=== PATIENT | female | born 1950 | race Caucasian/White ===

== ENCOUNTER → 2016-11-10 | Outpatient (CLI) | payer OTHER ==
[~2016-11-10] MED LIST: DICL75TA PO
[2016-11-10 09:17] LABS: BASO % 0 % (0-3); EOS % 2 % (0-3); HEMOGLOBIN 12.8 g/dL (12.0-15.5); LYMPH # 1.4 x10^3/uL (1.0-4.8); LYMPH % 19 % (24-48); MEAN CORPUSCULAR HEMOGLOBIN 31 pg (25-35); MEAN CORPUSCULAR HGB CONC 34 g/dL (31-37); MEAN CORPUSCULAR VOLUME 91 fL (79-100); MONO % 5 % (0-9); NEUT % 74 % (31-73); PLATELET COUNT 229 x10^3/uL (140-400); RED BLOOD COUNT 4.18 x10^6/uL (3.50-5.40); RED CELL DISTRIBUTION WIDTH 14.4 % (11.5-14.5); WHITE BLOOD COUNT 7.8 x10^3/uL (4.0-11.0)
[2016-11-10 09:28] LABS: INR 1.2 (0.8-1.1); PROTHROMBIN TIME PATIENT 14.6 SEC (11.7-14.0)
[2016-11-10 09:38] LABS: BILIRUBIN,URINE NEGATIVE (NEG); GLUCOSE,URINE NEGATIVE (NEG); NITRITE,URINE NEGATIVE (NEG); PROTEIN,URINE NEGATIVE (NEG-TRACE); UROBILINOGEN,URINE 0.2 mg/dL (0.2 mg/dL)
--- NOTE | 2016-11-10 09:46 | EKG ---
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 Electronically Signed On 11-12-2016 11:33:13 CDT by Geovani Laureano
[2016-11-10 09:48] LABS: BACTERIA,URINE FEW /HPF (0-FEW); RBC,URINE 0 /HPF (0-2); SQUAMOUS EPITHELIAL CELL,UR MANY /LPF; WBC,URINE OCC /HPF (0-4)
[2016-11-10 09:58] LABS: ALBUMIN 3.1 g/dL (3.4-5.0); CALCIUM 8.5 mg/dL (8.5-10.1); CREATININE 0.8 mg/dL (0.6-1.0); GFR 72.2; POTASSIUM 4.2 mmol/L (3.5-5.1)
--- NOTE | 2016-11-10 11:24 | RAD ---
EXAM: Chest 2 views. HISTORY: Preoperative risk factors. COMPARISON: 07/29/2012. FINDINGS: Frontal and lateral views of the chest are obtained. Bilateral interstitial infiltrates appear improved since the prior study. There is no pneumothorax or pleural effusion. The heart is not enlarged. There are atherosclerotic calcifications of the aorta. IMPRESSION: 1. Mild bilateral interstitial infiltrates suggest interstitial lung disease. These appear improved since the prior study.
== END | disposition home or self-care (01) ==
LOC: SURGPAT 08:37
PROVIDERS: ATTEND Orthopaedic Surgery
DX: Z01.818 Encounter for other preprocedural examination (principal); J44.9 Chronic obstructive pulmonary disease, unspecified
CPT/HCPCS: 36415; 71020; 80048; 81001; 82040; 85027; 85610; 85651; 85730; 87641; 93005

== ENCOUNTER 2016-11-25 11:35 | Inpatient (IN) | payer OTHER ==
[~2016-11-25] VITALS: Ht 152.4 cm; Wt 136.1 kg
[2016-12-23] MEDS ORDERED: TRAM50TA PO (13:51)
[2016-12-30] VITALS (9 sets, daily range): BP systolic 110–156; BP diastolic 53–91
[2016-12-30] MEDS ORDERED: TRANEXAMIC ACID 1,000 MG in IV NORMAL SALINE 50ML 50 ML INJ ONE ×2 (06:00→08:00)
[2016-12-30] MEDS ORDERED: MORPHINE SULFATE 5 MG, KETOROLAC TROMETHAMINE 30 MG, ROPIVacaine 0.5% PF 60 ML, EPINEPH... INT ART ONE ×5 (06:00)
[2016-12-30] MEDS: CELECOXIB 200 MG CAPSULE. PO SCH ×2 (06:49→09:00)
[2016-12-30] MEDS ORDERED: PROCHLORPERAZINE 10 MG/2 ML VIAL. IV PRN ×2 (07:00→10:30)
[2016-12-30] MEDS ORDERED: HYDROmorphone 2 MG/ML VIAL IV PRN (07:00)
[2016-12-30] MEDS ORDERED: IV RINGERS,LACTATED 1000ML 1,000 ML IV SCH (07:00)
[2016-12-30] MEDS ORDERED: LIDOCAINE 1% 1 ML SYRINGE. ID PRN (07:00)
[2016-12-30] MEDS ORDERED: HYDROcodone/APAP 7.5/325MG 1 TAB TABLET PO ONE (07:00)
[2016-12-30] MEDS ORDERED: ONDANSETRON PF 4 MG/2 ML VIAL. IV PRN (07:00)
[2016-12-30] MEDS ORDERED: fentaNYL PF VIAL 100 MCG/2 ML VIAL IV PRN ×3 (07:00→10:30)
[2016-12-30] MEDS ORDERED: LIDOCAINE 2% PF Vial for OR 5 ML VIAL. ONE (07:13)
[2016-12-30] MEDS ORDERED: DESFLURANE 61 TO 120 MINUTES IH ONE (07:13)
[2016-12-30] MEDS ORDERED: DEXAMETHASONE SOD PHOS 20 MG/5 ML VIAL. ONE (07:13)
[2016-12-30] MEDS ORDERED: PROPOFOL 20 ML IV ONE (07:13)
[2016-12-30] MEDS ORDERED: fentaNYL PF VIAL 250 MCG/5 ML VIAL ONE (07:13)
[2016-12-30] MEDS ORDERED: ONDANSETRON PF 4 MG/2 ML VIAL. ONE (07:13)
[2016-12-30] MEDS ORDERED: MIDAZOLAM HCL/PF 2 MG/2 ML VIAL. ONE (07:21)
[2016-12-30 07:35] LABS: INR 1.4 (0.8-1.1); PROTHROMBIN TIME PATIENT 16.3 SEC (11.7-14.0)
[2016-12-30] MEDS ORDERED: SUCCINYLCHOLINE 200 MG/10 ML VIAL. ONE (07:48)
[2016-12-30] MEDS ORDERED: KETOROLAC 30 MG/ML INJ FOR OR. INJ ONE (08:08)
[2016-12-30] MEDS ORDERED: ESMOLOL 100 MG/10 ML VIAL. IV ONE (08:35)
--- NOTE | 2016-12-30 08:37 | PDOC ---
GENERAL General: see dictated consult. Problems: VITAL SIGNS Vital Signs: Vital Signs Date Time Temp Pulse Resp B/P (MAP) Pulse Ox O2 Delivery O2 Flow Rate FiO2 12/30/16 06:49 22 95 Room Air 12/30/16 06:43 98.6 61 98.6 12/30/16 06:39 133/79 ALLERGIES Allergies: Allergies Coded Allergies Type Severity Reaction Last Updated Verified No Known Drug Allergies 12/30/16 No MEDS Medications: Current Medications Medications (Trade) Dose Ordered Sig/Jayson Start Time Stop Time Status Last Admin Dose Admin Acetaminophen/ Hydrocodone Bitart (Lortab 7.5/325) 2 tab 1X ONCE 12/30/16 07:00 12/30/16 07:01 DC 12/30/16 06:49 2 TAB Cefazolin Sodium/ Dextrose 50 ml @ 100 mls/hr 1X PREOP PRN 12/30/16 06:00 12/30/16 18:00 12/30/16 08:15 100 MLS/HR Celecoxib (CeleBREX) 400 mg BID 12/30/16 07:00 12/30/16 06:49 400 MG Desflurane (Suprane) 60 ml STK-MED ONCE 12/30/16 07:13 12/30/16 07:14 DC Dexamethasone Sodium Phosphate (Decadron) 20 mg STK-MED ONCE 12/30/16 07:13 12/30/16 07:14 DC Esmolol HCl (Brevibloc) 100 mg STK-MED ONCE 12/30/16 08:35 12/30/16 08:36 DC Fentanyl Citrate (Fentanyl 2ml Vial) 50 mcg PRN Q5MIN PRN 12/30/16 07:00 12/31/16 06:59 Fentanyl Citrate (Fentanyl 5ml Vial) 250 mcg STK-MED ONCE 12/30/16 07:13 12/30/16 07:14 DC Hydromorphone HCl (Dilaudid) 0.5 mg PRN Q10MIN PRN 12/30/16 07:00 12/31/16 06:59 Ketorolac Tromethamine (Toradol For Or Only) 30 mg STK-MED ONCE 12/30/16 08:08 12/30/16 08:09 DC Lidocaine HCl (Lidocaine Pf 2% Vial) 5 ml STK-MED ONCE 12/30/16 07:13 12/30/16 07:14 DC Midazolam HCl (Versed) 2 mg STK-MED ONCE 12/30/16 07:21 12/30/16 07:22 DC Morphine Sulfate 1 mg PRN Q10MIN PRN 12/30/16 07:00 12/31/16 06:59 Morphine Sulfate 5 mg/Ketorolac Tromethamine 30 mg/Ropivacaine 60 ml/Epinephrine HCl 0.5 mg/Sodium Chloride 100 ml @ 100 mls/hr 1X PERIOP ONCE 12/30/16 06:00 12/30/16 06:59 DC Ondansetron HCl (Zofran) 4 mg STK-MED ONCE 12/30/16 07:13 12/30/16 07:14 DC Prochlorperazine Edisylate (Compazine) 5 mg PACU PRN PRN 12/30/16 07:00 12/31/16 06:59 Propofol 20 ml @ As Directed STK-MED ONCE 12/30/16 07:13 12/30/16 07:14 DC Ringer's Solution 1,000 ml @ 0 mls/hr Q0M 12/30/16 07:00 12/30/16 18:59 12/30/16 06:50 0 MLS/HR Succinylcholine Chloride (Anectine) 200 mg STK-MED ONCE 12/30/16 07:48 12/30/16 07:49 DC Tranexamic Acid 1000 mg/Sodium Chloride 60 ml @ 60 mls/hr 1X PERIOP ONCE 12/30/16 08:00 12/30/16 08:59 LAB Lab: Laboratory Tests Test 12/30/16 06:30 Prothrombin Time 16.3 SEC (11.7-14.0) Prothromb Time International Ratio 1.4 (0.8-1.1) Activated Partial Thromboplast Time 28 SEC (24-38) RAFAEL CASTRO MD Dec 30, 2016 08:37
[2016-12-30] MEDS ORDERED: ACETAMINOPHEN 325 MG TABLET. PO PRN (10:30)
[2016-12-30] MEDS ORDERED: MORPHINE SULFATE 2 MG/ML DISP.SYRIN. IV PRN (10:30)
[2016-12-30] MEDS ORDERED: MORPHINE SULFATE 10 MG/ML VIAL. IV PRN (10:30)
[2016-12-30] MEDS ORDERED: traMADol 50 MG TABLET PO PRN (10:30)
[2016-12-30] MEDS ORDERED: HYDROcodone/APAP 10/325 1 TAB TABLET PO PRN (10:30)
[2016-12-30] MEDS ORDERED: oxyCODONE/APAP 5/325 1 TAB TABLET PO PRN (10:30)
[2016-12-30] MEDS ORDERED: DEXTROSE 50% 25 GM / 50ML DISP.SYRIN. IV PRN (10:30)
[2016-12-30] MEDS ORDERED: 0.9 % SODIUM CHLORIDE 10 ML DISP.SYRIN. IV PRN (10:30)
[2016-12-30] MEDS ORDERED: diphenhydrAMINE 50 MG/ML VIAL IV PRN (10:30)
[2016-12-30] MEDS ORDERED: MORPHINE SULFATE 4 MG/ML DISP.SYRIN. IV PRN (10:30)
[2016-12-30] MEDS ORDERED: CALCIUM CARBONATE 500 MG TAB.CHEW PO PRN (10:30)
[2016-12-30] MEDS ORDERED: oxyCODONE/APAP 7.5/325 1 TAB TABLET PO PRN (10:30)
--- NOTE | 2016-12-30 10:44 | PDOC4 ---
Operative Note Operative Note Date of surgery: 12/30/2016 Preoperative diagnosis: DJD right knee Postoperative diagnosis: Same Procedure: Right total knee arthroplasty Surgeon: Alo Assist: Kalli Anesthesia: Gen. endotracheal Estimated blood loss: 400 mL Complications: None Specimens: Cartilage surfaces to pathology Findings: Tricompartmental degenerative arthritis right knee Operative indications: Patient is a 66-year-old female with progressively worsening right knee pain affecting her activities of daily living unresponsive to nonoperative management. I gone over with her risks benefits postoperative course of operative treatment including possibility of infection nerve or blood vessel damage continued pain premature wear or loosening medical or other anesthetic complications among others all her questions were answered consent was obtained and she agrees to proceed with operative evaluation and treatment. Operative text: Patient was identified procedure verified patient placed in the supine position on the operating table. After adequate amounts of general endotracheal anesthesia were administered, the right lower extremity was prepped and draped in standard sterile fashion with a thigh tourniquet which was not inflated throughout the procedure. After timeout was performed patient procedure identified and verified, a midline incision was made with a medial parapatellar approach bleeding points were controlled with electrocautery and the aqua Mantis device. Patella was everted fat pad was excised intramedullary drilling was carried out and distal femoral cut was performed in a standard position. Femur was sized at a size 3. AP lateral chamfer cuts were made. Next extramedullary cutting jig was used for the tibia. A size 3 component was pinned in place in preparation for the posterior stabilized femoral component which was then trial placed. Excellent ligament balance was noted previously and with the components. Patella was prepared with the [employer] reaming device and a size 32 patella was medialized with lateral bone removed to avoid any impingement. Patellar tracking was excellent no tilt or instability observed. Tibia was drilled and broached trial components were removed thorough irrigation carried out normal saline solution bleeding points particularly in the area of the posterior capsule and geniculate arteries and incision areas as well as throughout the capsule were coagulated with the aqua Mantis device. The following components were cemented in place with [employer]hew rally high viscosity bone cement consisting of a size 3 right journey tibial baseplate a size 3 right journey 2 Oxinium femoral component. Excess cement was removed and the knee placed in extension with a trial 12 mm spacer. Patella was cemented a size 32 resurfacing round patellar component. When cement was dry trial components were removed thorough irrigation again carried out normal saline solution and a bicruciate stabilized 12 mm right-sided cross-linked polyethylene spacer was locked in place. Excellent range of motion ligament balance full extension normal stability and patellofemoral tracking were observed Hemovac drain and pain catheter were placed. Tissues were infused with the pain catheter mixture. Retinaculum was closed with #2 Ethibond suture in an interrupted fashion and a running strata fix #1 PDS suture for reinforcement. Subcutaneous closure with buried Vicryl suture skin closure with subcuticular Monocryl followed by a gael dressing. Patient was returned recovery room in stable condition having tolerated procedure well. Please note Ana morales assist was present for the prepping draping assisted in retraction and skin closure XENA CALHOUN MD Dec 30, 2016 10:44
--- NOTE | 2016-12-30 10:52 | HP ---
ADMIT DATE: 12/30/2016 CHIEF COMPLAINT: Right knee pain. HISTORY OF PRESENT ILLNESS: The patient has had long-standing right knee pain, worse over the past few years, with worse on startup and worse with increased activities of daily living, severely limiting them. She had previous corticosteroid injections by Dr. Elias that gave her no significant relief and has been very limited recently. PAST MEDICAL HISTORY: Significant for COPD, currently well controlled as well as osteoarthritis. PAST SURGICAL HISTORY: Tonsil and adenoidectomy. FAMILY HISTORY: Mother diagnosed with hypertension and is healthy, alive 88 years old. SOCIAL HISTORY: She is a former smoker, quit several years ago. Denies alcohol or drug use. MEDICATIONS: At home include tramadol. ALLERGIES: She has no known drug allergies. REVIEW OF SYSTEMS: Denies any current chest pain, shortness of breath, radiating pain, numbness, tingling or other constitutional symptoms. PHYSICAL EXAMINATION: VITAL SIGNS: Per admission sheet. HEENT: Atraumatic, normocephalic. HEART: Regular rate and rhythm. LUNGS: Clear to auscultation bilaterally. ABDOMEN: Benign. EXTREMITIES: Examination of the right knee shows a slight flexion contracture compared to full range of motion of the left knee, bilateral hips and ankles, with normal alignment motion and stability. She has an antalgic gait favoring the right side. IMAGING STUDIES: X-ray showed tricompartmental degenerative changes in the right knee. IMPRESSION: Right knee pain and degenerative osteoarthritis. TREATMENT PLAN: I had gone over with her previously in clinic risks, benefits and postoperative course of total knee arthroplasty, possibility of infection, premature wear or loosening, nerve or blood vessel damage, medical or other anesthetic complications among others. All her questions were answered. Consent was obtained and she agrees to proceed with operative evaluation and treatment, which will occur today and [facility] admission to follow. XENA CALHOUN MD DR: TREVIN/ilan JOB#: [id number] / [id number] natalie Elias Dr.
[2016-12-30] MEDS ORDERED: fentaNYL PF VIAL 100 MCG/2 ML VIAL ONE ×2 (10:53→11:20)
[2016-12-30] MEDS: fentaNYL PF VIAL 100 MCG/2 ML VIAL IV PRN ×4 (10:59→11:52)
[2016-12-30] MEDS: MORPHINE SULFATE 4 MG/ML DISP.SYRIN. IV PRN ×2 (11:17→12:27)
--- NOTE | 2016-12-30 11:28 | RAD ---
Indication postop total knee replacement. AP and lateral views of the right knee were obtained. There is a total knee replacement. No complication is seen. Air is noted in the soft tissues.
[2016-12-30] MEDS ORDERED: MORPHINE SULFATE 2 MG/ML DISP.SYRIN. ONE (11:42)
[2016-12-30] MEDS: MORPHINE SULFATE 2 MG/ML DISP.SYRIN. IV PRN ×2 (11:43→11:57)
[2016-12-30] MEDS: IV DEXTROSE 5 %-0.45 % NACL 1,000 ML IV SCH ×2 (12:28→20:25)
[2016-12-30] MEDS: HYDROcodone/APAP 7.5/325MG 1 TAB TABLET PO PRN ×2 (14:24→19:28)
[2016-12-30] MEDS ORDERED: WARFARIN 7.5 MG TABLET. PO ONE (16:00)
[2016-12-30] MEDS: FERROUS SULFATE 325 MG TABLET. PO SCH (17:07)
[2016-12-30] MEDS ORDERED: CELECOXIB 200 MG CAPSULE. PO SCH (21:00)
--- NOTE | 2016-12-31 01:33 | ACF ---
Admission Forms Criteria [facility]NAGEMENT [facility] Clinical Indications for Admission to Inpatient Care (Place 'X' for any and all applicable criteria): Hospital admission is needed for appropriate care of the patient because of 1 or more of the following are present (1)(2)(3)(4)(5): [ ]I. Severe pain requiring acute inpatient management as indicated by 1 or more of the following (2)(5)(10): [ ]a) Continuous or frequent (eg, every 2 to 4 hours) parenteral analgesics required [A] [ ]b) Necessity (ie, alternative approaches not effective) for analgesic regimen that can only be performed or initiated in inpatient setting [ X]II. Pain causing debilitation to the point of inability to function or be supported at any other level of care [ ]III. Severe side effects from pain medications as indicated by ANY ONE of the following (12)(13)(14)(15): [ ]a) Uncontrollable seizures [ ]b) Cardiac arrhythmias of immediate concern [ ]c) Dehydration that is severe or persistent [ ]d) Vomiting that is severe or persistent [ ]e) Altered mental status that is severe or persistent [ ]f) Obstipation with inadequate GI function to maintain nutrition The original [employer] content created by [employer] has been revised. The portions of the content which have been revised are identified through the use of italic text or in bold, and [facility] has neither reviewed nor approved the modified material. All other unmodified content is copyright [employer]. Please see references footnoted in the original [employer] edition 2016 Admission Criteria Met?: Yes MARLY ORBIN Dec 31, 2016 01:33
[2016-12-31] MEDS: HYDROcodone/APAP 7.5/325MG 1 TAB TABLET PO PRN ×4 (01:52→18:45)
[2016-12-31 01:59] VITALS: BP 122/52
[2016-12-31 05:51] VITALS: BP 141/74
[2016-12-31] MEDS ORDERED: MAGNESIUM HYDROXIDE 2,400 MG/30 ML ORAL.SUSP. PO PRN (06:00)
[2016-12-31 06:37] LABS: INR 1.6 (0.8-1.1); PROTHROMBIN TIME PATIENT 18.3 SEC (11.7-14.0)
[2016-12-31] MEDS: SENNOSIDES/DOCUSATE 8.6/50MG TABLET. PO SCH (08:34)
[2016-12-31] MEDS: CELECOXIB 200 MG CAPSULE. PO SCH (08:34)
[2016-12-31] MEDS: FERROUS SULFATE 325 MG TABLET. PO SCH ×2 (08:34→16:46)
[2016-12-31] MEDS: MULTIVITAMIN with MINERAL TABLET. PO SCH (08:35)
--- NOTE | 2016-12-31 08:38 | PDOC ---
GENERAL General: vss and afebrile. O2 at 3L/NC. awake and alert. no respiratory difficulties and lungs clear with diminished breath sounds. INR 1.6. encouraged therapy. pain control adequate. Problems: VITAL SIGNS Vital Signs: Vital Signs Date Time Temp Pulse Resp B/P (MAP) Pulse Ox O2 Delivery O2 Flow Rate FiO2 12/31/16 07:34 Nasal Cannula 3.0 12/31/16 05:51 99.0 77 141/74 (96) 96 99.0 12/31/16 02:53 15 ALLERGIES Allergies: Allergies Coded Allergies Type Severity Reaction Last Updated Verified No Known Drug Allergies 12/30/16 No MEDS Medications: Current Medications Medications (Trade) Dose Ordered Sig/Jayson Start Time Stop Time Status Last Admin Dose Admin Acetaminophen (Tylenol) 650 mg PRN Q4HRS PRN 12/30/16 10:30 Acetaminophen/ Hydrocodone Bitart (Lortab 10/325) 1 tab PRN Q3HRS PRN 12/30/16 10:30 Acetaminophen/ Hydrocodone Bitart (Lortab 7.5/325) 1 tab PRN Q3HRS PRN 12/30/16 10:30 12/31/16 08:35 1 TAB Bisacodyl (Dulcolax Supp) 10 mg 1X PRN PRN 12/31/16 16:00 01/01/17 15:59 Calcium Carbonate/ Glycine (Tums) 500 mg PRN QID PRN 12/30/16 10:30 Cefazolin Sodium 3 gm/Sodium Chloride 100 ml @ 200 mls/hr Q6H 12/30/16 14:00 12/31/16 02:29 DC 12/31/16 01:52 200 MLS/HR Cefazolin Sodium/ Dextrose 50 ml @ 100 mls/hr 1X PREOP PRN 12/30/16 06:00 12/30/16 18:00 DC 12/30/16 08:15 100 MLS/HR Celecoxib (CeleBREX) 200 mg DAILY 12/31/16 09:00 12/31/16 08:34 200 MG Desflurane (Suprane) 60 ml STK-MED ONCE 12/30/16 07:13 12/30/16 07:14 DC Dexamethasone Sodium Phosphate (Decadron) 20 mg STK-MED ONCE 12/30/16 07:13 12/30/16 07:14 DC Dextrose (Dextrose 50%-Water Syringe) 12.5 gm PRN Q15MIN PRN 12/30/16 10:30 Dextrose/Sodium Chloride 1,000 ml @ 100 mls/hr Q10H 12/30/16 10:25 12/31/16 05:54 DC 12/30/16 12:28 100 MLS/HR Diphenhydramine HCl (Benadryl) 25 mg PRN Q6HRS PRN 12/30/16 10:30 Esmolol HCl (Brevibloc) 100 mg STK-MED ONCE 12/30/16 08:35 12/30/16 08:36 DC Fentanyl Citrate (Fentanyl 2ml Vial) 100 mcg STK-MED ONCE 12/30/16 11:20 12/30/16 11:21 DC Fentanyl Citrate (Fentanyl 5ml Vial) 250 mcg STK-MED ONCE 12/30/16 07:13 12/30/16 07:14 DC Ferrous Sulfate (Feosol) 325 mg BIDWMEALS 12/30/16 17:00 12/31/16 08:34 325 MG Hydromorphone HCl (Dilaudid) 0.5 mg PRN Q10MIN PRN 12/30/16 07:00 12/31/16 06:59 DC Ketorolac Tromethamine (Toradol For Or Only) 30 mg STK-MED ONCE 12/30/16 08:08 12/30/16 08:09 DC Ketorolac Tromethamine 30 mg/Bupivacaine HCl 20 ml/ Epinephrine HCl 0.5 mg/ Miscellaneous 43 ml @ 258 mls/hr Q12H 12/30/16 18:00 12/31/16 06:09 DC 12/31/16 05:59 258 MLS/HR Lidocaine HCl (Lidocaine Pf 2% Vial) 5 ml STK-MED ONCE 12/30/16 07:13 12/30/16 07:14 DC Magnesium Hydroxide (Milk Of Magnesia) 2,400 mg 1X PRN PRN 12/31/16 06:00 01/01/17 05:59 Midazolam HCl (Versed) 2 mg STK-MED ONCE 12/30/16 07:21 12/30/16 07:22 DC Morphine Sulfate 2 mg STK-MED ONCE 12/30/16 11:42 12/30/16 11:43 DC Morphine Sulfate 5 mg/Ketorolac Tromethamine 30 mg/Ropivacaine 60 ml/Epinephrine HCl 0.5 mg/Sodium Chloride 100 ml @ 100 mls/hr 1X PERIOP ONCE 12/30/16 06:00 12/30/16 06:59 DC 12/30/16 08:20 Multivitamins (Thera M Plus) 1 tab DAILY 12/31/16 09:00 12/31/16 08:35 1 TAB Ondansetron HCl (Zofran) 4 mg STK-MED ONCE 12/30/16 07:13 12/30/16 07:14 DC Oxycodone/ Acetaminophen (Percocet 5/325) 1 tab PRN Q3HRS PRN 12/30/16 10:30 Oxycodone/ Acetaminophen (Percocet 7.5/ 325) 1 tab PRN Q3HRS PRN 12/30/16 10:30 Prochlorperazine Edisylate (Compazine) 10 mg PRN Q4HRS PRN 12/30/16 10:30 Propofol 20 ml @ As Directed STK-MED ONCE 12/30/16 07:13 12/30/16 07:14 DC Ringer's Solution 1,000 ml @ 0 mls/hr Q0M 12/30/16 07:00 12/30/16 18:59 DC 12/30/16 06:50 0 MLS/HR Senna/Docusate Sodium (Senna Plus) 1 tab DAILY 12/31/16 09:00 12/31/16 08:34 1 TAB Sodium Chloride (Normal Saline Flush) 10 ml QSHIFT PRN 12/30/16 10:30 Succinylcholine Chloride (Anectine) 200 mg STK-MED ONCE 12/30/16 07:48 12/30/16 07:49 DC Tramadol HCl (Ultram) 100 mg PRN Q3HRS PRN 12/30/16 10:30 Tranexamic Acid 1000 mg/Sodium Chloride 60 ml @ 60 mls/hr 1X PERIOP ONCE 12/30/16 08:00 12/30/16 08:59 DC 12/30/16 08:00 60 MLS/HR Warfarin Sodium (Coumadin Per Pharmacy) 1 each PRN DAILY PRN 12/30/16 10:30 Warfarin Sodium (Coumadin) 7.5 mg 1X ONCE 12/30/16 16:00 12/30/16 16:01 DC 12/30/16 17:07 7.5 MG Zolpidem Tartrate (Ambien) 5 mg PRN QHS PRN 12/30/16 10:30 LAB Lab: Laboratory Tests Test 12/31/16 05:48 Prothrombin Time 18.3 SEC (11.7-14.0) Prothromb Time International Ratio 1.6 (0.8-1.1) RAFAEL CASTRO MD Dec 31, 2016 08:38
--- NOTE | 2016-12-31 09:34 | CONS ---
DATE OF CONSULTATION: 12/30/2016 CHIEF COMPLAINT AND HISTORY OF PRESENT ILLNESS: This is a 66-year-old white female, who is well known to me in followup in the office for many years. The patient has underlying relatively severe COPD, which has been somewhat improved in symptomatology with her quitting smoking. She has had long-standing right knee pain to the point where it is markedly decreasing her ability to do anything and is admitted at this point in time for total knee replacement on the right due to end-stage osteoarthritis by Dr. Prajapati. PAST MEDICAL HISTORY: Primarily remarkable for the COPD as well as the osteoarthritis. PAST SURGICAL HISTORY: Remarkable for T and A. FAMILY HISTORY: Mom has hypertension as well as has had a CVA. Dad of atherosclerotic heart disease. SOCIAL HISTORY: Former smoker, quitting several years ago. Does not abuse alcohol or drugs. Single, is , lives at home with her mother as well as her son. MEDICATIONS: Brought with the patient, listed on the computer and have been addressed. ALLERGIES: She has no known drug allergies. REVIEW OF SYSTEMS: Remarkable for the usual knee pain, which she was had. Her breathing, she states has been well. Leading up to this, has not had any problems recently. PHYSICAL EXAMINATION: GENERAL: She is a well-developed, well-nourished white female in no acute distress. VITAL SIGNS: Stable. She is afebrile. HEAD, EYES, EARS, NOSE AND THROAT: Remarkable for glasses. NECK: Supple, without any thyromegaly. CHEST: Reveals decreased breath sounds, but clear. HEART: Regular rate and rhythm without S3, S4, or murmur. ABDOMEN: Soft, nontender, without hepatosplenomegaly or masses. EXTREMITIES: Reveal decreased range of motion as well as osteoarthritic deformity of the right knee. IMPRESSION: 1. End-stage osteoarthritis of the knee, for surgery. 2. Severe chronic obstructive pulmonary disease. PLAN: The patient has been admitted. She is cleared for surgery medically, we will follow her postoperatively. RAFAEL CASTRO MD DR: PADDY/ilan JOB#: [id number] / [id number]
[2016-12-31 10:16] LABS: HEMATOCRIT 33.7 % (36.0-47.0)
[2016-12-31] MEDS: ALBUTEROL SULFATE 2.5 MG/3 ML NEBU. NEB SCH ×3 (12:00→19:19)
[2016-12-31] MEDS ORDERED: WARFARIN 3 MG TABLET. PO ONE (16:00)
[2016-12-31] MEDS ORDERED: BISACODYL 10 MG SUPP.RECT. PR PRN (16:00)
--- NOTE | 2016-12-31 16:01 | PDOC ---
PROGRESS NOTES Subjective Subjective Problems overnight: Overall doing well pain reasonably controlled no current complaints, notes that she lives at home with her son and her mother who can give her assistance and a ride to outpatient physical therapy Objective Vital Signs Vital Signs Date Time Temp Pulse Resp B/P (MAP) Pulse Ox O2 Delivery O2 Flow Rate FiO2 12/31/16 14:47 Room Air 12/31/16 11:33 94 12/31/16 07:34 3.0 12/31/16 05:51 99.0 77 141/74 (96) 99.0 12/31/16 02:53 15 Physical Exam On exam dressing Hemovac drain pain catheter intact good early range of motion stability tracking intact distal neurovascular status Labs Laboratory Tests Test 12/30/16 06:30 12/31/16 05:48 Prothrombin Time 16.3 SEC (11.7-14.0) 18.3 SEC (11.7-14.0) Prothromb Time International Ratio 1.4 (0.8-1.1) 1.6 (0.8-1.1) Activated Partial Thromboplast Time 28 SEC (24-38) Hemoglobin 11.0 g/dL (12.0-15.5) Hematocrit 33.7 % (36.0-47.0) Mean Corpuscular Hemoglobin Concent 33 g/dL (31-37) Laboratory Tests Test 12/31/16 05:48 Hemoglobin 11.0 g/dL (12.0-15.5) Hematocrit 33.7 % (36.0-47.0) Mean Corpuscular Hemoglobin Concent 33 g/dL (31-37) Prothrombin Time 18.3 SEC (11.7-14.0) Prothromb Time International Ratio 1.6 (0.8-1.1) Imaging Postop x-rays show excellent placement total knee arthroplasty Assessment Assessment POD# [1], S/P [right total knee arthroplasty] Problems: Plan Plan of Care Mobilize with physical therapy Coumadin anticoagulation Plan on home with outpatient physical therapy on discharge XENA CALHOUN MD Dec 31, 2016 16:01
[2016-12-31 17:11] VITALS: BP 128/69
[2017-01-01] MEDS: HYDROcodone/APAP 7.5/325MG 1 TAB TABLET PO PRN ×2 (00:02→18:29)
[2017-01-01] MEDS: ZOLPIDEM 5 MG TABLET. PO PRN ×2 (00:02→01:00)
[2017-01-01 06:30] VITALS: BP 140/82
[2017-01-01 07:09] LABS: HEMATOCRIT 30.2 % (36.0-47.0); HEMOGLOBIN 9.6 g/dL (12.0-15.5)
[2017-01-01 07:44] LABS: INR 1.8 (0.8-1.1); PROTHROMBIN TIME PATIENT 20.1 SEC (11.7-14.0)
[2017-01-01] MEDS: MULTIVITAMIN with MINERAL TABLET. PO SCH (08:12)
[2017-01-01] MEDS: FERROUS SULFATE 325 MG TABLET. PO SCH ×2 (08:12→17:00)
[2017-01-01] MEDS: SENNOSIDES/DOCUSATE 8.6/50MG TABLET. PO SCH (08:13)
[2017-01-01] MEDS: traMADol 50 MG TABLET PO PRN ×3 (08:13→16:00)
[2017-01-01] MEDS: CELECOXIB 200 MG CAPSULE. PO SCH (08:13)
[2017-01-01] MEDS: ALBUTEROL SULFATE 2.5 MG/3 ML NEBU. NEB SCH ×4 (08:28→19:50)
--- NOTE | 2017-01-01 12:17 | PDOC ---
ORTHO PROGRESS NOTES Subjective Brigida is doing okay. Pain is moderately controlled. She is participating in therapy. She anticipates going home tomorrow. Denies chest pain or shortness of breath. Denies numbness or tingling Post-op Day: 2 (Right total knee arthroplasty) Vitals Vital Signs Date Time Temp Pulse Resp B/P (MAP) Pulse Ox O2 Delivery O2 Flow Rate FiO2 01/01/17 12:04 Room Air 01/01/17 11:08 97 01/01/17 06:30 98.9 76 18 140/82 (101) 98.9 01/01/17 01:00 3.0 Labs Laboratory Tests Test 12/31/16 05:48 01/01/17 06:40 Hemoglobin 11.0 g/dL (12.0-15.5) 9.6 g/dL (12.0-15.5) Hematocrit 33.7 % (36.0-47.0) 30.2 % (36.0-47.0) Mean Corpuscular Hemoglobin Concent 33 g/dL (31-37) 32 g/dL (31-37) Prothrombin Time 18.3 SEC (11.7-14.0) 20.1 SEC (11.7-14.0) Prothromb Time International Ratio 1.6 (0.8-1.1) 1.8 (0.8-1.1) Laboratory Tests Test 01/01/17 06:40 Hemoglobin 9.6 g/dL (12.0-15.5) Hematocrit 30.2 % (36.0-47.0) Mean Corpuscular Hemoglobin Concent 32 g/dL (31-37) Prothrombin Time 20.1 SEC (11.7-14.0) Prothromb Time International Ratio 1.8 (0.8-1.1) Notes Patient is awake and alert sitting up in bed. Breathing unlabored, no acute distress. Incision is covered with dressing, intact. No signs or symptoms of infection. Neurovascular intact right lower extremity Problems: (1) Degenerative arthritis of right knee Assessment and Plan Continue PT OT, weightbearing as tolerated Anticoagulation per pharmacy Pain controlled Anticipate discharge tomorrow Problem Qualifiers (1) Degenerative arthritis of right knee: Osteoarthritis type: primary Qualified Codes: M17.11 - Unilateral primary osteoarthritis, right knee SCOT URIAS DIETARY SERVICES DIRECTOR Jan 01, 2017 12:17
--- NOTE | 2017-01-01 15:35 | PATHOLOGY ---
PATHOLOGY REPORT * * * * * * * * FINAL DIAGNOSIS: Bone and soft tissue, "right knee tissue," joint resection: - Degeneration of cartilage with eburnation of articular surfaces consistent with osteoarthritis. (SHA:; 01/01/2017) REPORT ELECTRONICALLY SIGNED BY: Milton Clemons M.D. DATE/TIME: 01/01/2017 15:35 * * * * * * * * GROSS PATHOLOGY: Received in formalin labeled "Apolinar Delatorre, right knee tissue," are multiple segments of bone, including tibial plateau, measuring 15.3 x 10.8 x 3.2 cm in aggregate dimensions admixed with soft tissue; meniscus is present. The specimen shows focal eburnation of the articular surfaces. Chief Console Operator sections of bone and soft tissue are submitted in cassette A1, following decalcification. ([facility]; 12/31/2016) INITIAL CPT CODE(S): A; 58843, 96126 Professional services performed [place] [facility] [place] [address] Technical services performed by [facility] at [address] [place] [address]. SPECIMEN(S) RECEIVED: A.Right knee tissue CLINICAL HISTORY: Right knee OA PATIENT: APOLINAR DELATORRE /AGE: 4 1950 (Age: 66) PATIENT #: [id number] ALT CASE #: SPECIMEN COLLECTION DATE: 12/30/2016 SPECIMEN RECEIVED DATE: 12/30/2016 [facility] - [address] [place] [address] - PHONE: [phone] * * * END OF REPORT * * *
[2017-01-01] MEDS ORDERED: WARFARIN 3 MG TABLET. PO ONE (16:00)
[2017-01-01 17:44] VITALS: BP 120/65
--- NOTE | 2017-01-01 21:00 | PDOC ---
GENERAL General: vss and afebrile. awake and alert. breathing ok. chest decreased breath sounds and clear. heart regular. extremity nv ok. Hb 9.6 and INR 1.8. encouraged therapy. Problems: VITAL SIGNS Vital Signs: Vital Signs Date Time Temp Pulse Resp B/P (MAP) Pulse Ox O2 Delivery O2 Flow Rate FiO2 01/01/17 20:04 Room Air 3.0 01/01/17 19:50 93 01/01/17 19:27 18 01/01/17 17:44 99.7 72 120/65 (83) 99.7 I & O I & O Intake and Output 01/02/17 07:00 Intake Total 990 ml Balance 990 ml Intake Oral 990 ml # Voids 3 # Bowel Movements 1 ALLERGIES Allergies: Allergies Coded Allergies Type Severity Reaction Last Updated Verified No Known Drug Allergies 12/30/16 No MEDS Medications: Current Medications Medications (Trade) Dose Ordered Sig/Jayson Start Time Stop Time Status Last Admin Dose Admin Acetaminophen (Tylenol) 650 mg PRN Q4HRS PRN 12/30/16 10:30 Acetaminophen/ Hydrocodone Bitart (Lortab 10/325) 1 tab PRN Q3HRS PRN 12/30/16 10:30 Acetaminophen/ Hydrocodone Bitart (Lortab 7.5/325) 1 tab PRN Q3HRS PRN 12/30/16 10:30 01/01/17 18:29 1 TAB Albuterol Sulfate (Ventolin Neb Soln) 2.5 mg RTQID 12/31/16 12:00 01/01/17 19:50 2.5 MG Bisacodyl (Dulcolax Supp) 10 mg 1X PRN PRN 12/31/16 16:00 01/01/17 15:59 DC Calcium Carbonate/ Glycine (Tums) 500 mg PRN QID PRN 12/30/16 10:30 Cefazolin Sodium 3 gm/Sodium Chloride 100 ml @ 200 mls/hr Q6H 12/30/16 14:00 12/31/16 02:29 DC 12/31/16 01:52 200 MLS/HR Cefazolin Sodium/ Dextrose 50 ml @ 100 mls/hr 1X PREOP PRN 12/30/16 06:00 12/30/16 18:00 DC 12/30/16 08:15 100 MLS/HR Celecoxib (CeleBREX) 200 mg DAILY 12/31/16 09:00 01/01/17 08:13 200 MG Desflurane (Suprane) 60 ml STK-MED ONCE 12/30/16 07:13 12/30/16 07:14 DC Dexamethasone Sodium Phosphate (Decadron) 20 mg STK-MED ONCE 12/30/16 07:13 12/30/16 07:14 DC Dextrose (Dextrose 50%-Water Syringe) 12.5 gm PRN Q15MIN PRN 12/30/16 10:30 Dextrose/Sodium Chloride 1,000 ml @ 100 mls/hr Q10H 12/30/16 10:25 12/31/16 05:54 DC 12/30/16 12:28 100 MLS/HR Diphenhydramine HCl (Benadryl) 25 mg PRN Q6HRS PRN 12/30/16 10:30 Esmolol HCl (Brevibloc) 100 mg STK-MED ONCE 12/30/16 08:35 12/30/16 08:36 DC Fentanyl Citrate (Fentanyl 2ml Vial) 100 mcg STK-MED ONCE 12/30/16 11:20 12/30/16 11:21 DC Fentanyl Citrate (Fentanyl 5ml Vial) 250 mcg STK-MED ONCE 12/30/16 07:13 12/30/16 07:14 DC Ferrous Sulfate (Feosol) 325 mg BIDWMEALS 12/30/16 17:00 01/01/17 17:00 325 MG Hydromorphone HCl (Dilaudid) 0.5 mg PRN Q10MIN PRN 12/30/16 07:00 12/31/16 06:59 DC Ketorolac Tromethamine (Toradol For Or Only) 30 mg STK-MED ONCE 12/30/16 08:08 12/30/16 08:09 DC Ketorolac Tromethamine 30 mg/Bupivacaine HCl 20 ml/ Epinephrine HCl 0.5 mg/ Miscellaneous 43 ml @ 258 mls/hr Q12H 12/30/16 18:00 12/31/16 06:09 DC 12/31/16 05:59 258 MLS/HR Lidocaine HCl (Lidocaine Pf 2% Vial) 5 ml STK-MED ONCE 12/30/16 07:13 12/30/16 07:14 DC Magnesium Hydroxide (Milk Of Magnesia) 2,400 mg 1X PRN PRN 12/31/16 06:00 01/01/17 05:59 DC Midazolam HCl (Versed) 2 mg STK-MED ONCE 12/30/16 07:21 12/30/16 07:22 DC Morphine Sulfate 2 mg STK-MED ONCE 12/30/16 11:42 12/30/16 11:43 DC Morphine Sulfate 5 mg/Ketorolac Tromethamine 30 mg/Ropivacaine 60 ml/Epinephrine HCl 0.5 mg/Sodium Chloride 100 ml @ 100 mls/hr 1X PERIOP ONCE 12/30/16 06:00 12/30/16 06:59 DC 12/30/16 08:20 Multivitamins (Thera M Plus) 1 tab DAILY 12/31/16 09:00 01/01/17 08:12 1 TAB Ondansetron HCl (Zofran) 4 mg STK-MED ONCE 12/30/16 07:13 12/30/16 07:14 DC Oxycodone/ Acetaminophen (Percocet 5/325) 1 tab PRN Q3HRS PRN 12/30/16 10:30 Oxycodone/ Acetaminophen (Percocet 7.5/ 325) 1 tab PRN Q3HRS PRN 12/30/16 10:30 Prochlorperazine Edisylate (Compazine) 10 mg PRN Q4HRS PRN 12/30/16 10:30 Propofol 20 ml @ As Directed STK-MED ONCE 12/30/16 07:13 12/30/16 07:14 DC Ringer's Solution 1,000 ml @ 0 mls/hr Q0M 12/30/16 07:00 12/30/16 18:59 DC 12/30/16 06:50 0 MLS/HR Senna/Docusate Sodium (Senna Plus) 1 tab DAILY 12/31/16 09:00 01/01/17 08:13 1 TAB Sodium Chloride (Normal Saline Flush) 10 ml QSHIFT PRN 12/30/16 10:30 Succinylcholine Chloride (Anectine) 200 mg STK-MED ONCE 12/30/16 07:48 12/30/16 07:49 DC Tramadol HCl (Ultram) 100 mg PRN Q3HRS PRN 12/30/16 10:30 Tranexamic Acid 1000 mg/Sodium Chloride 60 ml @ 60 mls/hr 1X PERIOP ONCE 12/30/16 08:00 12/30/16 08:59 DC 12/30/16 08:00 60 MLS/HR Warfarin Sodium (Coumadin Per Pharmacy) 1 each PRN DAILY PRN 12/30/16 10:30 01/01/17 12:47 1 EACH Warfarin Sodium (Coumadin) 3 mg 1X WARF ONCE 01/01/17 16:00 01/01/17 16:01 DC 01/01/17 16:03 3 MG Zolpidem Tartrate (Ambien) 5 mg PRN QHS PRN 12/30/16 10:30 01/01/17 01:00 5 MG LAB Lab: Laboratory Tests Test 01/01/17 06:40 Hemoglobin 9.6 g/dL (12.0-15.5) Hematocrit 30.2 % (36.0-47.0) Mean Corpuscular Hemoglobin Concent 32 g/dL (31-37) Prothrombin Time 20.1 SEC (11.7-14.0) Prothromb Time International Ratio 1.8 (0.8-1.1) RAFAEL CASTRO MD Jan 01, 2017 21:00
[2017-01-02 06:00] VITALS: BP 123/54
[2017-01-02] MEDS: HYDROcodone/APAP 7.5/325MG 1 TAB TABLET PO PRN ×3 (06:29→13:00)
[2017-01-02 06:50] LABS: HEMATOCRIT 28.2 % (36.0-47.0); HEMOGLOBIN 9.3 g/dL (12.0-15.5)
[2017-01-02 07:21] LABS: INR 1.8 (0.8-1.1); PROTHROMBIN TIME PATIENT 19.4 SEC (11.7-14.0)
[2017-01-02] MEDS: ALBUTEROL SULFATE 2.5 MG/3 ML NEBU. NEB SCH ×2 (08:43→12:21)
[2017-01-02] MEDS: SENNOSIDES/DOCUSATE 8.6/50MG TABLET. PO SCH (09:00)
[2017-01-02] MEDS: CELECOXIB 200 MG CAPSULE. PO SCH (09:30)
[2017-01-02] MEDS: MULTIVITAMIN with MINERAL TABLET. PO SCH (09:30)
[2017-01-02] MEDS: FERROUS SULFATE 325 MG TABLET. PO SCH (09:30)
[2017-01-02] MEDS ORDERED: FERR-26 PO (10:25)
[2017-01-02] MEDS ORDERED: HYDR-2762 PO (10:26)
[2017-01-02] MEDS ORDERED: WARF3TAB54 PO (10:28)
[2017-01-02] MEDS ORDERED: WARFARIN 3 MG TABLET. PO ONE (13:00)
== END 2017-01-02 14:50 | disposition home or self-care (01) | DRG 470 ==
LOC: OPSVCIP 12-30 05:54 → 4 SOUTHEST 12-30 12:10
PROVIDERS: ADMIT Orthopaedic Surgery; ATTEND Orthopaedic Surgery
PROC: 0SRC0J9 Replacement of Right Knee Joint with Synthetic Substitute, Cemented, Open Approach (ICD-10-PCS; principal; 2016-12-30 07:30)
DX: M17.11 Unilateral primary osteoarthritis, right knee (principal); J44.9 Chronic obstructive pulmonary disease, unspecified; Z82.3 Family history of stroke; Z82.49 Family history of ischemic heart disease and other diseases of the circulatory system; Z87.891 Personal history of nicotine dependence
CPT/HCPCS: 36415; 73560; 85014; 85018; 85610; 85730; 86850; 86900; 86901; 88305; 88311; 94250; 94640; 94760; J0171; J0330; J0690; J0780; J1100; J1885; J2250; J2270; J2405; J2704; J2795; J3010; J3490; J7030; J7120; J7613; 97116; 97150; 97530; 97535; C1769; J2001

== ENCOUNTER → 2016-12-23 | Outpatient (CLI) | payer OTHER ==
[~2016-12-23] MED LIST changes: +TRAM50TA PO
[2016-12-23 14:46] LABS: BASO % 0 % (0-3); BILIRUBIN,URINE NEGATIVE (NEG); EOS % 1 % (0-3); GLUCOSE,URINE NEGATIVE (NEG); HEMATOCRIT 41.2 % (36.0-47.0); HEMOGLOBIN 13.4 g/dL (12.0-15.5); LYMPH # 1.3 x10^3/uL (1.0-4.8); LYMPH % 15 % (24-48); MEAN CORPUSCULAR HEMOGLOBIN 30 pg (25-35); MEAN CORPUSCULAR HGB CONC 32 g/dL (31-37); MEAN CORPUSCULAR VOLUME 93 fL (79-100); MONO % 7 % (0-9); NEUT % 76 % (31-73); NITRITE,URINE NEGATIVE (NEG); PLATELET COUNT 231 x10^3/uL (140-400); PROTEIN,URINE NEGATIVE (NEG-TRACE); RED BLOOD COUNT 4.45 x10^6/uL (3.50-5.40); RED CELL DISTRIBUTION WIDTH 13.6 % (11.5-14.5); UROBILINOGEN,URINE 0.2 mg/dL (0.2 mg/dL); WHITE BLOOD COUNT 8.4 x10^3/uL (4.0-11.0)
[2016-12-23 14:55] LABS: INR 1.2 (0.8-1.1); PROTHROMBIN TIME PATIENT 14.4 SEC (11.7-14.0)
[2016-12-23 15:00] LABS: RBC,URINE 0 /HPF (0-2)
[2016-12-23 15:01] LABS: BACTERIA,URINE FEW /HPF (0-FEW); SQUAMOUS EPITHELIAL CELL,UR MANY /LPF; WBC,URINE OCC /HPF (0-4)
[2016-12-23 15:04] LABS: ALBUMIN 3.3 g/dL (3.4-5.0); CALCIUM 8.7 mg/dL (8.5-10.1); CREATININE 0.8 mg/dL (0.6-1.0); GFR 72.2; POTASSIUM 4.5 mmol/L (3.5-5.1)
== END | disposition home or self-care (01) ==
LOC: SURGPAT 13:24
PROVIDERS: ATTEND Orthopaedic Surgery
DX: M17.11 Unilateral primary osteoarthritis, right knee (principal); J44.9 Chronic obstructive pulmonary disease, unspecified
CPT/HCPCS: 36415; 80048; 81001; 82040; 85025; 85610; 85651; 85730; 87086; 87641

== ENCOUNTER 2017-01-28 13:53 | Inpatient (IN) | payer OTHER ==
[2017-01-28] VITALS (8 sets, daily range): BP systolic 88–133; BP diastolic 47–69
[~2017-01-28] VITALS: Ht 152.4 cm; Wt 139.3 kg
[~2017-01-28 13:53] MED LIST changes: +FERR-26 PO; +HYDR-2762 PO; +WARF3TAB54 PO
[2017-01-28] MEDS ORDERED: IV RINGERS,LACTATED 1000ML 1,000 ML IV ONE (14:45)
[2017-01-28] MEDS ORDERED: LIDOCAINE 2% PF Vial for OR 5 ML VIAL. ONE (16:08)
[2017-01-28] MEDS ORDERED: PROPOFOL 20 ML IV ONE (16:08)
[2017-01-28] MEDS ORDERED: DEXAMETHASONE SOD PHOS 20 MG/5 ML VIAL. ONE (16:25)
[2017-01-28] MEDS ORDERED: SEVOFLURANE 31 TO 60 MINUTES. IH ONE (16:25)
[2017-01-28] MEDS ORDERED: ONDANSETRON PF 4 MG/2 ML VIAL. ONE (16:25)
[2017-01-28] MEDS ORDERED: MORPHINE SULFATE 10 MG/ML VIAL. ONE (17:06)
[2017-01-28] MEDS ORDERED: IV RINGERS,LACTATED 1000ML 1,000 ML IV SCH (17:23)
[2017-01-28] MEDS ORDERED: MORPHINE SULFATE 4 MG/ML DISP.SYRIN. IV PRN ×4 (17:30→18:38)
[2017-01-28] MEDS ORDERED: LIDOCAINE 1% PF 2 ML VIAL. ID PRN (17:30)
[2017-01-28] MEDS ORDERED: PROCHLORPERAZINE 10 MG/2 ML VIAL. IV PRN ×2 (17:30→18:15)
[2017-01-28] MEDS ORDERED: fentaNYL PF VIAL 100 MCG/2 ML VIAL IV PRN ×4 (17:30→18:15)
[2017-01-28] MEDS ORDERED: ONDANSETRON PF 4 MG/2 ML VIAL. IV PRN (17:30)
[2017-01-28] MEDS ORDERED: fentaNYL PF VIAL 100 MCG/2 ML VIAL ONE (17:47)
[2017-01-28] MEDS: HYDROmorphone 2 MG/ML VIAL IV PRN ×2 (18:05→18:30)
[2017-01-28] MEDS ORDERED: DEXTROSE 50% 25 GM / 50ML DISP.SYRIN. IV PRN (18:15)
[2017-01-28] MEDS ORDERED: MORPHINE SULFATE 10 MG/ML VIAL. IV PRN (18:15)
[2017-01-28] MEDS ORDERED: CALCIUM CARBONATE 500 MG TAB.CHEW PO PRN (18:15)
[2017-01-28] MEDS ORDERED: diphenhydrAMINE 50 MG/ML VIAL IV PRN (18:15)
[2017-01-28] MEDS ORDERED: ACETAMINOPHEN 325 MG TABLET. PO PRN (18:15)
[2017-01-28] MEDS ORDERED: MORPHINE SULFATE 2 MG/ML DISP.SYRIN. IV PRN (18:15)
[2017-01-28] MEDS ORDERED: 0.9 % SODIUM CHLORIDE 10 ML DISP.SYRIN. IV PRN (18:15)
[2017-01-28] MEDS ORDERED: oxyCODONE/APAP 5/325 1 TAB TABLET PO PRN (18:15)
[2017-01-28] MEDS ORDERED: HYDROcodone/APAP 7.5/325MG 1 TAB TABLET PO PRN (18:15)
[2017-01-28] MEDS ORDERED: traMADol 50 MG TABLET PO PRN ×2 (18:15)
[2017-01-28] MEDS ORDERED: ZOLPIDEM 5 MG TABLET. PO PRN (18:15)
--- NOTE | 2017-01-28 18:16 | PDOC4 ---
Operative Note Operative Note Date of surgery: 01/28/2017 Preoperative diagnosis: Wound drainage status post fall Postoperative diagnosis: Traumatic wound dehiscence right total knee status post fall Procedure: Exploration with irrigation debridement right knee and closure Surgeon: Alo Anesthesia: Gen. endotracheal Estimated blood loss: 75 mL Complications: None Specimens: Intraoperative cultures sent Operative indications: Patient is a 66-year-old female 1 month out from total knee arthroplasty that had a fall 2 days ago and began draining from the superior aspect of her incision which lasted until today she presented for physical therapy and was sent to our office and I talked to her about the necessity with a total knee arthroplasty of exploration of this area as she had no previous problem prior to the fall with any type of redness drainage or other issue. She also was apparently febrile last night and preoperatively as well. All her questions were answered consent was obtained and she agrees to proceed with surgical evaluation and treatment. Operative text: Patient was identified procedure verified patient placed in the supine position on the operative table. After adequate amounts of general endotracheal anesthesia were administered the right lower extremity was prepped and draped in standard sterile fashion with a thigh tourniquet placed. After timeout was performed patient procedure identified and verified, and incision was made over the superior aspect of the incision and significant serous drainage was noted. Cultures were obtained both aerobic and anaerobic. She was noted to have traumatic dehiscence of the retinacular closure. No odor or purulence was detected thorough irrigation carried out normal saline solution and tissue was debrided back to healthy stable tissue. No devitalized tissue likewise was really noted. Retinacular closure was accomplished with #1 PDS strata fix suture and with #5 Ethibond suture. Subcutaneous closure with buried Vicryl plus suture and skin closure with #2 and 2-0 nylon sutures primarily in a vertical mattress fashion to lita skin edges adequately. Hemovac drain was placed as well and blood cultures and urinalysis will be obtained as well as hospitalist consultation. Was returned recovery room in stable condition having tolerated procedure well XENA CALHOUN MD Jan 28, 2017 18:16
[2017-01-28] MEDS: oxyCODONE/APAP 7.5/325 1 TAB TABLET PO PRN (21:08)
[2017-01-28] MEDS: CELECOXIB 200 MG CAPSULE. PO SCH (21:08)
[2017-01-28 23:16] LABS: BILIRUBIN,URINE NEGATIVE (NEG); GLUCOSE,URINE NEGATIVE (NEG); NITRITE,URINE NEGATIVE (NEG); PROTEIN,URINE 100 mg/dL (NEG-TRACE)
[2017-01-28 23:26] LABS: BACTERIA,URINE 0 /HPF (0-FEW); SQUAMOUS EPITHELIAL CELL,UR MOD /LPF; WBC,URINE 0 /HPF (0-4)
[2017-01-29] MEDS ORDERED: INFLUENZA VAX SCREEN BY RX. MC PRN (02:15)
[2017-01-29 03:00] VITALS: BP 112/72
[2017-01-29 04:42] LABS: INR 1.6 (0.8-1.1); PROTHROMBIN TIME PATIENT 18.1 SEC (11.7-14.0)
[2017-01-29] MEDS: IV DEXTROSE 5 %-0.45 % NACL 1,000 ML IV SCH ×2 (05:38→14:02)
[2017-01-29] MEDS ORDERED: MAGNESIUM HYDROXIDE 2,400 MG/30 ML ORAL.SUSP. PO PRN (06:00)
[2017-01-29 07:00] VITALS: BP 136/71
[2017-01-29] MEDS: SENNOSIDES/DOCUSATE 8.6/50MG TABLET. PO SCH (09:29)
[2017-01-29] MEDS: oxyCODONE/APAP 7.5/325 1 TAB TABLET PO PRN ×3 (09:29→18:15)
[2017-01-29] MEDS: CELECOXIB 200 MG CAPSULE. PO SCH ×2 (09:29→20:56)
[2017-01-29] MEDS: MULTIVITAMIN with MINERAL TABLET. PO SCH (09:29)
[2017-01-29] MEDS: FERROUS SULFATE 325 MG TABLET. PO SCH ×2 (09:29→16:40)
[2017-01-29] MEDS ORDERED: ALBUTEROL SULFATE 2.5 MG/3 ML NEBU. NEB PRN (10:00)
[2017-01-29 11:00] VITALS: BP 104/57
--- NOTE | 2017-01-29 12:10 | PDOC2 ---
CONSULT Date of Consult Date of Consult DATE: 01/29/17 TIME: 12:04 Reason for Consult Reason for Consult: IM management Referring Physician Referring Physician: dr. Fischer Identification/Chief Complaint Chief Complaint traumatic wound dehiscence right total knee status post fall Problems: Source Source: Chart review, Patient History of Present Illness Reason for Visit: 66yo F, home o2 at night at 3l for COPD, only use albuterol at home, underwent Exploration with irrigation debridement right knee and closure on 01/28, IPC was asked to help IM management. Pt said she had right knee replacement 1 week ago, denies fall, but found the wound started to bleeding yesterday. otherwise, no cough, sob, chest pain, N/V, diarrhea. currently has a wound vac on right knee with bloody drainage. Past Medical History Pulmonary: COPD Past Surgical History Past Surgical History: Total knee replacement Social History No ALCOHOL: none Drugs: None Lives: with Family Domestic Violence: Neg Current Medications Current Medications Current Medications Ringer's Solution 1,000 ml @ 75 mls/hr 1X ONCE IV Last administered on t 14:55; Start 01/28/17 at 14:45; Stop 01/29/17 at 04:04; Status DC Propofol 20 ml @ As Directed STK-MED ONCE IV ; Start 01/28/17 at 16:08; Stop at 16:09; Status DC Lidocaine HCl (Lidocaine Pf 2% Vial) 5 ml STK-MED ONCE .ROUTE ; Start 01/28/17 at 16:08; Stop 01/28/17 at 16:09; Status DC Dexamethasone Sodium Phosphate (Decadron) 20 mg STK-MED ONCE .ROUTE ; Start 01/28/17 at 16:25; Stop 01/28/17 at 16:26; Status DC Sevoflurane (Ultane) 30 ml STK-MED ONCE IH ; Start 01/28/17 at 16:25; Stop 01/28 at 16:26; Status DC Ondansetron HCl (Zofran) 4 mg STK-MED ONCE .ROUTE ; Start 01/28/17 at 16:25; Stop 01/28/17 at 16:26; Status DC Morphine Sulfate 10 mg STK-MED ONCE .ROUTE ; Start 01/28/17 at 17:06; Stop 01/28 at 17:07; Status DC Cefazolin Sodium 50 ml @ As Directed STK-MED ONCE IV ; Start 01/28/17 at 17:08; Stop 01/28/17 at 17:09; Status DC Ondansetron HCl (Zofran) 4 mg PRN Q6HRS PRN IV NAUSEA/VOMITING; Start 01/28/17 at 17:30; Stop 01/29/17 at 17:29 Fentanyl Citrate (Fentanyl 2ml Vial) 25 mcg PRN Q5MIN PRN IV MILD PAIN; Start 01/28/17 at 17:30; Stop 01/29/17 at 17:29 Fentanyl Citrate (Fentanyl 2ml Vial) 50 mcg PRN Q5MIN PRN IV MODERATE PAIN; Start 01/28/17 at 17:30; Stop 01/29/17 at 17:29 Morphine Sulfate 1 mg PRN Q10MIN PRN IV SEVERE PAIN; Start 01/28/17 at 17:30; Stop 01/29/17 at 17:29 Ringer's Solution 1,000 ml @ 0 mls/hr Q0M IV ; Start 01/28/17 at 17:23; Stop 01/29/17 at 05:23; Status DC Lidocaine HCl (Xylocaine-Mpf 1% Vial) 2 ml PRN 1X PRN ID PRIOR TO IV START; Start 01/28/17 at 17:30; Stop 01/29/17 at 17:29 Hydromorphone HCl (Dilaudid) 0.5 mg PRN Q10MIN PRN IV SEV PAIN, Second choice Last administered on 01/28/17t 18:30; Start 01/28/17 at 17:30; Stop 01/29/17 at 17:29 Prochlorperazine Edisylate (Compazine) 5 mg PACU PRN PRN IV NAUSEA, MRX1; Start 01/28/17 at 17:30; Stop 01/29/17 at 17:29 Fentanyl Citrate (Fentanyl 2ml Vial) 100 mcg STK-MED ONCE .ROUTE ; Start at 17:47; Stop 01/28/17 at 17:48; Status DC Acetaminophen/ Hydrocodone Bitart (Lortab 7.5/325) 1 tab PRN Q3HRS PRN PO PAIN ; Start 01/28/17 at 18:15 Acetaminophen/ Hydrocodone Bitart (Lortab 10/325) 1 tab PRN Q3HRS PRN PO PAIN; Start 01/28/17 at 18:15 Tramadol HCl (Ultram) 50 mg PRN QID PRN PO PAIN; Start 01/28/17 at 18:15 Oxycodone/ Acetaminophen (Percocet 5/325) 1 tab PRN Q3HRS PRN PO PAIN; Start 01/28/17 at 18:15 Oxycodone/ Acetaminophen (Percocet 7.5/ 325) 1 tab PRN Q3HRS PRN PO PAIN Last administered on 01/29/17 09:29; Start 01/28/17 at 18:15 Tramadol HCl (Ultram) 100 mg PRN Q3HRS PRN PO PAIN; Start 01/28/17 at 18:15 Morphine Sulfate 2 mg PRN Q1HR PRN IV PAIN; Start 01/28/17 at 18:15; Stop 01/28 at 18:38; Status DC Fentanyl Citrate (Fentanyl 2ml Vial) 25 mcg PRN Q1HR PRN IV PAIN; Start at 18:15 Diphenhydramine HCl (Benadryl) 25 mg PRN Q6HRS PRN IV ITCHING; Start 01/28/17 at 18:15 Multivitamins (Thera M Plus) 1 tab DAILY PO Last administered on 01/29/17 09: 29; Start 01/29/17 at 09:00 Senna/Docusate Sodium (Senna Plus) 1 tab DAILY PO Last administered on 09:29; Start 01/29/17 at 09:00 Ferrous Sulfate (Feosol) 325 mg BIDWMEALS PO Last administered on 01/29/17 09: 29; Start 01/29/17 at 08:00 Celecoxib (CeleBREX) 200 mg BID PO Last administered on 01/29/17 09:29; Start 01/28/17 at 21:00 Dextrose/Sodium Chloride 1,000 ml @ 100 mls/hr Q10H IV Last administered on 05:38; Start 01/28/17 at 18:02 Magnesium Hydroxide (Milk Of Magnesia) 2,400 mg 1X PRN PRN PO CONSTIPATION; Start 01/29/17 at 06:00; Stop 01/30/17 at 05:59 Bisacodyl (Dulcolax Supp) 10 mg 1X PRN PRN OR CONSTIPATION; Start 01/29/17 at 16:00; Stop 01/30/17 at 15:59 Acetaminophen (Tylenol) 650 mg PRN Q4HRS PRN PO MILD PAIN / TEMP; Start at 18:15 Zolpidem Tartrate (Ambien) 5 mg PRN QHS PRN PO INSOMNIA, MAY REPEAT IN 1HR; Start 01/28/17 at 18:15 Calcium Carbonate/ Glycine (Tums) 500 mg PRN QID PRN PO INDIGESTION; Start 01/28/17 at 18:15 Morphine Sulfate 4 mg PRN Q1HR PRN IV PAIN; Start 01/28/17 at 18:15 Morphine Sulfate 6 mg PRN Q1HR PRN IV PAIN; Start 01/28/17 at 18:15 Morphine Sulfate 8 mg PRN Q1HR PRN IV PAIN; Start 01/28/17 at 18:15 Sodium Chloride (Normal Saline Flush) 10 ml QSHIFT PRN IV AFTER MEDS AND BLOOD DRAWS; Start 01/28/17 at 18:15 Fentanyl Citrate (Fentanyl 2ml Vial) 50 mcg PRN Q1HR PRN IV PAIN; Start at 18:15 Prochlorperazine Edisylate (Compazine) 10 mg PRN Q4HRS PRN IV NAUSEA/VOMITING; Start 01/28/17 at 18:15 Dextrose (Dextrose 50%-Water Syringe) 12.5 gm PRN Q15MIN PRN IV SEE COMMENTS; Start 01/28/17 at 18:15 Cefazolin Sodium 3 gm/Sodium Chloride 100 ml @ 200 mls/hr Q6H IV Last administered on 01/29/17t 11:40; Start 01/28/17 at 23:00; Stop 01/29/17 at 11:29 ; Status DC Morphine Sulfate 2 mg PRN Q1HR PRN IV PAIN; Start 01/28/17 at 18:38 Influenza Virus Vaccine Quadrival (Fluarix Quad [id number] Syringe) 0.5 ml ONCE ONCE VAX IM ; Start 01/30/17 at 09:00; Stop 01/30/17 at 09:01 Info (Do NOT chart on this placeholder) 1 each PRN 1X PRN MC SEE COMMENTS; Start 01/29/17 at 02:15; Status Cancel Albuterol Sulfate (Ventolin Neb Soln) 2.5 mg PRN Q4HRS PRN NEB SHORTNESS OF BREATH; Start 01/29/17 at 10:00 Active Scripts Active Reported Hydrocodone-Apap 7.5-325 (Hydrocodone Bit/Acetaminophen) 1 Each Tablet 1 Tab PO PRN Q4HRS PRN LAST DOSE GIVEN: DATE:01/02/17 TIME:1:00 p.m. Ferrous Sulfate 325 Mg Tablet 1 Tab PO BID 30 Days LAST DOSE GIVEN: DATE:01/02/17 TIME:9:00 a.m Diclofenac Sodium 75 Mg Tablet.dr 75 Mg PO BID Meds not given this hospital admission. May resume home medications as approved by Physician. Allergies Allergies: Coded Allergies: No Known Drug Allergies (Unverified , 01/28/17) ROS General: YES: Night Sweats PSYCHOLOGICAL ROS: YES: Anxiety, Behavioral Disorder Eyes: Yes Blurry vision, Yes Decreased vision HEENT: YES: Heacaches, Visual Changes ALLERGY AND IMMUNOLOGY: YES: Hives Hematological and Lymphatic: YES: Bleeding Problems, Blood Clots ENDOCRINE: YES: Breast Changes, Galactorrhea, Hair Pattern Changes Respiratory: YES: Cough, Hemoptysis Cardiovascular: yes Chest Pain, yes Palpitations Gastrointestinal: Yes Nausea, Yes Vomiting, Yes Abdominal Pain Genitourinary: YES Dysuria, YES Incontinence Musculoskeletal: Yes Gait Disturbance Neurological: Yes Behavorial Changes Skin: Yes Dry Skin Physical Exam General: Alert, Oriented X3, Cooperative HEENT: Atraumatic, PERRLA Lungs: Clear to auscultation Heart: Regular rate, No murmurs Abdomen: Normal bowel sounds, Soft Extremities: No clubbing, No cyanosis, No edema Skin: No rashes, No breakdown Neuro: Normal speech, Normal tone Psych/Mental Status: Mental status NL MUSCULOSKELETAL: No deformity, Other (right knee has dressing and a wound vac in place with bloody drainage) Vitals VITALS Vital Signs Date Time Temp Pulse Resp B/P (MAP) Pulse Ox O2 Delivery O2 Flow Rate FiO2 01/29/17 10:35 98 Nasal Cannula 2.0 01/29/17 07:00 97.5 72 18 136/71 (92) 97.5 Labs Labs Laboratory Tests Test 01/28/17 23:09 01/29/17 03:53 Urine Collection Type Unknown Urine Color Yellow Urine Clarity Clear Urine pH 6.0 Urine Specific [place] 1.025 Urine Protein 100 mg/dL (NEG-TRACE) Urine Glucose (UA) Negative mg/dL (NEG) Urine Ketones (Stick) 15 mg/dL (NEG) Urine Blood Small (NEG) Urine Nitrite Negative (NEG) Urine Bilirubin Negative (NEG) Urine Urobilinogen Dipstick 1.0 mg/dL (0.2 mg/dL) Urine Leukocyte Esterase Negative (NEG) Urine RBC 3-5 /HPF (0-2) Urine WBC 0 /HPF (0-4) Urine Squamous Epithelial Cells Mod /LPF Urine Amorphous Sediment Present /HPF Urine Bacteria 0 /HPF (0-FEW) Urine Granular Casts Occasional /HPF Urine Mucus Slight /LPF Prothrombin Time 18.1 SEC (11.7-14.0) Prothromb Time International Ratio 1.6 (0.8-1.1) Laboratory Tests Test 01/28/17 23:09 01/29/17 03:53 Urine Collection Type Unknown Urine Color Yellow Urine Clarity Clear Urine pH 6.0 Urine Specific [place] 1.025 Urine Protein 100 mg/dL (NEG-TRACE) Urine Glucose (UA) Negative mg/dL (NEG) Urine Ketones (Stick) 15 mg/dL (NEG) Urine Blood Small (NEG) Urine Nitrite Negative (NEG) Urine Bilirubin Negative (NEG) Urine Urobilinogen Dipstick 1.0 mg/dL (0.2 mg/dL) Urine Leukocyte Esterase Negative (NEG) Urine RBC 3-5 /HPF (0-2) Urine WBC 0 /HPF (0-4) Urine Squamous Epithelial Cells Mod /LPF Urine Amorphous Sediment Present /HPF Urine Bacteria 0 /HPF (0-FEW) Urine Granular Casts Occasional /HPF Urine Mucus Slight /LPF Prothrombin Time 18.1 SEC (11.7-14.0) Prothromb Time International Ratio 1.6 (0.8-1.1) Assessment/Plan Assessment/Plan traumatic wound dehiscence right total knee s/p Exploration with irrigation debridement right knee and closure recent rt total knee replacement morbid obesity BMI 60 COPD , stable chronic hypoxic resp failure on home o2 3L PLAN; FU With ortho for right knee, fu with cx on wound vac, cont wound care PTOT may need dvt ppx if ok with ortho tmr? add albuterol pain control IPC will sign off since dr. Elias sees pt thanks for asking IPC for consult DONNIE TORRES MD Jan 29, 2017 12:10
--- NOTE | 2017-01-29 14:42 | PDOC ---
ORTHO PROGRESS NOTES Subjective Brigida is doing good today. Denies fever. Hemovac removed. Participating with therapy. Post-op Day: 1 (Exploration with irrigation debridement right knee and closure) Vitals Vital Signs Date Time Temp Pulse Resp B/P (MAP) Pulse Ox O2 Delivery O2 Flow Rate FiO2 01/29/17 11:00 98.1 71 18 104/57 (73) 94 Nasal Cannula 2.0 98.1 Labs Laboratory Tests Test 01/28/17 23:09 01/29/17 03:53 Urine Collection Type Unknown Urine Color Yellow Urine Clarity Clear Urine pH 6.0 Urine Specific [place] 1.025 Urine Protein 100 mg/dL (NEG-TRACE) Urine Glucose (UA) Negative mg/dL (NEG) Urine Ketones (Stick) 15 mg/dL (NEG) Urine Blood Small (NEG) Urine Nitrite Negative (NEG) Urine Bilirubin Negative (NEG) Urine Urobilinogen Dipstick 1.0 mg/dL (0.2 mg/dL) Urine Leukocyte Esterase Negative (NEG) Urine RBC 3-5 /HPF (0-2) Urine WBC 0 /HPF (0-4) Urine Squamous Epithelial Cells Mod /LPF Urine Amorphous Sediment Present /HPF Urine Bacteria 0 /HPF (0-FEW) Urine Granular Casts Occasional /HPF Urine Mucus Slight /LPF Prothrombin Time 18.1 SEC (11.7-14.0) Prothromb Time International Ratio 1.6 (0.8-1.1) Laboratory Tests Test 01/28/17 23:09 01/29/17 03:53 Urine Collection Type Unknown Urine Color Yellow Urine Clarity Clear Urine pH 6.0 Urine Specific [place] 1.025 Urine Protein 100 mg/dL (NEG-TRACE) Urine Glucose (UA) Negative mg/dL (NEG) Urine Ketones (Stick) 15 mg/dL (NEG) Urine Blood Small (NEG) Urine Nitrite Negative (NEG) Urine Bilirubin Negative (NEG) Urine Urobilinogen Dipstick 1.0 mg/dL (0.2 mg/dL) Urine Leukocyte Esterase Negative (NEG) Urine RBC 3-5 /HPF (0-2) Urine WBC 0 /HPF (0-4) Urine Squamous Epithelial Cells Mod /LPF Urine Amorphous Sediment Present /HPF Urine Bacteria 0 /HPF (0-FEW) Urine Granular Casts Occasional /HPF Urine Mucus Slight /LPF Prothrombin Time 18.1 SEC (11.7-14.0) Prothromb Time International Ratio 1.6 (0.8-1.1) Notes Incision well approximated closed with sutures. Slight bloody drainage noted from puncture where Hemovac was removed. No erythema. Moderate edema. Neurovascular intact right lower extremity. Breathing unlabored, no acute distress Problems: (1) Traumatic wound dehiscence Assessment and Plan Doing better today UA negative cultures pending Medical to see Problem Qualifiers (1) Traumatic wound dehiscence: Encounter type: subsequent encounter Qualified Codes: T81.33XD - Disruption of traumatic injury wound repair, subsequent encounter [employer] Jan 29, 2017 14:42
[2017-01-29 15:00] VITALS: BP 130/72
[2017-01-29] MEDS ORDERED: BISACODYL 10 MG SUPP.RECT. PR PRN (16:00)
[2017-01-29 19:00] VITALS: BP 108/64
[2017-01-29 23:00] VITALS: BP 128/72
[2017-01-30 03:00] VITALS: BP 118/57
[2017-01-30 05:58] LABS: INR 1.4 (0.8-1.1); PROTHROMBIN TIME PATIENT 16.4 SEC (11.7-14.0)
[2017-01-30] MEDS: oxyCODONE/APAP 7.5/325 1 TAB TABLET PO PRN ×2 (06:55→12:14)
[2017-01-30 07:00] VITALS: BP 121/61
--- NOTE | 2017-01-30 08:57 | PDOC ---
Infectious Disease Note ROS ROS Vital Sign Vital Signs Vital Signs Date Time Temp Pulse Resp B/P (MAP) Pulse Ox O2 Delivery O2 Flow Rate FiO2 01/30/17 06:55 20 91 01/30/17 03:00 98.3 71 118/57 (77) Room Air 98.3 01/29/17 20:00 2.0 Labs Lab Laboratory Tests Test 01/30/17 04:10 Prothrombin Time 16.4 SEC (11.7-14.0) Prothromb Time International Ratio 1.4 (0.8-1.1) Objective Assessment S/p mechanical fall Right TKA wound dehiscence S/p Exploration with irrigation debridement right knee and closure 01/28. TKA place 12/30 GPC on gram stain- infection Fever -better Plan Plan of Care Labs this am PICC line Start [facility] service F/u cults Thank you # [phone] BAILEY JARRETT MD Jan 30, 2017 08:57
[2017-01-30] MEDS ORDERED: VANCOMYCIN PER PHARMACY MC PRN (09:00)
[2017-01-30] MEDS ORDERED: FLU VACC QS2017-18 (36MOS+)/PF 0.5 ML SYRINGE. VAX IM ONE (09:00)
[2017-01-30 09:08] LABS: CALCIUM 8.3 mg/dL (8.5-10.1); CREATININE 1.1 mg/dL (0.6-1.0); POTASSIUM 4.2 mmol/L (3.5-5.1)
[2017-01-30 09:14] LABS: BASO % 0 % (0-3); EOS % 0 % (0-3); HEMATOCRIT 31.3 % (36.0-47.0); HEMOGLOBIN 9.6 g/dL (12.0-15.5); LYMPH # 1.1 x10^3/uL (1.0-4.8); LYMPH % 12 % (24-48); MEAN CORPUSCULAR HEMOGLOBIN 28 pg (25-35); MEAN CORPUSCULAR HGB CONC 31 g/dL (31-37); MEAN CORPUSCULAR VOLUME 91 fL (79-100); MONO % 6 % (0-9); NEUT % 82 % (31-73); PLATELET COUNT 243 x10^3/uL (140-400); RED BLOOD COUNT 3.44 x10^6/uL (3.50-5.40); RED CELL DISTRIBUTION WIDTH 14.9 % (11.5-14.5)
[2017-01-30] MEDS: CELECOXIB 200 MG CAPSULE. PO SCH ×2 (09:14→22:05)
[2017-01-30] MEDS: MULTIVITAMIN with MINERAL TABLET. PO SCH (09:14)
[2017-01-30] MEDS: SENNOSIDES/DOCUSATE 8.6/50MG TABLET. PO SCH (09:14)
[2017-01-30] MEDS: FERROUS SULFATE 325 MG TABLET. PO SCH ×2 (09:14→17:59)
[2017-01-30] MEDS ORDERED: VANCOMYCIN 2 GM in IV NORMAL SALINE 500ML BAG 500 ML IV ONE (09:30)
--- NOTE | 2017-01-30 10:08 | PDOC ---
PROGRESS NOTES Chief Complaint Chief Complaint traumatic wound dehiscence right total knee s/p Exploration with irrigation debridement right knee and closure recent rt total knee replacement morbid obesity BMI 60 COPD , stable chronic hypoxic resp failure on home o2 3L PLAN; FU With ortho for right knee, fu with cx removed wound vac, cont wound care PTOT ID consulted, started vanco, wound cx few gram + cocci add albuterol pain control IPC will sign off since dr. Elias sees pt thanks for asking IPC for consult History of Present Illness History of Present Illness ROS: no fever, chills, sob or chest pain wound vac removed left knee pain Vitals Vitals Vital Signs Date Time Temp Pulse Resp B/P (MAP) Pulse Ox O2 Delivery O2 Flow Rate FiO2 01/30/17 08:10 Room Air 01/30/17 07:00 98.9 65 20 121/61 (81) 95 98.9 01/29/17 20:00 2.0 Physical Exam Physical Exam right knee is wrapped with dressing, no wound vac General: Alert, Oriented X3, Cooperative Heart: Regular rate, No murmurs Lungs: Clear Abdomen: Normal bowel sounds, Soft Extremities: No clubbing, No cyanosis, No edema Skin: No rashes, No breakdown Labs LABS Laboratory Tests Test 01/30/17 04:10 White Blood Count 9.0 x10^3/uL (4.0-11.0) Red Blood Count 3.44 x10^6/uL (3.50-5.40) Hemoglobin 9.6 g/dL (12.0-15.5) Hematocrit 31.3 % (36.0-47.0) Mean Corpuscular Volume 91 fL (79-100) Mean Corpuscular Hemoglobin 28 pg (25-35) Mean Corpuscular Hemoglobin Concent 31 g/dL (31-37) Red Cell Distribution Width 14.9 % (11.5-14.5) Platelet Count 243 x10^3/uL (140-400) Neutrophils (%) (Auto) 82 % (31-73) Lymphocytes (%) (Auto) 12 % (24-48) Monocytes (%) (Auto) 6 % (0-9) Eosinophils (%) (Auto) 0 % (0-3) Basophils (%) (Auto) 0 % (0-3) Neutrophils # (Auto) 7.3 x10^3uL (1.8-7.7) Lymphocytes # (Auto) 1.1 x10^3/uL (1.0-4.8) Monocytes # (Auto) 0.5 x10^3/uL (0.0-1.1) Eosinophils # (Auto) 0.0 x10^3/uL (0.0-0.7) Basophils # (Auto) 0.0 x10^3/uL (0.0-0.2) Prothrombin Time 16.4 SEC (11.7-14.0) Prothromb Time International Ratio 1.4 (0.8-1.1) Sodium Level 140 mmol/L (136-145) Potassium Level 4.2 mmol/L (3.5-5.1) Chloride Level 103 mmol/L (98-107) Carbon Dioxide Level 31 mmol/L (21-32) Anion Gap 6 (6-14) Blood Urea Nitrogen 31 mg/dL (7-20) Creatinine 1.1 mg/dL (0.6-1.0) Estimated GFR (Cockcroft-Gault) 50.0 Glucose Level 113 mg/dL (70-99) Calcium Level 8.3 mg/dL (8.5-10.1) Comment Review of Relevant I have reviewed the following items behzad (where applicable) has been applied. Labs Laboratory Tests Test 01/28/17 23:09 01/29/17 03:53 01/30/17 04:10 Urine Collection Type Unknown Urine Color Yellow Urine Clarity Clear Urine pH 6.0 Urine Specific [place] 1.025 Urine Protein 100 mg/dL (NEG-TRACE) Urine Glucose (UA) Negative mg/dL (NEG) Urine Ketones (Stick) 15 mg/dL (NEG) Urine Blood Small (NEG) Urine Nitrite Negative (NEG) Urine Bilirubin Negative (NEG) Urine Urobilinogen Dipstick 1.0 mg/dL (0.2 mg/dL) Urine Leukocyte Esterase Negative (NEG) Urine RBC 3-5 /HPF (0-2) Urine WBC 0 /HPF (0-4) Urine Squamous Epithelial Cells Mod /LPF Urine Amorphous Sediment Present /HPF Urine Bacteria 0 /HPF (0-FEW) Urine Granular Casts Occasional /HPF Urine Mucus Slight /LPF Prothrombin Time 18.1 SEC (11.7-14.0) 16.4 SEC (11.7-14.0) Prothromb Time International Ratio 1.6 (0.8-1.1) 1.4 (0.8-1.1) White Blood Count 9.0 x10^3/uL (4.0-11.0) Red Blood Count 3.44 x10^6/uL (3.50-5.40) Hemoglobin 9.6 g/dL (12.0-15.5) Hematocrit 31.3 % (36.0-47.0) Mean Corpuscular Volume 91 fL (79-100) Mean Corpuscular Hemoglobin 28 pg (25-35) Mean Corpuscular Hemoglobin Concent 31 g/dL (31-37) Red Cell Distribution Width 14.9 % (11.5-14.5) Platelet Count 243 x10^3/uL (140-400) Neutrophils (%) (Auto) 82 % (31-73) Lymphocytes (%) (Auto) 12 % (24-48) Monocytes (%) (Auto) 6 % (0-9) Eosinophils (%) (Auto) 0 % (0-3) Basophils (%) (Auto) 0 % (0-3) Neutrophils # (Auto) 7.3 x10^3uL (1.8-7.7) Lymphocytes # (Auto) 1.1 x10^3/uL (1.0-4.8) Monocytes # (Auto) 0.5 x10^3/uL (0.0-1.1) Eosinophils # (Auto) 0.0 x10^3/uL (0.0-0.7) Basophils # (Auto) 0.0 x10^3/uL (0.0-0.2) Sodium Level 140 mmol/L (136-145) Potassium Level 4.2 mmol/L (3.5-5.1) Chloride Level 103 mmol/L (98-107) Carbon Dioxide Level 31 mmol/L (21-32) Anion Gap 6 (6-14) Blood Urea Nitrogen 31 mg/dL (7-20) Creatinine 1.1 mg/dL (0.6-1.0) Estimated GFR (Cockcroft-Gault) 50.0 Glucose Level 113 mg/dL (70-99) Calcium Level 8.3 mg/dL (8.5-10.1) Laboratory Tests Test 01/30/17 04:10 White Blood Count 9.0 x10^3/uL (4.0-11.0) Red Blood Count 3.44 x10^6/uL (3.50-5.40) Hemoglobin 9.6 g/dL (12.0-15.5) Hematocrit 31.3 % (36.0-47.0) Mean Corpuscular Volume 91 fL (79-100) Mean Corpuscular Hemoglobin 28 pg (25-35) Mean Corpuscular Hemoglobin Concent 31 g/dL (31-37) Red Cell Distribution Width 14.9 % (11.5-14.5) Platelet Count 243 x10^3/uL (140-400) Neutrophils (%) (Auto) 82 % (31-73) Lymphocytes (%) (Auto) 12 % (24-48) Monocytes (%) (Auto) 6 % (0-9) Eosinophils (%) (Auto) 0 % (0-3) Basophils (%) (Auto) 0 % (0-3) Neutrophils # (Auto) 7.3 x10^3uL (1.8-7.7) Lymphocytes # (Auto) 1.1 x10^3/uL (1.0-4.8) Monocytes # (Auto) 0.5 x10^3/uL (0.0-1.1) Eosinophils # (Auto) 0.0 x10^3/uL (0.0-0.7) Basophils # (Auto) 0.0 x10^3/uL (0.0-0.2) Prothrombin Time 16.4 SEC (11.7-14.0) Prothromb Time International Ratio 1.4 (0.8-1.1) Sodium Level 140 mmol/L (136-145) Potassium Level 4.2 mmol/L (3.5-5.1) Chloride Level 103 mmol/L (98-107) Carbon Dioxide Level 31 mmol/L (21-32) Anion Gap 6 (6-14) Blood Urea Nitrogen 31 mg/dL (7-20) Creatinine 1.1 mg/dL (0.6-1.0) Estimated GFR (Cockcroft-Gault) 50.0 Glucose Level 113 mg/dL (70-99) Calcium Level 8.3 mg/dL (8.5-10.1) Microbiology 01/28/17 Blood Culture - Preliminary, Resulted NO GROWTH AFTER 1 DAY 01/28/17 Gram Stain - Final, Complete Medications Current Medications Ringer's Solution 1,000 ml @ 75 mls/hr 1X ONCE IV Last administered on t 14:55; Start 01/28/17 at 14:45; Stop 01/29/17 at 04:04; Status DC Propofol 20 ml @ As Directed STK-MED ONCE IV ; Start 01/28/17 at 16:08; Stop at 16:09; Status DC Lidocaine HCl (Lidocaine Pf 2% Vial) 5 ml STK-MED ONCE .ROUTE ; Start 01/28/17 at 16:08; Stop 01/28/17 at 16:09; Status DC Dexamethasone Sodium Phosphate (Decadron) 20 mg STK-MED ONCE .ROUTE ; Start 01/28/17 at 16:25; Stop 01/28/17 at 16:26; Status DC Sevoflurane (Ultane) 30 ml STK-MED ONCE IH ; Start 01/28/17 at 16:25; Stop 01/28 at 16:26; Status DC Ondansetron HCl (Zofran) 4 mg STK-MED ONCE .ROUTE ; Start 01/28/17 at 16:25; Stop 01/28/17 at 16:26; Status DC Morphine Sulfate 10 mg STK-MED ONCE .ROUTE ; Start 01/28/17 at 17:06; Stop 01/28 at 17:07; Status DC Cefazolin Sodium 50 ml @ As Directed STK-MED ONCE IV ; Start 01/28/17 at 17:08; Stop 01/28/17 at 17:09; Status DC Ondansetron HCl (Zofran) 4 mg PRN Q6HRS PRN IV NAUSEA/VOMITING; Start 01/28/17 at 17:30; Stop 01/29/17 at 17:29; Status DC Fentanyl Citrate (Fentanyl 2ml Vial) 25 mcg PRN Q5MIN PRN IV MILD PAIN; Start 01/28/17 at 17:30; Stop 01/29/17 at 17:29; Status DC Fentanyl Citrate (Fentanyl 2ml Vial) 50 mcg PRN Q5MIN PRN IV MODERATE PAIN; Start 01/28/17 at 17:30; Stop 01/29/17 at 17:29; Status DC Morphine Sulfate 1 mg PRN Q10MIN PRN IV SEVERE PAIN; Start 01/28/17 at 17:30; Stop 01/29/17 at 17:29; Status DC Ringer's Solution 1,000 ml @ 0 mls/hr Q0M IV ; Start 01/28/17 at 17:23; Stop 01/29/17 at 05:23; Status DC Lidocaine HCl (Xylocaine-Mpf 1% Vial) 2 ml PRN 1X PRN ID PRIOR TO IV START; Start 01/28/17 at 17:30; Stop 01/29/17 at 17:29; Status DC Hydromorphone HCl (Dilaudid) 0.5 mg PRN Q10MIN PRN IV SEV PAIN, Second choice Last administered on 01/28/17 18:30; Start 01/28/17 at 17:30; Stop 01/29/17 at 17:29; Status DC Prochlorperazine Edisylate (Compazine) 5 mg PACU PRN PRN IV NAUSEA, MRX1; Start 01/28/17 at 17:30; Stop 01/29/17 at 17:29; Status DC Fentanyl Citrate (Fentanyl 2ml Vial) 100 mcg STK-MED ONCE .ROUTE ; Start at 17:47; Stop 01/28/17 at 17:48; Status DC Acetaminophen/ Hydrocodone Bitart (Lortab 7.5/325) 1 tab PRN Q3HRS PRN PO PAIN ; Start 01/28/17 at 18:15 Acetaminophen/ Hydrocodone Bitart (Lortab 10/325) 1 tab PRN Q3HRS PRN PO PAIN; Start 01/28/17 at 18:15 Tramadol HCl (Ultram) 50 mg PRN QID PRN PO PAIN; Start 01/28/17 at 18:15 Oxycodone/ Acetaminophen (Percocet 5/325) 1 tab PRN Q3HRS PRN PO PAIN; Start 01/28/17 at 18:15 Oxycodone/ Acetaminophen (Percocet 7.5/ 325) 1 tab PRN Q3HRS PRN PO PAIN Last administered on 01/30/17 06:55; Start 01/28/17 at 18:15 Tramadol HCl (Ultram) 100 mg PRN Q3HRS PRN PO PAIN; Start 01/28/17 at 18:15 Morphine Sulfate 2 mg PRN Q1HR PRN IV PAIN; Start 01/28/17 at 18:15; Stop 01/28 at 18:38; Status DC Fentanyl Citrate (Fentanyl 2ml Vial) 25 mcg PRN Q1HR PRN IV PAIN; Start at 18:15 Diphenhydramine HCl (Benadryl) 25 mg PRN Q6HRS PRN IV ITCHING; Start 01/28/17 at 18:15 Multivitamins (Thera M Plus) 1 tab DAILY PO Last administered on 01/30/17 09: 14; Start 01/29/17 at 09:00 Senna/Docusate Sodium (Senna Plus) 1 tab DAILY PO Last administered on 09:14; Start 01/29/17 at 09:00 Ferrous Sulfate (Feosol) 325 mg BIDWMEALS PO Last administered on 01/30/17 09: 14; Start 01/29/17 at 08:00 Celecoxib (CeleBREX) 200 mg BID PO Last administered on 01/30/17 09:14; Start 01/28/17 at 21:00 Dextrose/Sodium Chloride 1,000 ml @ 100 mls/hr Q10H IV Last administered on 05:38; Start 01/28/17 at 18:02; Stop 01/29/17 at 14:32; Status DC Magnesium Hydroxide (Milk Of Magnesia) 2,400 mg 1X PRN PRN PO CONSTIPATION; Start 01/29/17 at 06:00; Stop 01/30/17 at 05:59; Status DC Bisacodyl (Dulcolax Supp) 10 mg 1X PRN PRN RI CONSTIPATION; Start 01/29/17 at 16:00; Stop 01/30/17 at 15:59 Acetaminophen (Tylenol) 650 mg PRN Q4HRS PRN PO MILD PAIN / TEMP; Start at 18:15 Zolpidem Tartrate (Ambien) 5 mg PRN QHS PRN PO INSOMNIA, MAY REPEAT IN 1HR; Start 01/28/17 at 18:15 Calcium Carbonate/ Glycine (Tums) 500 mg PRN QID PRN PO INDIGESTION; Start 01/28/17 at 18:15 Morphine Sulfate 4 mg PRN Q1HR PRN IV PAIN; Start 01/28/17 at 18:15 Morphine Sulfate 6 mg PRN Q1HR PRN IV PAIN; Start 01/28/17 at 18:15 Morphine Sulfate 8 mg PRN Q1HR PRN IV PAIN; Start 01/28/17 at 18:15 Sodium Chloride (Normal Saline Flush) 10 ml QSHIFT PRN IV AFTER MEDS AND BLOOD DRAWS; Start 01/28/17 at 18:15 Fentanyl Citrate (Fentanyl 2ml Vial) 50 mcg PRN Q1HR PRN IV PAIN; Start at 18:15 Prochlorperazine Edisylate (Compazine) 10 mg PRN Q4HRS PRN IV NAUSEA/VOMITING; Start 01/28/17 at 18:15 Dextrose (Dextrose 50%-Water Syringe) 12.5 gm PRN Q15MIN PRN IV SEE COMMENTS; Start 01/28/17 at 18:15 Cefazolin Sodium 3 gm/Sodium Chloride 100 ml @ 200 mls/hr Q6H IV Last administered on 01/29/17 11:40; Start 01/28/17 at 23:00; Stop 01/29/17 at 11:29 ; Status DC Morphine Sulfate 2 mg PRN Q1HR PRN IV PAIN; Start 01/28/17 at 18:38 Influenza Virus Vaccine Quadrival (Fluarix Quad [id number] Syringe) 0.5 ml ONCE ONCE VAX IM Last administered on 01/30/17 09:22; Start 01/30/17 at 09:00; Stop 01/30/17 at 09:01; Status DC Info (Do NOT chart on this placeholder) 1 each PRN 1X PRN MC SEE COMMENTS; Start 01/29/17 at 02:15; Status Cancel Albuterol Sulfate (Ventolin Neb Soln) 2.5 mg PRN Q4HRS PRN NEB SHORTNESS OF BREATH; Start 01/29/17 at 10:00 Vancomycin HCl (Vanco Per Pharmacy) 1 each PRN DAILY PRN MC SEE COMMENTS; Start 01/30/17 at 09:00 Vancomycin HCl 2 gm/Sodium Chloride 500 ml @ 250 mls/hr 1X ONCE IV Last administered on 01/30/17 09:15; Start 01/30/17 at 09:30; Stop 01/30/17 at 11:29 Active Scripts Active Reported Hydrocodone-Apap 7.5-325 (Hydrocodone Bit/Acetaminophen) 1 Each Tablet 1 Tab PO PRN Q4HRS PRN LAST DOSE GIVEN: DATE:01/02/17 TIME:1:00 p.m. Ferrous Sulfate 325 Mg Tablet 1 Tab PO BID 30 Days LAST DOSE GIVEN: DATE:01/02/17 TIME:9:00 a.m Diclofenac Sodium 75 Mg Tablet.dr 75 Mg PO BID Meds not given this hospital admission. May resume home medications as approved by Physician. Vitals/I & O Vital Sign - Last 24 Hours 01/29/17 01/29/17 01/29/17 01/29/17 11:00 15:00 15:17 18:15 Temp 98.1 98.1 98.1 98.1 Pulse 71 76 Resp 18 18 B/P (MAP) 104/57 (73) 130/72 (91) Pulse Ox 94 92 94 94 O2 Delivery Nasal Cannula Room Air Room Air Room Air O2 Flow Rate 2.0 01/29/17 01/29/17 01/29/17 01/29/17 19:00 19:15 20:00 23:00 Temp 98.5 98.4 98.5 98.4 Pulse 71 72 Resp 16 18 B/P (MAP) 108/64 (79) 128/72 (90) Pulse Ox 93 94 92 O2 Delivery Room Air Nasal Cannula Room Air O2 Flow Rate 2.0 2.0 01/30/17 01/30/17 01/30/17 01/30/17 03:00 06:55 07:00 08:10 Temp 98.3 98.9 98.3 98.9 Pulse 71 65 Resp 18 20 20 B/P (MAP) 118/57 (77) 121/61 (81) Pulse Ox 91 91 95 O2 Delivery Room Air Room Air Room Air DONNIE TORRES MD Jan 30, 2017 10:08
--- NOTE | 2017-01-30 10:11 | CONS ---
DATE OF CONSULTATION: 01/30/2017 The patient is in room 420. REQUESTING PHYSICIAN: Dr. Prajapati. REASON FOR CONSULTATION: Right knee infection. HISTORY OF PRESENT ILLNESS: The patient is a pleasant 66-year-old female who on the 30 of December underwent right total knee arthroplasty. She had been doing fairly well until this past Thursday when she was getting out of her car from the passenger side, bumped her knee and then caused wound dehiscence. Later, she states she began to feel chills, took her temperature and it was 99 degrees. She has not had any recent influenza vaccinations, no antibiotics. She did have a little weakness. The wound began to drain. She has no sinus issues. No sore throat, cough or chest pain. No nausea, vomiting, diarrhea. No dysuria, frequency or urgency. She was admitted to [facility], she had a temperature of 101.1 at the time of presentation. She was taken to the operating room by Dr. Prajapati on the and underwent exploration with irrigation and debridement of right knee and closure. Cultures were obtained today. Gram stain is showing few gram-positive cocci and occasional WBCs, hence we are consulted. Currently, she is sitting in a chair. States she is doing okay but does have some episodes of shooting pains at time and still some sweats. PAST MEDICAL HISTORY: Positive for COPD, obesity, osteoarthritis. PAST SURGICAL HISTORY: Positive for status post cataract surgery, tonsils as well as the above-mentioned knee surgeries. REVIEW OF SYSTEMS: Otherwise negative except for mentioned above. SOCIAL HISTORY: She is a former smoker. No alcohol. She is . No pets currently. FAMILY HISTORY: Mother has hypertension, history of CVA as well as hypothyroidism. Father of heart disease. ALLERGIES: No known drug allergies. CURRENT MEDICATIONS: She received cefazolin perioperatively and albuterol, Celebrex and other p.r.n. medications are available and have been reviewed in the chart. PHYSICAL EXAMINATION: VITAL SIGNS: T-max was 101.1 on presentation, currently 98.3. Pulse 71, respirations 18, blood pressure 118/57, satting 91% on room air. CONSTITUTIONAL: She is cooperative. She is no acute distress. She is sitting in a chair. HEENT: Pupils are status post cataract surgery. Normal conjunctivae. Oral cavity, pharynx is clear. NECK: Supple, no JVD. LUNGS: Clear to auscultation bilaterally. HEART: S1, S2. ABDOMEN: Obese, soft, nontender, nondistended with positive bowel sounds. EXTREMITIES: Without clubbing, cyanosis. Her right knee incision is well-approximated. There is some serosanguineous drainage. There is mild warmth and minimal erythema. SKIN: Warm to touch without signs of generalized rash. NEUROLOGIC: She is nonfocal, moves all extremities. PSYCHIATRIC: Affect is appropriate. LABORATORY VALUES: She has urinalysis from the that does not look consistent with urinary tract infection. Aside from that her lab values are over a month old. Blood cultures are negative for a day. Gram stain as mentioned above. There are no current radiological studies. IMPRESSION: 1. Status post mechanical fall. 2. Right total knee arthroplasty wound dehiscence with the initial total knee placed on 12/30, now status post exploration and irrigation and debridement on the . 3. Gram-positive cocci and Gram stain. 4. Fevers that is better. RECOMMENDATIONS: We will obtain laboratory values this morning including a CBC, BMP, and a sedimentation rate. We will order a PICC line and start vancomycin. Have social service evaluate for patient IV antibiotics and follow up on cultures. This was discussed with Dr. Prajapati with regards to the need for IV antibiotics for a week or so, potentially longer depending on the bacteria. BAILEY JARRETT MD DR: GLORIA/ilan JOB#: [id number] / [id number]
[2017-01-30 11:00] VITALS: BP 112/62
[2017-01-30] MEDS ORDERED: LIDOCAINE 1% / SOD BICARB 8.4% 20 ML VIAL. IJ ONE ×2 (14:00→14:11)
--- NOTE | 2017-01-30 14:10 | PDOC1 ---
IR Pre-Procedure H&P H&P Update No significant change from Dr. Susan floyd H&P done 01/30/17. DAVID CALLEJAS MD Jan 30, 2017 14:10
--- NOTE | 2017-01-30 14:45 | PDOC ---
Exam Powder Core Tester Powder Core Tester Arnaldo Sorter Packer Sorter Packer None Pre-Procedure Diagnosis Pre-Procedure Diagnosis Knee infection requiring central access for antibiotics Post-Procedure Diagnosis Post-Procedure Diagnosis Same Procedure Performed Procedure Performed Right basilic vein PICC placement Type of Anesthesia Type of Anesthesia Local Estimated Blood Loss EBL: None Specimens Specimans None Drain/Tubes Drains/Tubes None Condition of Patient Condition of Patient Stable DAVID CALLEJAS MD Jan 30, 2017 14:45
[2017-01-30 15:00] VITALS: BP 112/76
[2017-01-30] MEDS ORDERED: 0.9 % SODIUM CHLORIDE 10 ML DISP.SYRIN. IV PRN ×3 (15:00)
--- NOTE | 2017-01-30 15:05 | RAD ---
Procedure: ultrasound and fluoroscopic guided PICC placement. The procedure risk and complications to include bleeding, infection and arrhythmia, were discussed at length with the patient, and they understood and wished to proceed. All questions were answered. Consent form signed. The right upper extremity was prepped and draped using maximal sterile technique and 1% Xylocaine was used for local anesthesia. Ultrasound-guided access: The arm was scanned by ultrasound and the right basilic vein is patent and compressible. Under ultrasound guidance, a single wall puncture was made into the basilic vein followed by tract dilation and careful guidewire and sheath placement. An ultrasound image was saved and sent to PACS. The 5-Fijian dual lumen PICC line catheter was measured under fluoroscopic guidance and cut to 37 cm. The PICC line was placed with the tip at the superior cavoatrial junction. Line was flushed with 100 units per millimeter heparin. Chest x-ray: PICC line is in a satisfactory location. Complication: None Fluoroscopy time 1.1 mins DAP: 2 Gycm2 Contrast: None Sedation: None The patient tolerated the procedure well and returned to the floor in a stable condition. Conclusion: Successful right arm dual lumen 37- cm long right basilic PICC placement with ultrasound and fluoroscopic guidance.
[2017-01-30 19:00] VITALS: BP 108/70
[2017-01-30] MEDS: VANCOMYCIN 2 GM in IV NORMAL SALINE 500ML BAG 500 ML IV SCH (22:14)
[2017-01-30 23:00] VITALS: BP 145/83
[2017-01-31 03:00] VITALS: BP 132/79
[2017-01-31] MEDS: oxyCODONE/APAP 7.5/325 1 TAB TABLET PO PRN ×4 (04:33→17:35)
[2017-01-31 05:04] LABS: HEMOGLOBIN 9.3 g/dL (12.0-15.5)
[2017-01-31 05:07] LABS: INR 1.3 (0.8-1.1); PROTHROMBIN TIME PATIENT 15.3 SEC (11.7-14.0)
[2017-01-31 07:00] VITALS: BP 155/76
[2017-01-31] MEDS: SENNOSIDES/DOCUSATE 8.6/50MG TABLET. PO SCH (09:52)
[2017-01-31] MEDS: FERROUS SULFATE 325 MG TABLET. PO SCH ×2 (09:52→17:35)
[2017-01-31] MEDS: MULTIVITAMIN with MINERAL TABLET. PO SCH (09:52)
[2017-01-31] MEDS: CELECOXIB 200 MG CAPSULE. PO SCH ×2 (09:52→21:05)
[2017-01-31] MEDS: VANCOMYCIN 2 GM in IV NORMAL SALINE 500ML BAG 500 ML IV SCH (09:54)
--- NOTE | 2017-01-31 10:20 | PDOC ---
GENERAL General: group B beta hemolytic strep on cultures so far. vss and afebrile. awake and alert and has PICC in right arm. vancomycin ongoing iv. chest with decreased breath sounds and clear, heart regular, and abdomen benign. knee dressed. final plans per ID. Problems: VITAL SIGNS Vital Signs: Vital Signs Date Time Temp Pulse Resp B/P (MAP) Pulse Ox O2 Delivery O2 Flow Rate FiO2 01/31/17 09:53 Room Air 01/31/17 07:00 98.1 74 20 155/76 (102) 100 98.1 01/30/17 20:00 2.0 ALLERGIES Allergies: Allergies Coded Allergies Type Severity Reaction Last Updated Verified No Known Drug Allergies 01/28/17 No MEDS Medications: Current Medications Medications (Trade) Dose Ordered Sig/Jayson Start Time Stop Time Status Last Admin Dose Admin Acetaminophen (Tylenol) 650 mg PRN Q4HRS PRN 01/28/17 18:15 Acetaminophen/ Hydrocodone Bitart (Lortab 10/325) 1 tab PRN Q3HRS PRN 01/28/17 18:15 Acetaminophen/ Hydrocodone Bitart (Lortab 7.5/325) 1 tab PRN Q3HRS PRN 01/28/17 18:15 Albuterol Sulfate (Ventolin Neb Soln) 2.5 mg PRN Q4HRS PRN 01/29/17 10:00 Bisacodyl (Dulcolax Supp) 10 mg 1X PRN PRN 01/29/17 16:00 01/30/17 15:59 DC Calcium Carbonate/ Glycine (Tums) 500 mg PRN QID PRN 01/28/17 18:15 Cefazolin Sodium 3 gm/Sodium Chloride 100 ml @ 200 mls/hr Q6H 01/28/17 23:00 01/29/17 11:29 DC 01/29/17 11:40 200 MLS/HR Celecoxib (CeleBREX) 200 mg BID 01/28/17 21:00 01/31/17 09:52 200 MG Dexamethasone Sodium Phosphate (Decadron) 20 mg STK-MED ONCE 01/28/17 16:25 01/28/17 16:26 DC Dextrose (Dextrose 50%-Water Syringe) 12.5 gm PRN Q15MIN PRN 01/28/17 18:15 Dextrose/Sodium Chloride 1,000 ml @ 100 mls/hr Q10H 01/28/17 18:02 01/29/17 14:32 DC 01/29/17 05:38 100 MLS/HR Diphenhydramine HCl (Benadryl) 25 mg PRN Q6HRS PRN 01/28/17 18:15 Fentanyl Citrate (Fentanyl 2ml Vial) 50 mcg PRN Q1HR PRN 01/28/17 18:15 Ferrous Sulfate (Feosol) 325 mg BIDWMEALS 01/29/17 08:00 01/31/17 09:52 325 MG Heparin Sodium/ Sodium Chloride 500 ml @ As Directed STK-MED ONCE 01/30/17 14:11 01/30/17 14:12 DC Hydromorphone HCl (Dilaudid) 0.5 mg PRN Q10MIN PRN 01/28/17 17:30 01/29/17 17:29 DC 01/28/17 18:30 0.5 MG Influenza Virus Vaccine Quadrival (Fluarix Quad [id number] Syringe) 0.5 ml ONCE ONCE 01/30/17 09:00 01/30/17 09:01 DC 01/30/17 09:22 0.5 ML Info (Do NOT chart on this placeholder) 1 each PRN 1X PRN 01/29/17 02:15 Cancel Lidocaine HCl (Lidocaine Pf 2% Vial) 5 ml STK-MED ONCE 01/28/17 16:08 01/28/17 16:09 DC Lidocaine HCl (Xylocaine-Mpf 1% Vial) 2 ml PRN 1X PRN 01/28/17 17:30 01/29/17 17:29 DC Lidocaine/Sodium Bicarbonate (Buffered Lidocaine 1%) 20 ml STK-MED ONCE 01/30/17 14:11 01/30/17 14:12 DC Magnesium Hydroxide (Milk Of Magnesia) 2,400 mg 1X PRN PRN 01/29/17 06:00 01/30/17 05:59 DC Morphine Sulfate 2 mg PRN Q1HR PRN 01/28/17 18:38 Multivitamins (Thera M Plus) 1 tab DAILY 01/29/17 09:00 01/31/17 09:52 1 TAB Ondansetron HCl (Zofran) 4 mg PRN Q6HRS PRN 01/28/17 17:30 01/29/17 17:29 DC Oxycodone/ Acetaminophen (Percocet 5/325) 1 tab PRN Q3HRS PRN 01/28/17 18:15 Oxycodone/ Acetaminophen (Percocet 7.5/ 325) 1 tab PRN Q3HRS PRN 01/28/17 18:15 01/31/17 09:53 1 TAB Prochlorperazine Edisylate (Compazine) 10 mg PRN Q4HRS PRN 01/28/17 18:15 Propofol 20 ml @ As Directed STK-MED ONCE 01/28/17 16:08 01/28/17 16:09 DC Ringer's Solution 1,000 ml @ 0 mls/hr Q0M 01/28/17 17:23 01/29/17 05:23 DC Senna/Docusate Sodium (Senna Plus) 1 tab DAILY 01/29/17 09:00 01/31/17 09:52 1 TAB Sevoflurane (Ultane) 30 ml STK-MED ONCE 01/28/17 16:25 01/28/17 16:26 DC Sodium Chloride (Normal Saline Flush) 20 ml PRN Q5MIN PRN 01/30/17 15:00 Tramadol HCl (Ultram) 100 mg PRN Q3HRS PRN 01/28/17 18:15 Vancomycin HCl 1 each 1X ONCE 01/31/17 20:30 01/31/17 20:31 Vancomycin HCl (Vanco Per Pharmacy) 1 each PRN DAILY PRN 01/30/17 09:00 01/30/17 14:01 1 EACH Vancomycin HCl 2 gm/Sodium Chloride 500 ml @ 250 mls/hr Q12HR 01/30/17 21:00 01/31/17 09:54 250 MLS/HR Zolpidem Tartrate (Ambien) 5 mg PRN QHS PRN 01/28/17 18:15 LAB Lab: Laboratory Tests Test 01/31/17 04:40 Hemoglobin 9.3 g/dL (12.0-15.5) Hematocrit 29.0 % (36.0-47.0) Mean Corpuscular Hemoglobin Concent 32 g/dL (31-37) Prothrombin Time 15.3 SEC (11.7-14.0) Prothromb Time International Ratio 1.3 (0.8-1.1) RAFAEL CASTRO MD Jan 31, 2017 10:20
[2017-01-31 11:00] VITALS: BP 131/78
--- NOTE | 2017-01-31 12:12 | PDOC ---
Infectious Disease Note Subjective Subjective Right knee pain with movement + drainage ROS ROS GEN: Denies fevers, chills, sweats CV: Denies chest pain RESP: Denies shortness of air, cough GI: Denies n/v/d Vital Sign Vital Signs Vital Signs Date Time Temp Pulse Resp B/P (MAP) Pulse Ox O2 Delivery O2 Flow Rate FiO2 01/31/17 11:00 97.9 67 20 131/78 (95) 95 Room Air 97.9 01/30/17 20:00 2.0 Physical Exam PHYSICAL EXAM GENERAL: Sitting in the chair, leg elevated, NAD HEENT: Oral cavity pink, moist LUNGS: Clear HEART: S1 and S2 ABD: Soft, NT EXT: BLE edema. Right knee is warm; incision well-appro w/ sutures intact and serous drainage at the proximal end MEDICAL DEVICE ASSEMBLER: Alert, oriented x 3, no focal neurologic deficit SKIN: No rash RUE-PICC. clean Labs Lab Laboratory Tests Test 01/31/17 04:40 Hemoglobin 9.3 g/dL (12.0-15.5) Hematocrit 29.0 % (36.0-47.0) Mean Corpuscular Hemoglobin Concent 32 g/dL (31-37) Prothrombin Time 15.3 SEC (11.7-14.0) Prothromb Time International Ratio 1.3 (0.8-1.1) Micro ANAEROBIC-AEROBIC CULTURE PENDING ANAEROBIC RES 1 PENDING AEROBIC CULT Preliminary Preliminary report AEROBIC RES 1 Preliminary Comment Beta hemolytic Streptococcus, group B BLOOD CULTURE Preliminary NO GROWTH AFTER 2 DAYS Objective Assessment S/p mechanical fall Right TKA wound dehiscence S/p exploration with irrigation, debridement right knee and closure 01/28. - s/p TKA place 12/30 Group B strep infection Fever -better Plan Plan of Care [facility]anc, modify [facility] Social service F/u cults Attending Co-Sign The patient was seen and interviewed as well as examined at the bedside. The chart was reviewed. The case was discussed. Agree with the plan of care. TERE SCHMID APRN Jan 31, 2017 12:12 ALONDRA NOBLES MD Jan 31, 2017 13:47
--- NOTE | 2017-01-31 14:21 | PDOC ---
PROGRESS NOTES Subjective Subjective Problems overnight: Patient was working with physical therapy today on examination and can negotiate a stair with difficulty questionable as she can maneuver her walker adequately. She is anxious to go home does not want rehabilitation and states her son can take care of her and she can stay downstairs until she gets strong enough to negotiate stairs better Objective Vital Signs Vital Signs Date Time Temp Pulse Resp B/P (MAP) Pulse Ox O2 Delivery O2 Flow Rate FiO2 01/31/17 13:44 Room Air 01/31/17 11:00 97.9 67 20 131/78 (95) 95 97.9 01/30/17 20:00 2.0 Physical Exam On examination right knee has some serous drainage no redness or erythema good motion and strength intact distal neurovascular status Labs Laboratory Tests Test 01/30/17 04:10 01/31/17 04:40 White Blood Count 9.0 x10^3/uL (4.0-11.0) Red Blood Count 3.44 x10^6/uL (3.50-5.40) Hemoglobin 9.6 g/dL (12.0-15.5) 9.3 g/dL (12.0-15.5) Hematocrit 31.3 % (36.0-47.0) 29.0 % (36.0-47.0) Mean Corpuscular Volume 91 fL (79-100) Mean Corpuscular Hemoglobin 28 pg (25-35) Mean Corpuscular Hemoglobin Concent 31 g/dL (31-37) 32 g/dL (31-37) Red Cell Distribution Width 14.9 % (11.5-14.5) Platelet Count 243 x10^3/uL (140-400) Neutrophils (%) (Auto) 82 % (31-73) Lymphocytes (%) (Auto) 12 % (24-48) Monocytes (%) (Auto) 6 % (0-9) Eosinophils (%) (Auto) 0 % (0-3) Basophils (%) (Auto) 0 % (0-3) Neutrophils # (Auto) 7.3 x10^3uL (1.8-7.7) Lymphocytes # (Auto) 1.1 x10^3/uL (1.0-4.8) Monocytes # (Auto) 0.5 x10^3/uL (0.0-1.1) Eosinophils # (Auto) 0.0 x10^3/uL (0.0-0.7) Basophils # (Auto) 0.0 x10^3/uL (0.0-0.2) Erythrocyte Sedimentation Rate 115 (0-25) Prothrombin Time 16.4 SEC (11.7-14.0) 15.3 SEC (11.7-14.0) Prothromb Time International Ratio 1.4 (0.8-1.1) 1.3 (0.8-1.1) Sodium Level 140 mmol/L (136-145) Potassium Level 4.2 mmol/L (3.5-5.1) Chloride Level 103 mmol/L (98-107) Carbon Dioxide Level 31 mmol/L (21-32) Anion Gap 6 (6-14) Blood Urea Nitrogen 31 mg/dL (7-20) Creatinine 1.1 mg/dL (0.6-1.0) Estimated GFR (Cockcroft-Gault) 50.0 Glucose Level 113 mg/dL (70-99) Calcium Level 8.3 mg/dL (8.5-10.1) Laboratory Tests Test 01/31/17 04:40 Hemoglobin 9.3 g/dL (12.0-15.5) Hematocrit 29.0 % (36.0-47.0) Mean Corpuscular Hemoglobin Concent 32 g/dL (31-37) Prothrombin Time 15.3 SEC (11.7-14.0) Prothromb Time International Ratio 1.3 (0.8-1.1) Assessment Assessment POD# [], S/P [closure traumatic wound right knee] Problems: Plan Plan of Care Discussed with Dr. Bethea her superficial culture grew out some group B strep. This is concerning with the presence of her total knee arthroplasty but superficial and does deserve some antibiotic coverage as a prophylactic measure Continue progression with physical therapy Patient refuses long term facility placement and would rather go home with outpatient physical therapy Discharge will be delayed to get home antibiotics arranged XENA CALHOUN MD Jan 31, 2017 14:21
[2017-01-31 15:31] VITALS: BP 122/60
[2017-01-31 19:00] VITALS: BP 130/73
[2017-01-31 23:00] VITALS: BP 136/81
[2017-02-01 03:00] VITALS: BP 142/64
[2017-02-01 07:00] VITALS: BP 153/75
[2017-02-01 07:03] LABS: INR 1.3 (0.8-1.1); PROTHROMBIN TIME PATIENT 15.6 SEC (11.7-14.0)
[2017-02-01] MEDS: MULTIVITAMIN with MINERAL TABLET. PO SCH (09:17)
[2017-02-01] MEDS: FERROUS SULFATE 325 MG TABLET. PO SCH ×2 (09:17→18:02)
[2017-02-01] MEDS: SENNOSIDES/DOCUSATE 8.6/50MG TABLET. PO SCH (09:18)
[2017-02-01] MEDS: CELECOXIB 200 MG CAPSULE. PO SCH ×2 (09:18→20:07)
[2017-02-01 10:17] LABS: HEMATOCRIT 28.8 % (36.0-47.0); HEMOGLOBIN 9.1 g/dL (12.0-15.5)
[2017-02-01 11:00] VITALS: BP 113/74
--- NOTE | 2017-02-01 11:16 | PDOC ---
Infectious Disease Note Subjective Subjective Looking forward to going home tomorrow. Went outside earlier today and practiced walking on and off the curb. Knee pain controlled. ROS ROS GEN: Denies fevers, chills, sweats CV: Denies chest pain RESP: Denies shortness of air, cough GI: Denies n/v/d Vital Sign Vital Signs Vital Signs Date Time Temp Pulse Resp B/P (MAP) Pulse Ox O2 Delivery O2 Flow Rate FiO2 02/01/17 08:00 Nasal Cannula 2.0 02/01/17 07:30 95 02/01/17 07:00 99.0 77 18 153/75 (101) 99.0 Physical Exam PHYSICAL EXAM GENERAL: Sitting in the chair, NAD HEENT: Oral cavity pink, moist LUNGS: Clear HEART: S1 and S2 ABD: Soft, NT EXT: BLE edema. Right knee bandaged, dry DRESSING ROOM ATTENDANT: Alert, oriented x 3, no focal neurologic deficit SKIN: No rash RUE-PICC. (01/30). clean Labs Lab Laboratory Tests Test 02/01/17 06:00 Hemoglobin 9.1 g/dL (12.0-15.5) Hematocrit 28.8 % (36.0-47.0) Mean Corpuscular Hemoglobin Concent 31 g/dL (31-37) Prothrombin Time 15.6 SEC (11.7-14.0) Prothromb Time International Ratio 1.3 (0.8-1.1) Micro ANAEROBIC-AEROBIC CULTURE PENDING ANAEROBIC RES 1 PENDING AEROBIC CULT Preliminary Preliminary report AEROBIC RES 1 Preliminary Comment Beta hemolytic Streptococcus, group B BLOOD CULTURE Preliminary NO GROWTH AFTER 3 DAYS Objective Assessment S/p mechanical fall Right TKA wound dehiscence, s/p exploration with irrigation, debridement right knee and closure 01/28. - s/p TKA place 12/30 Group B strep infection Fever -better Plan Plan of Care [facility] Social service F/u cults Attending Co-Sign The patient was seen and interviewed as well as examined at the bedside. The chart was reviewed. The case was discussed. Agree with the plan of care. TERE SCHMID APRN Feb 01, 2017 11:16 ALONDRA NOBLES MD Feb 01, 2017 13:40
--- NOTE | 2017-02-01 12:19 | PDOC ---
GENERAL General: vss with tmax 99.6. awake and alert. knee bandaged with minimal drainage. exam stable. continue antibiotics per ID. Problems: VITAL SIGNS Vital Signs: Vital Signs Date Time Temp Pulse Resp B/P (MAP) Pulse Ox O2 Delivery O2 Flow Rate FiO2 02/01/17 11:00 99.6 69 16 113/74 (87) 100 Room Air 99.6 02/01/17 08:00 2.0 ALLERGIES Allergies: Allergies Coded Allergies Type Severity Reaction Last Updated Verified No Known Drug Allergies 01/28/17 No MEDS Medications: Current Medications Medications (Trade) Dose Ordered Sig/Jayson Start Time Stop Time Status Last Admin Dose Admin Acetaminophen (Tylenol) 650 mg PRN Q4HRS PRN 01/28/17 18:15 Acetaminophen/ Hydrocodone Bitart (Lortab 10/325) 1 tab PRN Q3HRS PRN 01/28/17 18:15 Acetaminophen/ Hydrocodone Bitart (Lortab 7.5/325) 1 tab PRN Q3HRS PRN 01/28/17 18:15 Albuterol Sulfate (Ventolin Neb Soln) 2.5 mg PRN Q4HRS PRN 01/29/17 10:00 Bisacodyl (Dulcolax Supp) 10 mg 1X PRN PRN 01/29/17 16:00 01/30/17 15:59 DC Calcium Carbonate/ Glycine (Tums) 500 mg PRN QID PRN 01/28/17 18:15 Cefazolin Sodium 3 gm/Sodium Chloride 100 ml @ 200 mls/hr Q6H 01/28/17 23:00 01/29/17 11:29 DC 01/29/17 11:40 200 MLS/HR Ceftriaxone Sodium 1 gm/ Sodium Chloride 50 ml @ 100 mls/hr Q24H 01/31/17 14:00 01/31/17 14:13 DC Ceftriaxone Sodium 2 gm/ Sodium Chloride 100 ml @ 200 mls/hr Q24H 01/31/17 15:00 01/31/17 15:20 200 MLS/HR Celecoxib (CeleBREX) 200 mg BID 01/28/17 21:00 02/01/17 09:18 200 MG Dexamethasone Sodium Phosphate (Decadron) 20 mg STK-MED ONCE 01/28/17 16:25 01/28/17 16:26 DC Dextrose (Dextrose 50%-Water Syringe) 12.5 gm PRN Q15MIN PRN 01/28/17 18:15 Dextrose/Sodium Chloride 1,000 ml @ 100 mls/hr Q10H 01/28/17 18:02 01/29/17 14:32 DC 01/29/17 05:38 100 MLS/HR Diphenhydramine HCl (Benadryl) 25 mg PRN Q6HRS PRN 01/28/17 18:15 Fentanyl Citrate (Fentanyl 2ml Vial) 50 mcg PRN Q1HR PRN 01/28/17 18:15 Ferrous Sulfate (Feosol) 325 mg BIDWMEALS 01/29/17 08:00 02/01/17 09:17 325 MG Heparin Sodium/ Sodium Chloride 500 ml @ As Directed STK-MED ONCE 01/30/17 14:11 01/30/17 14:12 DC Hydromorphone HCl (Dilaudid) 0.5 mg PRN Q10MIN PRN 01/28/17 17:30 01/29/17 17:29 DC 01/28/17 18:30 0.5 MG Influenza Virus Vaccine Quadrival (Fluarix Quad [id number] Syringe) 0.5 ml ONCE ONCE 01/30/17 09:00 01/30/17 09:01 DC 01/30/17 09:22 0.5 ML Info (Do NOT chart on this placeholder) 1 each PRN 1X PRN 01/29/17 02:15 Cancel Lidocaine HCl (Lidocaine Pf 2% Vial) 5 ml STK-MED ONCE 01/28/17 16:08 01/28/17 16:09 DC Lidocaine HCl (Xylocaine-Mpf 1% Vial) 2 ml PRN 1X PRN 01/28/17 17:30 01/29/17 17:29 DC Lidocaine/Sodium Bicarbonate (Buffered Lidocaine 1%) 20 ml STK-MED ONCE 01/30/17 14:11 01/30/17 14:12 DC Magnesium Hydroxide (Milk Of Magnesia) 2,400 mg 1X PRN PRN 01/29/17 06:00 01/30/17 05:59 DC Morphine Sulfate 2 mg PRN Q1HR PRN 01/28/17 18:38 Multivitamins (Thera M Plus) 1 tab DAILY 01/29/17 09:00 02/01/17 09:17 1 TAB Ondansetron HCl (Zofran) 4 mg PRN Q6HRS PRN 01/28/17 17:30 01/29/17 17:29 DC Oxycodone/ Acetaminophen (Percocet 5/325) 1 tab PRN Q3HRS PRN 01/28/17 18:15 Oxycodone/ Acetaminophen (Percocet 7.5/ 325) 1 tab PRN Q3HRS PRN 01/28/17 18:15 01/31/17 17:35 1 TAB Prochlorperazine Edisylate (Compazine) 10 mg PRN Q4HRS PRN 01/28/17 18:15 Propofol 20 ml @ As Directed STK-MED ONCE 01/28/17 16:08 01/28/17 16:09 DC Ringer's Solution 1,000 ml @ 0 mls/hr Q0M 01/28/17 17:23 01/29/17 05:23 DC Senna/Docusate Sodium (Senna Plus) 1 tab DAILY 01/29/17 09:00 02/01/17 09:18 1 TAB Sevoflurane (Ultane) 30 ml STK-MED ONCE 01/28/17 16:25 01/28/17 16:26 DC Sodium Chloride (Normal Saline Flush) 20 ml PRN Q5MIN PRN 01/30/17 15:00 Tramadol HCl (Ultram) 100 mg PRN Q3HRS PRN 01/28/17 18:15 Vancomycin HCl 1 each 1X ONCE 01/31/17 20:30 01/31/17 20:30 DC Vancomycin HCl (Vanco Per Pharmacy) 1 each PRN DAILY PRN 01/30/17 09:00 01/31/17 13:49 DC 01/30/17 14:01 1 EACH Vancomycin HCl 2 gm/Sodium Chloride 500 ml @ 250 mls/hr Q12HR 01/30/17 21:00 01/31/17 13:49 DC 01/31/17 09:54 250 MLS/HR Zolpidem Tartrate (Ambien) 5 mg PRN QHS PRN 01/28/17 18:15 LAB Lab: Laboratory Tests Test 02/01/17 06:00 Hemoglobin 9.1 g/dL (12.0-15.5) Hematocrit 28.8 % (36.0-47.0) Mean Corpuscular Hemoglobin Concent 31 g/dL (31-37) Prothrombin Time 15.6 SEC (11.7-14.0) Prothromb Time International Ratio 1.3 (0.8-1.1) RAFAEL CASTRO MD Feb 01, 2017 12:19
[2017-02-01 15:00] VITALS: BP 135/67
[2017-02-01] MEDS: HYDROcodone/APAP 10/325 1 TAB TABLET PO PRN ×2 (18:07→23:35)
[2017-02-01 19:10] VITALS: BP 134/56
[2017-02-01 23:01] VITALS: BP 125/70
[2017-02-02 03:24] VITALS: BP 134/68
[2017-02-02 05:04] LABS: INR 1.3 (0.8-1.1); PROTHROMBIN TIME PATIENT 15.8 SEC (11.7-14.0)
[2017-02-02] MEDS: HYDROcodone/APAP 10/325 1 TAB TABLET PO PRN (06:14)
[2017-02-02 07:00] VITALS: BP 110/55
--- NOTE | 2017-02-02 08:13 | PDOC ---
GENERAL General: vss and afebrile. awake and alert. chest clear, heart regular, and abdomen benign. hip dressed. on rocephin currently and expect dc later today on same per ID. Problems: VITAL SIGNS Vital Signs: Vital Signs Date Time Temp Pulse Resp B/P (MAP) Pulse Ox O2 Delivery O2 Flow Rate FiO2 02/02/17 07:15 94 Room Air 02/02/17 06:14 17 02/02/17 03:24 97.7 77 134/68 (90) 97.7 02/01/17 08:00 2.0 ALLERGIES Allergies: Allergies Coded Allergies Type Severity Reaction Last Updated Verified No Known Drug Allergies 01/28/17 No MEDS Medications: Current Medications Medications (Trade) Dose Ordered Sig/Jayson Start Time Stop Time Status Last Admin Dose Admin Acetaminophen (Tylenol) 650 mg PRN Q4HRS PRN 01/28/17 18:15 Acetaminophen/ Hydrocodone Bitart (Lortab 10/325) 1 tab PRN Q3HRS PRN 01/28/17 18:15 02/02/17 06:14 1 TAB Acetaminophen/ Hydrocodone Bitart (Lortab 7.5/325) 1 tab PRN Q3HRS PRN 01/28/17 18:15 Albuterol Sulfate (Ventolin Neb Soln) 2.5 mg PRN Q4HRS PRN 01/29/17 10:00 Bisacodyl (Dulcolax Supp) 10 mg 1X PRN PRN 01/29/17 16:00 01/30/17 15:59 DC Calcium Carbonate/ Glycine (Tums) 500 mg PRN QID PRN 01/28/17 18:15 Cefazolin Sodium 3 gm/Sodium Chloride 100 ml @ 200 mls/hr Q6H 01/28/17 23:00 01/29/17 11:29 DC 01/29/17 11:40 200 MLS/HR Ceftriaxone Sodium 1 gm/ Sodium Chloride 50 ml @ 100 mls/hr Q24H 01/31/17 14:00 01/31/17 14:13 DC Ceftriaxone Sodium 2 gm/ Sodium Chloride 100 ml @ 200 mls/hr Q24H 01/31/17 15:00 02/01/17 15:12 200 MLS/HR Celecoxib (CeleBREX) 200 mg BID 01/28/17 21:00 02/01/17 20:07 200 MG Dexamethasone Sodium Phosphate (Decadron) 20 mg STK-MED ONCE 01/28/17 16:25 01/28/17 16:26 DC Dextrose (Dextrose 50%-Water Syringe) 12.5 gm PRN Q15MIN PRN 01/28/17 18:15 Dextrose/Sodium Chloride 1,000 ml @ 100 mls/hr Q10H 01/28/17 18:02 01/29/17 14:32 DC 01/29/17 05:38 100 MLS/HR Diphenhydramine HCl (Benadryl) 25 mg PRN Q6HRS PRN 01/28/17 18:15 Fentanyl Citrate (Fentanyl 2ml Vial) 50 mcg PRN Q1HR PRN 01/28/17 18:15 Ferrous Sulfate (Feosol) 325 mg BIDWMEALS 01/29/17 08:00 02/01/17 18:02 325 MG Heparin Sodium/ Sodium Chloride 500 ml @ As Directed STK-MED ONCE 01/30/17 14:11 01/30/17 14:12 DC Hydromorphone HCl (Dilaudid) 0.5 mg PRN Q10MIN PRN 01/28/17 17:30 01/29/17 17:29 DC 01/28/17 18:30 0.5 MG Influenza Virus Vaccine Quadrival (Fluarix Quad [id number] Syringe) 0.5 ml ONCE ONCE 01/30/17 09:00 01/30/17 09:01 DC 01/30/17 09:22 0.5 ML Info (Do NOT chart on this placeholder) 1 each PRN 1X PRN 01/29/17 02:15 Cancel Lidocaine HCl (Lidocaine Pf 2% Vial) 5 ml STK-MED ONCE 01/28/17 16:08 01/28/17 16:09 DC Lidocaine HCl (Xylocaine-Mpf 1% Vial) 2 ml PRN 1X PRN 01/28/17 17:30 01/29/17 17:29 DC Lidocaine/Sodium Bicarbonate (Buffered Lidocaine 1%) 20 ml STK-MED ONCE 01/30/17 14:11 01/30/17 14:12 DC Magnesium Hydroxide (Milk Of Magnesia) 2,400 mg 1X PRN PRN 01/29/17 06:00 01/30/17 05:59 DC Morphine Sulfate 2 mg PRN Q1HR PRN 01/28/17 18:38 Multivitamins (Thera M Plus) 1 tab DAILY 01/29/17 09:00 02/01/17 09:17 1 TAB Ondansetron HCl (Zofran) 4 mg PRN Q6HRS PRN 01/28/17 17:30 01/29/17 17:29 DC Oxycodone/ Acetaminophen (Percocet 5/325) 1 tab PRN Q3HRS PRN 01/28/17 18:15 Oxycodone/ Acetaminophen (Percocet 7.5/ 325) 1 tab PRN Q3HRS PRN 01/28/17 18:15 01/31/17 17:35 1 TAB Prochlorperazine Edisylate (Compazine) 10 mg PRN Q4HRS PRN 01/28/17 18:15 Propofol 20 ml @ As Directed STK-MED ONCE 01/28/17 16:08 01/28/17 16:09 DC Ringer's Solution 1,000 ml @ 0 mls/hr Q0M 01/28/17 17:23 01/29/17 05:23 DC Senna/Docusate Sodium (Senna Plus) 1 tab DAILY 01/29/17 09:00 02/01/17 09:18 1 TAB Sevoflurane (Ultane) 30 ml STK-MED ONCE 01/28/17 16:25 01/28/17 16:26 DC Sodium Chloride (Normal Saline Flush) 20 ml PRN Q5MIN PRN 01/30/17 15:00 Tramadol HCl (Ultram) 100 mg PRN Q3HRS PRN 01/28/17 18:15 Vancomycin HCl 1 each 1X ONCE 01/31/17 20:30 01/31/17 20:30 DC Vancomycin HCl (Vanco Per Pharmacy) 1 each PRN DAILY PRN 01/30/17 09:00 01/31/17 13:49 DC 01/30/17 14:01 1 EACH Vancomycin HCl 2 gm/Sodium Chloride 500 ml @ 250 mls/hr Q12HR 01/30/17 21:00 01/31/17 13:49 DC 01/31/17 09:54 250 MLS/HR Zolpidem Tartrate (Ambien) 5 mg PRN QHS PRN 01/28/17 18:15 LAB Lab: Laboratory Tests Test 02/02/17 04:45 Prothrombin Time 15.8 SEC (11.7-14.0) Prothromb Time International Ratio 1.3 (0.8-1.1) RAFAEL CASTRO MD Feb 02, 2017 08:13
[2017-02-02] MEDS: SENNOSIDES/DOCUSATE 8.6/50MG TABLET. PO SCH (09:12)
[2017-02-02] MEDS: FERROUS SULFATE 325 MG TABLET. PO SCH (09:12)
[2017-02-02] MEDS: MULTIVITAMIN with MINERAL TABLET. PO SCH (09:12)
[2017-02-02] MEDS: CELECOXIB 200 MG CAPSULE. PO SCH (09:12)
--- NOTE | 2017-02-02 10:04 | PDOC ---
Infectious Disease Note Subjective Subjective Looking forward to going home tomorrow. Went outside earlier today and practiced walking on and off the curb. Knee pain controlled. ROS ROS GEN: Denies fevers, chills, sweats HEENT: Denies blurred vision, sore throat CV: Denies chest pain RESP: Denies shortness of air, cough GI: Denies n/v/d NEURO: Denies confusion, dizziness MSK: Denies weakness, joint pain/swelling Vital Sign Vital Signs Vital Signs Date Time Temp Pulse Resp B/P (MAP) Pulse Ox O2 Delivery O2 Flow Rate FiO2 02/02/17 07:15 94 Room Air 02/02/17 07:00 99.0 75 18 110/55 (73) 99.0 02/01/17 08:00 2.0 Physical Exam PHYSICAL EXAM GENERAL: NAD, Alert HEENT: PERRL, OC/OP NECK: Supple, no JVD, no LN LUNGS: Clear HEART: S1S2, no gallop, no murmur ABD: Soft, NT, no organomegaly, no rebound EXT: No edema, no cyanosis INTERNET TECHNOLOGY MANAGER: Alert, oriented x 3, no focal neurologic deficit SKIN: No rash IV: ok Labs Lab Laboratory Tests Test 02/02/17 04:45 Prothrombin Time 15.8 SEC (11.7-14.0) Prothromb Time International Ratio 1.3 (0.8-1.1) Objective Assessment S/p mechanical fall Right TKA wound dehiscence, s/p exploration with irrigation, debridement right knee and closure 01/28. - s/p TKA place 12/30 Group B strep infection Fever -better Plan Plan of Care [facility] service F/u cults f/u with us in 2 wks wkly cbc, bun/cr /sed rate fax to [phone] ALONDRA NOBLES MD Feb 02, 2017 10:04
[2017-02-02 11:00] VITALS: BP 127/60
[2017-02-02 15:00] VITALS: BP 139/70
--- NOTE | 2017-02-02 17:06 | DS ---
DATE OF DISCHARGE: 02/02/2017 PRINCIPAL DIAGNOSIS: Traumatic wound dehiscence status post fall. DISCHARGE MEDICATIONS: Include hydrocodone 10/325 one p.o. q.6 hours p.r.n. pain, diclofenac [id number] mg p.o. b.i.d., iron 325 mg p.o. b.i.d. DISCHARGE DISPOSITION: Home health. She is weightbearing as tolerated. She is going to undergo some antibiotics, Rocephin 2 g IV q.24 hours at home and wound care per home health and standard knee protocol for activity. Follow up with Dr. Prajapati in 10-14 days. BRIEF DESCRIPTION OF HOSPITAL COURSE: The patient was admitted with traumatic wound dehiscence of a previous total knee arthroplasty about a month out. She hit the knee and it opened up and began draining from the dehisced incision, underwent irrigation, debridement and had some growth of group B strep in superficial cultures. I had gone over with Dr. Bethea of Infectious Disease just due to her increased susceptibility in the presence of a total knee arthroplasty, we probably should cover with some antibiotics for a couple of weeks, but no gross infection was noted at the time of the procedure. She progressed well through physical therapy and wants to go home as opposed to any type of rehabilitation facility and was discharged home with home health followup as a result. XENA PRAJAPATI MD DR: TREVIN/ilan JOB#: [id number] / [id number]
== END 2017-02-02 14:57 | disposition home health service (06) | DRG 907 ==
LOC: SURG 13:53 → 4 NORTH 18:11
PROVIDERS: ADMIT Orthopaedic Surgery; ATTEND Orthopaedic Surgery
PROC: 0KBQ0ZZ Excision of Right Upper Leg Muscle, Open Approach (ICD-10-PCS; principal; 2017-01-28 16:00)
PROC: 02HV33Z Insertion of Infusion Device into Superior Vena Cava, Percutaneous Approach (ICD-10-PCS; 2017-01-30)
PROC: B5181ZA Fluoroscopy of Superior Vena Cava using Low Osmolar Contrast, Guidance (ICD-10-PCS; 2017-01-30)
PROC: B548ZZA Ultrasonography of Superior Vena Cava, Guidance (ICD-10-PCS; 2017-01-30)
DX: T81.31XA Disruption of external operation (surgical) wound, not elsewhere classified, initial encounter (principal); A41.9 Sepsis, unspecified organism; J96.11 Chronic respiratory failure with hypoxia; Z99.81 Dependence on supplemental oxygen; Z68.44 Body mass index [BMI] 60.0-69.9, adult; E66.01 Morbid (severe) obesity due to excess calories; J44.9 Chronic obstructive pulmonary disease, unspecified; Z82.49 Family history of ischemic heart disease and other diseases of the circulatory system; Z87.891 Personal history of nicotine dependence; Z96.651 Presence of right artificial knee joint; M19.90 Unspecified osteoarthritis, unspecified site; B95.1 Streptococcus, group B, as the cause of diseases classified elsewhere; Y92.89 Other specified places as the place of occurrence of the external cause
CPT/HCPCS: 36415; 36569; 76937; 77001; 80048; 81001; 85014; 85018; 85025; 85610; 85651; 87040; 87071; 87075; 87186; 87205; 90686; 94250; 94760; C1751; C1892; J0690; J0696; J1100; J1170; J1644; J2270; J2405; J2704; J3010; J3370; J7030; J7040; J7120; 97110; 97116; J2001

== ENCOUNTER 2017-02-17 12:07 | Inpatient (IN) | payer OTHER ==
[~2017-02-17] VITALS: Ht 152.4 cm; Wt 140.2 kg
[2017-02-17] VITALS (8 sets, daily range): BP systolic 120–143; BP diastolic 62–90
[2017-02-17] MEDS ORDERED: IPRATROPIUM BROMIDE 0.5 MG/2.5 ML NEBU. NEB ONE (12:30)
[2017-02-17] MEDS ORDERED: methylPREDNISolone SOD SUCC PF 125 MG/2 ML VIAL. IV ONE (12:30)
[2017-02-17] MEDS ORDERED: ALBUTEROL SULFATE 2.5 MG/3 ML NEBU. CONT NEB ONE (12:30)
[2017-02-17] MEDS ORDERED: ALBUTEROL SULFATE 2.5 MG/3 ML NEBU. ONE (12:33)
[2017-02-17] MEDS ORDERED: IPRATRPIUM/ALBUTEROL 0.5/2.5MG 3 ML NEBU. ONE (12:33)
[2017-02-17 13:00] LABS: BASO % 3 % (0-3); EOS % 9 % (0-3); HEMATOCRIT 30.2 % (36.0-47.0); HEMOGLOBIN 9.3 g/dL (12.0-15.5); LYMPH # 0.6 x10^3/uL (1.0-4.8); LYMPH % 36 % (24-48); MEAN CORPUSCULAR HEMOGLOBIN 27 pg (25-35); MEAN CORPUSCULAR HGB CONC 31 g/dL (31-37); MEAN CORPUSCULAR VOLUME 89 fL (79-100); MONO % 28 % (0-9); NEUT % 25 % (31-73); PLATELET COUNT 296 x10^3/uL (140-400); RED BLOOD COUNT 3.39 x10^6/uL (3.50-5.40); RED CELL DISTRIBUTION WIDTH 16.4 % (11.5-14.5)
[2017-02-17 13:02] LABS: WHITE BLOOD COUNT 1.8 x10^3/uL (4.0-11.0)
--- NOTE | 2017-02-17 13:02 | RAD ---
Chest radiograph 02/17/2017 2:30 PM Indication: Shortness of air, history of COPD Comparison: Chest radiograph 11/10/2016 Technique: Single portable upright frontal view of the chest is provided. Findings: A right upper extremity PICC is identified with the distal tip projecting over the superior vena cava. Stable enlarged appearance of the cardiomediastinal silhouette. There is no acute small left pleural effusion with adjacent atelectasis and/or infiltrate. There is new trace right pleural effusion with adjacent atelectasis and/or infiltrate. There is mild pulmonary vascular congestion. No pneumothorax. Impression: New small bilateral pleural effusions, left greater than right with associated atelectasis and/or infiltrates. Mild to moderate pulmonary vascular congestion as may be seen in setting of congestive heart failure.
[2017-02-17 13:16] LABS: HCO3 ABG 34 mmol/L (21-28); PO2 ABG 94 mmHg (65-108); SAT O2 ABG 96 % (92-99)
[2017-02-17 13:19] LABS: PCO2 ABG 70 mmHg (35-46)
[2017-02-17 13:20] LABS: FIO2 ABG 40
[2017-02-17 13:27] LABS: % EOS 4 % (0-5); CALCIUM 8.5 mg/dL (8.5-10.1); CREATININE 1.2 mg/dL (0.6-1.0); GFR 45.2; PLT ESTIMATE ADEQUATE (ADEQUATE); POTASSIUM 4.1 mmol/L (3.5-5.1)
[2017-02-17 13:28] LABS: ANISOCYTOSIS SLIGHT; HYPOCHROMIA PRESENT; POLYCHROMASIA SLIGHT
[2017-02-17 13:29] LABS: TARGET CELLS OCC
[2017-02-17 13:30] LABS: STOMATOCYTES PRESENT
[2017-02-17 13:33] LABS: ALBUMIN 2.4 g/dL (3.4-5.0); ALBUMIN/GLOBULIN RATIO 0.4 (1.0-1.7); TOTAL BILIRUBIN 0.2 mg/dL (0.2-1.0); TOTAL PROTEIN 7.9 g/dL (6.4-8.2)
[2017-02-17] MEDS ORDERED: FUROSEMIDE 40 MG/4 ML VIAL. IVP ONE (13:45)
--- NOTE | 2017-02-17 14:04 | PHYS DOC ---
Past Medical History Past Medical History: COPD Past Surgical History: Other Additional Past Surgical Histo: R)knee replacement. Additional Information: Quit about 5 years ago. Alcohol Use: None Drug Use: None Adult General Chief Complaint Chief Complaint: SHORTNESS OF BREATH HPI HPI Patient is a 66 year old female with history of COPD, recent hospitalization for right atraumatic wound dehiscence previous TKA who presents with increased shortness of breath and hypoxia. Patient's home health nurse went to check on patient was found to be altered and hypoxic with an O2 sat of 70% well on 3 L on EMS arrival. The patient was placed at 12 L on nonrebreather mask on ED arrival. Patient is afebrile with stable pulse and heart rate. Rations are significantly diminished bilaterally and otherwise clear. Exam is limited by the patient's body habitus. Patient does have a PICC line in place and is receiving ongoing IV antibiotics her right knee wound. History is limited due to the patient's clinical presentation. [] Review of Systems Review of Systems Review of systems as prescribed. Current Medications Current Medications Current Medications Medications (Trade) Dose Ordered Sig/Jayson Start Time Stop Time Status Last Admin Dose Admin Albuterol Sulfate (Ventolin Neb Soln) 2.5 mg STK-MED ONCE 02/17/17 12:33 02/17/17 12:34 DC Albuterol/ Ipratropium (Duoneb) 3 ml STK-MED ONCE 02/17/17 12:33 02/17/17 12:34 DC Furosemide (Lasix) 40 mg 1X ONCE 02/17/17 13:45 02/17/17 13:46 DC 02/17/17 15:21 40 MG Ipratropium [place] (Atrovent) 0.5 mg 1X ONCE 02/17/17 12:30 02/17/17 12:36 DC 02/17/17 12:37 0.5 MG Methylprednisolone Sodium Succinate (SOLU-Medrol 125MG VIAL) 125 mg 1X ONCE 02/17/17 12:30 02/17/17 12:36 DC 02/17/17 12:52 125 MG Allergies Allergies Allergies Coded Allergies Type Severity Reaction Last Updated Verified No Known Drug Allergies 01/28/17 No Physical Exam Physical Exam Constitutional: Anxious, respiratory distress with altered mental status. [] HENT: Normocephalic, atraumatic, bilateral external ears normal, oropharynx moist, nose normal. [] Eyes: PERRLA, EOMI. [] Neck: Normal range of motion, no tenderness, supple, no stridor. [] Cardiovascular:Heart rate regular rhythm, no murmur. [] Lungs & Thorax: Respirations labored, Respiratory rate in 20's, significantly diminished, clear. Good exam by habitus. [] Abdomen: Bowel sounds normal, soft, obesity compromising exam.. [] . [] Extremities: Right knee, healing surgical wound. [] Neurologic: Alert, normal motor function, normal sensory function, no focal deficits noted. [] Psychologic: Affect anxious[] Current Patient Data Vital Signs Vital Signs Date Time Temp Pulse Resp B/P (MAP) Pulse Ox O2 Delivery O2 Flow Rate FiO2 02/17/17 13:50 74 21 140/71 (94) 98 BiPAP/CPAP 02/17/17 12:30 10.0 Lab Values Laboratory Tests Test 02/17/17 12:34 02/17/17 13:10 White Blood Count 1.8 x10^3/uL (4.0-11.0) *L Red Blood Count 3.39 x10^6/uL (3.50-5.40) L Hemoglobin 9.3 g/dL (12.0-15.5) L Hematocrit 30.2 % (36.0-47.0) L Mean Corpuscular Volume 89 fL (79-100) Mean Corpuscular Hemoglobin 27 pg (25-35) Mean Corpuscular Hemoglobin Concent 31 g/dL (31-37) Red Cell Distribution Width 16.4 % (11.5-14.5) H Platelet Count 296 x10^3/uL (140-400) Neutrophils (%) (Auto) 25 % (31-73) L Lymphocytes (%) (Auto) 36 % (24-48) Monocytes (%) (Auto) 28 % (0-9) H Eosinophils (%) (Auto) 9 % (0-3) H Basophils (%) (Auto) 3 % (0-3) Neutrophils # (Auto) 0.4 x10^3uL (1.8-7.7) L Lymphocytes # (Auto) 0.6 x10^3/uL (1.0-4.8) L Monocytes # (Auto) 0.5 x10^3/uL (0.0-1.1) Eosinophils # (Auto) 0.2 x10^3/uL (0.0-0.7) Basophils # (Auto) 0.0 x10^3/uL (0.0-0.2) Segmented Neutrophils % 43 % (35-66) Lymphocytes % 38 % (24-48) Atypical Lymphocytes % (Manual) 2 % (0-0) H Monocytes % 14 % (0-10) H Eosinophils % 4 % (0-5) Platelet Estimate Adequate (ADEQUATE) Polychromasia Slight Hypochromasia Present Basophilic Stippling Present Anisocytosis Slight Target Cells Occ Stomatocytes Present Erythrocyte Sedimentation Rate 116 (0-25) H Sodium Level 144 mmol/L (136-145) Potassium Level 4.1 mmol/L (3.5-5.1) Chloride Level 104 mmol/L (98-107) Carbon Dioxide Level 38 mmol/L (21-32) H Anion Gap 2 (6-14) L Blood Urea Nitrogen 21 mg/dL (7-20) H Creatinine 1.2 mg/dL (0.6-1.0) H Estimated GFR (Cockcroft-Gault) 45.2 BUN/Creatinine Ratio 18 (6-20) Glucose Level 125 mg/dL (70-99) H Lactic Acid Level 1.6 mmol/L (0.4-2.0) Calcium Level 8.5 mg/dL (8.5-10.1) Total Bilirubin 0.2 mg/dL (0.2-1.0) Aspartate Amino Transferase (AST) 17 U/L (15-37) Alanine Aminotransferase (ALT) 17 U/L (14-59) Alkaline Phosphatase 91 U/L (46-116) Troponin I Quantitative 0.068 ng/mL (0.000-0.055) C-Reactive Protein, Quantitative 85.5 mg/L (0-3.3) H SM-Srn-D-Type Natriuretic Peptide 16424 pg/mL (0-124) H Total Protein 7.9 g/dL (6.4-8.2) Albumin 2.4 g/dL (3.4-5.0) L Albumin/Globulin Ratio 0.4 (1.0-1.7) L O2 Saturation 96 % (92-99) Arterial Blood pH 7.30 (7.35-7.45) L Arterial Blood pCO2 at Patient Temp 70 mmHg (35-46) *H Arterial Blood pO2 at Patient Temp 94 mmHg (65-108) Arterial Blood HCO3 34 mmol/L (21-28) H Arterial Blood Base Excess 6 mmol/L (-3-3) H FiO2 40 Laboratory Tests 02/17/17 12:34 Laboratory Tests 02/17/17 12:34 EKG EKG [EKG: Significant artifact limiting interpretation. Appears to be sinus rhythm with rate in 85, QTC of 350.] Radiology/Procedures Radiology/Procedures [Chest x-ray: Bilateral pleural effusions left greater than right associated with infiltrate. Pulmonary vascular congestion present per radiology report] Course & Med Decision Making Course & Med Decision Making Pertinent Labs and Imaging studies reviewed. (See chart for details) [Every respiratory distress with respiratory failure requiring BiPAP. Symptoms likely multifactorial related to combination of COPD, congestive heart failure and possible pneumonia. Patient also noted to be leukopenic. Treated aggressively as her chest x-ray BiPAP, nebulized breathing treatments, steroids , IV diuretics and antibiotics.. Repeat ABG did show significant improvement. Dr. Castro to admit. Recommendations are for infectious disease and pulmonology consult as well as broad-spectrum antibiotics.] Dragon Disclaimer Dragon Disclaimer This electronic medical record was generated, in whole or in part, using a voice recognition dictation system. Departure Departure Impression: Primary Impression: Acute congestive heart failure Additional Impressions: COPD (chronic obstructive pulmonary disease) Acute respiratory failure with hypoxia Disposition: ADMITTED INPATIENT Admitting Physician: Rafael Castro Condition: GUARDED Referrals: RAFAEL CASTRO MD (PCP) Problem Qualifiers JAVAN WEBER DO Feb 17, 2017 14:04
[2017-02-17] MEDS ORDERED: CEFEPIME HCL 2 GM in IV DEXTROSE 5% 100 ML IV ONE (14:15)
[2017-02-17] MEDS ORDERED: TRAM50TA PO (14:34)
[2017-02-17 14:48] LABS: PH ABG 7.37 (7.35-7.45)
[2017-02-17 14:49] LABS: FIO2 ABG 40; HCO3 ABG 35 mmol/L (21-28); PCO2 ABG 62 mmHg (35-46); PO2 ABG 78 mmHg (65-108); SAT O2 ABG 95 % (92-99)
[2017-02-17] MEDS ORDERED: ONDANSETRON PF 4 MG/2 ML VIAL. IV PRN (15:00)
[2017-02-17] MEDS ORDERED: CEFEPIME HCL 2 GM in IV NORMAL SALINE 100ML 100 ML IV ONE (15:15)
--- NOTE | 2017-02-17 15:43 | EKG ---
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
[2017-02-17] MEDS ORDERED: VANCOMYCIN 2 GM in IV NORMAL SALINE 500ML BAG 500 ML IV ONE (16:00)
[2017-02-17] MEDS: IPRATRPIUM/ALBUTEROL 0.5/2.5MG 3 ML NEBU. NEB SCH ×2 (16:39→19:52)
[2017-02-17] MEDS: MICAFUNGIN 100 MG in IV DEXTROSE 5% 100 ML IV SCH (19:16)
[2017-02-17] MEDS ORDERED: CEFEPIME HCL 2 GM in IV NORMAL SALINE 100ML 100 ML IV SCH (23:00)
[2017-02-18] VITALS (18 sets, daily range): BP systolic 94–154; BP diastolic 44–95
--- NOTE | 2017-02-18 02:10 | CONS ---
DATE OF CONSULTATION: 02/17/2017 ATTENDING PHYSICIAN: Ayaan Elias M.D. REASON FOR CONSULTATION: The patient is seen in pulmonary consultation at the request of Dr. Elias for hypoxemic hypercapnic respiratory failure, requiring noninvasive ventilation. HISTORY OF PRESENT ILLNESS: The patient is a 66-year-old morbidly obese individual with a body mass index of 60, presented as a consequence of home nursing noted altered mental status with decreased saturations. O2 sat at home at 3 liters was 70%. The patient was transported to the Emergency Department by EMS. Upon arrival, arterial blood gas was obtained, revealing a pH of 7.30, PaCO2 of 70 and pO2 of 94. This was sometime after placement on BiPAP. Repeat blood gas on BiPAP revealed pH of 7.37, PaCO2 of 62 and pO2 of 78. The patient is currently in the Intensive Care Unit. She is awake, alert, off of BiPAP. She had a chest x-ray, which I personally reviewed. There are small bilateral effusions associated with infiltrates and atelectasis. There is some vascular congestion. The patient received IV antibiotics in the Emergency Room. She recently had a right traumatic wound dehiscence with previous total knee arthroplasty. The patient denies fever or chills. She has a cough, mostly nonproductive. She used to smoke, quit many years ago. Does not utilize oxygen at home. During the day, she does have CPAP with oxygen , uses CPAP at bedtime. PAST MEDICAL HISTORY: COPD, obstructive sleep apnea, morbid obesity, osteoarthritis and recently total knee arthroplasty with right atraumatic wound dehiscence and complications. She actually went home with IV Rocephin. PAST SURGICAL HISTORY: Otherwise remarkable for cataract surgery, tonsillectomy and previous knee arthroplasty as mentioned above. REVIEW OF SYSTEMS: As indicated above; otherwise, a 10-point system was reviewed and negative. SOCIAL HISTORY: She denies any current use of alcohol or tobacco. FAMILY HISTORY: Hypertension, CVA and hypothyroidism. ALLERGIES: No known drug allergies. CURRENT MEDICATIONS: List was reviewed. PHYSICAL EXAMINATION: GENERAL: On exam, the patient was seen in the Intensive Care Unit. She was in no respiratory distress. VITAL SIGNS: T-max was 100. HEENT: Eyes, the sclerae were nonicteric. NECK: Jugular venous distention could not be assessed secondary to body habitus. CHEST: Full expansion. LUNGS: Diminished breath sounds bilaterally, with some slight crackles. CARDIOVASCULAR EXAMINATION: Regular rate and rhythm with S1, S2. No S3. ABDOMEN: Soft, nontender, nondistended and obese. EXTREMITIES: Dressing in place. Some edema. NEUROLOGIC: The patient was awake, alert, following commands. A detailed neuro exam was not performed. LABORATORY DATA: White count was low at 1.8, hemoglobin 9.3, hematocrit of 30 and platelet count was normal. Arterial blood gas as indicated above. BUN and creatinine were elevated. Albumin was low. Troponin was elevated. BNP was elevated. C-reactive protein was 85.5. IMPRESSION: 1. Fooyu-ld-wyvoqtl hypoxemic hypercapnic respiratory failure. 2. Acute diastolic heart failure. 3. Leukopenia. 4. Recent total knee arthroplasty with traumatic wound dehiscence. 5. Abnormal x-ray compatible with acute pulmonary edema. 6. Morbid obesity. 7. Chronic anemia. 8. Protein malnutrition, present upon admission. PLAN: 1. Recommend continue BiPAP at bedtime and p.r.n. 2. IV antibiotics per ID. 3. Nebulized treatments. 4. No need for steroids. Dr. Elias, I do appreciate the privilege in sharing in the patient's care. Total cumulative critical care time of 35 minutes. JAMES SEQUEIRA MD DR: ESAU/ilan JOB#: [id number] / [id number]
[2017-02-18 06:22] LABS: ALBUMIN 2.1 g/dL (3.4-5.0); ALBUMIN/GLOBULIN RATIO 0.5 (1.0-1.7); CALCIUM 7.8 mg/dL (8.5-10.1); CREATININE 1.1 mg/dL (0.6-1.0); POTASSIUM 4.6 mmol/L (3.5-5.1); TOTAL BILIRUBIN 0.2 mg/dL (0.2-1.0); TOTAL PROTEIN 6.5 g/dL (6.4-8.2)
[2017-02-18 07:28] LABS: BASO % 2 % (0-3); EOS % 0 % (0-3); HEMATOCRIT 26.1 % (36.0-47.0); HEMOGLOBIN 8.1 g/dL (12.0-15.5); LYMPH # 0.4 x10^3/uL (1.0-4.8); LYMPH % 37 % (24-48); MEAN CORPUSCULAR HEMOGLOBIN 27 pg (25-35); MEAN CORPUSCULAR HGB CONC 31 g/dL (31-37); MEAN CORPUSCULAR VOLUME 88 fL (79-100); MONO % 46 % (0-9); NEUT % 15 % (31-73); PLATELET COUNT 229 x10^3/uL (140-400); RED BLOOD COUNT 2.98 x10^6/uL (3.50-5.40); RED CELL DISTRIBUTION WIDTH 15.9 % (11.5-14.5)
--- NOTE | 2017-02-18 07:36 | PDOC ---
Infectious Disease Note Vital Sign Vital Signs Vital Signs Date Time Temp Pulse Resp B/P (MAP) Pulse Ox O2 Delivery O2 Flow Rate FiO2 02/18/17 06:00 60 24 131/53 (79) 92 BiPAP/CPAP 02/18/17 04:00 98.8 98.8 02/18/17 00:00 Labs Lab Laboratory Tests Test 02/17/17 12:34 02/17/17 13:10 02/17/17 14:35 02/18/17 05:44 White Blood Count 1.8 x10^3/uL (4.0-11.0) Red Blood Count 3.39 x10^6/uL (3.50-5.40) Hemoglobin 9.3 g/dL (12.0-15.5) Hematocrit 30.2 % (36.0-47.0) Mean Corpuscular Volume 89 fL (79-100) Mean Corpuscular Hemoglobin 27 pg (25-35) Mean Corpuscular Hemoglobin Concent 31 g/dL (31-37) Red Cell Distribution Width 16.4 % (11.5-14.5) Platelet Count 296 x10^3/uL (140-400) Neutrophils (%) (Auto) 25 % (31-73) Lymphocytes (%) (Auto) 36 % (24-48) Monocytes (%) (Auto) 28 % (0-9) Eosinophils (%) (Auto) 9 % (0-3) Basophils (%) (Auto) 3 % (0-3) Neutrophils # (Auto) 0.4 x10^3uL (1.8-7.7) Lymphocytes # (Auto) 0.6 x10^3/uL (1.0-4.8) Monocytes # (Auto) 0.5 x10^3/uL (0.0-1.1) Eosinophils # (Auto) 0.2 x10^3/uL (0.0-0.7) Basophils # (Auto) 0.0 x10^3/uL (0.0-0.2) Segmented Neutrophils % 43 % (35-66) Lymphocytes % 38 % (24-48) Atypical Lymphocytes % (Manual) 2 % (0-0) Monocytes % 14 % (0-10) Eosinophils % 4 % (0-5) Platelet Estimate Adequate (ADEQUATE) Polychromasia Slight Hypochromasia Present Basophilic Stippling Present Anisocytosis Slight Target Cells Occ Stomatocytes Present Erythrocyte Sedimentation Rate 116 (0-25) Sodium Level 144 mmol/L (136-145) 143 mmol/L (136-145) Potassium Level 4.1 mmol/L (3.5-5.1) 4.6 mmol/L (3.5-5.1) Chloride Level 104 mmol/L (98-107) 104 mmol/L (98-107) Carbon Dioxide Level 38 mmol/L (21-32) 39 mmol/L (21-32) Anion Gap 2 (6-14) 0 (6-14) Blood Urea Nitrogen 21 mg/dL (7-20) 22 mg/dL (7-20) Creatinine 1.2 mg/dL (0.6-1.0) 1.1 mg/dL (0.6-1.0) Estimated GFR (Cockcroft-Gault) 45.2 50.0 BUN/Creatinine Ratio 18 (6-20) 20 (6-20) Glucose Level 125 mg/dL (70-99) 114 mg/dL (70-99) Lactic Acid Level 1.6 mmol/L (0.4-2.0) Calcium Level 8.5 mg/dL (8.5-10.1) 7.8 mg/dL (8.5-10.1) Total Bilirubin 0.2 mg/dL (0.2-1.0) 0.2 mg/dL (0.2-1.0) Aspartate Amino Transf (AST/SGOT) 17 U/L (15-37) 13 U/L (15-37) Alanine Aminotransferase (ALT/SGPT) 17 U/L (14-59) 13 U/L (14-59) Alkaline Phosphatase 91 U/L (46-116) 72 U/L (46-116) Troponin I Quantitative 0.068 ng/mL (0.000-0.055) C-Reactive Protein, Quantitative 85.5 mg/L (0-3.3) PM-Anm-Z-Type Natriuretic Peptide 68685 pg/mL (0-124) Total Protein 7.9 g/dL (6.4-8.2) 6.5 g/dL (6.4-8.2) Albumin 2.4 g/dL (3.4-5.0) 2.1 g/dL (3.4-5.0) Albumin/Globulin Ratio 0.4 (1.0-1.7) 0.5 (1.0-1.7) O2 Saturation 96 % (92-99) 95 % (92-99) Arterial Blood pH 7.30 (7.35-7.45) 7.37 (7.35-7.45) Arterial Blood pCO2 at Patient Temp 70 mmHg (35-46) 62 mmHg (35-46) Arterial Blood pO2 at Patient Temp 94 mmHg (65-108) 78 mmHg (65-108) Arterial Blood HCO3 34 mmol/L (21-28) 35 mmol/L (21-28) Arterial Blood Base Excess 6 mmol/L (-3-3) 9 mmol/L (-3-3) FiO2 40 40 Objective Assessment Fever Leukopenia - s/p solumedrol times one 02/17. ? med related. Was normal last week in 7's Rash - ? med related Acute on chronic hypercapnic failure on Bipap Left knee wound s/p Right TKA wound dehiscence, s/p exploration with irrigation , debridement right knee and closure 01/28. - s/p TKA place 12/30 Plan Plan of Care Cont Vanc/Levoflox and avoid Beta - lactams to r/o cause of neutropenia/rash d/ w ER 02/17 Cont micafungin for now Consult Dr. Templeton wound eval Flu screen F/u labs in am and cults Pro[employer]otics # [id number] BAILEY JARRETT MD Feb 18, 2017 07:36
[2017-02-18] MEDS: VANCOMYCIN PER PHARMACY MC PRN ×2 (07:43→10:34)
[2017-02-18] MEDS: FUROSEMIDE 40 MG/4 ML VIAL. IVP SCH ×2 (08:45→14:01)
[2017-02-18] MEDS: LACTOBACILLUS RHAMNOSUS GG 1 CAPSULE. PO SCH ×2 (08:45→21:40)
[2017-02-18] MEDS: VANCOMYCIN 2 GM in IV DEXTROSE 5% 500 ML IV SCH ×2 (08:45→21:41)
[2017-02-18] MEDS: IPRATRPIUM/ALBUTEROL 0.5/2.5MG 3 ML NEBU. NEB SCH ×5 (08:51→20:22)
[2017-02-18 09:07] LABS: OBC FLU VALID
--- NOTE | 2017-02-18 10:44 | CONS ---
DATE OF CONSULTATION: 02/18/2017 PATIENT'S ROOM: 113. REQUESTING PHYSICIAN: Dr. Gerard. HISTORY OF PRESENT ILLNESS: The patient is a pleasant 66-year-old female who on 12/30 underwent right total knee arthroplasty. She subsequently had apparently bumped her knee on the passenger side of a car door causing some dehiscence. She was admitted to [facility] in early January and underwent exploration, irrigation and debridement of her knee enclosure of 01/28. Initially, the knee was placed on 12/30. Cultures obtained from the procedure have grown out a methicillin-sensitive Staph aureus as well as group B strep. She had a PICC line placed, was discharged home on IV Rocephin. Last week, according to her labs, she had a normal white blood cell count. She saw Dr. Prajapati. Apparently, he removed the pratik, but the upper part of her wound apparently dehisced somewhat and she now has some packing at the upper aspect of her wound. She states a couple of days ago, she began to feel weak. Had some chills and sweats. She denies any ill contacts. Denies any bug bites or tick bites. She has no pets at home, and had a flu shot over a month ago. She apparently developed some mild respiratory failure. Her home health nurse had come by, and was found to be hypoxic with sats in the 70% on 3 liters. EMS was called. She was placed on a 12 liters non-rebreather and brought to [facility]. On arrival, she had a white count of 1.8. I did check her previous results from last week. Her white count was normal in the 7 range. She had 2% atypical lymphs, 14% monocytes and 4% eosinophils. Additionally, she had a low-grade temperature of 100 degrees. Chest x-ray was performed. She had some small bilateral pleural effusions. She was given a dose of Solu-Medrol in the Emergency Room and she was found to have a rash on her upper thighs and trunk area. I was contacted from the Emergency Room. Recommended vancomycin and levofloxacin only. To avoid beta-lactams as a potential cause for neutropenia. Subsequently, the patient was placed on BiPAP and admitted to the hospital. This morning she states she is feeling much better. She denies any headaches. No sinus issues, sore throat, cough. No chest pain. No nausea, vomiting, diarrhea, dysuria, frequency or urgency. Denies any other falls. PAST MEDICAL HISTORY: Positive for COPD, obesity and osteoarthritis. PAST SURGICAL HISTORY: Positive for previous cataract surgery, tonsils and the above-mentioned knee surgeries. REVIEW OF SYSTEMS: Otherwise negative, except for mentioned above. SOCIAL HISTORY: She is a former smoker. No alcohol. She is . She has no pets. [place] on [place]. FAMILY HISTORY: Mother has hypertension. History of CVA as well as hypothyroidism. Father had heart disease. Grandmother had diabetes. There is no history of any lymphomas or cancers. ALLERGIES: No known drug allergies. CURRENT MEDICATIONS: She did receive a dose of vancomycin and a dose of levofloxacin. I added micafungin yesterday out of concern for yeast infection after discussion with nursing yesterday. Again, she did receive a dose of cefepime in the ER prior to my discussion with the Emergency Room physicians. She is on albuterol, Lasix, Atrovent and Solu-Medrol. PHYSICAL EXAMINATION: VITAL SIGNS: T-max has been 100, currently 98.8 axillary. Pulse 60, respirations 24, blood pressure 131/53 and satting 92% on BiPAP. CONSTITUTIONAL: She is pleasant. She is cooperative. She is in no acute distress. She is very alert. HEENT: Pupils are status post cataract surgery. NECK: Supple. No JVD. LUNGS: Clear to auscultation bilaterally. HEART: S1 and S2 without murmur. ABDOMEN: Obese, soft, nontender and nondistended. She has a PICC line in her right upper extremity. She has a Norris in place. EXTREMITIES: Without clubbing or cyanosis. Her knee incision is without any erythema, warmth or drainage, but the upper aspect of the wound is packed. SKIN: Warm to touch. She has petechial-type lesions on her upper thighs and knees and mild on her left trunk. NEUROLOGIC: She is nonfocal. Moves all extremities. Answers questions appropriately. PSYCHIATRIC: Affect is pleasant. LABORATORY VALUES: Again on arrival, white count 1.8, hemoglobin 9.3, platelets of 296 with 43 segs, 38 lymphs, 2% atypical lymphs, 14% monos and 4% eos. Sed rate was 116. Glucose 114. Creatinine of 1.1 this morning. AST and ALT were normal. Troponin was mildly elevated. Chest x-ray reviewed in the history of present illness. IMPRESSION: 1. Fever. 2. Leukopenia, status post Solu-Medrol x 1 on the . Questionable if this is medication related, although she did have low-grade fever. She has normal liver function study that typically elevate with viral infections, although not always. She has not had any bug bites or tick bites. Her influenza vaccine she states was several weeks ago. Last week, her white blood cell count was in the 7s. 3. Rash, questionable medication related. 4. Acute on chronic hypercapnic failure, on BiPAP. 5. Left knee wound, status post right total knee arthroplasty wound dehiscence and exploration, irrigation and debridement with wound closure on the , status post total knee replacement on 01/28. RECOMMENDATIONS: For now, I will continue vancomycin and levofloxacin. We will avoid beta-lactams to rule out the cause of the neutropenia and rash, and this was discussed with the Emergency Room on the . Continue micafungin for now for yeast given her body habitus, antibiotic exposure and I did have a Norris placed yesterday as well. We will consult Dr. Prajapati for wound evaluation. We will continue to obtain the influenza screen and we will follow up labs and cultures. I will also add the probiotics. Dr. Gerard, thank you for allowing me to participate in this patient's care. If you have any questions, please do not hesitate to contact me. BAILEY JARRETT MD DR: GLORIA/ilan JOB#: [id number] / [id number]
[2017-02-18] MEDS: MULTIVITAMIN with MINERAL TABLET. PO SCH (12:46)
[2017-02-18] MEDS: ASCORBIC ACID 500 MG TABLET PO SCH (12:46)
--- NOTE | 2017-02-18 14:37 | PDOC ---
PULMONARY PROGRESS NOTES Subjective PT OFF BIPAP Vitals Vital Signs Date Time Temp Pulse Resp B/P (MAP) Pulse Ox O2 Delivery O2 Flow Rate FiO2 02/18/17 14:00 77 24 94/74 (81) 96 Nasal Cannula 5.0 02/18/17 12:00 99.4 99.4 ROS: No Nausea, No Chest Pain, No Abdominal Pain, No Increase Cough Lungs: Clear, Crackles Cardiovascular: S1, S2 Abdomen: Soft Neuro Exam: Alert Extremities: Other (EDEMA AND DRESSING OVE LEFT KNEE) Skin: Warm Labs Laboratory Tests Test 02/17/17 12:34 02/17/17 13:10 02/17/17 14:35 02/17/17 16:35 White Blood Count 1.8 x10^3/uL (4.0-11.0) Red Blood Count 3.39 x10^6/uL (3.50-5.40) Hemoglobin 9.3 g/dL (12.0-15.5) Hematocrit 30.2 % (36.0-47.0) Mean Corpuscular Volume 89 fL (79-100) Mean Corpuscular Hemoglobin 27 pg (25-35) Mean Corpuscular Hemoglobin Concent 31 g/dL (31-37) Red Cell Distribution Width 16.4 % (11.5-14.5) Platelet Count 296 x10^3/uL (140-400) Neutrophils (%) (Auto) 25 % (31-73) Lymphocytes (%) (Auto) 36 % (24-48) Monocytes (%) (Auto) 28 % (0-9) Eosinophils (%) (Auto) 9 % (0-3) Basophils (%) (Auto) 3 % (0-3) Neutrophils # (Auto) 0.4 x10^3uL (1.8-7.7) Lymphocytes # (Auto) 0.6 x10^3/uL (1.0-4.8) Monocytes # (Auto) 0.5 x10^3/uL (0.0-1.1) Eosinophils # (Auto) 0.2 x10^3/uL (0.0-0.7) Basophils # (Auto) 0.0 x10^3/uL (0.0-0.2) Segmented Neutrophils % 43 % (35-66) Lymphocytes % 38 % (24-48) Atypical Lymphocytes % (Manual) 2 % (0-0) Monocytes % 14 % (0-10) Eosinophils % 4 % (0-5) Platelet Estimate Adequate (ADEQUATE) Polychromasia Slight Hypochromasia Present Basophilic Stippling Present Anisocytosis Slight Target Cells Occ Stomatocytes Present Erythrocyte Sedimentation Rate 116 (0-25) Sodium Level 144 mmol/L (136-145) Potassium Level 4.1 mmol/L (3.5-5.1) Chloride Level 104 mmol/L (98-107) Carbon Dioxide Level 38 mmol/L (21-32) Anion Gap 2 (6-14) Blood Urea Nitrogen 21 mg/dL (7-20) Creatinine 1.2 mg/dL (0.6-1.0) Estimated GFR (Cockcroft-Gault) 45.2 BUN/Creatinine Ratio 18 (6-20) Glucose Level 125 mg/dL (70-99) Lactic Acid Level 1.6 mmol/L (0.4-2.0) Calcium Level 8.5 mg/dL (8.5-10.1) Total Bilirubin 0.2 mg/dL (0.2-1.0) Aspartate Amino Transf (AST/SGOT) 17 U/L (15-37) Alanine Aminotransferase (ALT/SGPT) 17 U/L (14-59) Alkaline Phosphatase 91 U/L (46-116) Troponin I Quantitative 0.068 ng/mL (0.000-0.055) C-Reactive Protein, Quantitative 85.5 mg/L (0-3.3) DI-Tik-W-Type Natriuretic Peptide 44423 pg/mL (0-124) Total Protein 7.9 g/dL (6.4-8.2) Albumin 2.4 g/dL (3.4-5.0) Albumin/Globulin Ratio 0.4 (1.0-1.7) O2 Saturation 96 % (92-99) 95 % (92-99) Arterial Blood pH 7.30 (7.35-7.45) 7.37 (7.35-7.45) Arterial Blood pCO2 at Patient Temp 70 mmHg (35-46) 62 mmHg (35-46) Arterial Blood pO2 at Patient Temp 94 mmHg (65-108) 78 mmHg (65-108) Arterial Blood HCO3 34 mmol/L (21-28) 35 mmol/L (21-28) Arterial Blood Base Excess 6 mmol/L (-3-3) 9 mmol/L (-3-3) FiO2 40 40 Nasal Screen MRSA (PCR) Negative (Negative) Test 02/18/17 05:44 02/18/17 08:19 White Blood Count 1.0 x10^3/uL (4.0-11.0) Red Blood Count 2.98 x10^6/uL (3.50-5.40) Hemoglobin 8.1 g/dL (12.0-15.5) Hematocrit 26.1 % (36.0-47.0) Mean Corpuscular Volume 88 fL (79-100) Mean Corpuscular Hemoglobin 27 pg (25-35) Mean Corpuscular Hemoglobin Concent 31 g/dL (31-37) Red Cell Distribution Width 15.9 % (11.5-14.5) Platelet Count 229 x10^3/uL (140-400) Neutrophils (%) (Auto) 15 % (31-73) Lymphocytes (%) (Auto) 37 % (24-48) Monocytes (%) (Auto) 46 % (0-9) Eosinophils (%) (Auto) 0 % (0-3) Basophils (%) (Auto) 2 % (0-3) Neutrophils # (Auto) 0.1 x10^3uL (1.8-7.7) Lymphocytes # (Auto) 0.4 x10^3/uL (1.0-4.8) Monocytes # (Auto) 0.5 x10^3/uL (0.0-1.1) Eosinophils # (Auto) 0.0 x10^3/uL (0.0-0.7) Basophils # (Auto) 0.0 x10^3/uL (0.0-0.2) Sodium Level 143 mmol/L (136-145) Potassium Level 4.6 mmol/L (3.5-5.1) Chloride Level 104 mmol/L (98-107) Carbon Dioxide Level 39 mmol/L (21-32) Anion Gap 0 (6-14) Blood Urea Nitrogen 22 mg/dL (7-20) Creatinine 1.1 mg/dL (0.6-1.0) Estimated GFR (Cockcroft-Gault) 50.0 BUN/Creatinine Ratio 20 (6-20) Glucose Level 114 mg/dL (70-99) Calcium Level 7.8 mg/dL (8.5-10.1) Total Bilirubin 0.2 mg/dL (0.2-1.0) Aspartate Amino Transf (AST/SGOT) 13 U/L (15-37) Alanine Aminotransferase (ALT/SGPT) 13 U/L (14-59) Alkaline Phosphatase 72 U/L (46-116) Troponin I Quantitative 0.028 ng/mL (0.000-0.055) Total Protein 6.5 g/dL (6.4-8.2) Albumin 2.1 g/dL (3.4-5.0) Albumin/Globulin Ratio 0.5 (1.0-1.7) Thyroid Stimulating Hormone (TSH) 0.817 uIU/mL (0.358-3.74) Influenza Type A Antigen Negative (NEGATIVE) Influenza Type B Antigen Negative (NEGATIVE) Laboratory Tests Test 02/17/17 14:35 02/17/17 16:35 02/18/17 05:44 02/18/17 08:19 O2 Saturation 95 % (92-99) Arterial Blood pH 7.37 (7.35-7.45) Arterial Blood pCO2 at Patient Temp 62 mmHg (35-46) Arterial Blood pO2 at Patient Temp 78 mmHg (65-108) Arterial Blood HCO3 35 mmol/L (21-28) Arterial Blood Base Excess 9 mmol/L (-3-3) FiO2 40 Nasal Screen MRSA (PCR) Negative (Negative) White Blood Count 1.0 x10^3/uL (4.0-11.0) Red Blood Count 2.98 x10^6/uL (3.50-5.40) Hemoglobin 8.1 g/dL (12.0-15.5) Hematocrit 26.1 % (36.0-47.0) Mean Corpuscular Volume 88 fL (79-100) Mean Corpuscular Hemoglobin 27 pg (25-35) Mean Corpuscular Hemoglobin Concent 31 g/dL (31-37) Red Cell Distribution Width 15.9 % (11.5-14.5) Platelet Count 229 x10^3/uL (140-400) Neutrophils (%) (Auto) 15 % (31-73) Lymphocytes (%) (Auto) 37 % (24-48) Monocytes (%) (Auto) 46 % (0-9) Eosinophils (%) (Auto) 0 % (0-3) Basophils (%) (Auto) 2 % (0-3) Neutrophils # (Auto) 0.1 x10^3uL (1.8-7.7) Lymphocytes # (Auto) 0.4 x10^3/uL (1.0-4.8) Monocytes # (Auto) 0.5 x10^3/uL (0.0-1.1) Eosinophils # (Auto) 0.0 x10^3/uL (0.0-0.7) Basophils # (Auto) 0.0 x10^3/uL (0.0-0.2) Sodium Level 143 mmol/L (136-145) Potassium Level 4.6 mmol/L (3.5-5.1) Chloride Level 104 mmol/L (98-107) Carbon Dioxide Level 39 mmol/L (21-32) Anion Gap 0 (6-14) Blood Urea Nitrogen 22 mg/dL (7-20) Creatinine 1.1 mg/dL (0.6-1.0) Estimated GFR (Cockcroft-Gault) 50.0 BUN/Creatinine Ratio 20 (6-20) Glucose Level 114 mg/dL (70-99) Calcium Level 7.8 mg/dL (8.5-10.1) Total Bilirubin 0.2 mg/dL (0.2-1.0) Aspartate Amino Transf (AST/SGOT) 13 U/L (15-37) Alanine Aminotransferase (ALT/SGPT) 13 U/L (14-59) Alkaline Phosphatase 72 U/L (46-116) Troponin I Quantitative 0.028 ng/mL (0.000-0.055) Total Protein 6.5 g/dL (6.4-8.2) Albumin 2.1 g/dL (3.4-5.0) Albumin/Globulin Ratio 0.5 (1.0-1.7) Thyroid Stimulating Hormone (TSH) 0.817 uIU/mL (0.358-3.74) Influenza Type A Antigen Negative (NEGATIVE) Influenza Type B Antigen Negative (NEGATIVE) Medications Active Scripts Medications Dose Route/Sig Max Daily Dose Days Date Category Dose Instructions Tramadol Hcl 50 Mg Tablet 2 Tab PO PRN Q6HRS 02/17/17 Reported Ferrous Sulfate 325 Mg Tablet 1 Tab PO BID 30 01/02/17 Reported LAST DOSE GIVEN: DATE:01/02/17 TIME:9:00 a.m Diclofenac Sodium 75 Mg Tablet.dr 75 Mg PO BID 11/10/16 Reported Meds not given this hospital admission. May resume home medications as approved by Physician. Impression . 1. Vkucz-wy-fxxpcmt hypoxemic hypercapnic respiratory failure. 2. Acute diastolic heart failure. 3. Leukopenia. 4. Recent total knee arthroplasty with traumatic wound dehiscence. 5. Abnormal x-ray compatible with acute pulmonary edema. 6. Morbid obesity. 7. Chronic anemia. 8. Protein malnutrition, present upon admission. Plan . PT OFF BIPAP FOR NOW NOT MORE SOA, WILL CONITNUE THE SAME ANTIBX PER ID 1. Recommend continue BiPAP at bedtime and p.r.n. 2. IV antibiotics per ID. 3. Nebulized treatments. 4. No need for steroids. Total cumulative critical care time of 35 minutes. JAMES SEQUEIRA MD Feb 18, 2017 14:36
--- NOTE | 2017-02-18 16:44 | PDOC ---
PROGRESS NOTES Subjective Subjective Problems overnight: Brigida was just seen 2 days ago in clinic and a wound VAC ordered to be placed at the superior aspect of her right knee, now admitted for respiratory distress Objective Vital Signs Vital Signs Date Time Temp Pulse Resp B/P (MAP) Pulse Ox O2 Delivery O2 Flow Rate FiO2 02/18/17 15:58 100 Nasal Cannula 5.0 02/18/17 15:52 98.8 71 20 99/54 (69) 98.8 Physical Exam Wound VAC was not applied as the patient was admitted for the respiratory distress currently has a wet-to-dry dressing in place on her right knee Labs Laboratory Tests Test 02/17/17 12:34 02/17/17 13:10 02/17/17 14:35 02/17/17 16:35 White Blood Count 1.8 x10^3/uL (4.0-11.0) Red Blood Count 3.39 x10^6/uL (3.50-5.40) Hemoglobin 9.3 g/dL (12.0-15.5) Hematocrit 30.2 % (36.0-47.0) Mean Corpuscular Volume 89 fL (79-100) Mean Corpuscular Hemoglobin 27 pg (25-35) Mean Corpuscular Hemoglobin Concent 31 g/dL (31-37) Red Cell Distribution Width 16.4 % (11.5-14.5) Platelet Count 296 x10^3/uL (140-400) Neutrophils (%) (Auto) 25 % (31-73) Lymphocytes (%) (Auto) 36 % (24-48) Monocytes (%) (Auto) 28 % (0-9) Eosinophils (%) (Auto) 9 % (0-3) Basophils (%) (Auto) 3 % (0-3) Neutrophils # (Auto) 0.4 x10^3uL (1.8-7.7) Lymphocytes # (Auto) 0.6 x10^3/uL (1.0-4.8) Monocytes # (Auto) 0.5 x10^3/uL (0.0-1.1) Eosinophils # (Auto) 0.2 x10^3/uL (0.0-0.7) Basophils # (Auto) 0.0 x10^3/uL (0.0-0.2) Segmented Neutrophils % 43 % (35-66) Lymphocytes % 38 % (24-48) Atypical Lymphocytes % (Manual) 2 % (0-0) Monocytes % 14 % (0-10) Eosinophils % 4 % (0-5) Platelet Estimate Adequate (ADEQUATE) Polychromasia Slight Hypochromasia Present Basophilic Stippling Present Anisocytosis Slight Target Cells Occ Stomatocytes Present Erythrocyte Sedimentation Rate 116 (0-25) Sodium Level 144 mmol/L (136-145) Potassium Level 4.1 mmol/L (3.5-5.1) Chloride Level 104 mmol/L (98-107) Carbon Dioxide Level 38 mmol/L (21-32) Anion Gap 2 (6-14) Blood Urea Nitrogen 21 mg/dL (7-20) Creatinine 1.2 mg/dL (0.6-1.0) Estimated GFR (Cockcroft-Gault) 45.2 BUN/Creatinine Ratio 18 (6-20) Glucose Level 125 mg/dL (70-99) Lactic Acid Level 1.6 mmol/L (0.4-2.0) Calcium Level 8.5 mg/dL (8.5-10.1) Total Bilirubin 0.2 mg/dL (0.2-1.0) Aspartate Amino Transf (AST/SGOT) 17 U/L (15-37) Alanine Aminotransferase (ALT/SGPT) 17 U/L (14-59) Alkaline Phosphatase 91 U/L (46-116) Troponin I Quantitative 0.068 ng/mL (0.000-0.055) C-Reactive Protein, Quantitative 85.5 mg/L (0-3.3) QV-Opl-D-Type Natriuretic Peptide 63161 pg/mL (0-124) Total Protein 7.9 g/dL (6.4-8.2) Albumin 2.4 g/dL (3.4-5.0) Albumin/Globulin Ratio 0.4 (1.0-1.7) O2 Saturation 96 % (92-99) 95 % (92-99) Arterial Blood pH 7.30 (7.35-7.45) 7.37 (7.35-7.45) Arterial Blood pCO2 at Patient Temp 70 mmHg (35-46) 62 mmHg (35-46) Arterial Blood pO2 at Patient Temp 94 mmHg (65-108) 78 mmHg (65-108) Arterial Blood HCO3 34 mmol/L (21-28) 35 mmol/L (21-28) Arterial Blood Base Excess 6 mmol/L (-3-3) 9 mmol/L (-3-3) FiO2 40 40 Nasal Screen MRSA (PCR) Negative (Negative) Test 02/18/17 05:44 02/18/17 08:19 White Blood Count 1.0 x10^3/uL (4.0-11.0) Red Blood Count 2.98 x10^6/uL (3.50-5.40) Hemoglobin 8.1 g/dL (12.0-15.5) Hematocrit 26.1 % (36.0-47.0) Mean Corpuscular Volume 88 fL (79-100) Mean Corpuscular Hemoglobin 27 pg (25-35) Mean Corpuscular Hemoglobin Concent 31 g/dL (31-37) Red Cell Distribution Width 15.9 % (11.5-14.5) Platelet Count 229 x10^3/uL (140-400) Neutrophils (%) (Auto) 15 % (31-73) Lymphocytes (%) (Auto) 37 % (24-48) Monocytes (%) (Auto) 46 % (0-9) Eosinophils (%) (Auto) 0 % (0-3) Basophils (%) (Auto) 2 % (0-3) Neutrophils # (Auto) 0.1 x10^3uL (1.8-7.7) Lymphocytes # (Auto) 0.4 x10^3/uL (1.0-4.8) Monocytes # (Auto) 0.5 x10^3/uL (0.0-1.1) Eosinophils # (Auto) 0.0 x10^3/uL (0.0-0.7) Basophils # (Auto) 0.0 x10^3/uL (0.0-0.2) Sodium Level 143 mmol/L (136-145) Potassium Level 4.6 mmol/L (3.5-5.1) Chloride Level 104 mmol/L (98-107) Carbon Dioxide Level 39 mmol/L (21-32) Anion Gap 0 (6-14) Blood Urea Nitrogen 22 mg/dL (7-20) Creatinine 1.1 mg/dL (0.6-1.0) Estimated GFR (Cockcroft-Gault) 50.0 BUN/Creatinine Ratio 20 (6-20) Glucose Level 114 mg/dL (70-99) Calcium Level 7.8 mg/dL (8.5-10.1) Total Bilirubin 0.2 mg/dL (0.2-1.0) Aspartate Amino Transf (AST/SGOT) 13 U/L (15-37) Alanine Aminotransferase (ALT/SGPT) 13 U/L (14-59) Alkaline Phosphatase 72 U/L (46-116) Troponin I Quantitative 0.028 ng/mL (0.000-0.055) Total Protein 6.5 g/dL (6.4-8.2) Albumin 2.1 g/dL (3.4-5.0) Albumin/Globulin Ratio 0.5 (1.0-1.7) Thyroid Stimulating Hormone (TSH) 0.817 uIU/mL (0.358-3.74) Influenza Type A Antigen Negative (NEGATIVE) Influenza Type B Antigen Negative (NEGATIVE) Laboratory Tests Test 02/18/17 05:44 02/18/17 08:19 White Blood Count 1.0 x10^3/uL (4.0-11.0) Red Blood Count 2.98 x10^6/uL (3.50-5.40) Hemoglobin 8.1 g/dL (12.0-15.5) Hematocrit 26.1 % (36.0-47.0) Mean Corpuscular Volume 88 fL (79-100) Mean Corpuscular Hemoglobin 27 pg (25-35) Mean Corpuscular Hemoglobin Concent 31 g/dL (31-37) Red Cell Distribution Width 15.9 % (11.5-14.5) Platelet Count 229 x10^3/uL (140-400) Neutrophils (%) (Auto) 15 % (31-73) Lymphocytes (%) (Auto) 37 % (24-48) Monocytes (%) (Auto) 46 % (0-9) Eosinophils (%) (Auto) 0 % (0-3) Basophils (%) (Auto) 2 % (0-3) Neutrophils # (Auto) 0.1 x10^3uL (1.8-7.7) Lymphocytes # (Auto) 0.4 x10^3/uL (1.0-4.8) Monocytes # (Auto) 0.5 x10^3/uL (0.0-1.1) Eosinophils # (Auto) 0.0 x10^3/uL (0.0-0.7) Basophils # (Auto) 0.0 x10^3/uL (0.0-0.2) Sodium Level 143 mmol/L (136-145) Potassium Level 4.6 mmol/L (3.5-5.1) Chloride Level 104 mmol/L (98-107) Carbon Dioxide Level 39 mmol/L (21-32) Anion Gap 0 (6-14) Blood Urea Nitrogen 22 mg/dL (7-20) Creatinine 1.1 mg/dL (0.6-1.0) Estimated GFR (Cockcroft-Gault) 50.0 BUN/Creatinine Ratio 20 (6-20) Glucose Level 114 mg/dL (70-99) Calcium Level 7.8 mg/dL (8.5-10.1) Total Bilirubin 0.2 mg/dL (0.2-1.0) Aspartate Amino Transf (AST/SGOT) 13 U/L (15-37) Alanine Aminotransferase (ALT/SGPT) 13 U/L (14-59) Alkaline Phosphatase 72 U/L (46-116) Troponin I Quantitative 0.028 ng/mL (0.000-0.055) Total Protein 6.5 g/dL (6.4-8.2) Albumin 2.1 g/dL (3.4-5.0) Albumin/Globulin Ratio 0.5 (1.0-1.7) Thyroid Stimulating Hormone (TSH) 0.817 uIU/mL (0.358-3.74) Influenza Type A Antigen Negative (NEGATIVE) Influenza Type B Antigen Negative (NEGATIVE) Assessment Assessment Right knee wound status post traumatic dehiscence from fall, small opening at superior aspect Problems: Plan Plan of Care Wound care for wound VAC placement to right knee change Thursday XENA CALHOUN MD Feb 18, 2017 16:44
--- NOTE | 2017-02-18 17:55 | PDOC ---
GENERAL General: see dictated H&P. Problems: VITAL SIGNS Vital Signs: Vital Signs Date Time Temp Pulse Resp B/P (MAP) Pulse Ox O2 Delivery O2 Flow Rate FiO2 02/18/17 15:58 100 Nasal Cannula 5.0 02/18/17 15:52 98.8 71 20 99/54 (69) 98.8 I & O I & O Intake and Output 02/19/17 07:00 Intake Total 270 ml Output Total 1480 ml Balance -1210 ml Intake Oral 270 ml Output Urine Total 1480 ml ALLERGIES Allergies: Allergies Coded Allergies Type Severity Reaction Last Updated Verified No Known Drug Allergies 01/28/17 No MEDS Medications: Current Medications Medications (Trade) Dose Ordered Sig/Jayson Start Time Stop Time Status Last Admin Dose Admin Albuterol Sulfate (Ventolin Neb Soln) 2.5 mg STK-MED ONCE 02/17/17 12:33 02/17/17 12:34 DC Albuterol/ Ipratropium (Duoneb) 3 ml RTQID 02/17/17 16:00 02/18/17 15:59 DC 02/18/17 15:57 3 ML Ascorbic Acid (Vitamin C) 500 mg DAILY 02/18/17 11:00 02/18/17 12:46 500 MG Cefepime HCl 2 gm/ Dextrose 100 ml @ 200 mls/hr 1X ONCE 02/17/17 14:15 02/17/17 14:44 Cancel Cefepime HCl 2 gm/ Sodium Chloride 100 ml @ 200 mls/hr 1X ONCE 02/17/17 15:15 02/17/17 15:44 DC 02/17/17 15:15 200 MLS/HR Furosemide (Lasix) 40 mg [id number] 02/18/17 09:00 02/18/17 14:01 40 MG Ipratropium Brandon (Atrovent) 0.5 mg 1X ONCE 02/17/17 12:30 02/17/17 12:36 DC 02/17/17 12:37 0.5 MG Lactobacillus Rhamnosus (Culturelle) 1 cap BID 02/18/17 09:00 02/18/17 08:45 1 CAP Levofloxacin/ Dextrose 100 ml @ 100 mls/hr Q24H 02/18/17 14:00 02/18/17 12:46 100 MLS/HR Methylprednisolone Sodium Succinate (SOLU-Medrol 125MG VIAL) 125 mg 1X ONCE 02/17/17 12:30 02/17/17 12:36 DC 02/17/17 12:52 125 MG Micafungin Sodium 100 mg/Dextrose 100 ml @ 100 mls/hr Q24H 02/17/17 19:00 02/17/17 19:16 100 MLS/HR Multivitamins (Thera M Plus) 1 tab DAILY 02/18/17 11:00 02/18/17 12:46 1 TAB Ondansetron HCl (Zofran) 4 mg PRN Q8HRS PRN 02/17/17 15:00 02/18/17 14:59 DC Vancomycin HCl 1 each 1X ONCE 02/19/17 07:30 02/19/17 07:31 Vancomycin HCl (Vanco Per Pharmacy) 1 each PRN DAILY PRN 02/18/17 07:15 02/18/17 10:34 1 EACH Vancomycin HCl 2 gm/Dextrose 500 ml @ 250 mls/hr Q12H 02/18/17 08:00 02/18/17 08:45 250 MLS/HR Vancomycin HCl 2 gm/Sodium Chloride 500 ml @ 250 mls/hr 1X ONCE 02/17/17 16:00 02/17/17 17:59 DC 02/17/17 16:58 250 MLS/HR LAB Lab: Laboratory Tests Test 02/18/17 05:44 02/18/17 08:19 White Blood Count 1.0 x10^3/uL (4.0-11.0) Red Blood Count 2.98 x10^6/uL (3.50-5.40) Hemoglobin 8.1 g/dL (12.0-15.5) Hematocrit 26.1 % (36.0-47.0) Mean Corpuscular Volume 88 fL (79-100) Mean Corpuscular Hemoglobin 27 pg (25-35) Mean Corpuscular Hemoglobin Concent 31 g/dL (31-37) Red Cell Distribution Width 15.9 % (11.5-14.5) Platelet Count 229 x10^3/uL (140-400) Neutrophils (%) (Auto) 15 % (31-73) Lymphocytes (%) (Auto) 37 % (24-48) Monocytes (%) (Auto) 46 % (0-9) Eosinophils (%) (Auto) 0 % (0-3) Basophils (%) (Auto) 2 % (0-3) Neutrophils # (Auto) 0.1 x10^3uL (1.8-7.7) Lymphocytes # (Auto) 0.4 x10^3/uL (1.0-4.8) Monocytes # (Auto) 0.5 x10^3/uL (0.0-1.1) Eosinophils # (Auto) 0.0 x10^3/uL (0.0-0.7) Basophils # (Auto) 0.0 x10^3/uL (0.0-0.2) Sodium Level 143 mmol/L (136-145) Potassium Level 4.6 mmol/L (3.5-5.1) Chloride Level 104 mmol/L (98-107) Carbon Dioxide Level 39 mmol/L (21-32) Anion Gap 0 (6-14) Blood Urea Nitrogen 22 mg/dL (7-20) Creatinine 1.1 mg/dL (0.6-1.0) Estimated GFR (Cockcroft-Gault) 50.0 BUN/Creatinine Ratio 20 (6-20) Glucose Level 114 mg/dL (70-99) Calcium Level 7.8 mg/dL (8.5-10.1) Total Bilirubin 0.2 mg/dL (0.2-1.0) Aspartate Amino Transf (AST/SGOT) 13 U/L (15-37) Alanine Aminotransferase (ALT/SGPT) 13 U/L (14-59) Alkaline Phosphatase 72 U/L (46-116) Troponin I Quantitative 0.028 ng/mL (0.000-0.055) Total Protein 6.5 g/dL (6.4-8.2) Albumin 2.1 g/dL (3.4-5.0) Albumin/Globulin Ratio 0.5 (1.0-1.7) Thyroid Stimulating Hormone (TSH) 0.817 uIU/mL (0.358-3.74) Influenza Type A Antigen Negative (NEGATIVE) Influenza Type B Antigen Negative (NEGATIVE) RAFAEL CASTRO MD Feb 18, 2017 17:54
[2017-02-18] MEDS: MICAFUNGIN 100 MG in IV DEXTROSE 5% 100 ML IV SCH (18:24)
--- NOTE | 2017-02-18 19:40 | HP ---
ADMIT DATE: 02/17/2017 CHIEF COMPLAINT AND HISTORY OF PRESENT ILLNESS: This 66-year-old white female well known to me from followup in the office. The patient was found by visiting nurse at home on the day of admission encephalopathic and hypoxic and sent to the Emergency Room where she was found to be hypoxic and placed on 12 liters nonrebreather mask, had some initial respiratory acidosis with some CO2 retention with improvement in her blood gas, was eventually placed on BiPAP and improved further where she avoided mechanical ventilation. She was also found to be leukopenic with a white count of 1.8, 25% neutrophils and petechial type rash on her lower extremities as well as her abdomen or torso. She denies any significant history of bleeding episodes and did not feel like she was feeling bad coming up. She denies any recent bug or tick bites. She has been receiving IV Rocephin as an outpatient because of the dehiscence from the right total knee replacement with some infection at home per PICC line. PAST MEDICAL HISTORY: Remarkable for COPD, right total knee replacement with dehiscence. MEDICATIONS: Brought with the patient listed on the computer have been addressed. ALLERGIES: She has no known drug allergies. SOCIAL HISTORY: She is a former smoker, nondrinker. Did not use drugs in the recent past. Otherwise, now single, lives at home with her mother and a son. FAMILY HISTORY: Noncontributory. REVIEW OF SYSTEMS: As mentioned above. PHYSICAL EXAMINATION: GENERAL: She is a well-developed, well-nourished white female on BiPAP ____ after admission. VITAL SIGNS: Stable. She is afebrile. HEAD, EYES, EARS, NOSE, THROAT: Unremarkable. NECK: Supple without bruit, thyromegaly. CHEST: Reveals decreased breath sounds with respiratory rate approximately 18. She has diminished breath sounds bilaterally. HEART: Regular rate and rhythm without S3, S4 or murmur. ABDOMEN: Soft, nontender without hepatosplenomegaly or masses. EXTREMITIES: Without cyanosis or clubbing. She does have a 1+ edema bilaterally. Her right knee would not appear to be healing. NEUROLOGIC: She is intact. IMPRESSION: Hypoxemia in a patient with chronic obstructive pulmonary disease with acute hypercarbic respiratory failure and a chest x-ray showing congestive heart failure with remarkably elevated BNP in the 13,000 range. She is also leukopenic with petechial rash of uncertain etiology at this point in time. PLAN: The patient has been admitted, antibiotics are ongoing. ID has been consulted as well as Pulmonary. I am going to ask Dermatology to see her for the rash and the patient will be monitored, managed and treated appropriately. RAFAEL CASTRO MD DR: PADDY/ilan JOB#: [id number] / [id number]
[2017-02-19 03:00] VITALS: BP 126/57
[2017-02-19 04:17] LABS: BASO # 0.1 x10^3/uL (0.0-0.2); BASO % 3 % (0-3); EOS % 39 % (0-3); HEMATOCRIT 28.8 % (36.0-47.0); HEMOGLOBIN 9.1 g/dL (12.0-15.5); LYMPH # 0.8 x10^3/uL (1.0-4.8); LYMPH % 33 % (24-48); MEAN CORPUSCULAR HEMOGLOBIN 27 pg (25-35); MEAN CORPUSCULAR HGB CONC 32 g/dL (31-37); MEAN CORPUSCULAR VOLUME 86 fL (79-100); MONO % 24 % (0-9); NEUT % 2 % (31-73); PLATELET COUNT 273 x10^3/uL (140-400); RED BLOOD COUNT 3.34 x10^6/uL (3.50-5.40); RED CELL DISTRIBUTION WIDTH 15.9 % (11.5-14.5); WHITE BLOOD COUNT 2.3 x10^3/uL (4.0-11.0)
[2017-02-19 04:50] LABS: CALCIUM 8.2 mg/dL (8.5-10.1); CREATININE 1.1 mg/dL (0.6-1.0); POTASSIUM 3.8 mmol/L (3.5-5.1)
[2017-02-19] MEDS ORDERED: ALTEPLASE 2MG VIAL 10 MG in IV NORMAL SALINE 100ML 100 ML IV ONE (06:00)
[2017-02-19] MEDS ORDERED: ALTEPLASE 2 MG VIAL INT CAT ONE (06:30)
[2017-02-19 07:00] VITALS: BP 134/75
[2017-02-19 07:40] LABS: % BASOS 2 % (0-3); % EOS 35 % (0-5)
[2017-02-19 07:41] LABS: ANISOCYTOSIS SLIGHT; PLT ESTIMATE ADEQUATE (ADEQUATE); POLYCHROMASIA SLIGHT
[2017-02-19] MEDS: IPRATRPIUM/ALBUTEROL 0.5/2.5MG 3 ML NEBU. NEB SCH ×4 (07:59→19:17)
[2017-02-19] MEDS: VANCOMYCIN 2 GM in IV DEXTROSE 5% 500 ML IV SCH ×2 (08:00→08:39)
[2017-02-19] MEDS: ASCORBIC ACID 500 MG TABLET PO SCH (08:39)
[2017-02-19] MEDS: LACTOBACILLUS RHAMNOSUS GG 1 CAPSULE. PO SCH ×2 (08:39→20:52)
[2017-02-19] MEDS: MULTIVITAMIN with MINERAL TABLET. PO SCH (08:39)
[2017-02-19] MEDS: FUROSEMIDE 40 MG/4 ML VIAL. IVP SCH ×2 (08:40→15:37)
--- NOTE | 2017-02-19 10:02 | PDOC ---
Infectious Disease Note Subjective Subjective Better. Less itch. No SOA Knee ok ROS ROS GEN: Denies fevers, chills, sweats HEENT: Denies blurred vision, sore throat CV: Denies chest pain RESP: Denies shortness of air, cough GI: Denies n/v/d NEURO: Denies confusion, dizziness Vital Sign Vital Signs Vital Signs Date Time Temp Pulse Resp B/P (MAP) Pulse Ox O2 Delivery O2 Flow Rate FiO2 02/19/17 08:00 91 Nasal Cannula 5.0 02/19/17 07:00 98.5 77 18 134/75 (94) 98.5 Physical Exam PHYSICAL EXAM GENERAL: NAD, Alert, in cjair HEENT: PERRL, OC/OP -clear NECK: Supple, no JVD, no LN LUNGS: Clear HEART: S1S2, no gallop, no murmur ABD: Soft, NT, no organomegaly, no rebound, obese Norris EXT: No edema, no cyanosis. knee wound with clean dressing [employer]: Alert, oriented x 3, no focal neurologic deficit SKIN: Improving rash IV: PICC - clean Labs Lab Laboratory Tests Test 02/19/17 03:00 02/19/17 08:30 White Blood Count 2.3 x10^3/uL (4.0-11.0) Red Blood Count 3.34 x10^6/uL (3.50-5.40) Hemoglobin 9.1 g/dL (12.0-15.5) Hematocrit 28.8 % (36.0-47.0) Mean Corpuscular Volume 86 fL (79-100) Mean Corpuscular Hemoglobin 27 pg (25-35) Mean Corpuscular Hemoglobin Concent 32 g/dL (31-37) Red Cell Distribution Width 15.9 % (11.5-14.5) Platelet Count 273 x10^3/uL (140-400) Neutrophils (%) (Auto) 2 % (31-73) Lymphocytes (%) (Auto) 33 % (24-48) Monocytes (%) (Auto) 24 % (0-9) Eosinophils (%) (Auto) 39 % (0-3) Basophils (%) (Auto) 3 % (0-3) Neutrophils # (Auto) 0.0 x10^3uL (1.8-7.7) Lymphocytes # (Auto) 0.8 x10^3/uL (1.0-4.8) Monocytes # (Auto) 0.5 x10^3/uL (0.0-1.1) Eosinophils # (Auto) 0.9 x10^3/uL (0.0-0.7) Basophils # (Auto) 0.1 x10^3/uL (0.0-0.2) Segmented Neutrophils % 5 % (35-66) Band Neutrophils % 1 % (0-9) Lymphocytes % 33 % (24-48) Monocytes % 24 % (0-10) Eosinophils % 35 % (0-5) Basophils % 2 % (0-3) Platelet Estimate Adequate (ADEQUATE) Polychromasia Slight Anisocytosis Slight Sodium Level 140 mmol/L (136-145) Potassium Level 3.8 mmol/L (3.5-5.1) Chloride Level 99 mmol/L (98-107) Carbon Dioxide Level 41 mmol/L (21-32) Anion Gap 0 (6-14) Blood Urea Nitrogen 25 mg/dL (7-20) Creatinine 1.1 mg/dL (0.6-1.0) Estimated GFR (Cockcroft-Gault) 50.0 Glucose Level 105 mg/dL (70-99) Calcium Level 8.2 mg/dL (8.5-10.1) Vancomycin Level Trough 27.8 mcg/mL (10.0-20.0) Vancomycin Last Dose Date 02/18/17 Vancomycin Last Dose Time 1999 Objective Assessment Fever -better Leukopenia - s/p solumedrol times one 02/17. ? med related. Was normal last week in 7's. better Rash - ? med related - better Acute on chronic hypercapnic failure on Bipap Left knee wound s/p Right TKA wound dehiscence, s/p exploration with irrigation , debridement right knee and closure 01/28. - s/p TKA place 12/30 Plan Plan of Care Cont Vanc/Levoflox (change to po) and avoid Beta - lactams to r/o cause of neutropenia/rash d/w ER 02/17 Cont micafungin for now F/u labs in am and cults Probiotics Wound vac to be placed BAILEY JARRETT MD Feb 19, 2017 10:02
[2017-02-19 11:00] VITALS: BP 151/78
--- NOTE | 2017-02-19 14:40 | PDOC ---
GENERAL General: vss and afebrile. still requiring 3-5L/NC O2. feels better. chest with decreased breath sounds but clear. O>>I. wbc increased to 2.3K but only 2% neutrophils and 35% eosinophils on differential today suggesting drug process. If not continuing to improve will get hematology eval. blood cultures negative at 2 days and dermatology eval pending. Problems: VITAL SIGNS Vital Signs: Vital Signs Date Time Temp Pulse Resp B/P (MAP) Pulse Ox O2 Delivery O2 Flow Rate FiO2 02/19/17 12:00 5.0 02/19/17 11:54 Nasal Cannula 02/19/17 11:00 98.8 76 20 151/78 (102) 92 98.8 I & O I & O Intake and Output 02/20/17 07:00 Intake Total 100 ml Balance 100 ml Intake Oral 100 ml ALLERGIES Allergies: Allergies Coded Allergies Type Severity Reaction Last Updated Verified No Known Drug Allergies 01/28/17 No MEDS Medications: Current Medications Medications (Trade) Dose Ordered Sig/Jayson Start Time Stop Time Status Last Admin Dose Admin Albuterol Sulfate (Ventolin Neb Soln) 2.5 mg STK-MED ONCE 02/17/17 12:33 02/17/17 12:34 DC Albuterol/ Ipratropium (Duoneb) 3 ml RTQID 02/18/17 20:30 02/19/17 11:54 3 ML Alteplase, Recombinant (Cathflo) 2 mg 1X ONCE 02/19/17 06:30 02/19/17 06:31 DC 02/19/17 06:05 2 MG Alteplase, Recombinant 10 mg/ Sodium Chloride 100 ml @ 10 mls/hr 1X ONCE 02/19/17 06:00 02/19/17 15:59 UNV Ascorbic Acid (Vitamin C) 500 mg DAILY 02/18/17 11:00 02/19/17 08:39 500 MG Cefepime HCl 2 gm/ Dextrose 100 ml @ 200 mls/hr 1X ONCE 02/17/17 14:15 02/17/17 14:44 Cancel Cefepime HCl 2 gm/ Sodium Chloride 100 ml @ 200 mls/hr 1X ONCE 02/17/17 15:15 02/17/17 15:44 DC 02/17/17 15:15 200 MLS/HR Furosemide (Lasix) 40 mg BID92 02/18/17 09:00 02/19/17 08:40 40 MG Ipratropium [place] (Atrovent) 0.5 mg 1X ONCE 02/17/17 12:30 02/17/17 12:36 DC 02/17/17 12:37 0.5 MG Lactobacillus Rhamnosus (Culturelle) 1 cap BID 02/18/17 09:00 02/19/17 08:39 1 CAP Levofloxacin (Levaquin) 500 mg DAILY06 02/19/17 14:00 Levofloxacin/ Dextrose 100 ml @ 100 mls/hr Q24H 02/18/17 14:00 02/19/17 10:01 DC 02/18/17 12:46 100 MLS/HR Methylprednisolone Sodium Succinate (SOLU-Medrol 125MG VIAL) 125 mg 1X ONCE 02/17/17 12:30 02/17/17 12:36 DC 02/17/17 12:52 125 MG Micafungin Sodium 100 mg/Dextrose 100 ml @ 100 mls/hr Q24H 02/17/17 19:00 02/18/17 18:24 100 MLS/HR Multivitamins (Thera M Plus) 1 tab DAILY 02/18/17 11:00 02/19/17 08:39 1 TAB Ondansetron HCl (Zofran) 4 mg PRN Q8HRS PRN 02/17/17 15:00 02/18/17 14:59 DC Vancomycin HCl (Vanco Per Pharmacy) 1 each PRN DAILY PRN 02/18/17 07:15 02/18/17 10:34 1 EACH Vancomycin HCl 1.25 gm/Dextrose 250 ml @ 167 mls/hr Q12H 02/19/17 17:00 Vancomycin HCl 2 gm/Dextrose 500 ml @ 250 mls/hr Q12H 02/18/17 08:00 02/19/17 10:19 DC 02/18/17 21:41 250 MLS/HR Vancomycin HCl 2 gm/Sodium Chloride 500 ml @ 250 mls/hr 1X ONCE 02/17/17 16:00 02/17/17 17:59 DC 02/17/17 16:58 250 MLS/HR LAB Lab: Laboratory Tests Test 02/19/17 03:00 02/19/17 08:30 White Blood Count 2.3 x10^3/uL (4.0-11.0) Red Blood Count 3.34 x10^6/uL (3.50-5.40) Hemoglobin 9.1 g/dL (12.0-15.5) Hematocrit 28.8 % (36.0-47.0) Mean Corpuscular Volume 86 fL (79-100) Mean Corpuscular Hemoglobin 27 pg (25-35) Mean Corpuscular Hemoglobin Concent 32 g/dL (31-37) Red Cell Distribution Width 15.9 % (11.5-14.5) Platelet Count 273 x10^3/uL (140-400) Neutrophils (%) (Auto) 2 % (31-73) Lymphocytes (%) (Auto) 33 % (24-48) Monocytes (%) (Auto) 24 % (0-9) Eosinophils (%) (Auto) 39 % (0-3) Basophils (%) (Auto) 3 % (0-3) Neutrophils # (Auto) 0.0 x10^3uL (1.8-7.7) Lymphocytes # (Auto) 0.8 x10^3/uL (1.0-4.8) Monocytes # (Auto) 0.5 x10^3/uL (0.0-1.1) Eosinophils # (Auto) 0.9 x10^3/uL (0.0-0.7) Basophils # (Auto) 0.1 x10^3/uL (0.0-0.2) Segmented Neutrophils % 5 % (35-66) Band Neutrophils % 1 % (0-9) Lymphocytes % 33 % (24-48) Monocytes % 24 % (0-10) Eosinophils % 35 % (0-5) Basophils % 2 % (0-3) Platelet Estimate Adequate (ADEQUATE) Polychromasia Slight Anisocytosis Slight Sodium Level 140 mmol/L (136-145) Potassium Level 3.8 mmol/L (3.5-5.1) Chloride Level 99 mmol/L (98-107) Carbon Dioxide Level 41 mmol/L (21-32) Anion Gap 0 (6-14) Blood Urea Nitrogen 25 mg/dL (7-20) Creatinine 1.1 mg/dL (0.6-1.0) Estimated GFR (Cockcroft-Gault) 50.0 Glucose Level 105 mg/dL (70-99) Calcium Level 8.2 mg/dL (8.5-10.1) Vancomycin Level Trough 27.8 mcg/mL (10.0-20.0) Vancomycin Last Dose Date 02/18/17 Vancomycin Last Dose Time 1999 RAFAEL CASTRO MD Feb 19, 2017 14:40
[2017-02-19 15:00] VITALS: BP 133/80
--- NOTE | 2017-02-19 15:12 | PDOC ---
SUBJECTIVE Subjective Patient tells me that she was observed by the home care nurse to require an ambulance and admission. She does not give me much history about her pruritic rash or about the intertrigo in her groins. OBJECTIVE Vital Signs Vital Signs Date Time Temp Pulse Resp B/P (MAP) Pulse Ox O2 Delivery O2 Flow Rate FiO2 02/19/17 12:00 5.0 02/19/17 11:54 Nasal Cannula 5.0 02/19/17 11:00 98.8 76 20 151/78 (102) 92 Nasal Cannula 5.0 98.8 02/19/17 08:00 91 Nasal Cannula 5.0 02/19/17 08:00 5.0 02/19/17 08:00 Nasal Cannula 5.0 02/19/17 07:00 98.5 77 18 134/75 (94) 93 Nasal Cannula 5.0 98.5 02/19/17 04:00 4.0 02/19/17 03:00 97.7 72 20 126/57 (80) 93 BiPAP/CPAP 97.7 02/18/17 23:00 97.7 86 20 142/70 (94) 97 BiPAP/CPAP 97.7 02/18/17 22:09 4.0 02/18/17 22:09 Nasal Cannula 4.0 02/18/17 20:00 5.0 02/18/17 20:00 Bi-pap 02/18/17 19:23 99.0 77 20 101/44 (63) 93 Nasal Cannula 5.0 99.0 02/18/17 19:12 99 Nasal Cannula 3.0 02/18/17 15:58 100 Nasal Cannula 5.0 02/18/17 15:57 5.0 02/18/17 15:52 98.8 71 20 99/54 (69) 95 Nasal Cannula 5.0 98.8 I & O Intake and Output 02/20/17 06:59 Intake Total 100 ml Balance 100 ml Intake Oral 100 ml PHYSICAL EXAM Physical Exam Morbidly obese woman, pleasant, alert and cooperative.. Dry skin overall, increased on lower legs. Sparse pink papules and excoriations proximal extremities. (may be fading) erosive intertrigo groins with malodor. ASSESSMENT/PLAN Assessment/Plan I suspect that the leukopenia and pruritic rash is drug related (as she is improving on a different regimen). Doubt infectious cause (but in the differential). Will biopsy left thigh post consent. .Dry skin overall. Intertrigo may be related to antibiotics with obesity and being confined to bed. I will look up a regimen that may be helpful. C&S done. Problems: COMMENT Lab Laboratory Tests Test 02/19/17 03:00 02/19/17 08:30 White Blood Count 2.3 x10^3/uL (4.0-11.0) Red Blood Count 3.34 x10^6/uL (3.50-5.40) Hemoglobin 9.1 g/dL (12.0-15.5) Hematocrit 28.8 % (36.0-47.0) Mean Corpuscular Volume 86 fL (79-100) Mean Corpuscular Hemoglobin 27 pg (25-35) Mean Corpuscular Hemoglobin Concent 32 g/dL (31-37) Red Cell Distribution Width 15.9 % (11.5-14.5) Platelet Count 273 x10^3/uL (140-400) Neutrophils (%) (Auto) 2 % (31-73) Lymphocytes (%) (Auto) 33 % (24-48) Monocytes (%) (Auto) 24 % (0-9) Eosinophils (%) (Auto) 39 % (0-3) Basophils (%) (Auto) 3 % (0-3) Neutrophils # (Auto) 0.0 x10^3uL (1.8-7.7) Lymphocytes # (Auto) 0.8 x10^3/uL (1.0-4.8) Monocytes # (Auto) 0.5 x10^3/uL (0.0-1.1) Eosinophils # (Auto) 0.9 x10^3/uL (0.0-0.7) Basophils # (Auto) 0.1 x10^3/uL (0.0-0.2) Segmented Neutrophils % 5 % (35-66) Band Neutrophils % 1 % (0-9) Lymphocytes % 33 % (24-48) Monocytes % 24 % (0-10) Eosinophils % 35 % (0-5) Basophils % 2 % (0-3) Platelet Estimate Adequate (ADEQUATE) Polychromasia Slight Anisocytosis Slight Sodium Level 140 mmol/L (136-145) Potassium Level 3.8 mmol/L (3.5-5.1) Chloride Level 99 mmol/L (98-107) Carbon Dioxide Level 41 mmol/L (21-32) Anion Gap 0 (6-14) Blood Urea Nitrogen 25 mg/dL (7-20) Creatinine 1.1 mg/dL (0.6-1.0) Estimated GFR (Cockcroft-Gault) 50.0 Glucose Level 105 mg/dL (70-99) Calcium Level 8.2 mg/dL (8.5-10.1) Vancomycin Level Trough 27.8 mcg/mL (10.0-20.0) Vancomycin Last Dose Date 02/18/17 Vancomycin Last Dose Time 1999 JAIME FISHER MD Feb 19, 2017 15:12
--- NOTE | 2017-02-19 15:58 | OP ---
DATE OF SURGERY: PROCEDURE: Skin biopsy. DESCRIPTION OF PROCEDURE: After informed signed consent, prep Betadine/alcohol, local 1% lidocaine with epinephrine, 3 mm punch biopsy of papule anterior left thigh sent to pathology. Drysol hemostasis. Antibiotic ointment and Band-Aid. Orders written. JAIME FISHER MD DR: SEBASTIEN/ilan JOB#: [id number] / [id number]
--- NOTE | 2017-02-19 15:59 | PDOC ---
PULMONARY PROGRESS NOTES Subjective PT OFF BIPAP, NOT MORE SOA Vitals Vital Signs Date Time Temp Pulse Resp B/P (MAP) Pulse Ox O2 Delivery O2 Flow Rate FiO2 02/19/17 15:42 Nasal Cannula 5.0 02/19/17 11:00 98.8 76 20 151/78 (102) 92 98.8 ROS: No Nausea, No Chest Pain, No Abdominal Pain, No Increase Cough Lungs: Clear, Crackles Cardiovascular: S1, S2 Abdomen: Soft Neuro Exam: Alert Extremities: Other (EDEMA AND DRESSING OVE LEFT KNEE) Skin: Warm Labs Laboratory Tests Test 02/17/17 16:35 02/18/17 05:44 02/18/17 08:19 02/19/17 03:00 Nasal Screen MRSA (PCR) Negative (Negative) White Blood Count 1.0 x10^3/uL (4.0-11.0) 2.3 x10^3/uL (4.0-11.0) Red Blood Count 2.98 x10^6/uL (3.50-5.40) 3.34 x10^6/uL (3.50-5.40) Hemoglobin 8.1 g/dL (12.0-15.5) 9.1 g/dL (12.0-15.5) Hematocrit 26.1 % (36.0-47.0) 28.8 % (36.0-47.0) Mean Corpuscular Volume 88 fL (79-100) 86 fL (79-100) Mean Corpuscular Hemoglobin 27 pg (25-35) 27 pg (25-35) Mean Corpuscular Hemoglobin Concent 31 g/dL (31-37) 32 g/dL (31-37) Red Cell Distribution Width 15.9 % (11.5-14.5) 15.9 % (11.5-14.5) Platelet Count 229 x10^3/uL (140-400) 273 x10^3/uL (140-400) Neutrophils (%) (Auto) 15 % (31-73) 2 % (31-73) Lymphocytes (%) (Auto) 37 % (24-48) 33 % (24-48) Monocytes (%) (Auto) 46 % (0-9) 24 % (0-9) Eosinophils (%) (Auto) 0 % (0-3) 39 % (0-3) Basophils (%) (Auto) 2 % (0-3) 3 % (0-3) Neutrophils # (Auto) 0.1 x10^3uL (1.8-7.7) 0.0 x10^3uL (1.8-7.7) Lymphocytes # (Auto) 0.4 x10^3/uL (1.0-4.8) 0.8 x10^3/uL (1.0-4.8) Monocytes # (Auto) 0.5 x10^3/uL (0.0-1.1) 0.5 x10^3/uL (0.0-1.1) Eosinophils # (Auto) 0.0 x10^3/uL (0.0-0.7) 0.9 x10^3/uL (0.0-0.7) Basophils # (Auto) 0.0 x10^3/uL (0.0-0.2) 0.1 x10^3/uL (0.0-0.2) Sodium Level 143 mmol/L (136-145) 140 mmol/L (136-145) Potassium Level 4.6 mmol/L (3.5-5.1) 3.8 mmol/L (3.5-5.1) Chloride Level 104 mmol/L (98-107) 99 mmol/L (98-107) Carbon Dioxide Level 39 mmol/L (21-32) 41 mmol/L (21-32) Anion Gap 0 (6-14) 0 (6-14) Blood Urea Nitrogen 22 mg/dL (7-20) 25 mg/dL (7-20) Creatinine 1.1 mg/dL (0.6-1.0) 1.1 mg/dL (0.6-1.0) Estimated GFR (Cockcroft-Gault) 50.0 50.0 BUN/Creatinine Ratio 20 (6-20) Glucose Level 114 mg/dL (70-99) 105 mg/dL (70-99) Calcium Level 7.8 mg/dL (8.5-10.1) 8.2 mg/dL (8.5-10.1) Total Bilirubin 0.2 mg/dL (0.2-1.0) Aspartate Amino Transf (AST/SGOT) 13 U/L (15-37) Alanine Aminotransferase (ALT/SGPT) 13 U/L (14-59) Alkaline Phosphatase 72 U/L (46-116) Troponin I Quantitative 0.028 ng/mL (0.000-0.055) Total Protein 6.5 g/dL (6.4-8.2) Albumin 2.1 g/dL (3.4-5.0) Albumin/Globulin Ratio 0.5 (1.0-1.7) Thyroid Stimulating Hormone (TSH) 0.817 uIU/mL (0.358-3.74) Influenza Type A Antigen Negative (NEGATIVE) Influenza Type B Antigen Negative (NEGATIVE) Segmented Neutrophils % 5 % (35-66) Band Neutrophils % 1 % (0-9) Lymphocytes % 33 % (24-48) Monocytes % 24 % (0-10) Eosinophils % 35 % (0-5) Basophils % 2 % (0-3) Platelet Estimate Adequate (ADEQUATE) Polychromasia Slight Anisocytosis Slight Test 02/19/17 08:30 Vancomycin Level Trough 27.8 mcg/mL (10.0-20.0) Vancomycin Last Dose Date 02/18/17 Vancomycin Last Dose Time 1999 Laboratory Tests Test 02/19/17 03:00 02/19/17 08:30 White Blood Count 2.3 x10^3/uL (4.0-11.0) Red Blood Count 3.34 x10^6/uL (3.50-5.40) Hemoglobin 9.1 g/dL (12.0-15.5) Hematocrit 28.8 % (36.0-47.0) Mean Corpuscular Volume 86 fL (79-100) Mean Corpuscular Hemoglobin 27 pg (25-35) Mean Corpuscular Hemoglobin Concent 32 g/dL (31-37) Red Cell Distribution Width 15.9 % (11.5-14.5) Platelet Count 273 x10^3/uL (140-400) Neutrophils (%) (Auto) 2 % (31-73) Lymphocytes (%) (Auto) 33 % (24-48) Monocytes (%) (Auto) 24 % (0-9) Eosinophils (%) (Auto) 39 % (0-3) Basophils (%) (Auto) 3 % (0-3) Neutrophils # (Auto) 0.0 x10^3uL (1.8-7.7) Lymphocytes # (Auto) 0.8 x10^3/uL (1.0-4.8) Monocytes # (Auto) 0.5 x10^3/uL (0.0-1.1) Eosinophils # (Auto) 0.9 x10^3/uL (0.0-0.7) Basophils # (Auto) 0.1 x10^3/uL (0.0-0.2) Segmented Neutrophils % 5 % (35-66) Band Neutrophils % 1 % (0-9) Lymphocytes % 33 % (24-48) Monocytes % 24 % (0-10) Eosinophils % 35 % (0-5) Basophils % 2 % (0-3) Platelet Estimate Adequate (ADEQUATE) Polychromasia Slight Anisocytosis Slight Sodium Level 140 mmol/L (136-145) Potassium Level 3.8 mmol/L (3.5-5.1) Chloride Level 99 mmol/L (98-107) Carbon Dioxide Level 41 mmol/L (21-32) Anion Gap 0 (6-14) Blood Urea Nitrogen 25 mg/dL (7-20) Creatinine 1.1 mg/dL (0.6-1.0) Estimated GFR (Cockcroft-Gault) 50.0 Glucose Level 105 mg/dL (70-99) Calcium Level 8.2 mg/dL (8.5-10.1) Vancomycin Level Trough 27.8 mcg/mL (10.0-20.0) Vancomycin Last Dose Date 02/18/17 Vancomycin Last Dose Time 2000 Medications Active Scripts Medications Dose Route/Sig Max Daily Dose Days Date Category Dose Instructions Tramadol Hcl 50 Mg Tablet 2 Tab PO PRN Q6HRS 02/17/17 Reported Ferrous Sulfate 325 Mg Tablet 1 Tab PO BID 30 01/02/17 Reported LAST DOSE GIVEN: DATE:01/02/17 TIME:9:00 a.m Diclofenac Sodium 75 Mg Tablet.dr 75 Mg PO BID 11/10/16 Reported Meds not given this hospital admission. May resume home medications as approved by Physician. Impression . 1. Zjxev-[id number] hypoxemic hypercapnic respiratory failure. 2. Acute diastolic heart failure. 3. Leukopenia. 4. Recent total knee arthroplasty with traumatic wound dehiscence. 5. Abnormal x-ray compatible with acute pulmonary edema. 6. Morbid obesity. 7. Chronic anemia. 8. Protein malnutrition, present upon admission. Plan . PT OFF BIPAP FOR NOW, QHS BIPAP IMPROVING ANTIBX PER ID NEBS DVT PROPH JAMES SEQUEIRA MD Feb 19, 2017 15:59
[2017-02-19] MEDS: VANCOMYCIN PER PHARMACY MC PRN (16:22)
--- NOTE | 2017-02-19 17:05 | RAD ---
Examination : single frontal view of the chest History: History of shortness of breath, COPD Comparison: 02/17/2017 Findings: Low lung volumes and technique accentuates heart size and pulmonary vascularity. Right-sided PICC line is unchanged. Small left pleural effusion is unchanged. Mild decrease in bilateral interstitial markings. Few patchy airspace opacities identified in the bibasal lungs grossly similar to prior exam. Impression: 1. Mild improved congestive changes. 2. Patchy bibasal lung airspace opacities grossly similar to prior exam with unchanged left small pleural effusion.
[2017-02-19] MEDS: VANCOMYCIN 1.25 GM in IV DEXTROSE 5% 250 ML IV SCH (17:23)
[2017-02-19] MEDS: traMADol 50 MG TABLET PO PRN (19:00)
[2017-02-19] MEDS: MICAFUNGIN 100 MG in IV DEXTROSE 5% 100 ML IV SCH (19:01)
[2017-02-19 19:10] VITALS: BP 124/76
[2017-02-19 23:59] VITALS: BP 125/66
[2017-02-20] VITALS (8 sets, daily range): BP systolic 103–145; BP diastolic 51–91
[2017-02-20] MEDS: VANCOMYCIN 1.25 GM in IV DEXTROSE 5% 250 ML IV SCH ×2 (05:29→18:15)
[2017-02-20 06:00] LABS: BASO % 0 % (0-3); EOS % 31 % (0-3); HEMATOCRIT 29.7 % (36.0-47.0); HEMOGLOBIN 9.4 g/dL (12.0-15.5); LYMPH # 0.9 x10^3/uL (1.0-4.8); LYMPH % 37 % (24-48); MEAN CORPUSCULAR HEMOGLOBIN 27 pg (25-35); MEAN CORPUSCULAR HGB CONC 32 g/dL (31-37); MEAN CORPUSCULAR VOLUME 85 fL (79-100); MONO % 31 % (0-9); NEUT % 1 % (31-73); PLATELET COUNT 232 x10^3/uL (140-400); RED BLOOD COUNT 3.48 x10^6/uL (3.50-5.40); RED CELL DISTRIBUTION WIDTH 16.1 % (11.5-14.5); WHITE BLOOD COUNT 2.5 x10^3/uL (4.0-11.0)
[2017-02-20 06:08] LABS: CALCIUM 8.4 mg/dL (8.5-10.1); CREATININE 1.1 mg/dL (0.6-1.0); POTASSIUM 3.6 mmol/L (3.5-5.1)
[2017-02-20] MEDS: IPRATRPIUM/ALBUTEROL 0.5/2.5MG 3 ML NEBU. NEB SCH ×4 (06:50→20:20)
--- NOTE | 2017-02-20 08:14 | PDOC ---
GENERAL General: vss and afebrile. awake and alert. wbc 2.5K with 1% neutrophils. will ask for hematology opinion. bx of skin rash done by dermatology. O2 down to 3L/NC today with ongoing diuresis and improving cxr. chest with decreased breath sounds and heart regular. right leg looks same as does rash. antibiotics ongoing. Problems: VITAL SIGNS Vital Signs: Vital Signs Date Time Temp Pulse Resp B/P (MAP) Pulse Ox O2 Delivery O2 Flow Rate FiO2 02/20/17 07:00 98.9 73 18 103/74 (84) 90 Nasal Cannula 5.0 98.9 ALLERGIES Allergies: Allergies Coded Allergies Type Severity Reaction Last Updated Verified No Known Drug Allergies 01/28/17 No MEDS Medications: Current Medications Medications (Trade) Dose Ordered Sig/Jayson Start Time Stop Time Status Last Admin Dose Admin Albuterol Sulfate (Ventolin Neb Soln) 2.5 mg STK-MED ONCE 02/17/17 12:33 02/17/17 12:34 DC Albuterol/ Ipratropium (Duoneb) 3 ml RTQID 02/18/17 20:30 02/20/17 06:50 3 ML Alteplase, Recombinant (Cathflo) 2 mg 1X ONCE 02/19/17 06:30 02/19/17 06:31 DC 02/19/17 06:05 2 MG Alteplase, Recombinant 10 mg/ Sodium Chloride 100 ml @ 10 mls/hr 1X ONCE 02/19/17 06:00 02/19/17 15:59 UNV Ascorbic Acid (Vitamin C) 500 mg DAILY 02/18/17 11:00 02/19/17 08:39 500 MG Cefepime HCl 2 gm/ Dextrose 100 ml @ 200 mls/hr 1X ONCE 02/17/17 14:15 02/17/17 14:44 Cancel Cefepime HCl 2 gm/ Sodium Chloride 100 ml @ 200 mls/hr 1X ONCE 02/17/17 15:15 02/17/17 15:44 DC 02/17/17 15:15 200 MLS/HR Furosemide (Lasix) 40 mg BID92 02/18/17 09:00 02/19/17 15:37 40 MG Ipratropium [place] (Atrovent) 0.5 mg 1X ONCE 02/17/17 12:30 02/17/17 12:36 DC 02/17/17 12:37 0.5 MG Lactobacillus Rhamnosus (Culturelle) 1 cap BID 02/18/17 09:00 02/19/17 20:52 1 CAP Levofloxacin (Levaquin) 500 mg DAILY06 02/19/17 14:00 02/20/17 05:29 500 MG Levofloxacin/ Dextrose 100 ml @ 100 mls/hr Q24H 02/18/17 14:00 02/19/17 10:01 DC 02/18/17 12:46 100 MLS/HR Methylprednisolone Sodium Succinate (SOLU-Medrol 125MG VIAL) 125 mg 1X ONCE 02/17/17 12:30 02/17/17 12:36 DC 02/17/17 12:52 125 MG Micafungin Sodium 100 mg/Dextrose 100 ml @ 100 mls/hr Q24H 02/17/17 19:00 02/19/17 19:01 100 MLS/HR Multivitamins (Thera M Plus) 1 tab DAILY 02/18/17 11:00 02/19/17 08:39 1 TAB Ondansetron HCl (Zofran) 4 mg PRN Q8HRS PRN 02/17/17 15:00 02/18/17 14:59 DC Tramadol HCl (Ultram) 100 mg PRN Q6HRS PRN 02/19/17 18:45 02/19/17 19:00 100 MG Vancomycin HCl 1 each 1X ONCE 02/21/17 04:30 02/21/17 04:31 Vancomycin HCl (Vanco Per Pharmacy) 1 each PRN DAILY PRN 02/18/17 07:15 02/19/17 16:22 1 EACH Vancomycin HCl 1.25 gm/Dextrose 250 ml @ 167 mls/hr Q12H 02/19/17 17:00 02/20/17 05:29 167 MLS/HR Vancomycin HCl 2 gm/Dextrose 500 ml @ 250 mls/hr Q12H 02/18/17 08:00 02/19/17 10:19 DC 02/18/17 21:41 250 MLS/HR Vancomycin HCl 2 gm/Sodium Chloride 500 ml @ 250 mls/hr 1X ONCE 02/17/17 16:00 02/17/17 17:59 DC 02/17/17 16:58 250 MLS/HR LAB Lab: Laboratory Tests Test 02/19/17 08:30 02/20/17 05:40 Vancomycin Level Trough 27.8 mcg/mL (10.0-20.0) Vancomycin Last Dose Date 02/18/17 Vancomycin Last Dose Time 1999 White Blood Count 2.5 x10^3/uL (4.0-11.0) Red Blood Count 3.48 x10^6/uL (3.50-5.40) Hemoglobin 9.4 g/dL (12.0-15.5) Hematocrit 29.7 % (36.0-47.0) Mean Corpuscular Volume 85 fL (79-100) Mean Corpuscular Hemoglobin 27 pg (25-35) Mean Corpuscular Hemoglobin Concent 32 g/dL (31-37) Red Cell Distribution Width 16.1 % (11.5-14.5) Platelet Count 232 x10^3/uL (140-400) Neutrophils (%) (Auto) 1 % (31-73) Lymphocytes (%) (Auto) 37 % (24-48) Monocytes (%) (Auto) 31 % (0-9) Eosinophils (%) (Auto) 31 % (0-3) Basophils (%) (Auto) 0 % (0-3) Neutrophils # (Auto) 0.0 x10^3uL (1.8-7.7) Lymphocytes # (Auto) 0.9 x10^3/uL (1.0-4.8) Monocytes # (Auto) 0.8 x10^3/uL (0.0-1.1) Eosinophils # (Auto) 0.8 x10^3/uL (0.0-0.7) Basophils # (Auto) 0.0 x10^3/uL (0.0-0.2) Sodium Level 140 mmol/L (136-145) Potassium Level 3.6 mmol/L (3.5-5.1) Chloride Level 95 mmol/L (98-107) Carbon Dioxide Level 43 mmol/L (21-32) Anion Gap 2 (6-14) Blood Urea Nitrogen 20 mg/dL (7-20) Creatinine 1.1 mg/dL (0.6-1.0) Estimated GFR (Cockcroft-Gault) 50.0 Glucose Level 105 mg/dL (70-99) Calcium Level 8.4 mg/dL (8.5-10.1) APPL,RAFAEL Arguelles MD Feb 20, 2017 08:14
--- NOTE | 2017-02-20 08:28 | PDOC ---
Infectious Disease Note Subjective Subjective Better. Less itch. No SOA, Rash better Knee ok but a little sore as she has not been using it much ROS ROS GEN: Denies fevers, chills, sweats HEENT: Denies blurred vision, sore throat CV: Denies chest pain RESP: Denies shortness of air, cough GI: Denies n/v/d NEURO: Denies confusion, dizziness MSK: Denies weakness, joint pain/swelling Vital Sign Vital Signs Vital Signs Date Time Temp Pulse Resp B/P (MAP) Pulse Ox O2 Delivery O2 Flow Rate FiO2 02/20/17 07:00 98.9 73 18 103/74 (84) 90 Nasal Cannula 5.0 98.9 Physical Exam PHYSICAL EXAM GENERAL: NAD, Alert, in bed HEENT: PERRL, OC/OP -clear NECK: Supple, no JVD, no LN LUNGS: Clear, on 02 HEART: S1S2, no gallop, no murmur ABD: Soft, NT, no organomegaly, no rebound, obese Norris EXT: No edema, no cyanosis. knee wound with clean dressing. Mild edema and warmth. Wound is clean [employer] CONSULTANT: Alert, oriented x 3, no focal neurologic deficit SKIN: Improving rash IV: PICC - clean Labs Lab Laboratory Tests Test 02/19/17 08:30 02/20/17 05:40 Vancomycin Level Trough 27.8 mcg/mL (10.0-20.0) Vancomycin Last Dose Date 02/18/17 Vancomycin Last Dose Time 1999 White Blood Count 2.5 x10^3/uL (4.0-11.0) Red Blood Count 3.48 x10^6/uL (3.50-5.40) Hemoglobin 9.4 g/dL (12.0-15.5) Hematocrit 29.7 % (36.0-47.0) Mean Corpuscular Volume 85 fL (79-100) Mean Corpuscular Hemoglobin 27 pg (25-35) Mean Corpuscular Hemoglobin Concent 32 g/dL (31-37) Red Cell Distribution Width 16.1 % (11.5-14.5) Platelet Count 232 x10^3/uL (140-400) Neutrophils (%) (Auto) 1 % (31-73) Lymphocytes (%) (Auto) 37 % (24-48) Monocytes (%) (Auto) 31 % (0-9) Eosinophils (%) (Auto) 31 % (0-3) Basophils (%) (Auto) 0 % (0-3) Neutrophils # (Auto) 0.0 x10^3uL (1.8-7.7) Lymphocytes # (Auto) 0.9 x10^3/uL (1.0-4.8) Monocytes # (Auto) 0.8 x10^3/uL (0.0-1.1) Eosinophils # (Auto) 0.8 x10^3/uL (0.0-0.7) Basophils # (Auto) 0.0 x10^3/uL (0.0-0.2) Sodium Level 140 mmol/L (136-145) Potassium Level 3.6 mmol/L (3.5-5.1) Chloride Level 95 mmol/L (98-107) Carbon Dioxide Level 43 mmol/L (21-32) Anion Gap 2 (6-14) Blood Urea Nitrogen 20 mg/dL (7-20) Creatinine 1.1 mg/dL (0.6-1.0) Estimated GFR (Cockcroft-Gault) 50.0 Glucose Level 105 mg/dL (70-99) Calcium Level 8.4 mg/dL (8.5-10.1) Objective Assessment Fever -better Leukopenia - s/p solumedrol times one 02/17. ? med related. Was normal last week in 7's. better. EOS elevated Rash - ? med related - better Acute on chronic hypercapnic failure on Bipap Left knee wound s/p Right TKA wound dehiscence, s/p exploration with irrigation , debridement right knee and closure 01/28. - s/p TKA place 12/30 Groin yeast rash on [place] Plan Plan of Care Cont Vanc/Levoflox (change to po) and avoid Beta - lactams to r/o cause of neutropenia/rash d/w ER 02/17 Cont micafungin for now F/u labs in am and cults Probiotics Wound vac to be placed today BAILEY JARRETT MD Feb 20, 2017 08:28
--- NOTE | 2017-02-20 09:08 | PDOC ---
Provider Note Provider Note Med onc consult: leukopenia, elevated monocytes, likely reactive due to infection. However, I would recommend BM bx to eval for primary bone marrow disorders see dictation CANDICE NAVA MD Feb 20, 2017 09:08
[2017-02-20] MEDS: LACTOBACILLUS RHAMNOSUS GG 1 CAPSULE. PO SCH ×2 (09:56→20:05)
[2017-02-20] MEDS: MULTIVITAMIN with MINERAL TABLET. PO SCH (09:56)
[2017-02-20] MEDS: FUROSEMIDE 40 MG/4 ML VIAL. IVP SCH ×2 (09:56→14:00)
[2017-02-20] MEDS: ASCORBIC ACID 500 MG TABLET PO SCH (09:56)
--- NOTE | 2017-02-20 10:08 | PDOC ---
PULMONARY PROGRESS NOTES Subjective PT OFF BIPAP, NOT MORE SOA Vitals Vital Signs Date Time Temp Pulse Resp B/P (MAP) Pulse Ox O2 Delivery O2 Flow Rate FiO2 02/20/17 07:00 98.9 73 18 103/74 (84) 90 Nasal Cannula 5.0 98.9 ROS: No Nausea, No Chest Pain, No Abdominal Pain, No Increase Cough Lungs: Clear, Crackles Cardiovascular: S1, S2 Abdomen: Soft Neuro Exam: Alert Extremities: Other (EDEMA AND DRESSING OVE LEFT KNEE) Skin: Warm Labs Laboratory Tests Test 02/19/17 03:00 02/19/17 08:30 02/20/17 05:40 White Blood Count 2.3 x10^3/uL (4.0-11.0) 2.5 x10^3/uL (4.0-11.0) Red Blood Count 3.34 x10^6/uL (3.50-5.40) 3.48 x10^6/uL (3.50-5.40) Hemoglobin 9.1 g/dL (12.0-15.5) 9.4 g/dL (12.0-15.5) Hematocrit 28.8 % (36.0-47.0) 29.7 % (36.0-47.0) Mean Corpuscular Volume 86 fL (79-100) 85 fL (79-100) Mean Corpuscular Hemoglobin 27 pg (25-35) 27 pg (25-35) Mean Corpuscular Hemoglobin Concent 32 g/dL (31-37) 32 g/dL (31-37) Red Cell Distribution Width 15.9 % (11.5-14.5) 16.1 % (11.5-14.5) Platelet Count 273 x10^3/uL (140-400) 232 x10^3/uL (140-400) Neutrophils (%) (Auto) 2 % (31-73) 1 % (31-73) Lymphocytes (%) (Auto) 33 % (24-48) 37 % (24-48) Monocytes (%) (Auto) 24 % (0-9) 31 % (0-9) Eosinophils (%) (Auto) 39 % (0-3) 31 % (0-3) Basophils (%) (Auto) 3 % (0-3) 0 % (0-3) Neutrophils # (Auto) 0.0 x10^3uL (1.8-7.7) 0.0 x10^3uL (1.8-7.7) Lymphocytes # (Auto) 0.8 x10^3/uL (1.0-4.8) 0.9 x10^3/uL (1.0-4.8) Monocytes # (Auto) 0.5 x10^3/uL (0.0-1.1) 0.8 x10^3/uL (0.0-1.1) Eosinophils # (Auto) 0.9 x10^3/uL (0.0-0.7) 0.8 x10^3/uL (0.0-0.7) Basophils # (Auto) 0.1 x10^3/uL (0.0-0.2) 0.0 x10^3/uL (0.0-0.2) Segmented Neutrophils % 5 % (35-66) Band Neutrophils % 1 % (0-9) Lymphocytes % 33 % (24-48) Monocytes % 24 % (0-10) Eosinophils % 35 % (0-5) Basophils % 2 % (0-3) Platelet Estimate Adequate (ADEQUATE) Polychromasia Slight Anisocytosis Slight Sodium Level 140 mmol/L (136-145) 140 mmol/L (136-145) Potassium Level 3.8 mmol/L (3.5-5.1) 3.6 mmol/L (3.5-5.1) Chloride Level 99 mmol/L (98-107) 95 mmol/L (98-107) Carbon Dioxide Level 41 mmol/L (21-32) 43 mmol/L (21-32) Anion Gap 0 (6-14) 2 (6-14) Blood Urea Nitrogen 25 mg/dL (7-20) 20 mg/dL (7-20) Creatinine 1.1 mg/dL (0.6-1.0) 1.1 mg/dL (0.6-1.0) Estimated GFR (Cockcroft-Gault) 50.0 50.0 Glucose Level 105 mg/dL (70-99) 105 mg/dL (70-99) Calcium Level 8.2 mg/dL (8.5-10.1) 8.4 mg/dL (8.5-10.1) Vancomycin Level Trough 27.8 mcg/mL (10.0-20.0) Vancomycin Last Dose Date 02/18/17 Vancomycin Last Dose Time 1999 Laboratory Tests Test 02/20/17 05:40 White Blood Count 2.5 x10^3/uL (4.0-11.0) Red Blood Count 3.48 x10^6/uL (3.50-5.40) Hemoglobin 9.4 g/dL (12.0-15.5) Hematocrit 29.7 % (36.0-47.0) Mean Corpuscular Volume 85 fL (79-100) Mean Corpuscular Hemoglobin 27 pg (25-35) Mean Corpuscular Hemoglobin Concent 32 g/dL (31-37) Red Cell Distribution Width 16.1 % (11.5-14.5) Platelet Count 232 x10^3/uL (140-400) Neutrophils (%) (Auto) 1 % (31-73) Lymphocytes (%) (Auto) 37 % (24-48) Monocytes (%) (Auto) 31 % (0-9) Eosinophils (%) (Auto) 31 % (0-3) Basophils (%) (Auto) 0 % (0-3) Neutrophils # (Auto) 0.0 x10^3uL (1.8-7.7) Lymphocytes # (Auto) 0.9 x10^3/uL (1.0-4.8) Monocytes # (Auto) 0.8 x10^3/uL (0.0-1.1) Eosinophils # (Auto) 0.8 x10^3/uL (0.0-0.7) Basophils # (Auto) 0.0 x10^3/uL (0.0-0.2) Sodium Level 140 mmol/L (136-145) Potassium Level 3.6 mmol/L (3.5-5.1) Chloride Level 95 mmol/L (98-107) Carbon Dioxide Level 43 mmol/L (21-32) Anion Gap 2 (6-14) Blood Urea Nitrogen 20 mg/dL (7-20) Creatinine 1.1 mg/dL (0.6-1.0) Estimated GFR (Cockcroft-Gault) 50.0 Glucose Level 105 mg/dL (70-99) Calcium Level 8.4 mg/dL (8.5-10.1) Medications Active Scripts Medications Dose Route/Sig Max Daily Dose Days Date Category Dose Instructions Tramadol Hcl 50 Mg Tablet 2 Tab PO PRN Q6HRS 02/17/17 Reported Ferrous Sulfate 325 Mg Tablet 1 Tab PO BID 30 01/02/17 Reported LAST DOSE GIVEN: DATE:01/02/17 TIME:9:00 a.m Diclofenac Sodium 75 Mg Tablet.dr 75 Mg PO BID 11/10/16 Reported Meds not given this hospital admission. May resume home medications as approved by Physician. Impression . 1. Seaea-aw-micjpel hypoxemic hypercapnic respiratory failure. 2. Acute diastolic heart failure. 3. Leukopenia. 4. Recent total knee arthroplasty with traumatic wound dehiscence. 5. Abnormal x-ray compatible with acute pulmonary edema. 6. Morbid obesity. 7. Chronic anemia. 8. Protein malnutrition, present upon admission. Plan . PT OFF BIPAP FOR NOW, QHS BIPAP IMPROVING ANTIBX PER ID NEBS DVT PROPH JAMES SEQUEIRA MD Feb 20, 2017 10:08
--- NOTE | 2017-02-20 10:18 | PDOC ---
PROGRESS NOTES Subjective Subjective Problems overnight: Brigida states that she has not really been allowed to get up and around much, knee is not bothering her, wound care team is still here and had just changed her wound VAC Objective Vital Signs Vital Signs Date Time Temp Pulse Resp B/P (MAP) Pulse Ox O2 Delivery O2 Flow Rate FiO2 02/20/17 07:00 98.9 73 18 103/74 (84) 90 Nasal Cannula 5.0 98.9 Physical Exam Knee motion alignment stability is all good no redness or erythema present wound VAC intact on superior wound as desired Labs Laboratory Tests Test 02/19/17 03:00 02/19/17 08:30 02/20/17 05:40 White Blood Count 2.3 x10^3/uL (4.0-11.0) 2.5 x10^3/uL (4.0-11.0) Red Blood Count 3.34 x10^6/uL (3.50-5.40) 3.48 x10^6/uL (3.50-5.40) Hemoglobin 9.1 g/dL (12.0-15.5) 9.4 g/dL (12.0-15.5) Hematocrit 28.8 % (36.0-47.0) 29.7 % (36.0-47.0) Mean Corpuscular Volume 86 fL (79-100) 85 fL (79-100) Mean Corpuscular Hemoglobin 27 pg (25-35) 27 pg (25-35) Mean Corpuscular Hemoglobin Concent 32 g/dL (31-37) 32 g/dL (31-37) Red Cell Distribution Width 15.9 % (11.5-14.5) 16.1 % (11.5-14.5) Platelet Count 273 x10^3/uL (140-400) 232 x10^3/uL (140-400) Neutrophils (%) (Auto) 2 % (31-73) 1 % (31-73) Lymphocytes (%) (Auto) 33 % (24-48) 37 % (24-48) Monocytes (%) (Auto) 24 % (0-9) 31 % (0-9) Eosinophils (%) (Auto) 39 % (0-3) 31 % (0-3) Basophils (%) (Auto) 3 % (0-3) 0 % (0-3) Neutrophils # (Auto) 0.0 x10^3uL (1.8-7.7) 0.0 x10^3uL (1.8-7.7) Lymphocytes # (Auto) 0.8 x10^3/uL (1.0-4.8) 0.9 x10^3/uL (1.0-4.8) Monocytes # (Auto) 0.5 x10^3/uL (0.0-1.1) 0.8 x10^3/uL (0.0-1.1) Eosinophils # (Auto) 0.9 x10^3/uL (0.0-0.7) 0.8 x10^3/uL (0.0-0.7) Basophils # (Auto) 0.1 x10^3/uL (0.0-0.2) 0.0 x10^3/uL (0.0-0.2) Segmented Neutrophils % 5 % (35-66) Band Neutrophils % 1 % (0-9) Lymphocytes % 33 % (24-48) Monocytes % 24 % (0-10) Eosinophils % 35 % (0-5) Basophils % 2 % (0-3) Platelet Estimate Adequate (ADEQUATE) Polychromasia Slight Anisocytosis Slight Sodium Level 140 mmol/L (136-145) 140 mmol/L (136-145) Potassium Level 3.8 mmol/L (3.5-5.1) 3.6 mmol/L (3.5-5.1) Chloride Level 99 mmol/L (98-107) 95 mmol/L (98-107) Carbon Dioxide Level 41 mmol/L (21-32) 43 mmol/L (21-32) Anion Gap 0 (6-14) 2 (6-14) Blood Urea Nitrogen 25 mg/dL (7-20) 20 mg/dL (7-20) Creatinine 1.1 mg/dL (0.6-1.0) 1.1 mg/dL (0.6-1.0) Estimated GFR (Cockcroft-Gault) 50.0 50.0 Glucose Level 105 mg/dL (70-99) 105 mg/dL (70-99) Calcium Level 8.2 mg/dL (8.5-10.1) 8.4 mg/dL (8.5-10.1) Vancomycin Level Trough 27.8 mcg/mL (10.0-20.0) Vancomycin Last Dose Date 02/18/17 Vancomycin Last Dose Time 1999 Laboratory Tests Test 02/20/17 05:40 White Blood Count 2.5 x10^3/uL (4.0-11.0) Red Blood Count 3.48 x10^6/uL (3.50-5.40) Hemoglobin 9.4 g/dL (12.0-15.5) Hematocrit 29.7 % (36.0-47.0) Mean Corpuscular Volume 85 fL (79-100) Mean Corpuscular Hemoglobin 27 pg (25-35) Mean Corpuscular Hemoglobin Concent 32 g/dL (31-37) Red Cell Distribution Width 16.1 % (11.5-14.5) Platelet Count 232 x10^3/uL (140-400) Neutrophils (%) (Auto) 1 % (31-73) Lymphocytes (%) (Auto) 37 % (24-48) Monocytes (%) (Auto) 31 % (0-9) Eosinophils (%) (Auto) 31 % (0-3) Basophils (%) (Auto) 0 % (0-3) Neutrophils # (Auto) 0.0 x10^3uL (1.8-7.7) Lymphocytes # (Auto) 0.9 x10^3/uL (1.0-4.8) Monocytes # (Auto) 0.8 x10^3/uL (0.0-1.1) Eosinophils # (Auto) 0.8 x10^3/uL (0.0-0.7) Basophils # (Auto) 0.0 x10^3/uL (0.0-0.2) Sodium Level 140 mmol/L (136-145) Potassium Level 3.6 mmol/L (3.5-5.1) Chloride Level 95 mmol/L (98-107) Carbon Dioxide Level 43 mmol/L (21-32) Anion Gap 2 (6-14) Blood Urea Nitrogen 20 mg/dL (7-20) Creatinine 1.1 mg/dL (0.6-1.0) Estimated GFR (Cockcroft-Gault) 50.0 Glucose Level 105 mg/dL (70-99) Calcium Level 8.4 mg/dL (8.5-10.1) Assessment Assessment Right knee status post traumatic wound dehiscence previous total knee arthroplasty with superior wound superficial Problems: Plan Plan of Care Ongoing plans would include wound clinic visits weekly with twice weekly home health wound VAC changes Physical therapy to mobilize her as tolerated as medical pulmonary status condition allows XENA CALHOUN MD Feb 20, 2017 10:17
[2017-02-20 11:52] LABS: INR 1.6 (0.8-1.1); PROTHROMBIN TIME PATIENT 17.9 SEC (11.7-14.0)
[2017-02-20] MEDS ORDERED: fentaNYL PF VIAL 100 MCG/2 ML VIAL ONE (14:37)
[2017-02-20] MEDS ORDERED: LIDOCAINE 1% / SOD BICARB 8.4% 20 ML VIAL. IJ ONE ×2 (14:37→15:15)
[2017-02-20] MEDS ORDERED: MIDAZOLAM HCL/PF 2 MG/2 ML VIAL. ONE (14:37)
[2017-02-20] MEDS ORDERED: fentaNYL PF VIAL 100 MCG/2 ML VIAL IV ONE (15:15)
[2017-02-20] MEDS ORDERED: MIDAZOLAM HCL/PF 2 MG/2 ML VIAL. IV ONE (15:15)
--- NOTE | 2017-02-20 15:48 | RAD ---
CT-guided bone marrow biopsy. 02/20/2017 3:43 PM Indication: leukopenia, elevated monocytes, eval for leukemia Discussion: The risks and benefits of the procedure, including but not limited to, bleeding and infection were discussed patient. Informed consent was obtained. The patient was brought to the CT scanner and placed in the prone position. A timeout procedure was performed. Sample Steamer CT imaging of the pelvis demonstrated left ilium amenable to bone marrow biopsy. The overlying soft tissues were prepped and draped using maximum sterile barrier technique. 1% lidocaine without epinephrine was administered for local anesthesia. Under intermittent CT guidance, an OncControl needle was advanced into the bone marrow of the left iliac crest. 2 Aspirates and 1 core biopsy samples were obtained. Samples were delivered to pathology was present at the time of procedure. The needle was removed and manual pressure held to achieve hemostasis. No immediate complications were identified. The procedure was performed under conscious sedation including continuous cardiopulmonary monitoring via dedicated sedation nurse. Sedation time: 20 minutes Impression: Successful CT-guided bone marrow biopsy of the left iliac crest . PQRS Compliance Statement: One or more of the following individualized dose reduction techniques were utilized for this examination: 1. Automated exposure control 2. Adjustment of the mA and/or kV according to patient size 3. Use of iterative reconstruction technique
[2017-02-20] MEDS: MICAFUNGIN 100 MG in IV DEXTROSE 5% 100 ML IV SCH (20:05)
--- NOTE | 2017-02-21 00:20 | CONS ---
DATE OF CONSULTATION: 02/20/2017 HEMATOLOGY ONCOLOGY CONSULTATION REQUESTING PHYSICIAN: Ayaan Elias MD REASON FOR CONSULTATION: Severe neutropenia and monocytosis. HISTORY OF PRESENT ILLNESS: The patient is a 66-year-old female who was admitted to [facility] on 02/17/2017 for altered mental status and encephalopathy. She was noted to have hypoxia. It improved with BiPAP. She was found to have severe neutropenia and hence, I was consulted for further evaluation. She also has a history of right total knee replacement and infection due to this. Infectious Disease consultation was also obtained. She has had a history of exploration, irrigation and debridement of her knee on 01/28/2017. CBC on 02/18/2017 revealed a WBC of 1, hemoglobin 8.1, platelet count 229. WBC on 02/20/2017 improved to 2.5, however, the absolute neutrophil count is 0. PAST MEDICAL HISTORY: COPD, right total knee replacement with wound dehiscence, she has a wound VAC in place. SOCIAL HISTORY: Former smoker. She has history of smoking 1-1/2 pack per day for almost 40 years. She has quit smoking. FAMILY HISTORY: Negative for primary hematologic disorders. REVIEW OF SYSTEMS: A 12-point review of system was performed. Pertinent positives are mentioned in the history of present illness. Rest of the system review is negative. PHYSICAL EXAMINATION: GENERAL APPEARANCE: The patient is a 66-year-old female who is in no acute cardiorespiratory distress. VITAL SIGNS: Blood pressure 106/63, temperature 98.4. HEENT: Head atraumatic, normocephalic. Eyes: No icterus. NECK: Supple. CHEST: Bilaterally symmetrical. HEART: S1, S2 normal. ABDOMEN: Soft, nontender. CENTRAL NERVOUS SYSTEM: No focal deficits. LYMPHATICS: No lymphadenopathy. SKIN: No rashes. PSYCHOLOGIC: Mood and affect are appropriate. MUSCULOSKELETAL: She has evidence of recent right knee replacement and there is a wound VAC in place above the incision of the right knee replacement. LABORATORY DATA: On 02/20/2017, WBC 2.5, hemoglobin 9.4, platelet count 232, absolute neutrophil count is 0 and there is evidence of 31% monocytes. IMPRESSION AND PLAN: 1. Severe neutropenia with elevated monocytes, is most likely a reactive process due to underlying infection. She has a wound VAC in place above the right knee. Other differential diagnosis would include a primary bone marrow disorder such as leukemia. Although this is likely, I would proceed with a bone marrow aspiration and biopsy in view of persistent neutropenia and persistent monocytosis. I discussed in detail with the patient and she understands and agrees with the plan. I discussed with the registered nurse. 2. Anemia, due to chronic disease. Continue to monitor. 3. History of right knee replacement. She has a wound VAC in the right thigh. CANDICE NAVA MD DR: CHRISTINE/ilan JOB#: [id number] / [id number] KAMALA
[2017-02-21 03:20] VITALS: BP 118/64
[2017-02-21] MEDS: VANCOMYCIN PER PHARMACY MC PRN (06:58)
[2017-02-21 07:00] VITALS: BP 124/58
[2017-02-21] MEDS: IPRATRPIUM/ALBUTEROL 0.5/2.5MG 3 ML NEBU. NEB SCH ×4 (07:16→19:44)
[2017-02-21] MEDS: ASCORBIC ACID 500 MG TABLET PO SCH (08:42)
[2017-02-21] MEDS: LACTOBACILLUS RHAMNOSUS GG 1 CAPSULE. PO SCH ×2 (08:42→20:31)
[2017-02-21] MEDS: MULTIVITAMIN with MINERAL TABLET. PO SCH (08:42)
[2017-02-21] MEDS: FUROSEMIDE 40 MG/4 ML VIAL. IVP SCH ×2 (08:43→13:25)
--- NOTE | 2017-02-21 09:55 | PDOC ---
Infectious Disease Note Subjective Subjective Cold, no fever or aches ROS ROS CV: Denies chest pain RESP: Denies shortness of air, cough GI: Denies n/v/d Vital Sign Vital Signs Vital Signs Date Time Temp Pulse Resp B/P (MAP) Pulse Ox O2 Delivery O2 Flow Rate FiO2 02/21/17 07:16 99 Nasal Cannula 5.0 02/21/17 07:00 98.8 77 18 124/58 (80) 98.8 Physical Exam PHYSICAL EXAM GENERAL: Up in chair, relaxed appearance HEENT: OC/OP poor dentition NECK: Supple LUNGS: Clear. 5L NC O2 HEART: S1 and S2 ABD: Obese, soft, NT : Norris EXT: No edema, no cyanosis; Right knee wound vac in place GENERAL INTERNAL MEDICINE PHYSICIAN: Alert, oriented x 3, no focal neurologic deficit SKIN: + yeast groin area IV: ok Labs Lab Laboratory Tests Test 02/20/17 11:10 02/21/17 05:15 Prothrombin Time 17.9 SEC (11.7-14.0) Prothromb Time International Ratio 1.6 (0.8-1.1) Vancomycin Level Trough 26.9 mcg/mL (10.0-20.0) Vancomycin Last Dose Date 02/20/17 Vancomycin Last Dose Time 1700 Micro BLOOD CULTURE Preliminary NO GROWTH AFTER 3 DAYS Groin wound GRAM STAIN Final WBCS OCCASIONAL RBCS MODERATE GRAM POSITIVE COCCI MODERATE GRAM NEGATIVE RODS OCCASIONAL YEAST MODERATE SQUAMOUS EPITHELIAL CELLS MODERATE MANY TINY GRAM NEGATIVE RODS AND FEW TINY GRAM POSITVE COCCI, SUGGESTIVE OF ANAEROBES Objective Assessment Fever -better Leukopenia - s/p Solu-Medrol times one 02/17. ? med related. Was normal last week in 7's. better. EOS elevated Rash - ? med related - better Acute on chronic hypercapnic failure on Bipap Left knee wound s/p Right TKA wound dehiscence, s/p exploration with irrigation , debridement right knee and closure 01/28. ESR 116 - s/p TKA place 12/30 Groin yeast rash on [place] Plan Plan of Care Vanc and Levoflox and avoid Beta - lactams to r/o cause of neutropenia/rash d/w ER 02/17 micafungin for now F/u labs and cultures Probiotics Wound vac D/w RN Attending Co-Sign The patient was seen and interviewed as well as examined at the bedside. The chart was reviewed. The case was discussed. Agree with the plan of care. TERE SCHMID APRN Feb 21, 2017 09:55 ALONDRA NOBLES MD Feb 21, 2017 15:11
[2017-02-21 11:00] VITALS: BP 146/88
--- NOTE | 2017-02-21 12:00 | PDOC ---
GENERAL General: vss and afebrile. stilll with increased O2 needs. ongoing diuresis. no labs from this am yet. rash beginning to fade a bit and much less itchy. chest with decreased breath sounds and heart regular. bone marrow biopsy done yesterday. continue antibiotics, diuresis, wound vac, clay catheter, O2, etc. recheck labs in am. Problems: VITAL SIGNS Vital Signs: Vital Signs Date Time Temp Pulse Resp B/P (MAP) Pulse Ox O2 Delivery O2 Flow Rate FiO2 02/21/17 11:45 94 Nasal Cannula 5.0 02/21/17 11:00 99.1 74 22 146/88 (107) 99.1 ALLERGIES Allergies: Allergies Coded Allergies Type Severity Reaction Last Updated Verified No Known Drug Allergies 01/28/17 No MEDS Medications: Current Medications Medications (Trade) Dose Ordered Sig/Jayson Start Time Stop Time Status Last Admin Dose Admin Albuterol Sulfate (Ventolin Neb Soln) 2.5 mg STK-MED ONCE 02/17/17 12:33 02/17/17 12:34 DC Albuterol/ Ipratropium (Duoneb) 3 ml RTQID 02/18/17 20:30 02/21/17 11:45 3 ML Alteplase, Recombinant (Cathflo) 2 mg 1X ONCE 02/19/17 06:30 02/19/17 06:31 DC 02/19/17 06:05 2 MG Alteplase, Recombinant 10 mg/ Sodium Chloride 100 ml @ 10 mls/hr 1X ONCE 02/19/17 06:00 02/19/17 15:59 UNV Ascorbic Acid (Vitamin C) 500 mg DAILY 02/18/17 11:00 02/21/17 08:42 500 MG Cefepime HCl 2 gm/ Dextrose 100 ml @ 200 mls/hr 1X ONCE 02/17/17 14:15 02/17/17 14:44 Cancel Cefepime HCl 2 gm/ Sodium Chloride 100 ml @ 200 mls/hr 1X ONCE 02/17/17 15:15 02/17/17 15:44 DC 02/17/17 15:15 200 MLS/HR Fentanyl Citrate (Fentanyl 2ml Vial) 100 mcg 1X ONCE 02/20/17 15:15 02/20/17 15:16 DC 02/20/17 15:10 50 MCG Furosemide (Lasix) 40 mg [id number] 02/18/17 09:00 02/21/17 08:43 40 MG Ipratropium Banks (Atrovent) 0.5 mg 1X ONCE 02/17/17 12:30 02/17/17 12:36 DC 02/17/17 12:37 0.5 MG Lactobacillus Rhamnosus (Culturelle) 1 cap BID 02/18/17 09:00 02/21/17 08:42 1 CAP Levofloxacin (Levaquin) 500 mg DAILY06 02/19/17 14:00 02/21/17 06:14 500 MG Levofloxacin/ Dextrose 100 ml @ 100 mls/hr Q24H 02/18/17 14:00 02/19/17 10:01 DC 02/18/17 12:46 100 MLS/HR Lidocaine/Sodium Bicarbonate (Buffered Lidocaine 1%) 20 ml 1X ONCE 02/20/17 15:15 02/20/17 15:16 DC 02/20/17 15:09 7 ML Methylprednisolone Sodium Succinate (SOLU-Medrol 125MG VIAL) 125 mg 1X ONCE 02/17/17 12:30 02/17/17 12:36 DC 02/17/17 12:52 125 MG Micafungin Sodium 100 mg/Dextrose 100 ml @ 100 mls/hr Q24H 02/17/17 19:00 02/20/17 20:05 100 MLS/HR Midazolam HCl (Versed) 2 mg 1X ONCE 02/20/17 15:15 02/20/17 15:16 DC 02/20/17 15:10 2 MG Multivitamins (Thera M Plus) 1 tab DAILY 02/18/17 11:00 02/21/17 08:42 1 TAB Ondansetron HCl (Zofran) 4 mg PRN Q8HRS PRN 02/17/17 15:00 02/18/17 14:59 DC Tramadol HCl (Ultram) 100 mg PRN Q6HRS PRN 02/19/17 18:45 02/19/17 19:00 100 MG Vancomycin HCl 1 each 1X ONCE 02/23/17 18:30 02/23/17 18:31 Vancomycin HCl (Vanco Per Pharmacy) 1 each PRN DAILY PRN 02/18/17 07:15 02/21/17 06:58 1 EACH Vancomycin HCl 1.25 gm/Dextrose 250 ml @ 167 mls/hr Q12H 02/19/17 17:00 02/21/17 06:37 DC 02/20/17 18:15 167 MLS/HR Vancomycin HCl 1.5 gm/Dextrose 500 ml @ 250 mls/hr Q24H 02/21/17 19:00 Vancomycin HCl 2 gm/Dextrose 500 ml @ 250 mls/hr Q12H 02/18/17 08:00 02/19/17 10:19 DC 02/18/17 21:41 250 MLS/HR Vancomycin HCl 2 gm/Sodium Chloride 500 ml @ 250 mls/hr 1X ONCE 02/17/17 16:00 02/17/17 17:59 DC 02/17/17 16:58 250 MLS/HR LAB Lab: Laboratory Tests Test 02/21/17 05:15 Vancomycin Level Trough 26.9 mcg/mL (10.0-20.0) Vancomycin Last Dose Date 02/20/17 Vancomycin Last Dose Time 1700 RAFAEL CASTRO MD Feb 21, 2017 12:00
--- NOTE | 2017-02-21 13:15 | PDOC ---
PROGRESS NOTES Subjective Subjective HPI - Severe neutropenia ROS - no fever Objective Objective Vital Signs Date Time Temp Pulse Resp B/P (MAP) Pulse Ox O2 Delivery O2 Flow Rate FiO2 02/21/17 11:45 94 Nasal Cannula 5.0 02/21/17 11:00 99.1 74 22 146/88 (107) 99.1 Physical Exam Heart: Normal S1, Normal S2 General: Alert, Oriented X3 Lungs: Clear to auscultation Neuro: Normal speech Psych/Mental Status: Mental status NL Assessment Assessment Problems Medical Problems: (1) Acute congestive heart failure Status: Acute (2) Acute respiratory failure with hypoxia Status: Acute (3) COPD exacerbation Status: Acute IMPRESSION AND PLAN: 1. Severe neutropenia with elevated monocytes, is most likely a reactive process due to underlying infection. She has a wound VAC in place above the right knee. Other differential diagnosis would include a primary bone marrow disorder such as leukemia. Although this is unlikely, I would proceed with a bone marrow aspiration and biopsy in view of persistent neutropenia and persistent monocytosis - done 02/20/17. I discussed in detail with the patient and she understands and agrees with the plan. I discussed with the registered nurse. 2. Anemia, due to chronic disease. Continue to monitor. 3. History of right knee replacement. She has a wound VAC in the right thigh. I d/w Dr Elias Comment Review of Relevant I have reviewed the following items behzad (where applicable) has been applied. Labs Laboratory Tests Test 02/20/17 05:40 02/20/17 11:10 02/21/17 05:15 White Blood Count 2.5 x10^3/uL (4.0-11.0) Red Blood Count 3.48 x10^6/uL (3.50-5.40) Hemoglobin 9.4 g/dL (12.0-15.5) Hematocrit 29.7 % (36.0-47.0) Mean Corpuscular Volume 85 fL (79-100) Mean Corpuscular Hemoglobin 27 pg (25-35) Mean Corpuscular Hemoglobin Concent 32 g/dL (31-37) Red Cell Distribution Width 16.1 % (11.5-14.5) Platelet Count 232 x10^3/uL (140-400) Neutrophils (%) (Auto) 1 % (31-73) Lymphocytes (%) (Auto) 37 % (24-48) Monocytes (%) (Auto) 31 % (0-9) Eosinophils (%) (Auto) 31 % (0-3) Basophils (%) (Auto) 0 % (0-3) Neutrophils # (Auto) 0.0 x10^3uL (1.8-7.7) Lymphocytes # (Auto) 0.9 x10^3/uL (1.0-4.8) Monocytes # (Auto) 0.8 x10^3/uL (0.0-1.1) Eosinophils # (Auto) 0.8 x10^3/uL (0.0-0.7) Basophils # (Auto) 0.0 x10^3/uL (0.0-0.2) Sodium Level 140 mmol/L (136-145) Potassium Level 3.6 mmol/L (3.5-5.1) Chloride Level 95 mmol/L (98-107) Carbon Dioxide Level 43 mmol/L (21-32) Anion Gap 2 (6-14) Blood Urea Nitrogen 20 mg/dL (7-20) Creatinine 1.1 mg/dL (0.6-1.0) Estimated GFR (Cockcroft-Gault) 50.0 Glucose Level 105 mg/dL (70-99) Calcium Level 8.4 mg/dL (8.5-10.1) Prothrombin Time 17.9 SEC (11.7-14.0) Prothromb Time International Ratio 1.6 (0.8-1.1) Vancomycin Level Trough 26.9 mcg/mL (10.0-20.0) Vancomycin Last Dose Date 02/20/17 Vancomycin Last Dose Time 1700 Laboratory Tests Test 02/21/17 05:15 Vancomycin Level Trough 26.9 mcg/mL (10.0-20.0) Vancomycin Last Dose Date 02/20/17 Vancomycin Last Dose Time 1700 Microbiology 02/17/17 Blood Culture - Preliminary, Resulted NO GROWTH AFTER 3 DAYS 02/19/17 Gram Stain - Final, Complete Medications Current Medications Albuterol Sulfate (Ventolin Neb Soln) 10 mg 1X ONCE CONT NEB Last administered on 02/17/17t 12:37; Start 02/17/17 at 12:30; Stop 02/17/17 at 12 :36; Status DC Ipratropium [place] (Atrovent) 0.5 mg 1X ONCE NEB Last administered on 12:37; Start 02/17/17 at 12:30; Stop 02/17/17 at 12:36; Status DC Methylprednisolone Sodium Succinate (SOLU-Medrol 125MG VIAL) 125 mg 1X ONCE IV Last administered on 02/17/17 12:52; Start 02/17/17 at 12:30; Stop at 12:36; Status DC Albuterol Sulfate (Ventolin Neb Soln) 2.5 mg STK-MED ONCE .ROUTE ; Start at 12:33; Stop 02/17/17 at 12:34; Status DC Albuterol/ Ipratropium (Duoneb) 3 ml STK-MED ONCE .ROUTE ; Start 02/17/17 at 12 :33; Stop 02/17/17 at 12:34; Status DC Furosemide (Lasix) 40 mg 1X ONCE IVP Last administered on 02/17/17 15:21; Start 02/17/17 at 13:45; Stop 02/17/17 at 13:46; Status DC Cefepime HCl 2 gm/ Sodium Chloride 100 ml @ 200 mls/hr Q8HRS IV ; Start at 23:00; Stop 02/17/17 at 23:00; Status DC Levofloxacin/ Dextrose 150 ml @ 100 mls/hr 1X ONCE IV Last administered on 14:15; Start 02/17/17 at 14:15; Stop 02/17/17 at 15:44; Status DC Cefepime HCl 2 gm/ Dextrose 100 ml @ 200 mls/hr 1X ONCE IV ; Start 02/17/17 at 14:15; Stop 02/17/17 at 14:44; Status Cancel Ondansetron HCl (Zofran) 4 mg PRN Q8HRS PRN IV NAUSEA/VOMITING; Start at 15:00; Stop 02/18/17 at 14:59; Status DC Albuterol/ Ipratropium (Duoneb) 3 ml RTQID NEB Last administered on 02/18/17 19:11; Start 02/17/17 at 16:00; Stop 02/18/17 at 15:59; Status DC Furosemide (Lasix) 40 mg BID92 IVP Last administered on 02/21/17 08:43; Start 02/18/17 at 09:00 Cefepime HCl 2 gm/ Sodium Chloride 100 ml @ 200 mls/hr 1X ONCE IV Last administered on 02/17/17 15:15; Start 02/17/17 at 15:15; Stop 02/17/17 at 15 :44; Status DC Vancomycin HCl 2 gm/Sodium Chloride 500 ml @ 250 mls/hr 1X ONCE IV Last administered on 02/17/17 16:58; Start 02/17/17 at 16:00; Stop 02/17/17 at 17 :59; Status DC Micafungin Sodium 100 mg/Dextrose 100 ml @ 100 mls/hr Q24H IV Last administered on 02/20/17 20:05; Start 02/17/17 at 19:00 Vancomycin HCl (Vanco Per Pharmacy) 1 each PRN DAILY PRN MC SEE COMMENTS Last administered on 02/21/17 06:58; Start 02/18/17 at 07:15 Levofloxacin/ Dextrose 100 ml @ 100 mls/hr Q24H IV Last administered on 12:46; Start 02/18/17 at 14:00; Stop 02/19/17 at 10:01; Status DC Vancomycin HCl 2 gm/Dextrose 500 ml @ 250 mls/hr Q12H IV Last administered on 02/18/17 21:41; Start 02/18/17 at 08:00; Stop 02/19/17 at 10:19; Status DC Lactobacillus Rhamnosus (Culturelle) 1 cap BID PO Last administered on 08:42; Start 02/18/17 at 09:00 Multivitamins (Thera M Plus) 1 tab DAILY PO Last administered on 02/21/17 08: 42; Start 02/18/17 at 11:00 Ascorbic Acid (Vitamin C) 500 mg DAILY PO Last administered on 02/21/17 08:42 ; Start 02/18/17 at 11:00 Vancomycin HCl 1 each 1X ONCE MC Last administered on 02/19/17 07:30; Start 02/19/17 at 07:30; Stop 02/19/17 at 07:31; Status DC Albuterol/ Ipratropium (Duoneb) 3 ml RTQID NEB Last administered on 10/28/17at 11:45; Start 02/18/17 at 20:30 Alteplase, Recombinant 10 mg/ Sodium Chloride 100 ml @ 10 mls/hr 1X ONCE IV ; Start 02/19/17 at 06:00; Stop 02/19/17 at 15:59; Status UNV Alteplase, Recombinant (Cathflo) 2 mg 1X ONCE INT CAT Last administered on 06:05; Start 02/19/17 at 06:30; Stop 02/19/17 at 06:31; Status DC Levofloxacin (Levaquin) 500 mg DAILY06 PO Last administered on 02/21/17 06:14 ; Start 02/19/17 at 14:00 Vancomycin HCl 1.25 gm/Dextrose 250 ml @ 167 mls/hr Q12H IV Last administered on 02/20/17 18:15; Start 02/19/17 at 17:00; Stop 02/21/17 at 06:37; Status DC Vancomycin HCl 1 each 1X ONCE MC Last administered on 02/21/17 04:30; Start 02/21/17 at 04:30; Stop 02/21/17 at 04:31; Status DC Tramadol HCl (Ultram) 100 mg PRN Q6HRS PRN PO PAIN Last administered on 19:00; Start 02/19/17 at 18:45 Lidocaine/Sodium Bicarbonate (Buffered Lidocaine 1%) 20 ml STK-MED ONCE IJ ; Start 02/20/17 at 14:37; Stop 02/20/17 at 14:38; Status DC Fentanyl Citrate (Fentanyl 2ml Vial) 100 mcg STK-MED ONCE .ROUTE ; Start at 14:37; Stop 02/20/17 at 14:38; Status DC Midazolam HCl (Versed) 2 mg STK-MED ONCE .ROUTE ; Start 02/20/17 at 14:37; Stop 02/20/17 at 14:38; Status DC Lidocaine/Sodium Bicarbonate (Buffered Lidocaine 1%) 20 ml 1X ONCE IJ Last administered on 02/20/17 15:09; Start 02/20/17 at 15:15; Stop 02/20/17 at 15 :16; Status DC Midazolam HCl (Versed) 2 mg 1X ONCE IV Last administered on 02/20/17 15:10; Start 02/20/17 at 15:15; Stop 02/20/17 at 15:16; Status DC Fentanyl Citrate (Fentanyl 2ml Vial) 100 mcg 1X ONCE IV Last administered on 02/20/17t 15:10; Start 02/20/17 at 15:15; Stop 02/20/17 at 15:16; Status DC Vancomycin HCl 1.5 gm/Dextrose 500 ml @ 250 mls/hr Q24H IV ; Start 02/21/17 at 19:00 Vancomycin HCl 1 each 1X ONCE MC ; Start 02/23/17 at 18:30; Stop 02/23/17 at 18:31 Active Scripts Active Reported Tramadol Hcl 50 Mg Tablet 2 Tab PO PRN Q6HRS Ferrous Sulfate 325 Mg Tablet 1 Tab PO BID 30 Days LAST DOSE GIVEN: DATE:01/02/17 TIME:9:00 a.m Diclofenac Sodium 75 Mg Tablet.dr 75 Mg PO BID Meds not given this hospital admission. May resume home medications as approved by Physician. Vitals/I & O Vital Sign - Last 24 Hours 02/20/17 02/20/17 02/20/17 02/20/17 14:53 14:58 15:04 15:10 Pulse 91 93 100 Resp 24 32 28 32 Pulse Ox 92 87 88 88 O2 Delivery Nasal Cannula Nasal Cannula Nasal Cannula Nasal Cannula O2 Flow Rate 2.0 4.0 4.0 4.0 02/20/17 02/20/17 02/20/17 02/20/17 15:59 16:20 19:10 20:00 Temp 98.6 98.6 Pulse 80 Resp 30 B/P (MAP) 145/51 (82) Pulse Ox 95 O2 Delivery Nasal Cannula Nasal Cannula Nasal Cannula Nasal Cannula O2 Flow Rate 5.0 3.0 5.0 5.0 02/20/17 02/20/17 02/20/17 02/21/17 20:22 22:36 23:45 03:20 Temp 99.0 98.2 99.0 98.2 Pulse 78 82 Resp 20 18 B/P (MAP) 131/64 (86) 118/64 (82) Pulse Ox 98 92 95 91 O2 Delivery Nasal Cannula BiPAP/CPAP BiPAP/CPAP BiPAP/CPAP O2 Flow Rate 3.0 5.0 5.0 02/21/17 02/21/17 02/21/17 02/21/17 03:41 07:00 07:16 08:00 Temp 98.8 98.8 Pulse 77 Resp 18 B/P (MAP) 124/58 (80) Pulse Ox 97 99 O2 Delivery BiPAP/CPAP Nasal Cannula Nasal Cannula Nasal Cannula O2 Flow Rate 5.0 5.0 5.0 02/21/17 02/21/17 11:00 11:45 Temp 99.1 99.1 Pulse 74 Resp 22 B/P (MAP) 146/88 (107) Pulse Ox 91 94 O2 Delivery Nasal Cannula Nasal Cannula O2 Flow Rate 5.0 5.0 CANDICE NAVA MD Feb 21, 2017 13:15
--- NOTE | 2017-02-21 14:39 | PDOC ---
PULMONARY PROGRESS NOTES Subjective PT NOT MORE SOA WANTS TO GO HOME Vitals Vital Signs Date Time Temp Pulse Resp B/P (MAP) Pulse Ox O2 Delivery O2 Flow Rate FiO2 02/21/17 11:45 94 Nasal Cannula 5.0 02/21/17 11:00 99.1 74 22 146/88 (107) 99.1 ROS: No Nausea, No Chest Pain, No Abdominal Pain, No Increase Cough Lungs: Clear, Crackles Cardiovascular: S1, S2 Abdomen: Soft Neuro Exam: Alert Extremities: Other (EDEMA AND DRESSING OVE LEFT KNEE) Skin: Warm Labs Laboratory Tests Test 02/20/17 05:40 02/20/17 11:10 02/21/17 05:15 White Blood Count 2.5 x10^3/uL (4.0-11.0) Red Blood Count 3.48 x10^6/uL (3.50-5.40) Hemoglobin 9.4 g/dL (12.0-15.5) Hematocrit 29.7 % (36.0-47.0) Mean Corpuscular Volume 85 fL (79-100) Mean Corpuscular Hemoglobin 27 pg (25-35) Mean Corpuscular Hemoglobin Concent 32 g/dL (31-37) Red Cell Distribution Width 16.1 % (11.5-14.5) Platelet Count 232 x10^3/uL (140-400) Neutrophils (%) (Auto) 1 % (31-73) Lymphocytes (%) (Auto) 37 % (24-48) Monocytes (%) (Auto) 31 % (0-9) Eosinophils (%) (Auto) 31 % (0-3) Basophils (%) (Auto) 0 % (0-3) Neutrophils # (Auto) 0.0 x10^3uL (1.8-7.7) Lymphocytes # (Auto) 0.9 x10^3/uL (1.0-4.8) Monocytes # (Auto) 0.8 x10^3/uL (0.0-1.1) Eosinophils # (Auto) 0.8 x10^3/uL (0.0-0.7) Basophils # (Auto) 0.0 x10^3/uL (0.0-0.2) Sodium Level 140 mmol/L (136-145) Potassium Level 3.6 mmol/L (3.5-5.1) Chloride Level 95 mmol/L (98-107) Carbon Dioxide Level 43 mmol/L (21-32) Anion Gap 2 (6-14) Blood Urea Nitrogen 20 mg/dL (7-20) Creatinine 1.1 mg/dL (0.6-1.0) Estimated GFR (Cockcroft-Gault) 50.0 Glucose Level 105 mg/dL (70-99) Calcium Level 8.4 mg/dL (8.5-10.1) Prothrombin Time 17.9 SEC (11.7-14.0) Prothromb Time International Ratio 1.6 (0.8-1.1) Vancomycin Level Trough 26.9 mcg/mL (10.0-20.0) Vancomycin Last Dose Date 02/20/17 Vancomycin Last Dose Time 1700 Laboratory Tests Test 02/21/17 05:15 Vancomycin Level Trough 26.9 mcg/mL (10.0-20.0) Vancomycin Last Dose Date 02/20/17 Vancomycin Last Dose Time 1700 Medications Active Scripts Medications Dose Route/Sig Max Daily Dose Days Date Category Dose Instructions Tramadol Hcl 50 Mg Tablet 2 Tab PO PRN Q6HRS 02/17/17 Reported Ferrous Sulfate 325 Mg Tablet 1 Tab PO BID 30 01/02/17 Reported LAST DOSE GIVEN: DATE:01/02/17 TIME:9:00 a.m Diclofenac Sodium 75 Mg Tablet.dr 75 Mg PO BID 11/10/16 Reported Meds not given this hospital admission. May resume home medications as approved by Physician. Impression . 1. Vonnc-zg-gogvsln hypoxemic hypercapnic respiratory failure. 2. Acute diastolic heart failure. 3. Leukopenia. 4. Recent total knee arthroplasty with traumatic wound dehiscence. 5. Abnormal x-ray compatible with acute pulmonary edema. 6. Morbid obesity. 7. Chronic anemia. 8. Protein malnutrition, present upon admission. Plan . SEE ORDERS FOR BIPAP QHS HOME WHEN OK WITH OTHERS SERVICES ANTIBX PER ID NEBS DVT PROPH JAMES SEQUEIRA MD Feb 21, 2017 14:39
[2017-02-21 15:00] VITALS: BP 110/53
[2017-02-21 19:00] VITALS: BP 102/56
[2017-02-21] MEDS: MICAFUNGIN 100 MG in IV DEXTROSE 5% 100 ML IV SCH (20:27)
[2017-02-21] MEDS: NYSTATIN TOPICAL POWDER 15GM BOTTLE. TP SCH (21:39)
[2017-02-21] MEDS: VANCOMYCIN 1.5 GM in IV DEXTROSE 5% 500 ML IV SCH (21:39)
[2017-02-21 22:41] VITALS: BP 97/46
[2017-02-22] MEDS ORDERED: ALBUTEROL SULFATE 2.5 MG/3 ML NEBU. NEB PRN (03:30)
[2017-02-22 03:48] VITALS: BP 125/62
[2017-02-22 07:00] VITALS: BP 95/63
[2017-02-22] MEDS: IPRATRPIUM/ALBUTEROL 0.5/2.5MG 3 ML NEBU. NEB SCH ×4 (07:15→20:40)
[2017-02-22] MEDS: NYSTATIN TOPICAL POWDER 15GM BOTTLE. TP SCH ×2 (09:18→20:46)
[2017-02-22] MEDS: LACTOBACILLUS RHAMNOSUS GG 1 CAPSULE. PO SCH ×2 (09:18→20:47)
[2017-02-22] MEDS: FUROSEMIDE 40 MG/4 ML VIAL. IVP SCH ×2 (09:18→13:55)
[2017-02-22] MEDS: ASCORBIC ACID 500 MG TABLET PO SCH (09:19)
[2017-02-22] MEDS: MULTIVITAMIN with MINERAL TABLET. PO SCH (09:19)
--- NOTE | 2017-02-22 10:17 | PDOC ---
GENERAL General: vss and afebrile. awake and alert. chest decreased but clear. heart regular. am labs all still pending. O2 down to 4L/NC this am. continue same and await bone marrow results. Problems: VITAL SIGNS Vital Signs: Vital Signs Date Time Temp Pulse Resp B/P (MAP) Pulse Ox O2 Delivery O2 Flow Rate FiO2 02/22/17 07:15 96 Nasal Cannula 4.0 02/22/17 07:00 98.3 77 20 95/63 (74) 98.3 ALLERGIES Allergies: Allergies Coded Allergies Type Severity Reaction Last Updated Verified No Known Drug Allergies 01/28/17 No MEDS Medications: Current Medications Medications (Trade) Dose Ordered Sig/Jayson Start Time Stop Time Status Last Admin Dose Admin Albuterol Sulfate (Ventolin Neb Soln) 2.5 mg PRN Q4HRS PRN 02/22/17 03:30 02/22/17 03:35 2.5 MG Albuterol/ Ipratropium (Duoneb) 3 ml RTQID 02/18/17 20:30 02/22/17 07:15 3 ML Alteplase, Recombinant (Cathflo) 2 mg 1X ONCE 02/19/17 06:30 02/19/17 06:31 DC 02/19/17 06:05 2 MG Alteplase, Recombinant 10 mg/ Sodium Chloride 100 ml @ 10 mls/hr 1X ONCE 02/19/17 06:00 02/19/17 15:59 UNV Ascorbic Acid (Vitamin C) 500 mg DAILY 02/18/17 11:00 02/22/17 09:19 500 MG Cefepime HCl 2 gm/ Dextrose 100 ml @ 200 mls/hr 1X ONCE 02/17/17 14:15 02/17/17 14:44 Cancel Cefepime HCl 2 gm/ Sodium Chloride 100 ml @ 200 mls/hr 1X ONCE 02/17/17 15:15 02/17/17 15:44 DC 02/17/17 15:15 200 MLS/HR Fentanyl Citrate (Fentanyl 2ml Vial) 100 mcg 1X ONCE 02/20/17 15:15 02/20/17 15:16 DC 02/20/17 15:10 50 MCG Furosemide (Lasix) 40 mg BID92 02/18/17 09:00 02/22/17 09:18 40 MG Ipratropium [place] (Atrovent) 0.5 mg 1X ONCE 02/17/17 12:30 02/17/17 12:36 DC 02/17/17 12:37 0.5 MG Lactobacillus Rhamnosus (Culturelle) 1 cap BID 02/18/17 09:00 02/22/17 09:18 1 CAP Levofloxacin (Levaquin) 500 mg DAILY06 02/19/17 14:00 02/22/17 05:57 500 MG Levofloxacin/ Dextrose 100 ml @ 100 mls/hr Q24H 02/18/17 14:00 02/19/17 10:01 DC 02/18/17 12:46 100 MLS/HR Lidocaine/Sodium Bicarbonate (Buffered Lidocaine 1%) 20 ml 1X ONCE 02/20/17 15:15 02/20/17 15:16 DC 02/20/17 15:09 7 ML Methylprednisolone Sodium Succinate (SOLU-Medrol 125MG VIAL) 125 mg 1X ONCE 02/17/17 12:30 02/17/17 12:36 DC 02/17/17 12:52 125 MG Micafungin Sodium 100 mg/Dextrose 100 ml @ 100 mls/hr Q24H 02/17/17 19:00 02/21/17 20:27 100 MLS/HR Midazolam HCl (Versed) 2 mg 1X ONCE 02/20/17 15:15 02/20/17 15:16 DC 02/20/17 15:10 2 MG Multivitamins (Thera M Plus) 1 tab DAILY 02/18/17 11:00 02/22/17 09:19 1 TAB Nystatin (Nystop) 1 tony BID 02/21/17 21:30 02/22/17 09:18 1 TONY Ondansetron HCl (Zofran) 4 mg PRN Q8HRS PRN 02/17/17 15:00 02/18/17 14:59 DC Tramadol HCl (Ultram) 100 mg PRN Q6HRS PRN 02/19/17 18:45 02/19/17 19:00 100 MG Vancomycin HCl 1 each 1X ONCE 02/23/17 18:30 02/23/17 18:31 Vancomycin HCl (Vanco Per Pharmacy) 1 each PRN DAILY PRN 02/18/17 07:15 02/21/17 06:58 1 EACH Vancomycin HCl 1.25 gm/Dextrose 250 ml @ 167 mls/hr Q12H 02/19/17 17:00 02/21/17 06:37 DC 02/20/17 18:15 167 MLS/HR Vancomycin HCl 1.5 gm/Dextrose 500 ml @ 250 mls/hr Q24H 02/21/17 19:00 02/21/17 21:39 250 MLS/HR Vancomycin HCl 2 gm/Dextrose 500 ml @ 250 mls/hr Q12H 02/18/17 08:00 02/19/17 10:19 DC 02/18/17 21:41 250 MLS/HR Vancomycin HCl 2 gm/Sodium Chloride 500 ml @ 250 mls/hr 1X ONCE 02/17/17 16:00 02/17/17 17:59 DC 02/17/17 16:58 250 MLS/HR RAFAEL CASTRO MD Feb 22, 2017 10:17
[2017-02-22 10:28] LABS: % SAT IRON 12 % (15-34); IRON,SERUM 26 ug/dL (50-170)
[2017-02-22 10:29] LABS: ALBUMIN 1.8 g/dL (3.4-5.0); ALBUMIN/GLOBULIN RATIO 0.4 (1.0-1.7); CALCIUM 7.8 mg/dL (8.5-10.1); CREATININE 1.3 mg/dL (0.6-1.0); GFR 41.2; POTASSIUM 3.2 mmol/L (3.5-5.1); TOTAL BILIRUBIN 0.2 mg/dL (0.2-1.0); TOTAL PROTEIN 6.9 g/dL (6.4-8.2)
--- NOTE | 2017-02-22 10:31 | PDOC ---
Infectious Disease Note Subjective Subjective Feeling alright Denies pain ROS ROS GEN: Denies fevers, chills, sweats CV: Denies chest pain RESP: Denies shortness of air, cough GI: Denies n/v/d Vital Sign Vital Signs Vital Signs Date Time Temp Pulse Resp B/P (MAP) Pulse Ox O2 Delivery O2 Flow Rate FiO2 02/22/17 07:15 96 Nasal Cannula 4.0 02/22/17 07:00 98.3 77 20 95/63 (74) 98.3 Physical Exam PHYSICAL EXAM GENERAL: Up in chair, relaxed appearance HEENT: OC/OP poor dentition NECK: Supple LUNGS: Clear. 5L NC O2 HEART: S1 and S2 ABD: Obese, soft, NT : [place] EXT: BLE edema; Right knee dry flaky w/ wound vac in place SPIRITS MODEL: Alert, oriented x 3, no focal neurologic deficit SKIN: + yeast groin area IV: ok Labs Micro BLOOD CULTURE Preliminary NO GROWTH AFTER 4 DAYS Groin wound GRAM STAIN Final WBCS OCCASIONAL RBCS MODERATE GRAM POSITIVE COCCI MODERATE GRAM NEGATIVE RODS OCCASIONAL YEAST MODERATE SQUAMOUS EPITHELIAL CELLS MODERATE MANY TINY GRAM NEGATIVE RODS AND FEW TINY GRAM POSITIVE COCCI, SUGGESTIVE OF ANAEROBES ANAEROBIC-AEROBIC CULTURE PENDING ANAEROBIC RES 1 PENDING AEROBIC CULT Final Final report AEROBIC RES 1 Final Yeast Objective Assessment Fever -better Leukopenia - s/p Solu-Medrol times one 02/17. ? med related. Was normal last week in 7's. better. EOS elevated Rash - ? med related - better Acute on chronic hypercapnic failure Right knee wound. - h/o right TKA wound dehiscence, s/p exploration with irrigation, debridement right knee and closure 01/28 w/ MSSA & GBS growth. - s/p TKA place 12/30 Groin yeast rash on [place] Plan Plan of Care Vanc and Levoflox and avoid Beta - lactams to r/o cause of neutropenia/rash d/w ER 02/17 vanc trough 26.9 micafungin for now F/u labs and cultures Probiotics Wound vac D/w RN Attending Co-Sign The patient was seen and interviewed as well as examined at the bedside. The chart was reviewed. The case was discussed. Agree with the plan of care. TERE SCHMID APRN Feb 22, 2017 10:31 ALONDRA NOBLES MD Feb 22, 2017 16:47
--- NOTE | 2017-02-22 10:33 | RAD ---
PORTABLE CHEST 1V Clinical Indication: Respiratory failure, shortness or Comparison: Chest radiograph dated 02/19/2017 Findings: Stable right PICC with tip at the brachiocephalic confluence. Stable low lung volumes. Stable right perihilar and bibasilar heterogenous air space opacities. Stable pulmonary vascular fullness. Stable small left pleural effusion. No pneumothorax. Stable mild cardiomegaly. The great vessels of the thorax are stable. IMPRESSION: 1. Stable right perihilar and bibasilar heterogenous airspace opacities. 2. Stable small left pleural effusion. 3. Stable mild cardiomegaly. 4. Stable right PICC with tip at the brachiocephalic confluence.
[2017-02-22 11:00] VITALS: BP 106/53
[2017-02-22 11:13] LABS: BASO % 1 % (0-3); EOS % 18 % (0-3); HEMATOCRIT 27.8 % (36.0-47.0); HEMOGLOBIN 8.9 g/dL (12.0-15.5); LYMPH # 1.1 x10^3/uL (1.0-4.8); LYMPH % 25 % (24-48); MEAN CORPUSCULAR HEMOGLOBIN 27 pg (25-35); MEAN CORPUSCULAR HGB CONC 32 g/dL (31-37); MEAN CORPUSCULAR VOLUME 84 fL (79-100); MONO % 23 % (0-9); NEUT % 34 % (31-73); PLATELET COUNT 225 x10^3/uL (140-400); RED BLOOD COUNT 3.31 x10^6/uL (3.50-5.40); RED CELL DISTRIBUTION WIDTH 16.2 % (11.5-14.5); WHITE BLOOD COUNT 4.2 x10^3/uL (4.0-11.0)
[2017-02-22 13:16] LABS: % BASOS 2 % (0-3); % EOS 18 % (0-5)
[2017-02-22 13:20] LABS: ANISOCYTOSIS SLIGHT; HYPOCHROMIA MOD; PLT ESTIMATE ADEQUATE (ADEQUATE); POLYCHROMASIA SLIGHT; STOMATOCYTES MOD; TOXIC GRANULATION SLIGHT; TOXIC VACUOLATION SLIGHT
[2017-02-22 14:58] VITALS: BP 104/43
--- NOTE | 2017-02-22 16:08 | PDOC ---
PROGRESS NOTES Subjective Subjective HPI - Severe neutropenia with elevated monocytes, is most likely a reactive process due to underlying infection ROS - no fever Objective Objective Vital Signs Date Time Temp Pulse Resp B/P (MAP) Pulse Ox O2 Delivery O2 Flow Rate FiO2 02/22/17 15:21 88 Nasal Cannula 4.0 02/22/17 14:58 98.4 78 24 104/43 (63) 98.4 Physical Exam General: Alert, No acute distress Neck: No JVD Psych/Mental Status: Mental status NL Assessment Assessment Problems Medical Problems: (1) Acute congestive heart failure Status: Acute (2) Acute respiratory failure with hypoxia Status: Acute (3) COPD exacerbation Status: Acute IMPRESSION AND PLAN: 1. Severe neutropenia with elevated monocytes, is most likely a reactive process due to underlying infection. She has a wound VAC in place above the right knee. Other differential diagnosis would include a primary bone marrow disorder such as leukemia. Although this is unlikely, I would proceed with a bone marrow aspiration and biopsy in view of persistent neutropenia and persistent monocytosis - done 02/20/17. I discussed in detail with the patient and she understands and agrees with the plan. WBC better at 4.2 2. Anemia, due to chronic disease. Continue to monitor. 3. History of right knee replacement. She has a wound VAC in the right thigh. Comment Review of Relevant I have reviewed the following items behzad (where applicable) has been applied. Labs Laboratory Tests Test 02/21/17 05:15 02/22/17 09:50 02/22/17 10:45 Vancomycin Level Trough 26.9 mcg/mL (10.0-20.0) Vancomycin Last Dose Date 02/20/17 Vancomycin Last Dose Time 1700 Sodium Level 139 mmol/L (136-145) Potassium Level 3.2 mmol/L (3.5-5.1) Chloride Level 95 mmol/L (98-107) Carbon Dioxide Level 44 mmol/L (21-32) Anion Gap 0 (6-14) Blood Urea Nitrogen 20 mg/dL (7-20) Creatinine 1.3 mg/dL (0.6-1.0) Estimated GFR (Cockcroft-Gault) 41.2 BUN/Creatinine Ratio 15 (6-20) Glucose Level 131 mg/dL (70-99) Calcium Level 7.8 mg/dL (8.5-10.1) Iron Level 26 ug/dL (50-170) Total Iron Binding Capacity 210 ug/dL (250-450) Iron Saturation 12 % (15-34) Ferritin 177 ng/mL (8-252) Total Bilirubin 0.2 mg/dL (0.2-1.0) Aspartate Amino Transf (AST/SGOT) 53 U/L (15-37) Alanine Aminotransferase (ALT/SGPT) 51 U/L (14-59) Alkaline Phosphatase 74 U/L (46-116) Total Protein 6.9 g/dL (6.4-8.2) Albumin 1.8 g/dL (3.4-5.0) Albumin/Globulin Ratio 0.4 (1.0-1.7) White Blood Count 4.2 x10^3/uL (4.0-11.0) Red Blood Count 3.31 x10^6/uL (3.50-5.40) Hemoglobin 8.9 g/dL (12.0-15.5) Hematocrit 27.8 % (36.0-47.0) Mean Corpuscular Volume 84 fL (79-100) Mean Corpuscular Hemoglobin 27 pg (25-35) Mean Corpuscular Hemoglobin Concent 32 g/dL (31-37) Red Cell Distribution Width 16.2 % (11.5-14.5) Platelet Count 225 x10^3/uL (140-400) Neutrophils (%) (Auto) 34 % (31-73) Lymphocytes (%) (Auto) 25 % (24-48) Monocytes (%) (Auto) 23 % (0-9) Eosinophils (%) (Auto) 18 % (0-3) Basophils (%) (Auto) 1 % (0-3) Neutrophils # (Auto) 1.4 x10^3uL (1.8-7.7) Lymphocytes # (Auto) 1.1 x10^3/uL (1.0-4.8) Monocytes # (Auto) 1.0 x10^3/uL (0.0-1.1) Eosinophils # (Auto) 0.7 x10^3/uL (0.0-0.7) Basophils # (Auto) 0.0 x10^3/uL (0.0-0.2) Segmented Neutrophils % 12 % (35-66) Band Neutrophils % 23 % (0-9) Lymphocytes % 28 % (24-48) Monocytes % 14 % (0-10) Eosinophils % 18 % (0-5) Basophils % 2 % (0-3) Myelocytes % 2 % (0-0) Promyelocytes % 1 % (0-0) Toxic Granulation Slight Toxic Vacuolation Slight Platelet Estimate Adequate (ADEQUATE) Giant Platelets Few Polychromasia Slight Hypochromasia Mod Anisocytosis Slight Stomatocytes Mod Reticulocyte Count (auto) 2.0 % (0.5-2.5) Laboratory Tests Test 02/22/17 09:50 02/22/17 10:45 Sodium Level 139 mmol/L (136-145) Potassium Level 3.2 mmol/L (3.5-5.1) Chloride Level 95 mmol/L (98-107) Carbon Dioxide Level 44 mmol/L (21-32) Anion Gap 0 (6-14) Blood Urea Nitrogen 20 mg/dL (7-20) Creatinine 1.3 mg/dL (0.6-1.0) Estimated GFR (Cockcroft-Gault) 41.2 BUN/Creatinine Ratio 15 (6-20) Glucose Level 131 mg/dL (70-99) Calcium Level 7.8 mg/dL (8.5-10.1) Iron Level 26 ug/dL (50-170) Total Iron Binding Capacity 210 ug/dL (250-450) Iron Saturation 12 % (15-34) Ferritin 177 ng/mL (8-252) Total Bilirubin 0.2 mg/dL (0.2-1.0) Aspartate Amino Transf (AST/SGOT) 53 U/L (15-37) Alanine Aminotransferase (ALT/SGPT) 51 U/L (14-59) Alkaline Phosphatase 74 U/L (46-116) Total Protein 6.9 g/dL (6.4-8.2) Albumin 1.8 g/dL (3.4-5.0) Albumin/Globulin Ratio 0.4 (1.0-1.7) White Blood Count 4.2 x10^3/uL (4.0-11.0) Red Blood Count 3.31 x10^6/uL (3.50-5.40) Hemoglobin 8.9 g/dL (12.0-15.5) Hematocrit 27.8 % (36.0-47.0) Mean Corpuscular Volume 84 fL (79-100) Mean Corpuscular Hemoglobin 27 pg (25-35) Mean Corpuscular Hemoglobin Concent 32 g/dL (31-37) Red Cell Distribution Width 16.2 % (11.5-14.5) Platelet Count 225 x10^3/uL (140-400) Neutrophils (%) (Auto) 34 % (31-73) Lymphocytes (%) (Auto) 25 % (24-48) Monocytes (%) (Auto) 23 % (0-9) Eosinophils (%) (Auto) 18 % (0-3) Basophils (%) (Auto) 1 % (0-3) Neutrophils # (Auto) 1.4 x10^3uL (1.8-7.7) Lymphocytes # (Auto) 1.1 x10^3/uL (1.0-4.8) Monocytes # (Auto) 1.0 x10^3/uL (0.0-1.1) Eosinophils # (Auto) 0.7 x10^3/uL (0.0-0.7) Basophils # (Auto) 0.0 x10^3/uL (0.0-0.2) Segmented Neutrophils % 12 % (35-66) Band Neutrophils % 23 % (0-9) Lymphocytes % 28 % (24-48) Monocytes % 14 % (0-10) Eosinophils % 18 % (0-5) Basophils % 2 % (0-3) Myelocytes % 2 % (0-0) Promyelocytes % 1 % (0-0) Toxic Granulation Slight Toxic Vacuolation Slight Platelet Estimate Adequate (ADEQUATE) Giant Platelets Few Polychromasia Slight Hypochromasia Mod Anisocytosis Slight Stomatocytes Mod Reticulocyte Count (auto) 2.0 % (0.5-2.5) Microbiology 02/17/17 Blood Culture - Final, Complete NO GROWTH AFTER 5 DAYS 02/19/17 Gram Stain - Final, Complete Medications Current Medications Albuterol Sulfate (Ventolin Neb Soln) 10 mg 1X ONCE CONT NEB Last administered on 02/17/17 12:37; Start 02/17/17 at 12:30; Stop 02/17/17 at 12 :36; Status DC Ipratropium [place] (Atrovent) 0.5 mg 1X ONCE NEB Last administered on 12:37; Start 02/17/17 at 12:30; Stop 02/17/17 at 12:36; Status DC Methylprednisolone Sodium Succinate (SOLU-Medrol 125MG VIAL) 125 mg 1X ONCE IV Last administered on 02/17/17 12:52; Start 02/17/17 at 12:30; Stop at 12:36; Status DC Albuterol Sulfate (Ventolin Neb Soln) 2.5 mg STK-MED ONCE .ROUTE ; Start at 12:33; Stop 02/17/17 at 12:34; Status DC Albuterol/ Ipratropium (Duoneb) 3 ml STK-MED ONCE .ROUTE ; Start 02/17/17 at 12 :33; Stop 02/17/17 at 12:34; Status DC Furosemide (Lasix) 40 mg 1X ONCE IVP Last administered on 02/17/17 15:21; Start 02/17/17 at 13:45; Stop 02/17/17 at 13:46; Status DC Cefepime HCl 2 gm/ Sodium Chloride 100 ml @ 200 mls/hr Q8HRS IV ; Start at 23:00; Stop 02/17/17 at 23:00; Status DC Levofloxacin/ Dextrose 150 ml @ 100 mls/hr 1X ONCE IV Last administered on 14:15; Start 02/17/17 at 14:15; Stop 02/17/17 at 15:44; Status DC Cefepime HCl 2 gm/ Dextrose 100 ml @ 200 mls/hr 1X ONCE IV ; Start 02/17/17 at 14:15; Stop 02/17/17 at 14:44; Status Cancel Ondansetron HCl (Zofran) 4 mg PRN Q8HRS PRN IV NAUSEA/VOMITING; Start at 15:00; Stop 02/18/17 at 14:59; Status DC Albuterol/ Ipratropium (Duoneb) 3 ml RTQID NEB Last administered on 02/18/17 19:11; Start 02/17/17 at 16:00; Stop 02/18/17 at 15:59; Status DC Furosemide (Lasix) 40 mg [id number] IVP Last administered on 02/22/17 13:55; Start 02/18/17 at 09:00 Cefepime HCl 2 gm/ Sodium Chloride 100 ml @ 200 mls/hr 1X ONCE IV Last administered on 02/17/17 15:15; Start 02/17/17 at 15:15; Stop 02/17/17 at 15 :44; Status DC Vancomycin HCl 2 gm/Sodium Chloride 500 ml @ 250 mls/hr 1X ONCE IV Last administered on 02/17/17 16:58; Start 02/17/17 at 16:00; Stop 02/17/17 at 17 :59; Status DC Micafungin Sodium 100 mg/Dextrose 100 ml @ 100 mls/hr Q24H IV Last administered on 02/21/17 20:27; Start 02/17/17 at 19:00 Vancomycin HCl (Vanco Per Pharmacy) 1 each PRN DAILY PRN MC SEE COMMENTS Last administered on 02/21/17 06:58; Start 02/18/17 at 07:15 Levofloxacin/ Dextrose 100 ml @ 100 mls/hr Q24H IV Last administered on 12:46; Start 02/18/17 at 14:00; Stop 02/19/17 at 10:01; Status DC Vancomycin HCl 2 gm/Dextrose 500 ml @ 250 mls/hr Q12H IV Last administered on 02/18/17 21:41; Start 02/18/17 at 08:00; Stop 02/19/17 at 10:19; Status DC Lactobacillus Rhamnosus (Culturelle) 1 cap BID PO Last administered on 09:18; Start 02/18/17 at 09:00 Multivitamins (Thera M Plus) 1 tab DAILY PO Last administered on 02/22/17 09: 19; Start 02/18/17 at 11:00 Ascorbic Acid (Vitamin C) 500 mg DAILY PO Last administered on 02/22/17 09:19 ; Start 02/18/17 at 11:00 Vancomycin HCl 1 each 1X ONCE MC Last administered on 02/19/17 07:30; Start 02/19/17 at 07:30; Stop 02/19/17 at 07:31; Status DC Albuterol/ Ipratropium (Duoneb) 3 ml RTQID NEB Last administered on 02/22/17 15:21; Start 02/18/17 at 20:30 Alteplase, Recombinant 10 mg/ Sodium Chloride 100 ml @ 10 mls/hr 1X ONCE IV ; Start 02/19/17 at 06:00; Stop 02/19/17 at 15:59; Status UNV Alteplase, Recombinant (Cathflo) 2 mg 1X ONCE INT CAT Last administered on 06:05; Start 02/19/17 at 06:30; Stop 02/19/17 at 06:31; Status DC Levofloxacin (Levaquin) 500 mg DAILY06 PO Last administered on 02/22/17 05:57 ; Start 02/19/17 at 14:00 Vancomycin HCl 1.25 gm/Dextrose 250 ml @ 167 mls/hr Q12H IV Last administered on 02/20/17 18:15; Start 02/19/17 at 17:00; Stop 02/21/17 at 06:37; Status DC Vancomycin HCl 1 each 1X ONCE MC Last administered on 02/21/17 04:30; Start 02/21/17 at 04:30; Stop 02/21/17 at 04:31; Status DC Tramadol HCl (Ultram) 100 mg PRN Q6HRS PRN PO PAIN Last administered on 19:00; Start 02/19/17 at 18:45 Lidocaine/Sodium Bicarbonate (Buffered Lidocaine 1%) 20 ml STK-MED ONCE IJ ; Start 02/20/17 at 14:37; Stop 02/20/17 at 14:38; Status DC Fentanyl Citrate (Fentanyl 2ml Vial) 100 mcg STK-MED ONCE .ROUTE ; Start at 14:37; Stop 02/20/17 at 14:38; Status DC Midazolam HCl (Versed) 2 mg STK-MED ONCE .ROUTE ; Start 02/20/17 at 14:37; Stop 02/20/17 at 14:38; Status DC Lidocaine/Sodium Bicarbonate (Buffered Lidocaine 1%) 20 ml 1X ONCE IJ Last administered on 02/20/17 15:09; Start 02/20/17 at 15:15; Stop 02/20/17 at 15 :16; Status DC Midazolam HCl (Versed) 2 mg 1X ONCE IV Last administered on 02/20/17 15:10; Start 02/20/17 at 15:15; Stop 02/20/17 at 15:16; Status DC Fentanyl Citrate (Fentanyl 2ml Vial) 100 mcg 1X ONCE IV Last administered on 02/20/17 15:10; Start 02/20/17 at 15:15; Stop 02/20/17 at 15:16; Status DC Vancomycin HCl 1.5 gm/Dextrose 500 ml @ 250 mls/hr Q24H IV Last administered on 02/21/17 21:39; Start 02/21/17 at 19:00 Vancomycin HCl 1 each 1X ONCE MC ; Start 02/23/17 at 18:30; Stop 02/23/17 at 18:31 Nystatin (Nystop) 1 tony BID TP Last administered on 02/22/17 09:18; Start at 21:30 Albuterol Sulfate (Ventolin Neb Soln) 2.5 mg PRN Q4HRS PRN NEB SHORTNESS OF BREATH Last administered on 02/22/17 03:35; Start 02/22/17 at 03:30 Active Scripts Active Reported Tramadol Hcl 50 Mg Tablet 2 Tab PO PRN Q6HRS Ferrous Sulfate 325 Mg Tablet 1 Tab PO BID 30 Days LAST DOSE GIVEN: DATE:01/02/17 TIME:9:00 a.m Diclofenac Sodium 75 Mg Tablet. 75 Mg PO BID Meds not given this hospital admission. May resume home medications as approved by Physician. Vitals/I & O Vital Sign - Last 24 Hours 02/21/17 02/21/17 02/21/17 02/21/17 19:00 19:46 20:00 22:41 Temp 98.6 98.8 98.6 98.8 Pulse 78 76 Resp 20 19 B/P (MAP) 102/56 (71) 97/46 (63) Pulse Ox 94 99 94 O2 Delivery Nasal Cannula Nasal Cannula Nasal Cannula Nasal Cannula O2 Flow Rate 5.0 4.0 5.0 5.0 02/21/17 02/22/17 02/22/17 02/22/17 23:47 01:40 03:36 03:48 Temp 98.3 98.3 Pulse 76 Resp 20 B/P (MAP) 125/62 (83) Pulse Ox 94 94 98 93 O2 Delivery BiPAP/CPAP BiPAP/CPAP Nasal Cannula Nasal Cannula O2 Flow Rate 4.0 5.0 02/22/17 02/22/17 02/22/17 02/22/17 07:00 07:15 08:29 11:00 Temp 98.3 99.1 98.3 99.1 Pulse 77 72 Resp 20 20 B/P (MAP) 95/63 (74) 106/53 (70) Pulse Ox 93 96 95 O2 Delivery Nasal Cannula Nasal Cannula Nasal Cannula Nasal Cannula O2 Flow Rate 5.0 4.0 5.0 5.0 02/22/17 02/22/17 02/22/17 11:45 14:58 15:21 Temp 98.4 98.4 Pulse 78 Resp 24 B/P (MAP) 104/43 (63) Pulse Ox 91 88 O2 Delivery Nasal Cannula Nasal Cannula Nasal Cannula O2 Flow Rate 4.0 5.0 4.0 CANDICE NAVA MD Feb 22, 2017 16:08
[2017-02-22] MEDS: traMADol 50 MG TABLET PO PRN (16:25)
--- NOTE | 2017-02-22 16:33 | PDOC ---
PULMONARY PROGRESS NOTES Subjective PT NOT MORE SOA WANTS TO GO HOME Vitals Vital Signs Date Time Temp Pulse Resp B/P (MAP) Pulse Ox O2 Delivery O2 Flow Rate FiO2 02/22/17 15:21 88 Nasal Cannula 4.0 02/22/17 14:58 98.4 78 24 104/43 (63) 98.4 ROS: No Nausea, No Chest Pain, No Abdominal Pain, No Increase Cough Lungs: Clear, Crackles Cardiovascular: S1, S2 Abdomen: Soft Neuro Exam: Alert Extremities: Other (EDEMA AND DRESSING OVE LEFT KNEE) Skin: Warm Labs Laboratory Tests Test 02/21/17 05:15 02/22/17 09:50 02/22/17 10:45 Vancomycin Level Trough 26.9 mcg/mL (10.0-20.0) Vancomycin Last Dose Date 02/20/17 Vancomycin Last Dose Time 1700 Sodium Level 139 mmol/L (136-145) Potassium Level 3.2 mmol/L (3.5-5.1) Chloride Level 95 mmol/L (98-107) Carbon Dioxide Level 44 mmol/L (21-32) Anion Gap 0 (6-14) Blood Urea Nitrogen 20 mg/dL (7-20) Creatinine 1.3 mg/dL (0.6-1.0) Estimated GFR (Cockcroft-Gault) 41.2 BUN/Creatinine Ratio 15 (6-20) Glucose Level 131 mg/dL (70-99) Calcium Level 7.8 mg/dL (8.5-10.1) Iron Level 26 ug/dL (50-170) Total Iron Binding Capacity 210 ug/dL (250-450) Iron Saturation 12 % (15-34) Ferritin 177 ng/mL (8-252) Total Bilirubin 0.2 mg/dL (0.2-1.0) Aspartate Amino Transf (AST/SGOT) 53 U/L (15-37) Alanine Aminotransferase (ALT/SGPT) 51 U/L (14-59) Alkaline Phosphatase 74 U/L (46-116) Total Protein 6.9 g/dL (6.4-8.2) Albumin 1.8 g/dL (3.4-5.0) Albumin/Globulin Ratio 0.4 (1.0-1.7) White Blood Count 4.2 x10^3/uL (4.0-11.0) Red Blood Count 3.31 x10^6/uL (3.50-5.40) Hemoglobin 8.9 g/dL (12.0-15.5) Hematocrit 27.8 % (36.0-47.0) Mean Corpuscular Volume 84 fL (79-100) Mean Corpuscular Hemoglobin 27 pg (25-35) Mean Corpuscular Hemoglobin Concent 32 g/dL (31-37) Red Cell Distribution Width 16.2 % (11.5-14.5) Platelet Count 225 x10^3/uL (140-400) Neutrophils (%) (Auto) 34 % (31-73) Lymphocytes (%) (Auto) 25 % (24-48) Monocytes (%) (Auto) 23 % (0-9) Eosinophils (%) (Auto) 18 % (0-3) Basophils (%) (Auto) 1 % (0-3) Neutrophils # (Auto) 1.4 x10^3uL (1.8-7.7) Lymphocytes # (Auto) 1.1 x10^3/uL (1.0-4.8) Monocytes # (Auto) 1.0 x10^3/uL (0.0-1.1) Eosinophils # (Auto) 0.7 x10^3/uL (0.0-0.7) Basophils # (Auto) 0.0 x10^3/uL (0.0-0.2) Segmented Neutrophils % 12 % (35-66) Band Neutrophils % 23 % (0-9) Lymphocytes % 28 % (24-48) Monocytes % 14 % (0-10) Eosinophils % 18 % (0-5) Basophils % 2 % (0-3) Myelocytes % 2 % (0-0) Promyelocytes % 1 % (0-0) Toxic Granulation Slight Toxic Vacuolation Slight Platelet Estimate Adequate (ADEQUATE) Giant Platelets Few Polychromasia Slight Hypochromasia Mod Anisocytosis Slight Stomatocytes Mod Reticulocyte Count (auto) 2.0 % (0.5-2.5) Laboratory Tests Test 02/22/17 09:50 02/22/17 10:45 Sodium Level 139 mmol/L (136-145) Potassium Level 3.2 mmol/L (3.5-5.1) Chloride Level 95 mmol/L (98-107) Carbon Dioxide Level 44 mmol/L (21-32) Anion Gap 0 (6-14) Blood Urea Nitrogen 20 mg/dL (7-20) Creatinine 1.3 mg/dL (0.6-1.0) Estimated GFR (Cockcroft-Gault) 41.2 BUN/Creatinine Ratio 15 (6-20) Glucose Level 131 mg/dL (70-99) Calcium Level 7.8 mg/dL (8.5-10.1) Iron Level 26 ug/dL (50-170) Total Iron Binding Capacity 210 ug/dL (250-450) Iron Saturation 12 % (15-34) Ferritin 177 ng/mL (8-252) Total Bilirubin 0.2 mg/dL (0.2-1.0) Aspartate Amino Transf (AST/SGOT) 53 U/L (15-37) Alanine Aminotransferase (ALT/SGPT) 51 U/L (14-59) Alkaline Phosphatase 74 U/L (46-116) Total Protein 6.9 g/dL (6.4-8.2) Albumin 1.8 g/dL (3.4-5.0) Albumin/Globulin Ratio 0.4 (1.0-1.7) White Blood Count 4.2 x10^3/uL (4.0-11.0) Red Blood Count 3.31 x10^6/uL (3.50-5.40) Hemoglobin 8.9 g/dL (12.0-15.5) Hematocrit 27.8 % (36.0-47.0) Mean Corpuscular Volume 84 fL (79-100) Mean Corpuscular Hemoglobin 27 pg (25-35) Mean Corpuscular Hemoglobin Concent 32 g/dL (31-37) Red Cell Distribution Width 16.2 % (11.5-14.5) Platelet Count 225 x10^3/uL (140-400) Neutrophils (%) (Auto) 34 % (31-73) Lymphocytes (%) (Auto) 25 % (24-48) Monocytes (%) (Auto) 23 % (0-9) Eosinophils (%) (Auto) 18 % (0-3) Basophils (%) (Auto) 1 % (0-3) Neutrophils # (Auto) 1.4 x10^3uL (1.8-7.7) Lymphocytes # (Auto) 1.1 x10^3/uL (1.0-4.8) Monocytes # (Auto) 1.0 x10^3/uL (0.0-1.1) Eosinophils # (Auto) 0.7 x10^3/uL (0.0-0.7) Basophils # (Auto) 0.0 x10^3/uL (0.0-0.2) Segmented Neutrophils % 12 % (35-66) Band Neutrophils % 23 % (0-9) Lymphocytes % 28 % (24-48) Monocytes % 14 % (0-10) Eosinophils % 18 % (0-5) Basophils % 2 % (0-3) Myelocytes % 2 % (0-0) Promyelocytes % 1 % (0-0) Toxic Granulation Slight Toxic Vacuolation Slight Platelet Estimate Adequate (ADEQUATE) Giant Platelets Few Polychromasia Slight Hypochromasia Mod Anisocytosis Slight Stomatocytes Mod Reticulocyte Count (auto) 2.0 % (0.5-2.5) Medications Active Scripts Medications Dose Route/Sig Max Daily Dose Days Date Category Dose Instructions Tramadol Hcl 50 Mg Tablet 2 Tab PO PRN Q6HRS 02/17/17 Reported Ferrous Sulfate 325 Mg Tablet 1 Tab PO BID 30 01/02/17 Reported LAST DOSE GIVEN: DATE:01/02/17 TIME:9:00 a.m Diclofenac Sodium 75 Mg Tablet.dr 75 Mg PO BID 11/10/16 Reported Meds not given this hospital admission. May resume home medications as approved by Physician. Impression . 1. Jtped-[id number] hypoxemic hypercapnic respiratory failure. 2. Acute diastolic heart failure. 3. Leukopenia. 4. Recent total knee arthroplasty with traumatic wound dehiscence. 5. Abnormal x-ray compatible with acute pulmonary edema. 6. Morbid obesity. 7. Chronic anemia. 8. Protein malnutrition, present upon admission. Plan . RESP STATUS IS COMPENSATED SEE ORDERS FOR BIPAP QHS HOME WHEN OK WITH OTHERS SERVICES ANTIBX PER ID NEBS DVT PROPH JAMES SEQUEIRA MD Feb 22, 2017 16:33
[2017-02-22 19:00] VITALS: BP 97/52
[2017-02-22] MEDS: MICAFUNGIN 100 MG in IV DEXTROSE 5% 100 ML IV SCH (19:26)
[2017-02-22] MEDS: VANCOMYCIN 1.5 GM in IV DEXTROSE 5% 500 ML IV SCH (19:26)
[2017-02-22 23:00] VITALS: BP 106/69
[2017-02-23 03:00] VITALS: BP 98/51
[2017-02-23 04:43] LABS: BASO # 0.1 x10^3/uL (0.0-0.2); BASO % 1 % (0-3); EOS % 12 % (0-3); HEMATOCRIT 27.5 % (36.0-47.0); LYMPH # 1.7 x10^3/uL (1.0-4.8); LYMPH % 22 % (24-48); MEAN CORPUSCULAR HEMOGLOBIN 27 pg (25-35); MEAN CORPUSCULAR HGB CONC 33 g/dL (31-37); MEAN CORPUSCULAR VOLUME 83 fL (79-100); MONO % 15 % (0-9); NEUT % 50 % (31-73); PLATELET COUNT 221 x10^3/uL (140-400); RED BLOOD COUNT 3.32 x10^6/uL (3.50-5.40); RED CELL DISTRIBUTION WIDTH 16.4 % (11.5-14.5); WHITE BLOOD COUNT 7.7 x10^3/uL (4.0-11.0)
[2017-02-23] MEDS: IPRATRPIUM/ALBUTEROL 0.5/2.5MG 3 ML NEBU. NEB SCH ×3 (06:54→15:14)
[2017-02-23 07:00] VITALS: BP 106/49
[2017-02-23 07:13] LABS: % EOS 9 % (0-5); PLT ESTIMATE ADEQUATE (ADEQUATE)
[2017-02-23 07:14] LABS: ANISOCYTOSIS SLIGHT; POLYCHROMASIA SLIGHT
--- NOTE | 2017-02-23 08:02 | PDOC ---
GENERAL General: vss and afebrile. awake and alert. O2 down to 3.5L/NC but on prior dc has not needed. O>I continues. wbc up to 7.7K with 50% neutrophils this am. ongoing IV antibiotics per ID. chest with decreased breath sounds but clear, heart regular , abdomen benign, and edema has almost resolved. continue same. home soon on ongoing antibiotics and wound vac and probably O2 continuously unless change in that regard soon. Problems: VITAL SIGNS Vital Signs: Vital Signs Date Time Temp Pulse Resp B/P (MAP) Pulse Ox O2 Delivery O2 Flow Rate FiO2 02/23/17 07:00 98.5 71 18 106/49 (68) 90 Nasal Cannula 3.5 98.5 ALLERGIES Allergies: Allergies Coded Allergies Type Severity Reaction Last Updated Verified No Known Drug Allergies 01/28/17 No MEDS Medications: Current Medications Medications (Trade) Dose Ordered Sig/Jayson Start Time Stop Time Status Last Admin Dose Admin Albuterol Sulfate (Ventolin Neb Soln) 2.5 mg PRN Q4HRS PRN 02/22/17 03:30 02/22/17 03:35 2.5 MG Albuterol/ Ipratropium (Duoneb) 3 ml RTQID 02/18/17 20:30 02/23/17 06:54 3 ML Alteplase, Recombinant (Cathflo) 2 mg 1X ONCE 02/19/17 06:30 02/19/17 06:31 DC 02/19/17 06:05 2 MG Alteplase, Recombinant 10 mg/ Sodium Chloride 100 ml @ 10 mls/hr 1X ONCE 02/19/17 06:00 02/19/17 15:59 UNV Ascorbic Acid (Vitamin C) 500 mg DAILY 02/18/17 11:00 02/22/17 09:19 500 MG Cefepime HCl 2 gm/ Dextrose 100 ml @ 200 mls/hr 1X ONCE 02/17/17 14:15 02/17/17 14:44 Cancel Cefepime HCl 2 gm/ Sodium Chloride 100 ml @ 200 mls/hr 1X ONCE 02/17/17 15:15 02/17/17 15:44 DC 02/17/17 15:15 200 MLS/HR Fentanyl Citrate (Fentanyl 2ml Vial) 100 mcg 1X ONCE 02/20/17 15:15 02/20/17 15:16 DC 02/20/17 15:10 50 MCG Furosemide (Lasix) 40 mg [id number] 02/18/17 09:00 02/22/17 13:55 40 MG Ipratropium [place] (Atrovent) 0.5 mg 1X ONCE 02/17/17 12:30 02/17/17 12:36 DC 02/17/17 12:37 0.5 MG Lactobacillus Rhamnosus (Culturelle) 1 cap BID 02/18/17 09:00 02/22/17 20:47 1 CAP Levofloxacin (Levaquin) 500 mg DAILY06 02/19/17 14:00 02/23/17 06:00 500 MG Levofloxacin/ Dextrose 100 ml @ 100 mls/hr Q24H 02/18/17 14:00 02/19/17 10:01 DC 02/18/17 12:46 100 MLS/HR Lidocaine/Sodium Bicarbonate (Buffered Lidocaine 1%) 20 ml 1X ONCE 02/20/17 15:15 02/20/17 15:16 DC 02/20/17 15:09 7 ML Methylprednisolone Sodium Succinate (SOLU-Medrol 125MG VIAL) 125 mg 1X ONCE 02/17/17 12:30 02/17/17 12:36 DC 02/17/17 12:52 125 MG Micafungin Sodium 100 mg/Dextrose 100 ml @ 100 mls/hr Q24H 02/17/17 19:00 02/22/17 19:26 100 MLS/HR Midazolam HCl (Versed) 2 mg 1X ONCE 02/20/17 15:15 02/20/17 15:16 DC 02/20/17 15:10 2 MG Multivitamins (Thera M Plus) 1 tab DAILY 02/18/17 11:00 02/22/17 09:19 1 TAB Nystatin (Nystop) 1 tony BID 02/21/17 21:30 02/22/17 20:46 1 TONY Ondansetron HCl (Zofran) 4 mg PRN Q8HRS PRN 02/17/17 15:00 02/18/17 14:59 DC Tramadol HCl (Ultram) 100 mg PRN Q6HRS PRN 02/19/17 18:45 02/22/17 16:25 100 MG Vancomycin HCl 1 each 1X ONCE 02/23/17 18:30 02/23/17 18:31 Vancomycin HCl (Vanco Per Pharmacy) 1 each PRN DAILY PRN 02/18/17 07:15 02/21/17 06:58 1 EACH Vancomycin HCl 1.25 gm/Dextrose 250 ml @ 167 mls/hr Q12H 02/19/17 17:00 02/21/17 06:37 DC 02/20/17 18:15 167 MLS/HR Vancomycin HCl 1.5 gm/Dextrose 500 ml @ 250 mls/hr Q24H 02/21/17 19:00 02/22/17 19:26 250 MLS/HR Vancomycin HCl 2 gm/Dextrose 500 ml @ 250 mls/hr Q12H 02/18/17 08:00 02/19/17 10:19 DC 02/18/17 21:41 250 MLS/HR Vancomycin HCl 2 gm/Sodium Chloride 500 ml @ 250 mls/hr 1X ONCE 02/17/17 16:00 02/17/17 17:59 DC 02/17/17 16:58 250 MLS/HR LAB Lab: Laboratory Tests Test 02/22/17 09:50 02/22/17 10:45 02/23/17 03:31 Sodium Level 139 mmol/L (136-145) Potassium Level 3.2 mmol/L (3.5-5.1) Chloride Level 95 mmol/L (98-107) Carbon Dioxide Level 44 mmol/L (21-32) Anion Gap 0 (6-14) Blood Urea Nitrogen 20 mg/dL (7-20) Creatinine 1.3 mg/dL (0.6-1.0) Estimated GFR (Cockcroft-Gault) 41.2 BUN/Creatinine Ratio 15 (6-20) Glucose Level 131 mg/dL (70-99) Calcium Level 7.8 mg/dL (8.5-10.1) Iron Level 26 ug/dL (50-170) Total Iron Binding Capacity 210 ug/dL (250-450) Iron Saturation 12 % (15-34) Ferritin 177 ng/mL (8-252) Total Bilirubin 0.2 mg/dL (0.2-1.0) Aspartate Amino Transf (AST/SGOT) 53 U/L (15-37) Alanine Aminotransferase (ALT/SGPT) 51 U/L (14-59) Alkaline Phosphatase 74 U/L (46-116) Total Protein 6.9 g/dL (6.4-8.2) Albumin 1.8 g/dL (3.4-5.0) Albumin/Globulin Ratio 0.4 (1.0-1.7) White Blood Count 4.2 x10^3/uL (4.0-11.0) 7.7 x10^3/uL (4.0-11.0) Red Blood Count 3.31 x10^6/uL (3.50-5.40) 3.32 x10^6/uL (3.50-5.40) Hemoglobin 8.9 g/dL (12.0-15.5) 9.0 g/dL (12.0-15.5) Hematocrit 27.8 % (36.0-47.0) 27.5 % (36.0-47.0) Mean Corpuscular Volume 84 fL (79-100) 83 fL (79-100) Mean Corpuscular Hemoglobin 27 pg (25-35) 27 pg (25-35) Mean Corpuscular Hemoglobin Concent 32 g/dL (31-37) 33 g/dL (31-37) Red Cell Distribution Width 16.2 % (11.5-14.5) 16.4 % (11.5-14.5) Platelet Count 225 x10^3/uL (140-400) 221 x10^3/uL (140-400) Neutrophils (%) (Auto) 34 % (31-73) 50 % (31-73) Lymphocytes (%) (Auto) 25 % (24-48) 22 % (24-48) Monocytes (%) (Auto) 23 % (0-9) 15 % (0-9) Eosinophils (%) (Auto) 18 % (0-3) 12 % (0-3) Basophils (%) (Auto) 1 % (0-3) 1 % (0-3) Neutrophils # (Auto) 1.4 x10^3uL (1.8-7.7) 3.8 x10^3uL (1.8-7.7) Lymphocytes # (Auto) 1.1 x10^3/uL (1.0-4.8) 1.7 x10^3/uL (1.0-4.8) Monocytes # (Auto) 1.0 x10^3/uL (0.0-1.1) 1.2 x10^3/uL (0.0-1.1) Eosinophils # (Auto) 0.7 x10^3/uL (0.0-0.7) 0.9 x10^3/uL (0.0-0.7) Basophils # (Auto) 0.0 x10^3/uL (0.0-0.2) 0.1 x10^3/uL (0.0-0.2) Segmented Neutrophils % 12 % (35-66) 21 % (35-66) Band Neutrophils % 23 % (0-9) 19 % (0-9) Lymphocytes % 28 % (24-48) 29 % (24-48) Monocytes % 14 % (0-10) 14 % (0-10) Eosinophils % 18 % (0-5) 9 % (0-5) Basophils % 2 % (0-3) Myelocytes % 2 % (0-0) 4 % (0-0) Promyelocytes % 1 % (0-0) 1 % (0-0) Toxic Granulation Slight Toxic Vacuolation Slight Platelet Estimate Adequate (ADEQUATE) Adequate (ADEQUATE) Giant Platelets Few Polychromasia Slight Slight Hypochromasia Mod Anisocytosis Slight Slight Stomatocytes Mod Reticulocyte Count (auto) 2.0 % (0.5-2.5) Metamyelocytes % 3 % (0-0) RAFAEL CASTRO MD Feb 23, 2017 08:02
[2017-02-23 09:07] LABS: FOLATE 6.81 ng/ml (3.2-20.0)
[2017-02-23] MEDS: ASCORBIC ACID 500 MG TABLET PO SCH (09:24)
[2017-02-23] MEDS: LACTOBACILLUS RHAMNOSUS GG 1 CAPSULE. PO SCH ×2 (09:24→21:40)
[2017-02-23] MEDS: FUROSEMIDE 40 MG/4 ML VIAL. IVP SCH ×2 (09:24→15:27)
[2017-02-23] MEDS: MULTIVITAMIN with MINERAL TABLET. PO SCH (09:25)
[2017-02-23] MEDS: POTASSIUM CHLORIDE 20 MEQ TABLET.ER. PO SCH (09:28)
[2017-02-23] MEDS: NYSTATIN TOPICAL POWDER 15GM BOTTLE. TP SCH ×2 (09:29→21:40)
[2017-02-23] MEDS: traMADol 50 MG TABLET PO PRN ×2 (09:46→19:36)
[2017-02-23 11:00] VITALS: BP 117/63
--- NOTE | 2017-02-23 11:22 | PDOC ---
PULMONARY PROGRESS NOTES Subjective PT NOT MORE SOA WANTS TO GO HOME Vitals Vital Signs Date Time Temp Pulse Resp B/P (MAP) Pulse Ox O2 Delivery O2 Flow Rate FiO2 02/23/17 11:00 97.5 72 19 117/63 (81) 96 Nasal Cannula 3.0 97.5 ROS: No Nausea, No Chest Pain, No Abdominal Pain, No Increase Cough Lungs: Clear, Crackles Cardiovascular: S1, S2 Abdomen: Soft Neuro Exam: Alert Extremities: Other (EDEMA AND DRESSING OVE LEFT KNEE) Skin: Warm Labs Laboratory Tests Test 02/22/17 09:50 02/22/17 10:45 02/23/17 03:31 Sodium Level 139 mmol/L (136-145) Potassium Level 3.2 mmol/L (3.5-5.1) Chloride Level 95 mmol/L (98-107) Carbon Dioxide Level 44 mmol/L (21-32) Anion Gap 0 (6-14) Blood Urea Nitrogen 20 mg/dL (7-20) Creatinine 1.3 mg/dL (0.6-1.0) Estimated GFR (Cockcroft-Gault) 41.2 BUN/Creatinine Ratio 15 (6-20) Glucose Level 131 mg/dL (70-99) Calcium Level 7.8 mg/dL (8.5-10.1) Iron Level 26 ug/dL (50-170) Total Iron Binding Capacity 210 ug/dL (250-450) Iron Saturation 12 % (15-34) Ferritin 177 ng/mL (8-252) Total Bilirubin 0.2 mg/dL (0.2-1.0) Aspartate Amino Transf (AST/SGOT) 53 U/L (15-37) Alanine Aminotransferase (ALT/SGPT) 51 U/L (14-59) Alkaline Phosphatase 74 U/L (46-116) Total Protein 6.9 g/dL (6.4-8.2) Albumin 1.8 g/dL (3.4-5.0) Albumin/Globulin Ratio 0.4 (1.0-1.7) Vitamin B12 Level 377 pg/mL (247-911) Serum Folate 6.81 ng/ml (3.2-20.0) White Blood Count 4.2 x10^3/uL (4.0-11.0) 7.7 x10^3/uL (4.0-11.0) Red Blood Count 3.31 x10^6/uL (3.50-5.40) 3.32 x10^6/uL (3.50-5.40) Hemoglobin 8.9 g/dL (12.0-15.5) 9.0 g/dL (12.0-15.5) Hematocrit 27.8 % (36.0-47.0) 27.5 % (36.0-47.0) Mean Corpuscular Volume 84 fL (79-100) 83 fL (79-100) Mean Corpuscular Hemoglobin 27 pg (25-35) 27 pg (25-35) Mean Corpuscular Hemoglobin Concent 32 g/dL (31-37) 33 g/dL (31-37) Red Cell Distribution Width 16.2 % (11.5-14.5) 16.4 % (11.5-14.5) Platelet Count 225 x10^3/uL (140-400) 221 x10^3/uL (140-400) Neutrophils (%) (Auto) 34 % (31-73) 50 % (31-73) Lymphocytes (%) (Auto) 25 % (24-48) 22 % (24-48) Monocytes (%) (Auto) 23 % (0-9) 15 % (0-9) Eosinophils (%) (Auto) 18 % (0-3) 12 % (0-3) Basophils (%) (Auto) 1 % (0-3) 1 % (0-3) Neutrophils # (Auto) 1.4 x10^3uL (1.8-7.7) 3.8 x10^3uL (1.8-7.7) Lymphocytes # (Auto) 1.1 x10^3/uL (1.0-4.8) 1.7 x10^3/uL (1.0-4.8) Monocytes # (Auto) 1.0 x10^3/uL (0.0-1.1) 1.2 x10^3/uL (0.0-1.1) Eosinophils # (Auto) 0.7 x10^3/uL (0.0-0.7) 0.9 x10^3/uL (0.0-0.7) Basophils # (Auto) 0.0 x10^3/uL (0.0-0.2) 0.1 x10^3/uL (0.0-0.2) Segmented Neutrophils % 12 % (35-66) 21 % (35-66) Band Neutrophils % 23 % (0-9) 19 % (0-9) Lymphocytes % 28 % (24-48) 29 % (24-48) Monocytes % 14 % (0-10) 14 % (0-10) Eosinophils % 18 % (0-5) 9 % (0-5) Basophils % 2 % (0-3) Myelocytes % 2 % (0-0) 4 % (0-0) Promyelocytes % 1 % (0-0) 1 % (0-0) Toxic Granulation Slight Toxic Vacuolation Slight Platelet Estimate Adequate (ADEQUATE) Adequate (ADEQUATE) Giant Platelets Few Polychromasia Slight Slight Hypochromasia Mod Anisocytosis Slight Slight Stomatocytes Mod Reticulocyte Count (auto) 2.0 % (0.5-2.5) Metamyelocytes % 3 % (0-0) Laboratory Tests Test 02/23/17 03:31 White Blood Count 7.7 x10^3/uL (4.0-11.0) Red Blood Count 3.32 x10^6/uL (3.50-5.40) Hemoglobin 9.0 g/dL (12.0-15.5) Hematocrit 27.5 % (36.0-47.0) Mean Corpuscular Volume 83 fL (79-100) Mean Corpuscular Hemoglobin 27 pg (25-35) Mean Corpuscular Hemoglobin Concent 33 g/dL (31-37) Red Cell Distribution Width 16.4 % (11.5-14.5) Platelet Count 221 x10^3/uL (140-400) Neutrophils (%) (Auto) 50 % (31-73) Lymphocytes (%) (Auto) 22 % (24-48) Monocytes (%) (Auto) 15 % (0-9) Eosinophils (%) (Auto) 12 % (0-3) Basophils (%) (Auto) 1 % (0-3) Neutrophils # (Auto) 3.8 x10^3uL (1.8-7.7) Lymphocytes # (Auto) 1.7 x10^3/uL (1.0-4.8) Monocytes # (Auto) 1.2 x10^3/uL (0.0-1.1) Eosinophils # (Auto) 0.9 x10^3/uL (0.0-0.7) Basophils # (Auto) 0.1 x10^3/uL (0.0-0.2) Segmented Neutrophils % 21 % (35-66) Band Neutrophils % 19 % (0-9) Lymphocytes % 29 % (24-48) Monocytes % 14 % (0-10) Eosinophils % 9 % (0-5) Metamyelocytes % 3 % (0-0) Myelocytes % 4 % (0-0) Promyelocytes % 1 % (0-0) Platelet Estimate Adequate (ADEQUATE) Polychromasia Slight Anisocytosis Slight Medications Active Scripts Medications Dose Route/Sig Max Daily Dose Days Date Category Dose Instructions Tramadol Hcl 50 Mg Tablet 2 Tab PO PRN Q6HRS 02/17/17 Reported Ferrous Sulfate 325 Mg Tablet 1 Tab PO BID 30 01/02/17 Reported LAST DOSE GIVEN: DATE:01/02/17 TIME:9:00 a.m Diclofenac Sodium 75 Mg Tablet.dr 75 Mg PO BID 11/10/16 Reported Meds not given this hospital admission. May resume home medications as approved by Physician. Impression . 1. Ggetz-iq-qeoxoug hypoxemic hypercapnic respiratory failure. 2. Acute diastolic heart failure. 3. Leukopenia. 4. Recent total knee arthroplasty with traumatic wound dehiscence. 5. Abnormal x-ray compatible with acute pulmonary edema. 6. Morbid obesity. 7. Chronic anemia. 8. Protein malnutrition, present upon admission. Plan . RESP STATUS IS COMPENSATED SEE ORDERS FOR BIPAP QHS HOME WHEN OK WITH OTHERS SERVICES, SPOKE WITH DR NOBLES, AND UNIQUE ANTIBX PER ID NEBS DVT PROPH JAMES SEQUEIRA MD Feb 23, 2017 11:21
--- NOTE | 2017-02-23 11:43 | PDOC ---
Infectious Disease Note Subjective Subjective Feeling alright Denies pain ROS ROS GEN: Denies fevers, chills, sweats HEENT: Denies blurred vision, sore throat CV: Denies chest pain RESP: Denies shortness of air, cough GI: Denies n/v/d NEURO: Denies confusion, dizziness MSK: Denies weakness, joint pain/swelling Vital Sign Vital Signs Vital Signs Date Time Temp Pulse Resp B/P (MAP) Pulse Ox O2 Delivery O2 Flow Rate FiO2 02/23/17 11:00 97.5 72 19 117/63 (81) 96 Nasal Cannula 3.0 97.5 Physical Exam PHYSICAL EXAM GENERAL: NAD, Alert HEENT: PERRL, OC/OP NECK: Supple, no JVD, no LN LUNGS: Clear HEART: S1S2, no gallop, no murmur ABD: Soft, NT, no organomegaly, no rebound EXT: No edema, no cyanosis,, rt knee site looks ok CTRS: Alert, oriented x 3, no focal neurologic deficit SKIN: No rash IV: ok Labs Lab Laboratory Tests Test 02/23/17 03:31 White Blood Count 7.7 x10^3/uL (4.0-11.0) Red Blood Count 3.32 x10^6/uL (3.50-5.40) Hemoglobin 9.0 g/dL (12.0-15.5) Hematocrit 27.5 % (36.0-47.0) Mean Corpuscular Volume 83 fL (79-100) Mean Corpuscular Hemoglobin 27 pg (25-35) Mean Corpuscular Hemoglobin Concent 33 g/dL (31-37) Red Cell Distribution Width 16.4 % (11.5-14.5) Platelet Count 221 x10^3/uL (140-400) Neutrophils (%) (Auto) 50 % (31-73) Lymphocytes (%) (Auto) 22 % (24-48) Monocytes (%) (Auto) 15 % (0-9) Eosinophils (%) (Auto) 12 % (0-3) Basophils (%) (Auto) 1 % (0-3) Neutrophils # (Auto) 3.8 x10^3uL (1.8-7.7) Lymphocytes # (Auto) 1.7 x10^3/uL (1.0-4.8) Monocytes # (Auto) 1.2 x10^3/uL (0.0-1.1) Eosinophils # (Auto) 0.9 x10^3/uL (0.0-0.7) Basophils # (Auto) 0.1 x10^3/uL (0.0-0.2) Segmented Neutrophils % 21 % (35-66) Band Neutrophils % 19 % (0-9) Lymphocytes % 29 % (24-48) Monocytes % 14 % (0-10) Eosinophils % 9 % (0-5) Metamyelocytes % 3 % (0-0) Myelocytes % 4 % (0-0) Promyelocytes % 1 % (0-0) Platelet Estimate Adequate (ADEQUATE) Polychromasia Slight Anisocytosis Slight Objective Assessment Fever -better Leukopenia - s/p Solu-Medrol times one 02/17. ? med related. Was normal last week in 7's. better. EOS elevated Rash - ? med related - better Acute on chronic hypercapnic failure Right knee wound. - h/o right TKA wound dehiscence, s/p exploration with irrigation, debridement right knee and closure 01/28 w/ MSSA & GBS growth. - s/p TKA place 12/30 Groin yeast rash on [place] Plan Plan of Care Vanc and Levoflox and avoid Beta - lactams to r/o cause of neutropenia/rash d/w ER 02/17 vanc trough 26.9 micafungin for now F/u labs and cultures Probiotics Wound vac D/w ALONDRA CHRISTINE MD Feb 23, 2017 11:43
[2017-02-23 15:00] VITALS: BP 103/59
--- NOTE | 2017-02-23 16:07 | PDOC ---
PROGRESS NOTES Subjective Subjective HPI - Severe neutropenia with elevated monocytes, is most likely a reactive process due to underlying infection. ROS - no fever Objective Objective Vital Signs Date Time Temp Pulse Resp B/P (MAP) Pulse Ox O2 Delivery O2 Flow Rate FiO2 02/23/17 15:16 Nasal Cannula 3.0 02/23/17 15:00 98.8 75 19 103/59 (74) 92 98.8 Intake and Output 02/24/17 07:00 Intake Total 120 ml Balance 120 ml Intake Oral 120 ml Physical Exam Heart: Normal S1, Normal S2 General: Alert, Oriented X3, No acute distress Lungs: Clear to auscultation Neuro: Normal speech Psych/Mental Status: Mental status NL Assessment Assessment Problems Medical Problems: (1) Acute congestive heart failure Status: Acute (2) Acute respiratory failure with hypoxia Status: Acute (3) COPD exacerbation Status: Acute IMPRESSION AND PLAN: 1. Severe neutropenia with elevated monocytes, is most likely a reactive process due to underlying infection. She has a wound VAC in place above the right knee. Other differential diagnosis would include a primary bone marrow disorder such as leukemia. Although this is unlikely, I would proceed with a bone marrow aspiration and biopsy in view of persistent neutropenia and persistent monocytosis - done 02/20/17. I discussed in detail with the patient and she understands and agrees with the plan. WBC better at 7.7. 2. Anemia, due to chronic disease. Continue to monitor. Hb 9.0 3. History of right knee replacement. She has a wound VAC in the right thigh. Comment Review of Relevant I have reviewed the following items behzad (where applicable) has been applied. Labs Laboratory Tests Test 02/22/17 09:50 02/22/17 10:45 02/23/17 03:31 Sodium Level 139 mmol/L (136-145) Potassium Level 3.2 mmol/L (3.5-5.1) Chloride Level 95 mmol/L (98-107) Carbon Dioxide Level 44 mmol/L (21-32) Anion Gap 0 (6-14) Blood Urea Nitrogen 20 mg/dL (7-20) Creatinine 1.3 mg/dL (0.6-1.0) Estimated GFR (Cockcroft-Gault) 41.2 BUN/Creatinine Ratio 15 (6-20) Glucose Level 131 mg/dL (70-99) Calcium Level 7.8 mg/dL (8.5-10.1) Iron Level 26 ug/dL (50-170) Total Iron Binding Capacity 210 ug/dL (250-450) Iron Saturation 12 % (15-34) Ferritin 177 ng/mL (8-252) Total Bilirubin 0.2 mg/dL (0.2-1.0) Aspartate Amino Transf (AST/SGOT) 53 U/L (15-37) Alanine Aminotransferase (ALT/SGPT) 51 U/L (14-59) Alkaline Phosphatase 74 U/L (46-116) Total Protein 6.9 g/dL (6.4-8.2) Albumin 1.8 g/dL (3.4-5.0) Albumin/Globulin Ratio 0.4 (1.0-1.7) Vitamin B12 Level 377 pg/mL (247-911) Serum Folate 6.81 ng/ml (3.2-20.0) White Blood Count 4.2 x10^3/uL (4.0-11.0) 7.7 x10^3/uL (4.0-11.0) Red Blood Count 3.31 x10^6/uL (3.50-5.40) 3.32 x10^6/uL (3.50-5.40) Hemoglobin 8.9 g/dL (12.0-15.5) 9.0 g/dL (12.0-15.5) Hematocrit 27.8 % (36.0-47.0) 27.5 % (36.0-47.0) Mean Corpuscular Volume 84 fL (79-100) 83 fL (79-100) Mean Corpuscular Hemoglobin 27 pg (25-35) 27 pg (25-35) Mean Corpuscular Hemoglobin Concent 32 g/dL (31-37) 33 g/dL (31-37) Red Cell Distribution Width 16.2 % (11.5-14.5) 16.4 % (11.5-14.5) Platelet Count 225 x10^3/uL (140-400) 221 x10^3/uL (140-400) Neutrophils (%) (Auto) 34 % (31-73) 50 % (31-73) Lymphocytes (%) (Auto) 25 % (24-48) 22 % (24-48) Monocytes (%) (Auto) 23 % (0-9) 15 % (0-9) Eosinophils (%) (Auto) 18 % (0-3) 12 % (0-3) Basophils (%) (Auto) 1 % (0-3) 1 % (0-3) Neutrophils # (Auto) 1.4 x10^3uL (1.8-7.7) 3.8 x10^3uL (1.8-7.7) Lymphocytes # (Auto) 1.1 x10^3/uL (1.0-4.8) 1.7 x10^3/uL (1.0-4.8) Monocytes # (Auto) 1.0 x10^3/uL (0.0-1.1) 1.2 x10^3/uL (0.0-1.1) Eosinophils # (Auto) 0.7 x10^3/uL (0.0-0.7) 0.9 x10^3/uL (0.0-0.7) Basophils # (Auto) 0.0 x10^3/uL (0.0-0.2) 0.1 x10^3/uL (0.0-0.2) Segmented Neutrophils % 12 % (35-66) 21 % (35-66) Band Neutrophils % 23 % (0-9) 19 % (0-9) Lymphocytes % 28 % (24-48) 29 % (24-48) Monocytes % 14 % (0-10) 14 % (0-10) Eosinophils % 18 % (0-5) 9 % (0-5) Basophils % 2 % (0-3) Myelocytes % 2 % (0-0) 4 % (0-0) Promyelocytes % 1 % (0-0) 1 % (0-0) Toxic Granulation Slight Toxic Vacuolation Slight Platelet Estimate Adequate (ADEQUATE) Adequate (ADEQUATE) Giant Platelets Few Polychromasia Slight Slight Hypochromasia Mod Anisocytosis Slight Slight Stomatocytes Mod Reticulocyte Count (auto) 2.0 % (0.5-2.5) Metamyelocytes % 3 % (0-0) Laboratory Tests Test 02/23/17 03:31 White Blood Count 7.7 x10^3/uL (4.0-11.0) Red Blood Count 3.32 x10^6/uL (3.50-5.40) Hemoglobin 9.0 g/dL (12.0-15.5) Hematocrit 27.5 % (36.0-47.0) Mean Corpuscular Volume 83 fL (79-100) Mean Corpuscular Hemoglobin 27 pg (25-35) Mean Corpuscular Hemoglobin Concent 33 g/dL (31-37) Red Cell Distribution Width 16.4 % (11.5-14.5) Platelet Count 221 x10^3/uL (140-400) Neutrophils (%) (Auto) 50 % (31-73) Lymphocytes (%) (Auto) 22 % (24-48) Monocytes (%) (Auto) 15 % (0-9) Eosinophils (%) (Auto) 12 % (0-3) Basophils (%) (Auto) 1 % (0-3) Neutrophils # (Auto) 3.8 x10^3uL (1.8-7.7) Lymphocytes # (Auto) 1.7 x10^3/uL (1.0-4.8) Monocytes # (Auto) 1.2 x10^3/uL (0.0-1.1) Eosinophils # (Auto) 0.9 x10^3/uL (0.0-0.7) Basophils # (Auto) 0.1 x10^3/uL (0.0-0.2) Segmented Neutrophils % 21 % (35-66) Band Neutrophils % 19 % (0-9) Lymphocytes % 29 % (24-48) Monocytes % 14 % (0-10) Eosinophils % 9 % (0-5) Metamyelocytes % 3 % (0-0) Myelocytes % 4 % (0-0) Promyelocytes % 1 % (0-0) Platelet Estimate Adequate (ADEQUATE) Polychromasia Slight Anisocytosis Slight Microbiology 02/17/17 Blood Culture - Final, Complete NO GROWTH AFTER 5 DAYS 02/19/17 Gram Stain - Final, Complete Medications Current Medications Albuterol Sulfate (Ventolin Neb Soln) 10 mg 1X ONCE CONT NEB Last administered on 02/17/17 12:37; Start 02/17/17 at 12:30; Stop 02/17/17 at 12 :36; Status DC Ipratropium [place] (Atrovent) 0.5 mg 1X ONCE NEB Last administered on 12:37; Start 02/17/17 at 12:30; Stop 02/17/17 at 12:36; Status DC Methylprednisolone Sodium Succinate (SOLU-Medrol 125MG VIAL) 125 mg 1X ONCE IV Last administered on 02/17/17 12:52; Start 02/17/17 at 12:30; Stop at 12:36; Status DC Albuterol Sulfate (Ventolin Neb Soln) 2.5 mg STK-MED ONCE .ROUTE ; Start at 12:33; Stop 02/17/17 at 12:34; Status DC Albuterol/ Ipratropium (Duoneb) 3 ml STK-MED ONCE .ROUTE ; Start 02/17/17 at 12 :33; Stop 02/17/17 at 12:34; Status DC Furosemide (Lasix) 40 mg 1X ONCE IVP Last administered on 02/17/17 15:21; Start 02/17/17 at 13:45; Stop 02/17/17 at 13:46; Status DC Cefepime HCl 2 gm/ Sodium Chloride 100 ml @ 200 mls/hr Q8HRS IV ; Start at 23:00; Stop 02/17/17 at 23:00; Status DC Levofloxacin/ Dextrose 150 ml @ 100 mls/hr 1X ONCE IV Last administered on 14:15; Start 02/17/17 at 14:15; Stop 02/17/17 at 15:44; Status DC Cefepime HCl 2 gm/ Dextrose 100 ml @ 200 mls/hr 1X ONCE IV ; Start 02/17/17 at 14:15; Stop 02/17/17 at 14:44; Status Cancel Ondansetron HCl (Zofran) 4 mg PRN Q8HRS PRN IV NAUSEA/VOMITING; Start at 15:00; Stop 02/18/17 at 14:59; Status DC Albuterol/ Ipratropium (Duoneb) 3 ml RTQID NEB Last administered on 02/18/17 19:11; Start 02/17/17 at 16:00; Stop 02/18/17 at 15:59; Status DC Furosemide (Lasix) 40 mg [id number] IVP Last administered on 02/23/17 15:27; Start 02/18/17 at 09:00 Cefepime HCl 2 gm/ Sodium Chloride 100 ml @ 200 mls/hr 1X ONCE IV Last administered on 02/17/17 15:15; Start 02/17/17 at 15:15; Stop 02/17/17 at 15 :44; Status DC Vancomycin HCl 2 gm/Sodium Chloride 500 ml @ 250 mls/hr 1X ONCE IV Last administered on 02/17/17 16:58; Start 02/17/17 at 16:00; Stop 02/17/17 at 17 :59; Status DC Micafungin Sodium 100 mg/Dextrose 100 ml @ 100 mls/hr Q24H IV Last administered on 02/22/17 19:26; Start 02/17/17 at 19:00 Vancomycin HCl (Vanco Per Pharmacy) 1 each PRN DAILY PRN MC SEE COMMENTS Last administered on 02/21/17 06:58; Start 02/18/17 at 07:15 Levofloxacin/ Dextrose 100 ml @ 100 mls/hr Q24H IV Last administered on 12:46; Start 02/18/17 at 14:00; Stop 02/19/17 at 10:01; Status DC Vancomycin HCl 2 gm/Dextrose 500 ml @ 250 mls/hr Q12H IV Last administered on 02/18/17 21:41; Start 02/18/17 at 08:00; Stop 02/19/17 at 10:19; Status DC Lactobacillus Rhamnosus (Culturelle) 1 cap BID PO Last administered on 09:24; Start 02/18/17 at 09:00 Multivitamins (Thera M Plus) 1 tab DAILY PO Last administered on 02/23/17 09: 25; Start 02/18/17 at 11:00 Ascorbic Acid (Vitamin C) 500 mg DAILY PO Last administered on 02/23/17 09:24 ; Start 02/18/17 at 11:00 Vancomycin HCl 1 each 1X ONCE MC Last administered on 02/19/17 07:30; Start 02/19/17 at 07:30; Stop 02/19/17 at 07:31; Status DC Albuterol/ Ipratropium (Duoneb) 3 ml RTQID NEB Last administered on 02/23/17 15:14; Start 02/18/17 at 20:30 Alteplase, Recombinant 10 mg/ Sodium Chloride 100 ml @ 10 mls/hr 1X ONCE IV ; Start 02/19/17 at 06:00; Stop 02/19/17 at 15:59; Status UNV Alteplase, Recombinant (Cathflo) 2 mg 1X ONCE INT CAT Last administered on 06:05; Start 02/19/17 at 06:30; Stop 02/19/17 at 06:31; Status DC Levofloxacin (Levaquin) 500 mg DAILY06 PO Last administered on 02/23/17 06:00 ; Start 02/19/17 at 14:00 Vancomycin HCl 1.25 gm/Dextrose 250 ml @ 167 mls/hr Q12H IV Last administered on 02/20/17 18:15; Start 02/19/17 at 17:00; Stop 02/21/17 at 06:37; Status DC Vancomycin HCl 1 each 1X ONCE MC Last administered on 02/21/17 04:30; Start 02/21/17 at 04:30; Stop 02/21/17 at 04:31; Status DC Tramadol HCl (Ultram) 100 mg PRN Q6HRS PRN PO PAIN Last administered on 09:46; Start 02/19/17 at 18:45 Lidocaine/Sodium Bicarbonate (Buffered Lidocaine 1%) 20 ml STK-MED ONCE IJ ; Start 02/20/17 at 14:37; Stop 02/20/17 at 14:38; Status DC Fentanyl Citrate (Fentanyl 2ml Vial) 100 mcg STK-MED ONCE .ROUTE ; Start at 14:37; Stop 02/20/17 at 14:38; Status DC Midazolam HCl (Versed) 2 mg STK-MED ONCE .ROUTE ; Start 02/20/17 at 14:37; Stop 02/20/17 at 14:38; Status DC Lidocaine/Sodium Bicarbonate (Buffered Lidocaine 1%) 20 ml 1X ONCE IJ Last administered on 02/20/17 15:09; Start 02/20/17 at 15:15; Stop 02/20/17 at 15 :16; Status DC Midazolam HCl (Versed) 2 mg 1X ONCE IV Last administered on 02/20/17 15:10; Start 02/20/17 at 15:15; Stop 02/20/17 at 15:16; Status DC Fentanyl Citrate (Fentanyl 2ml Vial) 100 mcg 1X ONCE IV Last administered on 02/20/17 15:10; Start 02/20/17 at 15:15; Stop 02/20/17 at 15:16; Status DC Vancomycin HCl 1.5 gm/Dextrose 500 ml @ 250 mls/hr Q24H IV Last administered on 02/22/17 19:26; Start 02/21/17 at 19:00 Vancomycin HCl 1 each 1X ONCE MC ; Start 02/23/17 at 18:30; Stop 02/23/17 at 18:31 Nystatin (Nystop) 1 tony BID TP Last administered on 02/23/17 09:29; Start at 21:30 Albuterol Sulfate (Ventolin Neb Soln) 2.5 mg PRN Q4HRS PRN NEB SHORTNESS OF BREATH Last administered on 02/22/17 03:35; Start 02/22/17 at 03:30 Potassium Chloride (Klor-Con) 20 meq [id number] PO Last administered on 09:28; Start 02/23/17 at 09:00 Active Scripts Active Reported Tramadol Hcl 50 Mg Tablet 2 Tab PO PRN Q6HRS Ferrous Sulfate 325 Mg Tablet 1 Tab PO BID 30 Days LAST DOSE GIVEN: DATE:01/02/17 TIME:9:00 a.m Diclofenac Sodium 75 Mg Tablet.dr 75 Mg PO BID Meds not given this hospital admission. May resume home medications as approved by Physician. Vitals/I & O Vital Sign - Last 24 Hours 02/22/17 02/22/17 02/22/17 02/22/17 19:00 20:15 20:43 22:50 Temp 98.5 98.5 Pulse 77 Resp 20 B/P (MAP) 97/52 (67) Pulse Ox 96 91 96 O2 Delivery Nasal Cannula Nasal Cannula Nasal Cannula BiPAP/CPAP O2 Flow Rate 3.5 5.0 4.0 02/22/17 02/23/17 02/23/17 02/23/17 23:00 03:00 06:54 07:00 Temp 98.7 98.8 98.5 98.7 98.8 98.5 Pulse 76 82 71 Resp 20 20 18 B/P (MAP) 106/69 (81) 98/51 (67) 106/49 (68) Pulse Ox 93 94 90 O2 Delivery Nasal Cannula Nasal Cannula Nasal Cannula Nasal Cannula O2 Flow Rate 3.5 3.5 4.0 3.5 02/23/17 02/23/17 02/23/17 02/23/17 09:46 10:44 11:00 14:49 Temp 97.5 97.5 Pulse 72 Resp 19 B/P (MAP) 117/63 (81) Pulse Ox 90 96 96 O2 Delivery Nasal Cannula Nasal Cannula Nasal Cannula Nasal Cannula O2 Flow Rate 3.5 4.0 3.0 3.0 02/23/17 02/23/17 15:00 15:16 Temp 98.8 98.8 Pulse 75 Resp 19 B/P (MAP) 103/59 (74) Pulse Ox 92 O2 Delivery Nasal Cannula Nasal Cannula O2 Flow Rate 3.0 3.0 Intake and Output 02/23/17 02/23/17 02/24/17 15:00 23:00 07:00 Intake Total 120 ml Balance 120 ml CANDICE NAVA MD Feb 23, 2017 16:07
[2017-02-23 19:10] VITALS: BP 103/54
[2017-02-23 20:48] LABS: CREATININE 1.5 mg/dL (0.6-1.0)
[2017-02-23] MEDS: VANCOMYCIN PER PHARMACY MC PRN (20:48)
[2017-02-23] MEDS: MICAFUNGIN 100 MG in IV DEXTROSE 5% 100 ML IV SCH (21:39)
[2017-02-23 23:05] VITALS: BP 107/59
[2017-02-24 03:05] VITALS: BP 98/59
[2017-02-24] MEDS: traMADol 50 MG TABLET PO PRN ×2 (06:30→13:47)
[2017-02-24 06:32] LABS: BASO # 0.1 x10^3/uL (0.0-0.2); BASO % 1 % (0-3); EOS % 9 % (0-3); HEMOGLOBIN 9.1 g/dL (12.0-15.5); LYMPH # 1.4 x10^3/uL (1.0-4.8); LYMPH % 16 % (24-48); MEAN CORPUSCULAR HEMOGLOBIN 27 pg (25-35); MEAN CORPUSCULAR HGB CONC 31 g/dL (31-37); MEAN CORPUSCULAR VOLUME 85 fL (79-100); MONO % 12 % (0-9); NEUT % 63 % (31-73); PLATELET COUNT 227 x10^3/uL (140-400); RED BLOOD COUNT 3.42 x10^6/uL (3.50-5.40); RED CELL DISTRIBUTION WIDTH 16.6 % (11.5-14.5); WHITE BLOOD COUNT 8.4 x10^3/uL (4.0-11.0)
[2017-02-24 06:36] LABS: CALCIUM 8.7 mg/dL (8.5-10.1); CREATININE 1.3 mg/dL (0.6-1.0); GFR 41.2; POTASSIUM 3.3 mmol/L (3.5-5.1)
[2017-02-24 07:00] VITALS: BP 116/65
[2017-02-24] MEDS ORDERED: VANCOMYCIN 1.75 GM in IV DEXTROSE 5% 500 ML IV SCH (07:00)
[2017-02-24] MEDS ORDERED: VANCOMYCIN 1.5 GM in IV DEXTROSE 5% 500 ML IV SCH (07:00)
[2017-02-24] MEDS: IPRATRPIUM/ALBUTEROL 0.5/2.5MG 3 ML NEBU. NEB SCH ×4 (07:17→20:03)
[2017-02-24] MEDS: MULTIVITAMIN with MINERAL TABLET. PO SCH (08:26)
[2017-02-24] MEDS: FUROSEMIDE 40 MG/4 ML VIAL. IVP SCH ×3 (08:26→14:20)
[2017-02-24] MEDS: POTASSIUM CHLORIDE 20 MEQ TABLET.ER. PO SCH (08:26)
[2017-02-24] MEDS: LACTOBACILLUS RHAMNOSUS GG 1 CAPSULE. PO SCH ×2 (08:27→20:04)
[2017-02-24] MEDS: ASCORBIC ACID 500 MG TABLET PO SCH (08:27)
--- NOTE | 2017-02-24 08:35 | PDOC ---
GENERAL General: vss and afebrile. awake and alert and pushing for discharge. chest with decreased breath sounds and O2 at 3L/NC. heart regular and abdomen benign. discussed with ID and they are going to try cefazolin so that would have option for chronic suppressive therapy after iv antibiotics. will hold dc to see if any problems with cefazolin. Problems: VITAL SIGNS Vital Signs: Vital Signs Date Time Temp Pulse Resp B/P (MAP) Pulse Ox O2 Delivery O2 Flow Rate FiO2 02/24/17 07:30 20 96 Nasal Cannula 3.0 02/24/17 07:00 98.6 63 116/65 (82) 98.6 ALLERGIES Allergies: Allergies Coded Allergies Type Severity Reaction Last Updated Verified No Known Drug Allergies 01/28/17 No MEDS Medications: Current Medications Medications (Trade) Dose Ordered Sig/Jayson Start Time Stop Time Status Last Admin Dose Admin Albuterol Sulfate (Ventolin Neb Soln) 2.5 mg PRN Q4HRS PRN 02/22/17 03:30 02/22/17 03:35 2.5 MG Albuterol/ Ipratropium (Duoneb) 3 ml RTQID 02/18/17 20:30 02/24/17 07:17 3 ML Alteplase, Recombinant (Cathflo) 2 mg 1X ONCE 02/19/17 06:30 02/19/17 06:31 DC 02/19/17 06:05 2 MG Alteplase, Recombinant 10 mg/ Sodium Chloride 100 ml @ 10 mls/hr 1X ONCE 02/19/17 06:00 02/19/17 15:59 UNV Ascorbic Acid (Vitamin C) 500 mg DAILY 02/18/17 11:00 02/24/17 08:27 500 MG Cefepime HCl 2 gm/ Dextrose 100 ml @ 200 mls/hr 1X ONCE 02/17/17 14:15 02/17/17 14:44 Cancel Cefepime HCl 2 gm/ Sodium Chloride 100 ml @ 200 mls/hr 1X ONCE 02/17/17 15:15 02/17/17 15:44 DC 02/17/17 15:15 200 MLS/HR Fentanyl Citrate (Fentanyl 2ml Vial) 100 mcg 1X ONCE 02/20/17 15:15 02/20/17 15:16 DC 02/20/17 15:10 50 MCG Furosemide (Lasix) 40 mg [id number] 02/18/17 09:00 02/24/17 08:26 40 MG Ipratropium [place] (Atrovent) 0.5 mg 1X ONCE 02/17/17 12:30 02/17/17 12:36 DC 02/17/17 12:37 0.5 MG Lactobacillus Rhamnosus (Culturelle) 1 cap BID 02/18/17 09:00 02/24/17 08:27 1 CAP Levofloxacin (Levaquin) 500 mg DAILY06 02/19/17 14:00 02/24/17 05:15 500 MG Levofloxacin/ Dextrose 100 ml @ 100 mls/hr Q24H 02/18/17 14:00 02/19/17 10:01 DC 02/18/17 12:46 100 MLS/HR Lidocaine/Sodium Bicarbonate (Buffered Lidocaine 1%) 20 ml 1X ONCE 02/20/17 15:15 02/20/17 15:16 DC 02/20/17 15:09 7 ML Methylprednisolone Sodium Succinate (SOLU-Medrol 125MG VIAL) 125 mg 1X ONCE 02/17/17 12:30 02/17/17 12:36 DC 02/17/17 12:52 125 MG Micafungin Sodium 100 mg/Dextrose 100 ml @ 100 mls/hr Q24H 02/17/17 19:00 02/23/17 21:39 100 MLS/HR Midazolam HCl (Versed) 2 mg 1X ONCE 02/20/17 15:15 02/20/17 15:16 DC 02/20/17 15:10 2 MG Multivitamins (Thera M Plus) 1 tab DAILY 02/18/17 11:00 02/24/17 08:26 1 TAB Nystatin (Nystop) 1 tony BID 02/21/17 21:30 02/23/17 21:40 1 TONY Ondansetron HCl (Zofran) 4 mg PRN Q8HRS PRN 02/17/17 15:00 02/18/17 14:59 DC Potassium Chloride (Klor-Con) 20 meq [id number] 02/23/17 09:00 02/24/17 08:26 20 MEQ Tramadol HCl (Ultram) 100 mg PRN Q6HRS PRN 02/19/17 18:45 02/24/17 06:30 100 MG Vancomycin HCl (Vanco Per Pharmacy) 1 each PRN DAILY PRN 02/18/17 07:15 02/23/17 20:48 1 EACH Vancomycin HCl 1.25 gm/Dextrose 250 ml @ 167 mls/hr Q12H 02/19/17 17:00 02/21/17 06:37 DC 02/20/17 18:15 167 MLS/HR Vancomycin HCl 1.5 gm/Dextrose 500 ml @ 250 mls/hr Q36H 02/24/17 07:00 02/24/17 07:00 DC Vancomycin HCl 1.75 gm/Dextrose 500 ml @ 250 mls/hr Q36H 02/24/17 07:00 02/24/17 06:25 250 MLS/HR Vancomycin HCl 2 gm/Dextrose 500 ml @ 250 mls/hr Q12H 02/18/17 08:00 02/19/17 10:19 DC 02/18/17 21:41 250 MLS/HR Vancomycin HCl 2 gm/Sodium Chloride 500 ml @ 250 mls/hr 1X ONCE 02/17/17 16:00 02/17/17 17:59 DC 02/17/17 16:58 250 MLS/HR LAB Lab: Laboratory Tests Test 02/23/17 19:40 02/24/17 05:15 Creatinine 1.5 mg/dL (0.6-1.0) 1.3 mg/dL (0.6-1.0) Estimated GFR (Cockcroft-Gault) 35.0 41.2 Vancomycin Level Trough 24.8 mcg/mL (10.0-20.0) Vancomycin Last Dose Date 02/22/17 Vancomycin Last Dose Time 1900 White Blood Count 8.4 x10^3/uL (4.0-11.0) Red Blood Count 3.42 x10^6/uL (3.50-5.40) Hemoglobin 9.1 g/dL (12.0-15.5) Hematocrit 29.0 % (36.0-47.0) Mean Corpuscular Volume 85 fL (79-100) Mean Corpuscular Hemoglobin 27 pg (25-35) Mean Corpuscular Hemoglobin Concent 31 g/dL (31-37) Red Cell Distribution Width 16.6 % (11.5-14.5) Platelet Count 227 x10^3/uL (140-400) Neutrophils (%) (Auto) 63 % (31-73) Lymphocytes (%) (Auto) 16 % (24-48) Monocytes (%) (Auto) 12 % (0-9) Eosinophils (%) (Auto) 9 % (0-3) Basophils (%) (Auto) 1 % (0-3) Neutrophils # (Auto) 5.2 x10^3uL (1.8-7.7) Lymphocytes # (Auto) 1.4 x10^3/uL (1.0-4.8) Monocytes # (Auto) 1.0 x10^3/uL (0.0-1.1) Eosinophils # (Auto) 0.7 x10^3/uL (0.0-0.7) Basophils # (Auto) 0.1 x10^3/uL (0.0-0.2) Sodium Level 141 mmol/L (136-145) Potassium Level 3.3 mmol/L (3.5-5.1) Chloride Level 95 mmol/L (98-107) Carbon Dioxide Level 45 mmol/L (21-32) Anion Gap 1 (6-14) Blood Urea Nitrogen 20 mg/dL (7-20) Glucose Level 97 mg/dL (70-99) Calcium Level 8.7 mg/dL (8.5-10.1) RAFAEL CASTRO MD Feb 24, 2017 08:35
[2017-02-24] MEDS: NYSTATIN TOPICAL POWDER 15GM BOTTLE. TP SCH ×2 (09:00→20:04)
--- NOTE | 2017-02-24 09:36 | PDOC ---
Infectious Disease Note Subjective Subjective Feeling alright Denies pain ROS ROS GEN: Denies fevers, chills, sweats HEENT: Denies blurred vision, sore throat CV: Denies chest pain RESP: Denies shortness of air, cough GI: Denies n/v/d NEURO: Denies confusion, dizziness MSK: Denies weakness, joint pain/swelling Vital Sign Vital Signs Vital Signs Date Time Temp Pulse Resp B/P (MAP) Pulse Ox O2 Delivery O2 Flow Rate FiO2 02/24/17 08:00 Nasal Cannula 3.0 02/24/17 07:30 20 96 02/24/17 07:00 98.6 63 116/65 (82) 98.6 Physical Exam PHYSICAL EXAM GENERAL: NAD, Alert HEENT: PERRL, OC/OP NECK: Supple, no JVD, no LN LUNGS: Clear HEART: S1S2, no gallop, no murmur ABD: Soft, NT, no organomegaly, no rebound EXT: No edema, no cyanosis,, rt knee with redness, wound vac in place MINE BOSS: Alert, oriented x 3, no focal neurologic deficit SKIN: No rash IV: ok Labs Lab Laboratory Tests Test 02/23/17 19:40 02/24/17 05:15 Creatinine 1.5 mg/dL (0.6-1.0) 1.3 mg/dL (0.6-1.0) Estimated GFR (Cockcroft-Gault) 35.0 41.2 Vancomycin Level Trough 24.8 mcg/mL (10.0-20.0) Vancomycin Last Dose Date 02/22/17 Vancomycin Last Dose Time 1900 White Blood Count 8.4 x10^3/uL (4.0-11.0) Red Blood Count 3.42 x10^6/uL (3.50-5.40) Hemoglobin 9.1 g/dL (12.0-15.5) Hematocrit 29.0 % (36.0-47.0) Mean Corpuscular Volume 85 fL (79-100) Mean Corpuscular Hemoglobin 27 pg (25-35) Mean Corpuscular Hemoglobin Concent 31 g/dL (31-37) Red Cell Distribution Width 16.6 % (11.5-14.5) Platelet Count 227 x10^3/uL (140-400) Neutrophils (%) (Auto) 63 % (31-73) Lymphocytes (%) (Auto) 16 % (24-48) Monocytes (%) (Auto) 12 % (0-9) Eosinophils (%) (Auto) 9 % (0-3) Basophils (%) (Auto) 1 % (0-3) Neutrophils # (Auto) 5.2 x10^3uL (1.8-7.7) Lymphocytes # (Auto) 1.4 x10^3/uL (1.0-4.8) Monocytes # (Auto) 1.0 x10^3/uL (0.0-1.1) Eosinophils # (Auto) 0.7 x10^3/uL (0.0-0.7) Basophils # (Auto) 0.1 x10^3/uL (0.0-0.2) Sodium Level 141 mmol/L (136-145) Potassium Level 3.3 mmol/L (3.5-5.1) Chloride Level 95 mmol/L (98-107) Carbon Dioxide Level 45 mmol/L (21-32) Anion Gap 1 (6-14) Blood Urea Nitrogen 20 mg/dL (7-20) Glucose Level 97 mg/dL (70-99) Calcium Level 8.7 mg/dL (8.5-10.1) Objective Assessment Fever -better Leukopenia - s/p Solu-Medrol times one 02/17. ? med related. Was normal last week in 7's. better. EOS elevated Rash - ? med related - better Acute on chronic hypercapnic failure Right knee wound. - h/o right TKA wound dehiscence, s/p exploration with irrigation, debridement right knee and closure 01/28 w/ MSSA & GBS growth. - s/p TKA place 12/30 Groin yeast rash on [place] Plan Plan of Care Vanc and Levoflox and avoid Beta - lactams to r/o cause of neutropenia/rash d/w ER 02/17//// d/w pt in detail, need better drug for knee and later will need chronic suppressive, cefazolin with different side chain then rocephine, will try, she feels comfortable with that, if she tolerates then will have better chronic suppressive option of keflex, d/w dr Elias , and he is ok with this F/u labs and cultures Probiotics Wound vac D/w ALONDRA CHRISTINE MD Feb 24, 2017 09:36
--- NOTE | 2017-02-24 09:38 | PDOC ---
PULMONARY PROGRESS NOTES Subjective no soa Vitals Vital Signs Date Time Temp Pulse Resp B/P (MAP) Pulse Ox O2 Delivery O2 Flow Rate FiO2 02/24/17 08:00 Nasal Cannula 3.0 02/24/17 07:30 20 96 02/24/17 07:00 98.6 63 116/65 (82) 98.6 ROS: No Nausea, No Chest Pain, No Abdominal Pain, No Increase Cough General: Alert Lungs: Clear Cardiovascular: S1, S2 Abdomen: Soft Neuro Exam: Alert Extremities: Other (EDEMA AND DRESSING OVE RIGHT KNEE) Skin: Warm Labs Laboratory Tests Test 02/22/17 09:50 02/22/17 10:45 02/23/17 03:31 02/23/17 19:40 Sodium Level 139 mmol/L (136-145) Potassium Level 3.2 mmol/L (3.5-5.1) Chloride Level 95 mmol/L (98-107) Carbon Dioxide Level 44 mmol/L (21-32) Anion Gap 0 (6-14) Blood Urea Nitrogen 20 mg/dL (7-20) Creatinine 1.3 mg/dL (0.6-1.0) 1.5 mg/dL (0.6-1.0) Estimated GFR (Cockcroft-Gault) 41.2 35.0 BUN/Creatinine Ratio 15 (6-20) Glucose Level 131 mg/dL (70-99) Calcium Level 7.8 mg/dL (8.5-10.1) Iron Level 26 ug/dL (50-170) Total Iron Binding Capacity 210 ug/dL (250-450) Iron Saturation 12 % (15-34) Ferritin 177 ng/mL (8-252) Total Bilirubin 0.2 mg/dL (0.2-1.0) Aspartate Amino Transf (AST/SGOT) 53 U/L (15-37) Alanine Aminotransferase (ALT/SGPT) 51 U/L (14-59) Alkaline Phosphatase 74 U/L (46-116) Total Protein 6.9 g/dL (6.4-8.2) Albumin 1.8 g/dL (3.4-5.0) Albumin/Globulin Ratio 0.4 (1.0-1.7) Vitamin B12 Level 377 pg/mL (247-911) Serum Folate 6.81 ng/ml (3.2-20.0) White Blood Count 4.2 x10^3/uL (4.0-11.0) 7.7 x10^3/uL (4.0-11.0) Red Blood Count 3.31 x10^6/uL (3.50-5.40) 3.32 x10^6/uL (3.50-5.40) Hemoglobin 8.9 g/dL (12.0-15.5) 9.0 g/dL (12.0-15.5) Hematocrit 27.8 % (36.0-47.0) 27.5 % (36.0-47.0) Mean Corpuscular Volume 84 fL (79-100) 83 fL (79-100) Mean Corpuscular Hemoglobin 27 pg (25-35) 27 pg (25-35) Mean Corpuscular Hemoglobin Concent 32 g/dL (31-37) 33 g/dL (31-37) Red Cell Distribution Width 16.2 % (11.5-14.5) 16.4 % (11.5-14.5) Platelet Count 225 x10^3/uL (140-400) 221 x10^3/uL (140-400) Neutrophils (%) (Auto) 34 % (31-73) 50 % (31-73) Lymphocytes (%) (Auto) 25 % (24-48) 22 % (24-48) Monocytes (%) (Auto) 23 % (0-9) 15 % (0-9) Eosinophils (%) (Auto) 18 % (0-3) 12 % (0-3) Basophils (%) (Auto) 1 % (0-3) 1 % (0-3) Neutrophils # (Auto) 1.4 x10^3uL (1.8-7.7) 3.8 x10^3uL (1.8-7.7) Lymphocytes # (Auto) 1.1 x10^3/uL (1.0-4.8) 1.7 x10^3/uL (1.0-4.8) Monocytes # (Auto) 1.0 x10^3/uL (0.0-1.1) 1.2 x10^3/uL (0.0-1.1) Eosinophils # (Auto) 0.7 x10^3/uL (0.0-0.7) 0.9 x10^3/uL (0.0-0.7) Basophils # (Auto) 0.0 x10^3/uL (0.0-0.2) 0.1 x10^3/uL (0.0-0.2) Segmented Neutrophils % 12 % (35-66) 21 % (35-66) Band Neutrophils % 23 % (0-9) 19 % (0-9) Lymphocytes % 28 % (24-48) 29 % (24-48) Monocytes % 14 % (0-10) 14 % (0-10) Eosinophils % 18 % (0-5) 9 % (0-5) Basophils % 2 % (0-3) Myelocytes % 2 % (0-0) 4 % (0-0) Promyelocytes % 1 % (0-0) 1 % (0-0) Toxic Granulation Slight Toxic Vacuolation Slight Platelet Estimate Adequate (ADEQUATE) Adequate (ADEQUATE) Giant Platelets Few Polychromasia Slight Slight Hypochromasia Mod Anisocytosis Slight Slight Stomatocytes Mod Reticulocyte Count (auto) 2.0 % (0.5-2.5) Metamyelocytes % 3 % (0-0) Vancomycin Level Trough 24.8 mcg/mL (10.0-20.0) Vancomycin Last Dose Date 02/22/17 Vancomycin Last Dose Time 1900 Test 02/24/17 05:15 White Blood Count 8.4 x10^3/uL (4.0-11.0) Red Blood Count 3.42 x10^6/uL (3.50-5.40) Hemoglobin 9.1 g/dL (12.0-15.5) Hematocrit 29.0 % (36.0-47.0) Mean Corpuscular Volume 85 fL (79-100) Mean Corpuscular Hemoglobin 27 pg (25-35) Mean Corpuscular Hemoglobin Concent 31 g/dL (31-37) Red Cell Distribution Width 16.6 % (11.5-14.5) Platelet Count 227 x10^3/uL (140-400) Neutrophils (%) (Auto) 63 % (31-73) Lymphocytes (%) (Auto) 16 % (24-48) Monocytes (%) (Auto) 12 % (0-9) Eosinophils (%) (Auto) 9 % (0-3) Basophils (%) (Auto) 1 % (0-3) Neutrophils # (Auto) 5.2 x10^3uL (1.8-7.7) Lymphocytes # (Auto) 1.4 x10^3/uL (1.0-4.8) Monocytes # (Auto) 1.0 x10^3/uL (0.0-1.1) Eosinophils # (Auto) 0.7 x10^3/uL (0.0-0.7) Basophils # (Auto) 0.1 x10^3/uL (0.0-0.2) Sodium Level 141 mmol/L (136-145) Potassium Level 3.3 mmol/L (3.5-5.1) Chloride Level 95 mmol/L (98-107) Carbon Dioxide Level 45 mmol/L (21-32) Anion Gap 1 (6-14) Blood Urea Nitrogen 20 mg/dL (7-20) Creatinine 1.3 mg/dL (0.6-1.0) Estimated GFR (Cockcroft-Gault) 41.2 Glucose Level 97 mg/dL (70-99) Calcium Level 8.7 mg/dL (8.5-10.1) Laboratory Tests Test 02/23/17 19:40 02/24/17 05:15 Creatinine 1.5 mg/dL (0.6-1.0) 1.3 mg/dL (0.6-1.0) Estimated GFR (Cockcroft-Gault) 35.0 41.2 Vancomycin Level Trough 24.8 mcg/mL (10.0-20.0) Vancomycin Last Dose Date 02/22/17 Vancomycin Last Dose Time 1900 White Blood Count 8.4 x10^3/uL (4.0-11.0) Red Blood Count 3.42 x10^6/uL (3.50-5.40) Hemoglobin 9.1 g/dL (12.0-15.5) Hematocrit 29.0 % (36.0-47.0) Mean Corpuscular Volume 85 fL (79-100) Mean Corpuscular Hemoglobin 27 pg (25-35) Mean Corpuscular Hemoglobin Concent 31 g/dL (31-37) Red Cell Distribution Width 16.6 % (11.5-14.5) Platelet Count 227 x10^3/uL (140-400) Neutrophils (%) (Auto) 63 % (31-73) Lymphocytes (%) (Auto) 16 % (24-48) Monocytes (%) (Auto) 12 % (0-9) Eosinophils (%) (Auto) 9 % (0-3) Basophils (%) (Auto) 1 % (0-3) Neutrophils # (Auto) 5.2 x10^3uL (1.8-7.7) Lymphocytes # (Auto) 1.4 x10^3/uL (1.0-4.8) Monocytes # (Auto) 1.0 x10^3/uL (0.0-1.1) Eosinophils # (Auto) 0.7 x10^3/uL (0.0-0.7) Basophils # (Auto) 0.1 x10^3/uL (0.0-0.2) Sodium Level 141 mmol/L (136-145) Potassium Level 3.3 mmol/L (3.5-5.1) Chloride Level 95 mmol/L (98-107) Carbon Dioxide Level 45 mmol/L (21-32) Anion Gap 1 (6-14) Blood Urea Nitrogen 20 mg/dL (7-20) Glucose Level 97 mg/dL (70-99) Calcium Level 8.7 mg/dL (8.5-10.1) Medications Active Scripts Medications Dose Route/Sig Max Daily Dose Days Date Category Dose Instructions Tramadol Hcl 50 Mg Tablet 2 Tab PO PRN Q6HRS 02/17/17 Reported Ferrous Sulfate 325 Mg Tablet 1 Tab PO BID 30 01/02/17 Reported LAST DOSE GIVEN: DATE:01/02/17 TIME:9:00 a.m Diclofenac Sodium 75 Mg Tablet.dr 75 Mg PO BID 11/10/16 Reported Meds not given this hospital admission. May resume home medications as approved by Physician. Impression . 1. [id number] hypoxemic/ hypercapnic respiratory failure.( marilyn/ohs/ COPD / Diastolic HF) 2. Acute diastolic heart failure. 3. Leukopenia. 4. Recent total knee arthroplasty with traumatic wound dehiscence. 5. Abnormal x-ray compatible with acute pulmonary edema. 6. Morbid obesity. 7. Chronic anemia. 8. Protein malnutrition, present upon admission. Plan . RESP STATUS IS COMPENSATED BIPAP QHS/ PT HAS HOME CPAP AND USES O2 QHS MAY NEED 6 MIN WALK TO ASSESS NEED FOR DAYTIME O2 HOME WHEN OK WITH OTHERS SERVICES, WOUND CARE ANTIBX PER ID NEBS DVT PROPH FIDELINA STUART MD Feb 24, 2017 09:38
[2017-02-24 10:58] VITALS: BP 97/52
--- NOTE | 2017-02-24 12:33 | PATHOLOGY ---
PATHOLOGY REPORT * * * * * * * * FINAL DIAGNOSIS: Skin, left anterior thigh: - Superficial and mid dermal perivascular and interstitial dermatitis (see comment). COMMENT: A PAS-D stain for fungus was performed, along with an appropriate positive control, and is negative. Sections show predominantly a superficial perivascular and interstitial dermatitis with neutrophils and eosinophils. A rare dyskeratotic keratinocyte is present within the overlying epidermis. The histopathologic differential diagnosis for this pattern of inflammation would include an early leukocytoclastic vasculitis versus an urticarial hypersensitivity reaction versus an early neutrophilic dermatosis such as Sweet's syndrome. Please correlate clinically. (SAS:pit; 02/24/2017) Special Stain: PASDF for fungus: Negative. REPORT ELECTRONICALLY SIGNED BY: Michelle Romero M.D., Dermatopathologist DATE/TIME: 02/24/2017 12:32 * * * * * * * * MICROSCOPIC DESCRIPTION: Multiple levels and additional requested deeper levels of a punch biopsy of skin show overlying hyperkeratosis with focal areas of parakeratosis. The epidermis is irregularly acanthotic with a rare dyskeratotic keratinocyte. There is a superficial and somewhat mid dermal perivascular and interstitial lymphohistiocytic inflammatory cell infiltrate with neutrophils, nuclear debris, eosinophils, and occasional extravasated erythrocytes. A PAS-D stain for fungus was performed and is negative. (SAS:pit; 02/24/2017) GROSS PATHOLOGY: Received in formalin labeled "Apolinar Delatorre, left thigh," is a punch biopsy measuring 0.3 x 0.3 x 0.4 cm in greatest dimensions. The epidermal surface is blue-mckeon, shiny, and flaky. The margin is inked, and the specimen is entirely submitted in cassette A1. (SDY; 02/20/2017) INITIAL CPT CODE(S): A; 76031, 56005 Professional services performed by [facility], [address] [address]. Technical services performed by [facility] at [address] [place] [id number]. SPECIMEN(S) RECEIVED: A.Punch biopsy left anterior thigh CLINICAL HISTORY: Acute respiratory failure, drug rash, admit with low WBC PATIENT: APOLINAR DELATORRE /AGE: 4 1950 (Age: 66) PATIENT #: [id number] ALT CASE #: SPECIMEN COLLECTION DATE: 02/19/2017 SPECIMEN RECEIVED DATE: 02/20/2017 [facility] - [id number] [place] [address] - PHONE: [phone] * * * END OF REPORT * * *
[2017-02-24] MEDS: FERROUS SULFATE 325 MG TABLET. PO SCH (13:20)
[2017-02-24] MEDS ORDERED: ALTEPLASE 2 MG VIAL INT CAT ONE (13:30)
[2017-02-24] MEDS ORDERED: ceFAZolin SODIUM 2 GM in IV DEXTROSE 5% 50 ML IV SCH (14:00)
--- NOTE | 2017-02-24 14:46 | PDOC ---
PROGRESS NOTES Subjective Subjective HPI - Severe neutropenia with elevated monocytes, is most likely a reactive process due to underlying infection. ROS - no fever Objective Objective Vital Signs Date Time Temp Pulse Resp B/P (MAP) Pulse Ox O2 Delivery O2 Flow Rate FiO2 02/24/17 13:47 22 96 Nasal Cannula 3.0 02/24/17 10:58 98.9 63 97/52 (67) 98.9 Physical Exam Heart: Normal S1, Normal S2 General: Alert, Oriented X3, No acute distress Lungs: Clear to auscultation Neuro: Normal speech Psych/Mental Status: Mental status NL Assessment Assessment Problems Medical Problems: (1) Acute congestive heart failure Status: Acute (2) Acute respiratory failure with hypoxia Status: Acute (3) COPD exacerbation Status: Acute IMPRESSION AND PLAN: 1. Severe neutropenia with elevated monocytes, is most likely a reactive process due to underlying infection. She has a wound VAC in place above the right knee. Other differential diagnosis would include a primary bone marrow disorder such as leukemia. Although this is unlikely, I would proceed with a bone marrow aspiration and biopsy in view of persistent neutropenia and persistent monocytosis - done 02/20/17. I discussed in detail with the patient and she understands and agrees with the plan. WBC better at 8.4. BM bx is negative for leukemia (I d/w pathologist DR Tirado). 2. Anemia, due to chronic disease. Continue to monitor. Hb 9.0. Low iron saturation. Ordered oral iron supplementation 3. History of right knee replacement. She has a wound VAC in the right thigh. Comment Review of Relevant I have reviewed the following items behzad (where applicable) has been applied. Labs Laboratory Tests Test 02/23/17 03:31 02/23/17 19:40 02/24/17 05:15 White Blood Count 7.7 x10^3/uL (4.0-11.0) 8.4 x10^3/uL (4.0-11.0) Red Blood Count 3.32 x10^6/uL (3.50-5.40) 3.42 x10^6/uL (3.50-5.40) Hemoglobin 9.0 g/dL (12.0-15.5) 9.1 g/dL (12.0-15.5) Hematocrit 27.5 % (36.0-47.0) 29.0 % (36.0-47.0) Mean Corpuscular Volume 83 fL (79-100) 85 fL (79-100) Mean Corpuscular Hemoglobin 27 pg (25-35) 27 pg (25-35) Mean Corpuscular Hemoglobin Concent 33 g/dL (31-37) 31 g/dL (31-37) Red Cell Distribution Width 16.4 % (11.5-14.5) 16.6 % (11.5-14.5) Platelet Count 221 x10^3/uL (140-400) 227 x10^3/uL (140-400) Neutrophils (%) (Auto) 50 % (31-73) 63 % (31-73) Lymphocytes (%) (Auto) 22 % (24-48) 16 % (24-48) Monocytes (%) (Auto) 15 % (0-9) 12 % (0-9) Eosinophils (%) (Auto) 12 % (0-3) 9 % (0-3) Basophils (%) (Auto) 1 % (0-3) 1 % (0-3) Neutrophils # (Auto) 3.8 x10^3uL (1.8-7.7) 5.2 x10^3uL (1.8-7.7) Lymphocytes # (Auto) 1.7 x10^3/uL (1.0-4.8) 1.4 x10^3/uL (1.0-4.8) Monocytes # (Auto) 1.2 x10^3/uL (0.0-1.1) 1.0 x10^3/uL (0.0-1.1) Eosinophils # (Auto) 0.9 x10^3/uL (0.0-0.7) 0.7 x10^3/uL (0.0-0.7) Basophils # (Auto) 0.1 x10^3/uL (0.0-0.2) 0.1 x10^3/uL (0.0-0.2) Segmented Neutrophils % 21 % (35-66) Band Neutrophils % 19 % (0-9) Lymphocytes % 29 % (24-48) Monocytes % 14 % (0-10) Eosinophils % 9 % (0-5) Metamyelocytes % 3 % (0-0) Myelocytes % 4 % (0-0) Promyelocytes % 1 % (0-0) Platelet Estimate Adequate (ADEQUATE) Polychromasia Slight Anisocytosis Slight Creatinine 1.5 mg/dL (0.6-1.0) 1.3 mg/dL (0.6-1.0) Estimated GFR (Cockcroft-Gault) 35.0 41.2 Vancomycin Level Trough 24.8 mcg/mL (10.0-20.0) Vancomycin Last Dose Date 02/22/17 Vancomycin Last Dose Time 1900 Sodium Level 141 mmol/L (136-145) Potassium Level 3.3 mmol/L (3.5-5.1) Chloride Level 95 mmol/L (98-107) Carbon Dioxide Level 45 mmol/L (21-32) Anion Gap 1 (6-14) Blood Urea Nitrogen 20 mg/dL (7-20) Glucose Level 97 mg/dL (70-99) Calcium Level 8.7 mg/dL (8.5-10.1) Laboratory Tests Test 02/23/17 19:40 02/24/17 05:15 Creatinine 1.5 mg/dL (0.6-1.0) 1.3 mg/dL (0.6-1.0) Estimated GFR (Cockcroft-Gault) 35.0 41.2 Vancomycin Level Trough 24.8 mcg/mL (10.0-20.0) Vancomycin Last Dose Date 02/22/17 Vancomycin Last Dose Time 1900 White Blood Count 8.4 x10^3/uL (4.0-11.0) Red Blood Count 3.42 x10^6/uL (3.50-5.40) Hemoglobin 9.1 g/dL (12.0-15.5) Hematocrit 29.0 % (36.0-47.0) Mean Corpuscular Volume 85 fL (79-100) Mean Corpuscular Hemoglobin 27 pg (25-35) Mean Corpuscular Hemoglobin Concent 31 g/dL (31-37) Red Cell Distribution Width 16.6 % (11.5-14.5) Platelet Count 227 x10^3/uL (140-400) Neutrophils (%) (Auto) 63 % (31-73) Lymphocytes (%) (Auto) 16 % (24-48) Monocytes (%) (Auto) 12 % (0-9) Eosinophils (%) (Auto) 9 % (0-3) Basophils (%) (Auto) 1 % (0-3) Neutrophils # (Auto) 5.2 x10^3uL (1.8-7.7) Lymphocytes # (Auto) 1.4 x10^3/uL (1.0-4.8) Monocytes # (Auto) 1.0 x10^3/uL (0.0-1.1) Eosinophils # (Auto) 0.7 x10^3/uL (0.0-0.7) Basophils # (Auto) 0.1 x10^3/uL (0.0-0.2) Sodium Level 141 mmol/L (136-145) Potassium Level 3.3 mmol/L (3.5-5.1) Chloride Level 95 mmol/L (98-107) Carbon Dioxide Level 45 mmol/L (21-32) Anion Gap 1 (6-14) Blood Urea Nitrogen 20 mg/dL (7-20) Glucose Level 97 mg/dL (70-99) Calcium Level 8.7 mg/dL (8.5-10.1) Microbiology 02/17/17 Blood Culture - Final, Complete NO GROWTH AFTER 5 DAYS 02/19/17 Gram Stain - Final, Complete Medications Current Medications Albuterol Sulfate (Ventolin Neb Soln) 10 mg 1X ONCE CONT NEB Last administered on 02/17/17 12:37; Start 02/17/17 at 12:30; Stop 02/17/17 at 12 :36; Status DC Ipratropium [place] (Atrovent) 0.5 mg 1X ONCE NEB Last administered on 12:37; Start 02/17/17 at 12:30; Stop 02/17/17 at 12:36; Status DC Methylprednisolone Sodium Succinate (SOLU-Medrol 125MG VIAL) 125 mg 1X ONCE IV Last administered on 02/17/17 12:52; Start 02/17/17 at 12:30; Stop at 12:36; Status DC Albuterol Sulfate (Ventolin Neb Soln) 2.5 mg STK-MED ONCE .ROUTE ; Start at 12:33; Stop 02/17/17 at 12:34; Status DC Albuterol/ Ipratropium (Duoneb) 3 ml STK-MED ONCE .ROUTE ; Start 02/17/17 at 12 :33; Stop 02/17/17 at 12:34; Status DC Furosemide (Lasix) 40 mg 1X ONCE IVP Last administered on 02/17/17 15:21; Start 02/17/17 at 13:45; Stop 02/17/17 at 13:46; Status DC Cefepime HCl 2 gm/ Sodium Chloride 100 ml @ 200 mls/hr Q8HRS IV ; Start at 23:00; Stop 02/17/17 at 23:00; Status DC Levofloxacin/ Dextrose 150 ml @ 100 mls/hr 1X ONCE IV Last administered on 14:15; Start 02/17/17 at 14:15; Stop 02/17/17 at 15:44; Status DC Cefepime HCl 2 gm/ Dextrose 100 ml @ 200 mls/hr 1X ONCE IV ; Start 02/17/17 at 14:15; Stop 02/17/17 at 14:44; Status Cancel Ondansetron HCl (Zofran) 4 mg PRN Q8HRS PRN IV NAUSEA/VOMITING; Start at 15:00; Stop 02/18/17 at 14:59; Status DC Albuterol/ Ipratropium (Duoneb) 3 ml RTQID NEB Last administered on 02/18/17 19:11; Start 02/17/17 at 16:00; Stop 02/18/17 at 15:59; Status DC Furosemide (Lasix) 40 mg BID92 IVP Last administered on 02/24/17 14:20; Start 02/18/17 at 09:00 Cefepime HCl 2 gm/ Sodium Chloride 100 ml @ 200 mls/hr 1X ONCE IV Last administered on 02/17/17 15:15; Start 02/17/17 at 15:15; Stop 02/17/17 at 15 :44; Status DC Vancomycin HCl 2 gm/Sodium Chloride 500 ml @ 250 mls/hr 1X ONCE IV Last administered on 02/17/17 16:58; Start 02/17/17 at 16:00; Stop 02/17/17 at 17 :59; Status DC Micafungin Sodium 100 mg/Dextrose 100 ml @ 100 mls/hr Q24H IV Last administered on 02/23/17 21:39; Start 02/17/17 at 19:00 Vancomycin HCl (Vanco Per Pharmacy) 1 each PRN DAILY PRN MC SEE COMMENTS Last administered on 02/23/17 20:48; Start 02/18/17 at 07:15; Stop 02/24/17 at 09 :38; Status DC Levofloxacin/ Dextrose 100 ml @ 100 mls/hr Q24H IV Last administered on 12:46; Start 02/18/17 at 14:00; Stop 02/19/17 at 10:01; Status DC Vancomycin HCl 2 gm/Dextrose 500 ml @ 250 mls/hr Q12H IV Last administered on 02/18/17 21:41; Start 02/18/17 at 08:00; Stop 02/19/17 at 10:19; Status DC Lactobacillus Rhamnosus (Culturelle) 1 cap BID PO Last administered on 08:27; Start 02/18/17 at 09:00 Multivitamins (Thera M Plus) 1 tab DAILY PO Last administered on 02/24/17 08: 26; Start 02/18/17 at 11:00 Ascorbic Acid (Vitamin C) 500 mg DAILY PO Last administered on 02/24/17 08:27 ; Start 02/18/17 at 11:00 Vancomycin HCl 1 each 1X ONCE MC Last administered on 02/19/17 07:30; Start 02/19/17 at 07:30; Stop 02/19/17 at 07:31; Status DC Albuterol/ Ipratropium (Duoneb) 3 ml RTQID NEB Last administered on 02/24/17 11:36; Start 02/18/17 at 20:30 Alteplase, Recombinant 10 mg/ Sodium Chloride 100 ml @ 10 mls/hr 1X ONCE IV ; Start 02/19/17 at 06:00; Stop 02/19/17 at 15:59; Status UNV Alteplase, Recombinant (Cathflo) 2 mg 1X ONCE INT CAT Last administered on 06:05; Start 02/19/17 at 06:30; Stop 02/19/17 at 06:31; Status DC Levofloxacin (Levaquin) 500 mg DAILY06 PO Last administered on 02/24/17 05:15 ; Start 02/19/17 at 14:00; Stop 02/24/17 at 09:38; Status DC Vancomycin HCl 1.25 gm/Dextrose 250 ml @ 167 mls/hr Q12H IV Last administered on 02/20/17 18:15; Start 02/19/17 at 17:00; Stop 02/21/17 at 06:37; Status DC Vancomycin HCl 1 each 1X ONCE MC Last administered on 02/21/17 04:30; Start 02/21/17 at 04:30; Stop 02/21/17 at 04:31; Status DC Tramadol HCl (Ultram) 100 mg PRN Q6HRS PRN PO PAIN Last administered on 13:47; Start 02/19/17 at 18:45 Lidocaine/Sodium Bicarbonate (Buffered Lidocaine 1%) 20 ml STK-MED ONCE IJ ; Start 02/20/17 at 14:37; Stop 02/20/17 at 14:38; Status DC Fentanyl Citrate (Fentanyl 2ml Vial) 100 mcg STK-MED ONCE .ROUTE ; Start at 14:37; Stop 02/20/17 at 14:38; Status DC Midazolam HCl (Versed) 2 mg STK-MED ONCE .ROUTE ; Start 02/20/17 at 14:37; Stop 02/20/17 at 14:38; Status DC Lidocaine/Sodium Bicarbonate (Buffered Lidocaine 1%) 20 ml 1X ONCE IJ Last administered on 02/20/17 15:09; Start 02/20/17 at 15:15; Stop 02/20/17 at 15 :16; Status DC Midazolam HCl (Versed) 2 mg 1X ONCE IV Last administered on 02/20/17 15:10; Start 02/20/17 at 15:15; Stop 02/20/17 at 15:16; Status DC Fentanyl Citrate (Fentanyl 2ml Vial) 100 mcg 1X ONCE IV Last administered on 02/20/17 15:10; Start 02/20/17 at 15:15; Stop 02/20/17 at 15:16; Status DC Vancomycin HCl 1.5 gm/Dextrose 500 ml @ 250 mls/hr Q24H IV Last administered on 02/22/17 19:26; Start 02/21/17 at 19:00; Stop 02/23/17 at 20:37; Status DC Vancomycin HCl 1 each 1X ONCE MC ; Start 02/23/17 at 18:30; Stop 02/23/17 at 18:31; Status DC Nystatin (Nystop) 1 tony BID TP Last administered on 02/23/17 21:40; Start at 21:30 Albuterol Sulfate (Ventolin Neb Soln) 2.5 mg PRN Q4HRS PRN NEB SHORTNESS OF BREATH Last administered on 02/22/17 03:35; Start 02/22/17 at 03:30 Potassium Chloride (Klor-Con) 20 meq DAILYWBKFT PO Last administered on 08:26; Start 02/23/17 at 09:00 Vancomycin HCl 1.5 gm/Dextrose 500 ml @ 250 mls/hr Q36H IV ; Start 02/24/17 at 07:00; Stop 02/24/17 at 07:00; Status DC Vancomycin HCl 1.75 gm/Dextrose 500 ml @ 250 mls/hr Q36H IV Last administered on 02/24/17 06:25; Start 02/24/17 at 07:00; Stop 02/24/17 at 09:38; Status DC Ferrous Sulfate (Feosol) 325 mg DAILYWBKFT PO Last administered on 02/24/17 13:20; Start 02/24/17 at 09:00 Cefazolin Sodium 2 gm/Dextrose 50 ml @ 100 mls/hr Q8HRS IV ; Start 02/24/17 at 14:00; Status UNV Cefazolin Sodium/ Dextrose 50 ml @ 100 mls/hr Q8HRS IV Last administered on 14:21; Start 02/24/17 at 14:00 Alteplase, Recombinant (Cathflo) 2 mg 1X ONCE INT CAT Last administered on 13:45; Start 02/24/17 at 13:30; Stop 02/24/17 at 13:31; Status DC Active Scripts Active Reported Tramadol Hcl 50 Mg Tablet 2 Tab PO PRN Q6HRS Ferrous Sulfate 325 Mg Tablet 1 Tab PO BID 30 Days LAST DOSE GIVEN: DATE:01/02/17 TIME:9:00 a.m Diclofenac Sodium 75 Mg Tablet.dr 75 Mg PO BID Meds not given this hospital admission. May resume home medications as approved by Physician. Vitals/I & O Vital Sign - Last 24 Hours 02/23/17 02/23/17 02/23/17 02/23/17 15:00 15:16 19:10 19:36 Temp 98.8 98.7 98.8 98.7 Pulse 75 70 Resp 19 18 B/P (MAP) 103/59 (74) 103/54 (70) Pulse Ox 92 91 92 O2 Delivery Nasal Cannula Nasal Cannula Nasal Cannula Nasal Cannula O2 Flow Rate 3.0 3.0 3.0 3.0 02/23/17 02/23/17 02/23/17 02/24/17 20:00 23:05 23:40 03:05 Temp 97.4 97.8 97.4 97.8 Pulse 66 73 Resp 18 20 B/P (MAP) 107/59 (75) 98/59 (72) Pulse Ox 96 94 O2 Delivery Nasal Cannula BiPAP/CPAP BiPAP/CPAP Nasal Cannula O2 Flow Rate 3.0 3.0 02/24/17 02/24/17 02/24/17 02/24/17 06:30 07:00 07:17 07:30 Temp 98.6 98.6 Pulse 63 Resp 18 20 B/P (MAP) 116/65 (82) Pulse Ox 98 96 96 O2 Delivery Nasal Cannula Nasal Cannula Nasal Cannula Nasal Cannula O2 Flow Rate 3.0 3.0 3.0 3.0 02/24/17 02/24/17 02/24/17 02/24/17 08:00 10:58 11:37 13:47 Temp 98.9 98.9 Pulse 63 Resp 20 22 B/P (MAP) 97/52 (67) Pulse Ox 98 96 96 O2 Delivery Nasal Cannula Nasal Cannula Nasal Cannula Nasal Cannula O2 Flow Rate 3.0 3.0 3.0 3.0 CANDICE NAVA MD Feb 24, 2017 14:46
[2017-02-24 15:00] VITALS: BP 91/52
[2017-02-24 19:05] VITALS: BP 101/50
[2017-02-24] MEDS ORDERED: IPRATRPIUM/ALBUTEROL 0.5/2.5MG 3 ML NEBU. ONE (19:16)
[2017-02-24] MEDS: MICAFUNGIN 100 MG in IV DEXTROSE 5% 100 ML IV SCH (20:04)
[2017-02-24 23:05] VITALS: BP 98/54
[2017-02-25] MEDS: traMADol 50 MG TABLET PO PRN ×4 (00:28→20:22)
[2017-02-25 03:10] VITALS: BP 108/52
[2017-02-25 06:28] LABS: BASO # 0.1 x10^3/uL (0.0-0.2); BASO % 1 % (0-3); EOS % 5 % (0-3); HEMATOCRIT 29.3 % (36.0-47.0); HEMOGLOBIN 9.5 g/dL (12.0-15.5); LYMPH # 1.3 x10^3/uL (1.0-4.8); LYMPH % 14 % (24-48); MEAN CORPUSCULAR HEMOGLOBIN 27 pg (25-35); MEAN CORPUSCULAR HGB CONC 32 g/dL (31-37); MEAN CORPUSCULAR VOLUME 83 fL (79-100); MONO % 6 % (0-9); NEUT % 75 % (31-73); PLATELET COUNT 267 x10^3/uL (140-400); RED BLOOD COUNT 3.53 x10^6/uL (3.50-5.40); RED CELL DISTRIBUTION WIDTH 16.6 % (11.5-14.5); WHITE BLOOD COUNT 9.7 x10^3/uL (4.0-11.0)
[2017-02-25 06:51] LABS: CALCIUM 9.1 mg/dL (8.5-10.1); CREATININE 1.6 mg/dL (0.6-1.0); GFR 32.5; POTASSIUM 3.4 mmol/L (3.5-5.1)
[2017-02-25] MEDS: IPRATRPIUM/ALBUTEROL 0.5/2.5MG 3 ML NEBU. NEB SCH ×4 (07:19→20:56)
[2017-02-25 07:48] VITALS: BP 110/71
--- NOTE | 2017-02-25 07:59 | PDOC ---
GENERAL General: see discharge summary. Problems: VITAL SIGNS Vital Signs: Vital Signs Date Time Temp Pulse Resp B/P (MAP) Pulse Ox O2 Delivery O2 Flow Rate FiO2 02/25/17 07:48 98.5 68 18 110/71 (84) 93 BiPAP/CPAP 98.5 02/25/17 07:35 3.0 ALLERGIES Allergies: Allergies Coded Allergies Type Severity Reaction Last Updated Verified No Known Drug Allergies 01/28/17 No MEDS Medications: Current Medications Medications (Trade) Dose Ordered Sig/Jayson Start Time Stop Time Status Last Admin Dose Admin Albuterol Sulfate (Ventolin Neb Soln) 2.5 mg PRN Q4HRS PRN 02/22/17 03:30 02/22/17 03:35 2.5 MG Albuterol/ Ipratropium (Duoneb) 3 ml STK-MED ONCE 02/24/17 19:16 02/24/17 19:17 DC Alteplase, Recombinant (Cathflo) 2 mg 1X ONCE 02/24/17 13:30 02/24/17 13:31 DC 02/24/17 13:45 2 MG Alteplase, Recombinant 10 mg/ Sodium Chloride 100 ml @ 10 mls/hr 1X ONCE 02/19/17 06:00 02/19/17 15:59 UNV Ascorbic Acid (Vitamin C) 500 mg DAILY 02/18/17 11:00 02/24/17 08:27 500 MG Cefazolin Sodium 2 gm/Dextrose 50 ml @ 100 mls/hr Q8HRS 02/24/17 14:00 UNV Cefazolin Sodium/ Dextrose 50 ml @ 100 mls/hr Q8HRS 02/24/17 14:00 02/25/17 06:15 100 MLS/HR Cefepime HCl 2 gm/ Dextrose 100 ml @ 200 mls/hr 1X ONCE 02/17/17 14:15 02/17/17 14:44 Cancel Cefepime HCl 2 gm/ Sodium Chloride 100 ml @ 200 mls/hr 1X ONCE 02/17/17 15:15 02/17/17 15:44 DC 02/17/17 15:15 200 MLS/HR Fentanyl Citrate (Fentanyl 2ml Vial) 100 mcg 1X ONCE 02/20/17 15:15 02/20/17 15:16 DC 02/20/17 15:10 50 MCG Ferrous Sulfate (Feosol) 325 mg DAILYWBKFT 02/24/17 09:00 02/24/17 13:20 325 MG Furosemide (Lasix) 40 mg BID92 02/18/17 09:00 02/24/17 14:20 40 MG Ipratropium [place] (Atrovent) 0.5 mg 1X ONCE 02/17/17 12:30 02/17/17 12:36 DC 02/17/17 12:37 0.5 MG Lactobacillus Rhamnosus (Culturelle) 1 cap BID 02/18/17 09:00 02/24/17 20:04 1 CAP Levofloxacin (Levaquin) 500 mg DAILY06 02/19/17 14:00 02/24/17 09:38 DC 02/24/17 05:15 500 MG Levofloxacin/ Dextrose 100 ml @ 100 mls/hr Q24H 02/18/17 14:00 02/19/17 10:01 DC 02/18/17 12:46 100 MLS/HR Lidocaine/Sodium Bicarbonate (Buffered Lidocaine 1%) 20 ml 1X ONCE 02/20/17 15:15 02/20/17 15:16 DC 02/20/17 15:09 7 ML Methylprednisolone Sodium Succinate (SOLU-Medrol 125MG VIAL) 125 mg 1X ONCE 02/17/17 12:30 02/17/17 12:36 DC 02/17/17 12:52 125 MG Micafungin Sodium 100 mg/Dextrose 100 ml @ 100 mls/hr Q24H 02/17/17 19:00 02/24/17 20:04 100 MLS/HR Midazolam HCl (Versed) 2 mg 1X ONCE 02/20/17 15:15 02/20/17 15:16 DC 02/20/17 15:10 2 MG Multivitamins (Thera M Plus) 1 tab DAILY 02/18/17 11:00 02/24/17 08:26 1 TAB Nystatin (Nystop) 1 tony BID 02/21/17 21:30 02/24/17 20:04 1 TONY Ondansetron HCl (Zofran) 4 mg PRN Q8HRS PRN 02/17/17 15:00 02/18/17 14:59 DC Potassium Chloride (Klor-Con) 20 meq DAILYWBKFT 02/23/17 09:00 02/24/17 08:26 20 MEQ Tramadol HCl (Ultram) 100 mg PRN Q6HRS PRN 02/19/17 18:45 02/25/17 06:26 100 MG Vancomycin HCl (Vanco Per Pharmacy) 1 each PRN DAILY PRN 02/18/17 07:15 02/24/17 09:38 DC 02/23/17 20:48 1 EACH Vancomycin HCl 1.25 gm/Dextrose 250 ml @ 167 mls/hr Q12H 02/19/17 17:00 02/21/17 06:37 DC 02/20/17 18:15 167 MLS/HR Vancomycin HCl 1.5 gm/Dextrose 500 ml @ 250 mls/hr Q36H 02/24/17 07:00 02/24/17 07:00 DC Vancomycin HCl 1.75 gm/Dextrose 500 ml @ 250 mls/hr Q36H 02/24/17 07:00 02/24/17 09:38 DC 02/24/17 06:25 250 MLS/HR Vancomycin HCl 2 gm/Dextrose 500 ml @ 250 mls/hr Q12H 02/18/17 08:00 02/19/17 10:19 DC 02/18/17 21:41 250 MLS/HR Vancomycin HCl 2 gm/Sodium Chloride 500 ml @ 250 mls/hr 1X ONCE 02/17/17 16:00 02/17/17 17:59 DC 02/17/17 16:58 250 MLS/HR LAB Lab: Laboratory Tests Test 02/25/17 06:20 White Blood Count 9.7 x10^3/uL (4.0-11.0) Red Blood Count 3.53 x10^6/uL (3.50-5.40) Hemoglobin 9.5 g/dL (12.0-15.5) Hematocrit 29.3 % (36.0-47.0) Mean Corpuscular Volume 83 fL (79-100) Mean Corpuscular Hemoglobin 27 pg (25-35) Mean Corpuscular Hemoglobin Concent 32 g/dL (31-37) Red Cell Distribution Width 16.6 % (11.5-14.5) Platelet Count 267 x10^3/uL (140-400) Neutrophils (%) (Auto) 75 % (31-73) Lymphocytes (%) (Auto) 14 % (24-48) Monocytes (%) (Auto) 6 % (0-9) Eosinophils (%) (Auto) 5 % (0-3) Basophils (%) (Auto) 1 % (0-3) Neutrophils # (Auto) 7.3 x10^3uL (1.8-7.7) Lymphocytes # (Auto) 1.3 x10^3/uL (1.0-4.8) Monocytes # (Auto) 0.6 x10^3/uL (0.0-1.1) Eosinophils # (Auto) 0.5 x10^3/uL (0.0-0.7) Basophils # (Auto) 0.1 x10^3/uL (0.0-0.2) Sodium Level 138 mmol/L (136-145) Potassium Level 3.4 mmol/L (3.5-5.1) Chloride Level 93 mmol/L (98-107) Carbon Dioxide Level 42 mmol/L (21-32) Anion Gap 3 (6-14) Blood Urea Nitrogen 21 mg/dL (7-20) Creatinine 1.6 mg/dL (0.6-1.0) Estimated GFR (Cockcroft-Gault) 32.5 Glucose Level 103 mg/dL (70-99) Calcium Level 9.1 mg/dL (8.5-10.1) APPLRAFAEL MD Feb 25, 2017 07:59
[2017-02-25] MEDS: FERROUS SULFATE 325 MG TABLET. PO SCH (08:12)
[2017-02-25] MEDS: LACTOBACILLUS RHAMNOSUS GG 1 CAPSULE. PO SCH ×2 (08:12→20:22)
[2017-02-25] MEDS: MULTIVITAMIN with MINERAL TABLET. PO SCH (08:13)
[2017-02-25] MEDS: POTASSIUM CHLORIDE 20 MEQ TABLET.ER. PO SCH (08:13)
[2017-02-25] MEDS: ASCORBIC ACID 500 MG TABLET PO SCH (08:13)
[2017-02-25] MEDS: FUROSEMIDE 40 MG/4 ML VIAL. IVP SCH ×2 (08:14→13:48)
[2017-02-25] MEDS: NYSTATIN TOPICAL POWDER 15GM BOTTLE. TP SCH ×2 (08:15→20:24)
--- NOTE | 2017-02-25 09:26 | DS ---
DATE OF DISCHARGE: 02/25/2017 DATE OF ADMISSION: 02/17/2017 DATE OF DISCHARGE: 02/25/2017 PRIMARY DIAGNOSIS: Severe drug reaction with leukopenia versus sepsis versus leukocytoclastic vasculitis versus Sweet syndrome. ADDITIONAL DIAGNOSES: Respiratory failure, chronic obstructive pulmonary disease, diastolic congestive heart failure, infected right knee wound, encephalopathy. CHIEF COMPLAINT AND HISTORY OF PRESENT ILLNESS: This is a 66-year-old white female who is well known to me from followup in the office. The patient was found by visiting nurse on the day of admission to be encephalopathic and hypoxic. Sent to the Emergency Room where she was hypoxic, placed on 12-liter nonrebreather mask. Had some initial respiratory acidosis with CO2 retention, was remedied by BiPAP. She was found to be leukopenic with a white count of 1800 and 25% neutrophils and petechial type rash on her lower extremity as well as torso. She had been taking IV Rocephin at home for infected right knee wound and was felt upon admission that this was either a septic picture versus a drug reaction. SUMMARY OF STAY: Skin biopsies were taken by Dermatology showing the differential diagnosis listed above. The Rocephin was stopped. She was switched to non-cephalosporin antibiotics as well as broad-spectrum coverage for possible sepsis during the stay. Her white count initially dropped further, but then had rebounded to normal by the time of discharge. O2 needs continued throughout the stay and plateaued at the 3 liter behzad, which she will be on at home and she has it for bedtime anyway and will need to be on 3 liters at this point in time. She was diuresed throughout the stay with improvement in her shortness of breath. ID wanted to put her back on cefazolin instead of Rocephin, to make sure she would not have a problem with that prior to discharge, which was done and she seemed to be not having any problems with this. With the thinking being that she would probably need to be on some long-term suppressive antibiotic therapy for the right knee wound and with the vancomycin there really was nothing that made any sense. She was finally felt ready for discharge then on 02/25/2017 and this was accomplished. DISPOSITION: The patient is discharged to home. DIET: Regular diet. ACTIVITY: As tolerated. FOLLOWUP: Office 2 weeks. Home health will resume services. Antibiotics will be switched from the daily Rocephin to cefazolin 3 times a day to complete the same course that we were planning on before, at that point in time, Keflex will likely be started on a chronic basis. We will check another CBC and CMP in a few days to make sure there is nothing going on allergy chester, although we are certainly not seeing anything in a 24-hour period and ID felt we would see it that soon if we were going to see something. RAFAEL CASTRO MD DR: PADDY/ilan JOB#: [id number] / [id number]
--- NOTE | 2017-02-25 10:37 | PDOC ---
Infectious Disease Note Subjective Subjective Feeling alright Denies pain ROS ROS GEN: Denies fevers, chills, sweats HEENT: Denies blurred vision, sore throat CV: Denies chest pain RESP: Denies shortness of air, cough GI: Denies n/v/d NEURO: Denies confusion, dizziness MSK: Denies weakness, joint pain/swelling Vital Sign Vital Signs Vital Signs Date Time Temp Pulse Resp B/P (MAP) Pulse Ox O2 Delivery O2 Flow Rate FiO2 02/25/17 08:00 Nasal Cannula 3.0 02/25/17 07:48 98.5 68 18 110/71 (84) 93 98.5 Physical Exam PHYSICAL EXAM GENERAL: NAD, Alert HEENT: PERRL, OC/OP NECK: Supple, no JVD, no LN LUNGS: Clear HEART: S1S2, no gallop, no murmur ABD: Soft, NT, no organomegaly, no rebound EXT: No edema, no cyanosis,, wound seen, deep but clean, redness in lower knee still + [employer]: Alert, oriented x 3, no focal neurologic deficit SKIN: No rash IV: ok Labs Lab Laboratory Tests Test 02/25/17 06:20 White Blood Count 9.7 x10^3/uL (4.0-11.0) Red Blood Count 3.53 x10^6/uL (3.50-5.40) Hemoglobin 9.5 g/dL (12.0-15.5) Hematocrit 29.3 % (36.0-47.0) Mean Corpuscular Volume 83 fL (79-100) Mean Corpuscular Hemoglobin 27 pg (25-35) Mean Corpuscular Hemoglobin Concent 32 g/dL (31-37) Red Cell Distribution Width 16.6 % (11.5-14.5) Platelet Count 267 x10^3/uL (140-400) Neutrophils (%) (Auto) 75 % (31-73) Lymphocytes (%) (Auto) 14 % (24-48) Monocytes (%) (Auto) 6 % (0-9) Eosinophils (%) (Auto) 5 % (0-3) Basophils (%) (Auto) 1 % (0-3) Neutrophils # (Auto) 7.3 x10^3uL (1.8-7.7) Lymphocytes # (Auto) 1.3 x10^3/uL (1.0-4.8) Monocytes # (Auto) 0.6 x10^3/uL (0.0-1.1) Eosinophils # (Auto) 0.5 x10^3/uL (0.0-0.7) Basophils # (Auto) 0.1 x10^3/uL (0.0-0.2) Sodium Level 138 mmol/L (136-145) Potassium Level 3.4 mmol/L (3.5-5.1) Chloride Level 93 mmol/L (98-107) Carbon Dioxide Level 42 mmol/L (21-32) Anion Gap 3 (6-14) Blood Urea Nitrogen 21 mg/dL (7-20) Creatinine 1.6 mg/dL (0.6-1.0) Estimated GFR (Cockcroft-Gault) 32.5 Glucose Level 103 mg/dL (70-99) Calcium Level 9.1 mg/dL (8.5-10.1) Objective Assessment Fever -better Leukopenia - s/p Solu-Medrol times one 02/17. ? med related. Was normal last week in 7's. better. EOS elevated Rash - ? med related - better Acute on chronic hypercapnic failure Right knee wound. - h/o right TKA wound dehiscence, s/p exploration with irrigation, debridement right knee and closure 01/28 w/ MSSA & GBS growth. - s/p TKA place 12/30 Groin yeast rash on [place] Plan Plan of Care Vanc and Levoflox and avoid Beta - lactams to r/o cause of neutropenia/rash d/w ER 02/17//// d/w pt in detail, need better drug for knee and later will need chronic suppressive, cefazolin with different side chain then rocephine, will try, she feels comfortable with that, if she tolerates then will have better chronic suppressive option of kejunior, d/w dr Elias , and he is ok with this F/u labs and cultures Probiotics Wound vac D/w RN tolerating cefazolin well, will d/c on that, and f/u with me in 10 days ALONDRA NOBLES MD Feb 25, 2017 10:37
[2017-02-25 10:48] VITALS: BP 132/68
--- NOTE | 2017-02-25 12:10 | PDOC ---
PULMONARY PROGRESS NOTES Subjective no soa Vitals Vital Signs Date Time Temp Pulse Resp B/P (MAP) Pulse Ox O2 Delivery O2 Flow Rate FiO2 02/25/17 11:55 97 Nasal Cannula 3.0 02/25/17 10:48 98.4 72 18 132/68 (89) 98.4 ROS: No Nausea, No Chest Pain, No Abdominal Pain, No Increase Cough General: Alert Lungs: Clear Cardiovascular: S1, S2 Abdomen: Soft Neuro Exam: Alert Extremities: Other (EDEMA AND DRESSING OVE RIGHT KNEE) Skin: Warm Labs Laboratory Tests Test 02/23/17 19:40 02/24/17 05:15 02/25/17 06:20 Creatinine 1.5 mg/dL (0.6-1.0) 1.3 mg/dL (0.6-1.0) 1.6 mg/dL (0.6-1.0) Estimated GFR (Cockcroft-Gault) 35.0 41.2 32.5 Vancomycin Level Trough 24.8 mcg/mL (10.0-20.0) Vancomycin Last Dose Date 02/22/17 Vancomycin Last Dose Time 1900 White Blood Count 8.4 x10^3/uL (4.0-11.0) 9.7 x10^3/uL (4.0-11.0) Red Blood Count 3.42 x10^6/uL (3.50-5.40) 3.53 x10^6/uL (3.50-5.40) Hemoglobin 9.1 g/dL (12.0-15.5) 9.5 g/dL (12.0-15.5) Hematocrit 29.0 % (36.0-47.0) 29.3 % (36.0-47.0) Mean Corpuscular Volume 85 fL (79-100) 83 fL (79-100) Mean Corpuscular Hemoglobin 27 pg (25-35) 27 pg (25-35) Mean Corpuscular Hemoglobin Concent 31 g/dL (31-37) 32 g/dL (31-37) Red Cell Distribution Width 16.6 % (11.5-14.5) 16.6 % (11.5-14.5) Platelet Count 227 x10^3/uL (140-400) 267 x10^3/uL (140-400) Neutrophils (%) (Auto) 63 % (31-73) 75 % (31-73) Lymphocytes (%) (Auto) 16 % (24-48) 14 % (24-48) Monocytes (%) (Auto) 12 % (0-9) 6 % (0-9) Eosinophils (%) (Auto) 9 % (0-3) 5 % (0-3) Basophils (%) (Auto) 1 % (0-3) 1 % (0-3) Neutrophils # (Auto) 5.2 x10^3uL (1.8-7.7) 7.3 x10^3uL (1.8-7.7) Lymphocytes # (Auto) 1.4 x10^3/uL (1.0-4.8) 1.3 x10^3/uL (1.0-4.8) Monocytes # (Auto) 1.0 x10^3/uL (0.0-1.1) 0.6 x10^3/uL (0.0-1.1) Eosinophils # (Auto) 0.7 x10^3/uL (0.0-0.7) 0.5 x10^3/uL (0.0-0.7) Basophils # (Auto) 0.1 x10^3/uL (0.0-0.2) 0.1 x10^3/uL (0.0-0.2) Sodium Level 141 mmol/L (136-145) 138 mmol/L (136-145) Potassium Level 3.3 mmol/L (3.5-5.1) 3.4 mmol/L (3.5-5.1) Chloride Level 95 mmol/L (98-107) 93 mmol/L (98-107) Carbon Dioxide Level 45 mmol/L (21-32) 42 mmol/L (21-32) Anion Gap 1 (6-14) 3 (6-14) Blood Urea Nitrogen 20 mg/dL (7-20) 21 mg/dL (7-20) Glucose Level 97 mg/dL (70-99) 103 mg/dL (70-99) Calcium Level 8.7 mg/dL (8.5-10.1) 9.1 mg/dL (8.5-10.1) Laboratory Tests Test 02/25/17 06:20 White Blood Count 9.7 x10^3/uL (4.0-11.0) Red Blood Count 3.53 x10^6/uL (3.50-5.40) Hemoglobin 9.5 g/dL (12.0-15.5) Hematocrit 29.3 % (36.0-47.0) Mean Corpuscular Volume 83 fL (79-100) Mean Corpuscular Hemoglobin 27 pg (25-35) Mean Corpuscular Hemoglobin Concent 32 g/dL (31-37) Red Cell Distribution Width 16.6 % (11.5-14.5) Platelet Count 267 x10^3/uL (140-400) Neutrophils (%) (Auto) 75 % (31-73) Lymphocytes (%) (Auto) 14 % (24-48) Monocytes (%) (Auto) 6 % (0-9) Eosinophils (%) (Auto) 5 % (0-3) Basophils (%) (Auto) 1 % (0-3) Neutrophils # (Auto) 7.3 x10^3uL (1.8-7.7) Lymphocytes # (Auto) 1.3 x10^3/uL (1.0-4.8) Monocytes # (Auto) 0.6 x10^3/uL (0.0-1.1) Eosinophils # (Auto) 0.5 x10^3/uL (0.0-0.7) Basophils # (Auto) 0.1 x10^3/uL (0.0-0.2) Sodium Level 138 mmol/L (136-145) Potassium Level 3.4 mmol/L (3.5-5.1) Chloride Level 93 mmol/L (98-107) Carbon Dioxide Level 42 mmol/L (21-32) Anion Gap 3 (6-14) Blood Urea Nitrogen 21 mg/dL (7-20) Creatinine 1.6 mg/dL (0.6-1.0) Estimated GFR (Cockcroft-Gault) 32.5 Glucose Level 103 mg/dL (70-99) Calcium Level 9.1 mg/dL (8.5-10.1) Medications Active Scripts Medications Dose Route/Sig Max Daily Dose Days Date Category Dose Instructions Tramadol Hcl 50 Mg Tablet 2 Tab PO PRN Q6HRS 02/17/17 Reported Ferrous Sulfate 325 Mg Tablet 1 Tab PO BID 30 01/02/17 Reported LAST DOSE GIVEN: DATE:01/02/17 TIME:9:00 a.m Diclofenac Sodium 75 Mg Tablet.dr 75 Mg PO BID 11/10/16 Reported Meds not given this hospital admission. May resume home medications as approved by Physician. Impression . 1. Jbyvk-er-nvvkrky hypoxemic/ hypercapnic respiratory failure.( marilyn/ohs/ COPD / Diastolic HF) 2. Acute diastolic heart failure. 3. Leukopenia. 4. Recent total knee arthroplasty with traumatic wound dehiscence. 5. Abnormal x-ray compatible with acute pulmonary edema. 6. Morbid obesity. 7. Chronic anemia. 8. Protein malnutrition, present upon admission. Plan . RESP STATUS IS COMPENSATED BIPAP QHS/ PT HAS HOME CPAP AND USES O2 QHS MAY NEED 6 MIN WALK TO ASSESS NEED FOR DAYTIME O2 HOME WHEN OK WITH OTHERS SERVICES, WOUND CARE ANTIBX PER ID NEBS DVT PROPH FIDELINA STUART MD Feb 25, 2017 12:10
--- NOTE | 2017-02-25 13:07 | PDOC ---
PROGRESS NOTES Subjective Subjective HPI - Severe neutropenia with elevated monocytes, is most likely a reactive process due to underlying infection. ROS - no fever Objective Objective Vital Signs Date Time Temp Pulse Resp B/P (MAP) Pulse Ox O2 Delivery O2 Flow Rate FiO2 02/25/17 11:55 97 Nasal Cannula 3.0 02/25/17 10:48 98.4 72 18 132/68 (89) 98.4 Physical Exam Heart: Normal S1, Normal S2 General: Alert, Oriented X3, No acute distress Lungs: Clear to auscultation Neuro: Normal speech Psych/Mental Status: Mental status NL Assessment Assessment Problems Medical Problems: (1) Acute congestive heart failure Status: Acute (2) Acute respiratory failure with hypoxia Status: Acute (3) COPD exacerbation Status: Acute IMPRESSION AND PLAN: 1. Severe neutropenia with elevated monocytes, is most likely a reactive process due to underlying infection. She has a wound VAC in place above the right knee. Other differential diagnosis would include a primary bone marrow disorder such as leukemia. Although this is unlikely, I would proceed with a bone marrow aspiration and biopsy in view of persistent neutropenia and persistent monocytosis - done 02/20/17. I discussed in detail with the patient and she understands and agrees with the plan. WBC better at 9.7. BM bx is negative for leukemia (I d/w pathologist DR Tirado). 2. Anemia, due to chronic disease. Continue to monitor. Hb 9.5. Low iron saturation. Ordered oral iron supplementation 3. History of right knee replacement. She has a wound VAC in the right thigh. Comment Review of Relevant I have reviewed the following items behzad (where applicable) has been applied. Labs Laboratory Tests Test 02/23/17 19:40 02/24/17 05:15 02/25/17 06:20 Creatinine 1.5 mg/dL (0.6-1.0) 1.3 mg/dL (0.6-1.0) 1.6 mg/dL (0.6-1.0) Estimated GFR (Cockcroft-Gault) 35.0 41.2 32.5 Vancomycin Level Trough 24.8 mcg/mL (10.0-20.0) Vancomycin Last Dose Date 02/22/17 Vancomycin Last Dose Time 1900 White Blood Count 8.4 x10^3/uL (4.0-11.0) 9.7 x10^3/uL (4.0-11.0) Red Blood Count 3.42 x10^6/uL (3.50-5.40) 3.53 x10^6/uL (3.50-5.40) Hemoglobin 9.1 g/dL (12.0-15.5) 9.5 g/dL (12.0-15.5) Hematocrit 29.0 % (36.0-47.0) 29.3 % (36.0-47.0) Mean Corpuscular Volume 85 fL (79-100) 83 fL (79-100) Mean Corpuscular Hemoglobin 27 pg (25-35) 27 pg (25-35) Mean Corpuscular Hemoglobin Concent 31 g/dL (31-37) 32 g/dL (31-37) Red Cell Distribution Width 16.6 % (11.5-14.5) 16.6 % (11.5-14.5) Platelet Count 227 x10^3/uL (140-400) 267 x10^3/uL (140-400) Neutrophils (%) (Auto) 63 % (31-73) 75 % (31-73) Lymphocytes (%) (Auto) 16 % (24-48) 14 % (24-48) Monocytes (%) (Auto) 12 % (0-9) 6 % (0-9) Eosinophils (%) (Auto) 9 % (0-3) 5 % (0-3) Basophils (%) (Auto) 1 % (0-3) 1 % (0-3) Neutrophils # (Auto) 5.2 x10^3uL (1.8-7.7) 7.3 x10^3uL (1.8-7.7) Lymphocytes # (Auto) 1.4 x10^3/uL (1.0-4.8) 1.3 x10^3/uL (1.0-4.8) Monocytes # (Auto) 1.0 x10^3/uL (0.0-1.1) 0.6 x10^3/uL (0.0-1.1) Eosinophils # (Auto) 0.7 x10^3/uL (0.0-0.7) 0.5 x10^3/uL (0.0-0.7) Basophils # (Auto) 0.1 x10^3/uL (0.0-0.2) 0.1 x10^3/uL (0.0-0.2) Sodium Level 141 mmol/L (136-145) 138 mmol/L (136-145) Potassium Level 3.3 mmol/L (3.5-5.1) 3.4 mmol/L (3.5-5.1) Chloride Level 95 mmol/L (98-107) 93 mmol/L (98-107) Carbon Dioxide Level 45 mmol/L (21-32) 42 mmol/L (21-32) Anion Gap 1 (6-14) 3 (6-14) Blood Urea Nitrogen 20 mg/dL (7-20) 21 mg/dL (7-20) Glucose Level 97 mg/dL (70-99) 103 mg/dL (70-99) Calcium Level 8.7 mg/dL (8.5-10.1) 9.1 mg/dL (8.5-10.1) Laboratory Tests Test 02/25/17 06:20 White Blood Count 9.7 x10^3/uL (4.0-11.0) Red Blood Count 3.53 x10^6/uL (3.50-5.40) Hemoglobin 9.5 g/dL (12.0-15.5) Hematocrit 29.3 % (36.0-47.0) Mean Corpuscular Volume 83 fL (79-100) Mean Corpuscular Hemoglobin 27 pg (25-35) Mean Corpuscular Hemoglobin Concent 32 g/dL (31-37) Red Cell Distribution Width 16.6 % (11.5-14.5) Platelet Count 267 x10^3/uL (140-400) Neutrophils (%) (Auto) 75 % (31-73) Lymphocytes (%) (Auto) 14 % (24-48) Monocytes (%) (Auto) 6 % (0-9) Eosinophils (%) (Auto) 5 % (0-3) Basophils (%) (Auto) 1 % (0-3) Neutrophils # (Auto) 7.3 x10^3uL (1.8-7.7) Lymphocytes # (Auto) 1.3 x10^3/uL (1.0-4.8) Monocytes # (Auto) 0.6 x10^3/uL (0.0-1.1) Eosinophils # (Auto) 0.5 x10^3/uL (0.0-0.7) Basophils # (Auto) 0.1 x10^3/uL (0.0-0.2) Sodium Level 138 mmol/L (136-145) Potassium Level 3.4 mmol/L (3.5-5.1) Chloride Level 93 mmol/L (98-107) Carbon Dioxide Level 42 mmol/L (21-32) Anion Gap 3 (6-14) Blood Urea Nitrogen 21 mg/dL (7-20) Creatinine 1.6 mg/dL (0.6-1.0) Estimated GFR (Cockcroft-Gault) 32.5 Glucose Level 103 mg/dL (70-99) Calcium Level 9.1 mg/dL (8.5-10.1) Microbiology 02/17/17 Blood Culture - Final, Complete NO GROWTH AFTER 5 DAYS 02/19/17 Gram Stain - Final, Complete Medications Current Medications Albuterol Sulfate (Ventolin Neb Soln) 10 mg 1X ONCE CONT NEB Last administered on 02/17/17 12:37; Start 02/17/17 at 12:30; Stop 02/17/17 at 12 :36; Status DC Ipratropium [place] (Atrovent) 0.5 mg 1X ONCE NEB Last administered on 12:37; Start 02/17/17 at 12:30; Stop 02/17/17 at 12:36; Status DC Methylprednisolone Sodium Succinate (SOLU-Medrol 125MG VIAL) 125 mg 1X ONCE IV Last administered on 02/17/17 12:52; Start 02/17/17 at 12:30; Stop at 12:36; Status DC Albuterol Sulfate (Ventolin Neb Soln) 2.5 mg STK-MED ONCE .ROUTE ; Start at 12:33; Stop 02/17/17 at 12:34; Status DC Albuterol/ Ipratropium (Duoneb) 3 ml STK-MED ONCE .ROUTE ; Start 02/17/17 at 12 :33; Stop 02/17/17 at 12:34; Status DC Furosemide (Lasix) 40 mg 1X ONCE IVP Last administered on 02/17/17 15:21; Start 02/17/17 at 13:45; Stop 02/17/17 at 13:46; Status DC Cefepime HCl 2 gm/ Sodium Chloride 100 ml @ 200 mls/hr Q8HRS IV ; Start at 23:00; Stop 02/17/17 at 23:00; Status DC Levofloxacin/ Dextrose 150 ml @ 100 mls/hr 1X ONCE IV Last administered on 14:15; Start 02/17/17 at 14:15; Stop 02/17/17 at 15:44; Status DC Cefepime HCl 2 gm/ Dextrose 100 ml @ 200 mls/hr 1X ONCE IV ; Start 02/17/17 at 14:15; Stop 02/17/17 at 14:44; Status Cancel Ondansetron HCl (Zofran) 4 mg PRN Q8HRS PRN IV NAUSEA/VOMITING; Start at 15:00; Stop 02/18/17 at 14:59; Status DC Albuterol/ Ipratropium (Duoneb) 3 ml RTQID NEB Last administered on 02/18/17 19:11; Start 02/17/17 at 16:00; Stop 02/18/17 at 15:59; Status DC Furosemide (Lasix) 40 mg BID92 IVP Last administered on 02/25/17 08:14; Start 02/18/17 at 09:00 Cefepime HCl 2 gm/ Sodium Chloride 100 ml @ 200 mls/hr 1X ONCE IV Last administered on 02/17/17 15:15; Start 02/17/17 at 15:15; Stop 02/17/17 at 15 :44; Status DC Vancomycin HCl 2 gm/Sodium Chloride 500 ml @ 250 mls/hr 1X ONCE IV Last administered on 02/17/17 16:58; Start 02/17/17 at 16:00; Stop 02/17/17 at 17 :59; Status DC Micafungin Sodium 100 mg/Dextrose 100 ml @ 100 mls/hr Q24H IV Last administered on 02/24/17 20:04; Start 02/17/17 at 19:00 Vancomycin HCl (Vanco Per Pharmacy) 1 each PRN DAILY PRN MC SEE COMMENTS Last administered on 02/23/17 20:48; Start 02/18/17 at 07:15; Stop 02/24/17 at 09 :38; Status DC Levofloxacin/ Dextrose 100 ml @ 100 mls/hr Q24H IV Last administered on 12:46; Start 02/18/17 at 14:00; Stop 02/19/17 at 10:01; Status DC Vancomycin HCl 2 gm/Dextrose 500 ml @ 250 mls/hr Q12H IV Last administered on 02/18/17 21:41; Start 02/18/17 at 08:00; Stop 02/19/17 at 10:19; Status DC Lactobacillus Rhamnosus (Culturelle) 1 cap BID PO Last administered on 08:12; Start 02/18/17 at 09:00 Multivitamins (Thera M Plus) 1 tab DAILY PO Last administered on 02/25/17 08: 13; Start 02/18/17 at 11:00 Ascorbic Acid (Vitamin C) 500 mg DAILY PO Last administered on 02/25/17 08:13 ; Start 02/18/17 at 11:00 Vancomycin HCl 1 each 1X ONCE MC Last administered on 02/19/17 07:30; Start 02/19/17 at 07:30; Stop 02/19/17 at 07:31; Status DC Albuterol/ Ipratropium (Duoneb) 3 ml RTQID NEB Last administered on 02/25/17 11:50; Start 02/18/17 at 20:30 Alteplase, Recombinant 10 mg/ Sodium Chloride 100 ml @ 10 mls/hr 1X ONCE IV ; Start 02/19/17 at 06:00; Stop 02/19/17 at 15:59; Status UNV Alteplase, Recombinant (Cathflo) 2 mg 1X ONCE INT CAT Last administered on 06:05; Start 02/19/17 at 06:30; Stop 02/19/17 at 06:31; Status DC Levofloxacin (Levaquin) 500 mg DAILY06 PO Last administered on 02/24/17 05:15 ; Start 02/19/17 at 14:00; Stop 02/24/17 at 09:38; Status DC Vancomycin HCl 1.25 gm/Dextrose 250 ml @ 167 mls/hr Q12H IV Last administered on 02/20/17 18:15; Start 02/19/17 at 17:00; Stop 02/21/17 at 06:37; Status DC Vancomycin HCl 1 each 1X ONCE MC Last administered on 02/21/17 04:30; Start 02/21/17 at 04:30; Stop 02/21/17 at 04:31; Status DC Tramadol HCl (Ultram) 100 mg PRN Q6HRS PRN PO PAIN Last administered on 06:26; Start 02/19/17 at 18:45 Lidocaine/Sodium Bicarbonate (Buffered Lidocaine 1%) 20 ml STK-MED ONCE IJ ; Start 02/20/17 at 14:37; Stop 02/20/17 at 14:38; Status DC Fentanyl Citrate (Fentanyl 2ml Vial) 100 mcg STK-MED ONCE .ROUTE ; Start at 14:37; Stop 02/20/17 at 14:38; Status DC Midazolam HCl (Versed) 2 mg STK-MED ONCE .ROUTE ; Start 02/20/17 at 14:37; Stop 02/20/17 at 14:38; Status DC Lidocaine/Sodium Bicarbonate (Buffered Lidocaine 1%) 20 ml 1X ONCE IJ Last administered on 02/20/17 15:09; Start 02/20/17 at 15:15; Stop 02/20/17 at 15 :16; Status DC Midazolam HCl (Versed) 2 mg 1X ONCE IV Last administered on 02/20/17 15:10; Start 02/20/17 at 15:15; Stop 02/20/17 at 15:16; Status DC Fentanyl Citrate (Fentanyl 2ml Vial) 100 mcg 1X ONCE IV Last administered on 02/20/17 15:10; Start 02/20/17 at 15:15; Stop 02/20/17 at 15:16; Status DC Vancomycin HCl 1.5 gm/Dextrose 500 ml @ 250 mls/hr Q24H IV Last administered on 02/22/17 19:26; Start 02/21/17 at 19:00; Stop 02/23/17 at 20:37; Status DC Vancomycin HCl 1 each 1X ONCE MC ; Start 02/23/17 at 18:30; Stop 02/23/17 at 18:31; Status DC Nystatin (Nystop) 1 tony BID TP Last administered on 02/25/17 08:15; Start at 21:30 Albuterol Sulfate (Ventolin Neb Soln) 2.5 mg PRN Q4HRS PRN NEB SHORTNESS OF BREATH Last administered on 02/22/17 03:35; Start 02/22/17 at 03:30 Potassium Chloride (Klor-Con) 20 meq DAILYWBKFT PO Last administered on 08:13; Start 02/23/17 at 09:00 Vancomycin HCl 1.5 gm/Dextrose 500 ml @ 250 mls/hr Q36H IV ; Start 02/24/17 at 07:00; Stop 02/24/17 at 07:00; Status DC Vancomycin HCl 1.75 gm/Dextrose 500 ml @ 250 mls/hr Q36H IV Last administered on 02/24/17 06:25; Start 02/24/17 at 07:00; Stop 02/24/17 at 09:38; Status DC Ferrous Sulfate (Feosol) 325 mg DAILYWBKFT PO Last administered on 02/25/17 08 :12; Start 02/24/17 at 09:00 Cefazolin Sodium 2 gm/Dextrose 50 ml @ 100 mls/hr Q8HRS IV ; Start 02/24/17 at 14:00; Status UNV Cefazolin Sodium/ Dextrose 50 ml @ 100 mls/hr Q8HRS IV Last administered on 06:15; Start 02/24/17 at 14:00 Alteplase, Recombinant (Cathflo) 2 mg 1X ONCE INT CAT Last administered on 13:45; Start 02/24/17 at 13:30; Stop 02/24/17 at 13:31; Status DC Albuterol/ Ipratropium (Duoneb) 3 ml STK-MED ONCE .ROUTE ; Start 02/24/17 at 19 :16; Stop 02/24/17 at 19:17; Status DC Active Scripts Active Reported Tramadol Hcl 50 Mg Tablet 2 Tab PO PRN Q6HRS Ferrous Sulfate 325 Mg Tablet 1 Tab PO BID 30 Days LAST DOSE GIVEN: DATE:01/02/17 TIME:9:00 a.m Diclofenac Sodium 75 Mg Tablet.dr 75 Mg PO BID Meds not given this hospital admission. May resume home medications as approved by Physician. Vitals/I & O Vital Sign - Last 24 Hours 10/31/17 10/31/17 10/31/17 10/31/17 13:47 14:47 14:59 15:00 Temp 98.8 98.8 Pulse 73 Resp 22 22 20 B/P (MAP) 91/52 (65) Pulse Ox 96 96 99 O2 Delivery Nasal Cannula Nasal Cannula Nasal Cannula O2 Flow Rate 3.0 3.0 3.0 02/24/17 02/24/17 02/24/17 02/24/17 19:05 20:00 20:12 23:05 Temp 98.4 98.2 98.4 98.2 Pulse 68 69 Resp 20 18 B/P (MAP) 101/50 (67) 98/54 (69) Pulse Ox 94 95 95 O2 Delivery Nasal Cannula Nasal Cannula Nasal Cannula Nasal Cannula O2 Flow Rate 3.0 3.0 3.0 3.0 02/24/17 02/25/17 02/25/17 02/25/17 23:20 00:28 01:50 03:10 Temp 97.8 97.8 Pulse 66 Resp 18 B/P (MAP) 108/52 (70) Pulse Ox 99 95 O2 Delivery BiPAP/CPAP BiPAP/CPAP BiPAP/CPAP BiPAP/CPAP 02/25/17 02/25/17 02/25/17 02/25/17 03:36 05:31 06:26 07:20 Resp 17 Pulse Ox 95 96 O2 Delivery BiPAP/CPAP BiPAP/CPAP Nasal Cannula Nasal Cannula O2 Flow Rate 3.0 3.0 02/25/17 02/25/17 02/25/17 02/25/17 07:35 07:48 08:00 10:48 Temp 98.5 98.4 98.5 98.4 Pulse 68 72 Resp 18 18 B/P (MAP) 110/71 (84) 132/68 (89) Pulse Ox 96 93 95 O2 Delivery Nasal Cannula BiPAP/CPAP Nasal Cannula BiPAP/CPAP O2 Flow Rate 3.0 3.0 02/25/17 11:55 Pulse Ox 97 O2 Delivery Nasal Cannula O2 Flow Rate 3.0 CANDICE NAVA MD Feb 25, 2017 13:07
[2017-02-25 15:04] VITALS: BP 129/66
[2017-02-25 19:10] VITALS: BP 99/54
[2017-02-25] MEDS: diphenhydrAMINE HCL 25 MG CAPSULE PO PRN (20:22)
[2017-02-25] MEDS: MICAFUNGIN 100 MG in IV DEXTROSE 5% 100 ML IV SCH (20:23)
[2017-02-25 23:10] VITALS: BP 94/66
[2017-02-26 03:37] VITALS: BP 112/41
[2017-02-26] MEDS: traMADol 50 MG TABLET PO PRN ×3 (06:08→21:44)
[2017-02-26 07:00] VITALS: BP 107/59
[2017-02-26] MEDS: IPRATRPIUM/ALBUTEROL 0.5/2.5MG 3 ML NEBU. NEB SCH ×4 (07:46→19:47)
--- NOTE | 2017-02-26 08:28 | PDOC ---
GENERAL General: vss and afebrile. awake and alert. O2 at 3L/NC. dc held yesterday pm by ortho because of drainage/bleeding from knee incision per nursing. ortho may do further treatment on same today. exam stable. continue antibiotics. no obvious problems with cefazolin to date. Problems: VITAL SIGNS Vital Signs: Vital Signs Date Time Temp Pulse Resp B/P (MAP) Pulse Ox O2 Delivery O2 Flow Rate FiO2 02/26/17 07:50 98 Nasal Cannula 3.0 02/26/17 07:00 98.1 65 20 107/59 (75) 98.1 ALLERGIES Allergies: Allergies Coded Allergies Type Severity Reaction Last Updated Verified No Known Drug Allergies 01/28/17 No MEDS Medications: Current Medications Medications (Trade) Dose Ordered Sig/Jayson Start Time Stop Time Status Last Admin Dose Admin Albuterol Sulfate (Ventolin Neb Soln) 2.5 mg PRN Q4HRS PRN 02/22/17 03:30 02/22/17 03:35 2.5 MG Albuterol/ Ipratropium (Duoneb) 3 ml STK-MED ONCE 02/24/17 19:16 02/24/17 19:17 DC Alteplase, Recombinant (Cathflo) 2 mg 1X ONCE 02/24/17 13:30 02/24/17 13:31 DC 02/24/17 13:45 2 MG Alteplase, Recombinant 10 mg/ Sodium Chloride 100 ml @ 10 mls/hr 1X ONCE 02/19/17 06:00 02/19/17 15:59 UNV Ascorbic Acid (Vitamin C) 500 mg DAILY 02/18/17 11:00 02/25/17 08:13 500 MG Cefazolin Sodium 2 gm/Dextrose 50 ml @ 100 mls/hr Q8HRS 02/24/17 14:00 UNV Cefazolin Sodium/ Dextrose 50 ml @ 100 mls/hr Q8HRS 02/24/17 14:00 02/26/17 06:05 100 MLS/HR Cefepime HCl 2 gm/ Dextrose 100 ml @ 200 mls/hr 1X ONCE 02/17/17 14:15 02/17/17 14:44 Cancel Cefepime HCl 2 gm/ Sodium Chloride 100 ml @ 200 mls/hr 1X ONCE 02/17/17 15:15 02/17/17 15:44 DC 02/17/17 15:15 200 MLS/HR Diphenhydramine HCl (Benadryl) 50 mg PRN Q6HRS PRN 02/25/17 18:15 02/25/17 20:22 50 MG Fentanyl Citrate (Fentanyl 2ml Vial) 100 mcg 1X ONCE 02/20/17 15:15 02/20/17 15:16 DC 02/20/17 15:10 50 MCG Ferrous Sulfate (Feosol) 325 mg DAILYWBKFT 02/24/17 09:00 02/25/17 08:12 325 MG Furosemide (Lasix) 40 mg BID92 02/18/17 09:00 02/25/17 13:48 40 MG Ipratropium [place] (Atrovent) 0.5 mg 1X ONCE 02/17/17 12:30 02/17/17 12:36 DC 02/17/17 12:37 0.5 MG Lactobacillus Rhamnosus (Culturelle) 1 cap BID 02/18/17 09:00 02/25/17 20:22 1 CAP Levofloxacin (Levaquin) 500 mg DAILY06 02/19/17 14:00 02/24/17 09:38 DC 02/24/17 05:15 500 MG Levofloxacin/ Dextrose 100 ml @ 100 mls/hr Q24H 02/18/17 14:00 02/19/17 10:01 DC 02/18/17 12:46 100 MLS/HR Lidocaine/Sodium Bicarbonate (Buffered Lidocaine 1%) 20 ml 1X ONCE 02/20/17 15:15 02/20/17 15:16 DC 02/20/17 15:09 7 ML Methylprednisolone Sodium Succinate (SOLU-Medrol 125MG VIAL) 125 mg 1X ONCE 02/17/17 12:30 02/17/17 12:36 DC 02/17/17 12:52 125 MG Micafungin Sodium 100 mg/Dextrose 100 ml @ 100 mls/hr Q24H 02/17/17 19:00 02/25/17 20:23 100 MLS/HR Midazolam HCl (Versed) 2 mg 1X ONCE 02/20/17 15:15 02/20/17 15:16 DC 02/20/17 15:10 2 MG Multivitamins (Thera M Plus) 1 tab DAILY 02/18/17 11:00 02/25/17 08:13 1 TAB Nystatin (Nystop) 1 tony BID 02/21/17 21:30 02/25/17 20:24 1 TONY Ondansetron HCl (Zofran) 4 mg PRN Q8HRS PRN 02/17/17 15:00 02/18/17 14:59 DC Potassium Chloride (Klor-Con) 20 meq DAILYWBKFT 02/23/17 09:00 02/25/17 08:13 20 MEQ Tramadol HCl (Ultram) 100 mg PRN Q6HRS PRN 02/19/17 18:45 02/26/17 06:08 100 MG Vancomycin HCl (Vanco Per Pharmacy) 1 each PRN DAILY PRN 02/18/17 07:15 02/24/17 09:38 DC 02/23/17 20:48 1 EACH Vancomycin HCl 1.25 gm/Dextrose 250 ml @ 167 mls/hr Q12H 02/19/17 17:00 02/21/17 06:37 DC 02/20/17 18:15 167 MLS/HR Vancomycin HCl 1.5 gm/Dextrose 500 ml @ 250 mls/hr Q36H 02/24/17 07:00 02/24/17 07:00 DC Vancomycin HCl 1.75 gm/Dextrose 500 ml @ 250 mls/hr Q36H 02/24/17 07:00 02/24/17 09:38 DC 02/24/17 06:25 250 MLS/HR Vancomycin HCl 2 gm/Dextrose 500 ml @ 250 mls/hr Q12H 02/18/17 08:00 02/19/17 10:19 DC 02/18/17 21:41 250 MLS/HR Vancomycin HCl 2 gm/Sodium Chloride 500 ml @ 250 mls/hr 1X ONCE 02/17/17 16:00 02/17/17 17:59 DC 02/17/17 16:58 250 MLS/HR RAFAEL CASTRO MD Feb 26, 2017 08:28
[2017-02-26] MEDS: LACTOBACILLUS RHAMNOSUS GG 1 CAPSULE. PO SCH ×2 (08:53→19:58)
[2017-02-26] MEDS: ASCORBIC ACID 500 MG TABLET PO SCH (08:53)
[2017-02-26] MEDS: FERROUS SULFATE 325 MG TABLET. PO SCH (08:53)
[2017-02-26] MEDS: FUROSEMIDE 40 MG/4 ML VIAL. IVP SCH ×2 (08:53→15:38)
[2017-02-26] MEDS: MULTIVITAMIN with MINERAL TABLET. PO SCH (08:53)
[2017-02-26] MEDS: NYSTATIN TOPICAL POWDER 15GM BOTTLE. TP SCH ×2 (08:54→19:57)
[2017-02-26] MEDS: POTASSIUM CHLORIDE 20 MEQ TABLET.ER. PO SCH (08:54)
--- NOTE | 2017-02-26 09:07 | PDOC ---
PROGRESS NOTES Subjective Subjective HPI - Severe neutropenia with elevated monocytes, is most likely a reactive process due to underlying infection. ROS - no fever Objective Objective Vital Signs Date Time Temp Pulse Resp B/P (MAP) Pulse Ox O2 Delivery O2 Flow Rate FiO2 02/26/17 07:50 98 Nasal Cannula 3.0 02/26/17 07:00 98.1 65 20 107/59 (75) 98.1 Physical Exam Heart: Normal S1, Normal S2 General: Alert, Oriented X3 Lungs: Clear to auscultation Neuro: Normal speech Assessment Assessment Problems Medical Problems: (1) Acute congestive heart failure Status: Acute (2) Acute respiratory failure with hypoxia Status: Acute (3) COPD exacerbation Status: Acute IMPRESSION AND PLAN: 1. Severe neutropenia with elevated monocytes, is most likely a reactive process due to underlying infection. She has a wound VAC in place above the right knee. Other differential diagnosis would include a primary bone marrow disorder such as leukemia. Although this is unlikely, I would proceed with a bone marrow aspiration and biopsy in view of persistent neutropenia and persistent monocytosis - done 02/20/17. I discussed in detail with the patient and she understands and agrees with the plan. WBC better at 9.7 on 02/25/17 BM bx is negative for leukemia (I d/w pathologist DR Tirado). Probable discharge today 2. Anemia, due to chronic disease. Continue to monitor. Hb 9.5. Low iron saturation (due to blood loss from surgery and wound) . Cont oral iron supplementation 3. History of right knee replacement. She has a wound VAC in the right thigh. Comment Review of Relevant I have reviewed the following items behzad (where applicable) has been applied. Labs Laboratory Tests Test 02/25/17 06:20 White Blood Count 9.7 x10^3/uL (4.0-11.0) Red Blood Count 3.53 x10^6/uL (3.50-5.40) Hemoglobin 9.5 g/dL (12.0-15.5) Hematocrit 29.3 % (36.0-47.0) Mean Corpuscular Volume 83 fL (79-100) Mean Corpuscular Hemoglobin 27 pg (25-35) Mean Corpuscular Hemoglobin Concent 32 g/dL (31-37) Red Cell Distribution Width 16.6 % (11.5-14.5) Platelet Count 267 x10^3/uL (140-400) Neutrophils (%) (Auto) 75 % (31-73) Lymphocytes (%) (Auto) 14 % (24-48) Monocytes (%) (Auto) 6 % (0-9) Eosinophils (%) (Auto) 5 % (0-3) Basophils (%) (Auto) 1 % (0-3) Neutrophils # (Auto) 7.3 x10^3uL (1.8-7.7) Lymphocytes # (Auto) 1.3 x10^3/uL (1.0-4.8) Monocytes # (Auto) 0.6 x10^3/uL (0.0-1.1) Eosinophils # (Auto) 0.5 x10^3/uL (0.0-0.7) Basophils # (Auto) 0.1 x10^3/uL (0.0-0.2) Sodium Level 138 mmol/L (136-145) Potassium Level 3.4 mmol/L (3.5-5.1) Chloride Level 93 mmol/L (98-107) Carbon Dioxide Level 42 mmol/L (21-32) Anion Gap 3 (6-14) Blood Urea Nitrogen 21 mg/dL (7-20) Creatinine 1.6 mg/dL (0.6-1.0) Estimated GFR (Cockcroft-Gault) 32.5 Glucose Level 103 mg/dL (70-99) Calcium Level 9.1 mg/dL (8.5-10.1) Microbiology 02/17/17 Blood Culture - Final, Complete NO GROWTH AFTER 5 DAYS 02/19/17 Gram Stain - Final, Complete Medications Current Medications Albuterol Sulfate (Ventolin Neb Soln) 10 mg 1X ONCE CONT NEB Last administered on 02/17/17 12:37; Start 02/17/17 at 12:30; Stop 02/17/17 at 12 :36; Status DC Ipratropium [place] (Atrovent) 0.5 mg 1X ONCE NEB Last administered on 12:37; Start 02/17/17 at 12:30; Stop 02/17/17 at 12:36; Status DC Methylprednisolone Sodium Succinate (SOLU-Medrol 125MG VIAL) 125 mg 1X ONCE IV Last administered on 02/17/17 12:52; Start 02/17/17 at 12:30; Stop at 12:36; Status DC Albuterol Sulfate (Ventolin Neb Soln) 2.5 mg STK-MED ONCE .ROUTE ; Start at 12:33; Stop 02/17/17 at 12:34; Status DC Albuterol/ Ipratropium (Duoneb) 3 ml STK-MED ONCE .ROUTE ; Start 02/17/17 at 12 :33; Stop 02/17/17 at 12:34; Status DC Furosemide (Lasix) 40 mg 1X ONCE IVP Last administered on 02/17/17 15:21; Start 02/17/17 at 13:45; Stop 02/17/17 at 13:46; Status DC Cefepime HCl 2 gm/ Sodium Chloride 100 ml @ 200 mls/hr Q8HRS IV ; Start at 23:00; Stop 02/17/17 at 23:00; Status DC Levofloxacin/ Dextrose 150 ml @ 100 mls/hr 1X ONCE IV Last administered on 14:15; Start 02/17/17 at 14:15; Stop 02/17/17 at 15:44; Status DC Cefepime HCl 2 gm/ Dextrose 100 ml @ 200 mls/hr 1X ONCE IV ; Start 02/17/17 at 14:15; Stop 02/17/17 at 14:44; Status Cancel Ondansetron HCl (Zofran) 4 mg PRN Q8HRS PRN IV NAUSEA/VOMITING; Start at 15:00; Stop 02/18/17 at 14:59; Status DC Albuterol/ Ipratropium (Duoneb) 3 ml RTQID NEB Last administered on 02/18/17 19:11; Start 02/17/17 at 16:00; Stop 02/18/17 at 15:59; Status DC Furosemide (Lasix) 40 mg BID92 IVP Last administered on 02/26/17 08:53; Start 02/18/17 at 09:00 Cefepime HCl 2 gm/ Sodium Chloride 100 ml @ 200 mls/hr 1X ONCE IV Last administered on 02/17/17 15:15; Start 02/17/17 at 15:15; Stop 02/17/17 at 15 :44; Status DC Vancomycin HCl 2 gm/Sodium Chloride 500 ml @ 250 mls/hr 1X ONCE IV Last administered on 02/17/17 16:58; Start 02/17/17 at 16:00; Stop 02/17/17 at 17 :59; Status DC Micafungin Sodium 100 mg/Dextrose 100 ml @ 100 mls/hr Q24H IV Last administered on 02/25/17 20:23; Start 02/17/17 at 19:00 Vancomycin HCl (Vanco Per Pharmacy) 1 each PRN DAILY PRN MC SEE COMMENTS Last administered on 02/23/17 20:48; Start 02/18/17 at 07:15; Stop 02/24/17 at 09 :38; Status DC Levofloxacin/ Dextrose 100 ml @ 100 mls/hr Q24H IV Last administered on 12:46; Start 02/18/17 at 14:00; Stop 02/19/17 at 10:01; Status DC Vancomycin HCl 2 gm/Dextrose 500 ml @ 250 mls/hr Q12H IV Last administered on 02/18/17 21:41; Start 02/18/17 at 08:00; Stop 02/19/17 at 10:19; Status DC Lactobacillus Rhamnosus (Culturelle) 1 cap BID PO Last administered on 08:53; Start 02/18/17 at 09:00 Multivitamins (Thera M Plus) 1 tab DAILY PO Last administered on 02/26/17 08: 53; Start 02/18/17 at 11:00 Ascorbic Acid (Vitamin C) 500 mg DAILY PO Last administered on 02/26/17 08:53 ; Start 02/18/17 at 11:00 Vancomycin HCl 1 each 1X ONCE MC Last administered on 02/19/17 07:30; Start 02/19/17 at 07:30; Stop 02/19/17 at 07:31; Status DC Albuterol/ Ipratropium (Duoneb) 3 ml RTQID NEB Last administered on 02/26/17 07:46; Start 02/18/17 at 20:30 Alteplase, Recombinant 10 mg/ Sodium Chloride 100 ml @ 10 mls/hr 1X ONCE IV ; Start 02/19/17 at 06:00; Stop 02/19/17 at 15:59; Status UNV Alteplase, Recombinant (Cathflo) 2 mg 1X ONCE INT CAT Last administered on 06:05; Start 02/19/17 at 06:30; Stop 02/19/17 at 06:31; Status DC Levofloxacin (Levaquin) 500 mg DAILY06 PO Last administered on 02/24/17 05:15 ; Start 02/19/17 at 14:00; Stop 02/24/17 at 09:38; Status DC Vancomycin HCl 1.25 gm/Dextrose 250 ml @ 167 mls/hr Q12H IV Last administered on 02/20/17 18:15; Start 02/19/17 at 17:00; Stop 02/21/17 at 06:37; Status DC Vancomycin HCl 1 each 1X ONCE MC Last administered on 02/21/17 04:30; Start 02/21/17 at 04:30; Stop 02/21/17 at 04:31; Status DC Tramadol HCl (Ultram) 100 mg PRN Q6HRS PRN PO PAIN Last administered on 06:08; Start 02/19/17 at 18:45 Lidocaine/Sodium Bicarbonate (Buffered Lidocaine 1%) 20 ml STK-MED ONCE IJ ; Start 02/20/17 at 14:37; Stop 02/20/17 at 14:38; Status DC Fentanyl Citrate (Fentanyl 2ml Vial) 100 mcg STK-MED ONCE .ROUTE ; Start at 14:37; Stop 02/20/17 at 14:38; Status DC Midazolam HCl (Versed) 2 mg STK-MED ONCE .ROUTE ; Start 02/20/17 at 14:37; Stop 02/20/17 at 14:38; Status DC Lidocaine/Sodium Bicarbonate (Buffered Lidocaine 1%) 20 ml 1X ONCE IJ Last administered on 02/20/17 15:09; Start 02/20/17 at 15:15; Stop 02/20/17 at 15 :16; Status DC Midazolam HCl (Versed) 2 mg 1X ONCE IV Last administered on 02/20/17 15:10; Start 02/20/17 at 15:15; Stop 02/20/17 at 15:16; Status DC Fentanyl Citrate (Fentanyl 2ml Vial) 100 mcg 1X ONCE IV Last administered on 02/20/17 15:10; Start 02/20/17 at 15:15; Stop 02/20/17 at 15:16; Status DC Vancomycin HCl 1.5 gm/Dextrose 500 ml @ 250 mls/hr Q24H IV Last administered on 02/22/17 19:26; Start 02/21/17 at 19:00; Stop 02/23/17 at 20:37; Status DC Vancomycin HCl 1 each 1X ONCE MC ; Start 02/23/17 at 18:30; Stop 02/23/17 at 18:31; Status DC Nystatin (Nystop) 1 tony BID TP Last administered on 02/26/17 08:54; Start at 21:30 Albuterol Sulfate (Ventolin Neb Soln) 2.5 mg PRN Q4HRS PRN NEB SHORTNESS OF BREATH Last administered on 02/22/17 03:35; Start 02/22/17 at 03:30 Potassium Chloride (Klor-Con) 20 meq DAILYWBKFT PO Last administered on 08:54; Start 02/23/17 at 09:00 Vancomycin HCl 1.5 gm/Dextrose 500 ml @ 250 mls/hr Q36H IV ; Start 02/24/17 at 07:00; Stop 02/24/17 at 07:00; Status DC Vancomycin HCl 1.75 gm/Dextrose 500 ml @ 250 mls/hr Q36H IV Last administered on 02/24/17 06:25; Start 02/24/17 at 07:00; Stop 02/24/17 at 09:38; Status DC Ferrous Sulfate (Feosol) 325 mg DAILYWBKFT PO Last administered on 02/26/17 08 :53; Start 02/24/17 at 09:00 Cefazolin Sodium 2 gm/Dextrose 50 ml @ 100 mls/hr Q8HRS IV ; Start 02/24/17 at 14:00; Status UNV Cefazolin Sodium/ Dextrose 50 ml @ 100 mls/hr Q8HRS IV Last administered on 06:05; Start 02/24/17 at 14:00 Alteplase, Recombinant (Cathflo) 2 mg 1X ONCE INT CAT Last administered on 13:45; Start 02/24/17 at 13:30; Stop 02/24/17 at 13:31; Status DC Albuterol/ Ipratropium (Duoneb) 3 ml STK-MED ONCE .ROUTE ; Start 02/24/17 at 19 :16; Stop 02/24/17 at 19:17; Status DC Diphenhydramine HCl (Benadryl) 50 mg PRN Q6HRS PRN PO ITCHING Last administered on 02/25/17t 20:22; Start 02/25/17 at 18:15 Active Scripts Active Reported Tramadol Hcl 50 Mg Tablet 2 Tab PO PRN Q6HRS Ferrous Sulfate 325 Mg Tablet 1 Tab PO BID 30 Days LAST DOSE GIVEN: DATE:01/02/17 TIME:9:00 a.m Diclofenac Sodium 75 Mg Tablet.dr 75 Mg PO BID Meds not given this hospital admission. May resume home medications as approved by Physician. Vitals/I & O Vital Sign - Last 24 Hours 02/25/17 02/25/17 02/25/17 02/25/17 10:48 11:55 13:47 15:04 Temp 98.4 98.4 98.4 98.4 Pulse 72 68 Resp 18 18 B/P (MAP) 132/68 (89) 129/66 (87) Pulse Ox 95 97 97 94 O2 Delivery BiPAP/CPAP Nasal Cannula Nasal Cannula BiPAP/CPAP O2 Flow Rate 3.0 3.0 02/25/17 02/25/17 02/25/17 02/25/17 16:30 19:10 20:00 20:22 Temp 98.5 98.5 Pulse 70 Resp 20 18 B/P (MAP) 99/54 (69) Pulse Ox 96 97 97 O2 Delivery Nasal Cannula Nasal Cannula Nasal Cannula Nasal Cannula O2 Flow Rate 3.0 3.0 3.0 02/25/17 02/25/17 02/26/17 02/26/17 20:58 23:10 03:37 06:08 Temp 98.3 98.2 98.3 98.2 Pulse 68 65 Resp 18 18 19 B/P (MAP) 94/66 (75) 112/41 (64) Pulse Ox 96 96 95 95 O2 Delivery Nasal Cannula Nasal Cannula Nasal Cannula Nasal Cannula O2 Flow Rate 3.0 3.0 3.0 3.0 02/26/17 02/26/17 02/26/17 02/26/17 07:00 07:13 07:47 07:50 Temp 98.1 98.1 Pulse 65 Resp 20 B/P (MAP) 107/59 (75) Pulse Ox 94 95 98 O2 Delivery Nasal Cannula Nasal Cannula Nasal Cannula Nasal Cannula O2 Flow Rate 3.0 3.0 3.0 3.0 CANDICE NAVA MD Feb 26, 2017 09:07
[2017-02-26] MEDS ORDERED: IV RINGERS,LACTATED 1000ML 1,000 ML IV SCH (10:10)
[2017-02-26] MEDS ORDERED: HYDROmorphone 2 MG/ML VIAL IV PRN (10:15)
[2017-02-26] MEDS ORDERED: LIDOCAINE 1% PF 2 ML VIAL. ID PRN (10:15)
[2017-02-26] MEDS ORDERED: ONDANSETRON PF 4 MG/2 ML VIAL. IV PRN (10:15)
[2017-02-26] MEDS ORDERED: PROCHLORPERAZINE 10 MG/2 ML VIAL. IV PRN (10:15)
[2017-02-26] MEDS ORDERED: MORPHINE SULFATE 2 MG/ML DISP.SYRIN. IV PRN (10:15)
[2017-02-26] MEDS ORDERED: fentaNYL PF VIAL 100 MCG/2 ML VIAL IV PRN ×2 (10:15)
[2017-02-26 11:00] VITALS: BP 91/56
--- NOTE | 2017-02-26 11:09 | PDOC ---
Infectious Disease Note Subjective Subjective Feeling alright Denies pain ROS ROS GEN: Denies fevers, chills, sweats HEENT: Denies blurred vision, sore throat CV: Denies chest pain RESP: Denies shortness of air, cough GI: Denies n/v/d NEURO: Denies confusion, dizziness MSK: Denies weakness, joint pain/swelling Vital Sign Vital Signs Vital Signs Date Time Temp Pulse Resp B/P (MAP) Pulse Ox O2 Delivery O2 Flow Rate FiO2 02/26/17 11:00 98.3 69 20 91/56 (68) 93 Nasal Cannula 3.0 98.3 Physical Exam PHYSICAL EXAM GENERAL: NAD, Alert HEENT: PERRL, OC/OP NECK: Supple, no JVD, no LN LUNGS: Clear HEART: S1S2, no gallop, no murmur ABD: Soft, NT, no organomegaly, no rebound EXT: No edema, no cyanosis [employer]: Alert, oriented x 3, no focal neurologic deficit SKIN: No rash IV: ok Objective Assessment Fever -better Leukopenia - s/p Solu-Medrol times one 02/17. ? med related. Was normal last week in 7's. better. EOS elevated Rash - ? med related - better Acute on chronic hypercapnic failure Right knee wound. - h/o right TKA wound dehiscence, s/p exploration with irrigation, debridement right knee and closure 01/28 w/ MSSA & GBS growth. - s/p TKA place 12/30 Groin yeast rash on [place] Plan Plan of Care Vanc and Levoflox and avoid Beta - lactams to r/o cause of neutropenia/rash d/w ER 02/17//// d/w pt in detail, need better drug for knee and later will need chronic suppressive, cefazolin with different side chain then rocephine, will try, she feels comfortable with that, if she tolerates then will have better chronic suppressive option of keflex, d/w dr Elias , and he is ok with this F/u labs and cultures Probiotics Wound vac D/w RN wkly cbc, bun/cr, sed rate tolerating cefazolin well, will d/c on that, and f/u with me in 10 days I and D today ALONDRA NOBLES MD Feb 26, 2017 11:09
--- NOTE | 2017-02-26 11:21 | PDOC ---
PULMONARY PROGRESS NOTES Subjective no soa Vitals Vital Signs Date Time Temp Pulse Resp B/P (MAP) Pulse Ox O2 Delivery O2 Flow Rate FiO2 02/26/17 11:00 98.3 69 20 91/56 (68) 93 Nasal Cannula 3.0 98.3 ROS: No Nausea, No Chest Pain, No Abdominal Pain, No Increase Cough General: Alert, No acute distress Lungs: Clear Cardiovascular: S1, S2 Abdomen: Soft Neuro Exam: Alert Extremities: Other (EDEMA AND DRESSING OVE RIGHT KNEE) Skin: Warm Labs Laboratory Tests Test 02/25/17 06:20 White Blood Count 9.7 x10^3/uL (4.0-11.0) Red Blood Count 3.53 x10^6/uL (3.50-5.40) Hemoglobin 9.5 g/dL (12.0-15.5) Hematocrit 29.3 % (36.0-47.0) Mean Corpuscular Volume 83 fL (79-100) Mean Corpuscular Hemoglobin 27 pg (25-35) Mean Corpuscular Hemoglobin Concent 32 g/dL (31-37) Red Cell Distribution Width 16.6 % (11.5-14.5) Platelet Count 267 x10^3/uL (140-400) Neutrophils (%) (Auto) 75 % (31-73) Lymphocytes (%) (Auto) 14 % (24-48) Monocytes (%) (Auto) 6 % (0-9) Eosinophils (%) (Auto) 5 % (0-3) Basophils (%) (Auto) 1 % (0-3) Neutrophils # (Auto) 7.3 x10^3uL (1.8-7.7) Lymphocytes # (Auto) 1.3 x10^3/uL (1.0-4.8) Monocytes # (Auto) 0.6 x10^3/uL (0.0-1.1) Eosinophils # (Auto) 0.5 x10^3/uL (0.0-0.7) Basophils # (Auto) 0.1 x10^3/uL (0.0-0.2) Sodium Level 138 mmol/L (136-145) Potassium Level 3.4 mmol/L (3.5-5.1) Chloride Level 93 mmol/L (98-107) Carbon Dioxide Level 42 mmol/L (21-32) Anion Gap 3 (6-14) Blood Urea Nitrogen 21 mg/dL (7-20) Creatinine 1.6 mg/dL (0.6-1.0) Estimated GFR (Cockcroft-Gault) 32.5 Glucose Level 103 mg/dL (70-99) Calcium Level 9.1 mg/dL (8.5-10.1) Medications Active Scripts Medications Dose Route/Sig Max Daily Dose Days Date Category Dose Instructions Tramadol Hcl 50 Mg Tablet 2 Tab PO PRN Q6HRS 02/17/17 Reported Ferrous Sulfate 325 Mg Tablet 1 Tab PO BID 30 01/02/17 Reported LAST DOSE GIVEN: DATE:01/02/17 TIME:9:00 a.m Diclofenac Sodium 75 Mg Tablet.dr 75 Mg PO BID 11/10/16 Reported Meds not given this hospital admission. May resume home medications as approved by Physician. Impression . 1. Rjokr-zp-wycrcnm hypoxemic/ hypercapnic respiratory failure.( marilyn/ohs/ COPD / Diastolic HF) 2. Acute diastolic heart failure. 3. Leukopenia. resolved 4. Recent total knee arthroplasty with traumatic wound dehiscence. 5. Abnormal x-ray compatible with acute pulmonary edema.stable 6. Morbid obesity. 7. Chronic anemia. 8. Protein malnutrition, present upon admission. Plan . RESP STATUS IS COMPENSATED BIPAP QHS/ PT HAS HOME CPAP AND USES O2 QHS MAY NEED 6 MIN WALK TO ASSESS NEED FOR DAYTIME O2 HOME WHEN OK WITH OTHERS SERVICES, WOUND CARE ANTIBX PER ID NEBS DVT PROPH FIDELINA STUART MD Feb 26, 2017 11:21
[2017-02-26 15:00] VITALS: BP 96/58
--- NOTE | 2017-02-26 15:49 | PATHOLOGY ---
PATHOLOGY REPORT * * * * * * * * FINAL DIAGNOSIS: Peripheral smear: - Moderate leukopenia with marked absolute neutropenia, relative monocytosis, and mild absolute eosinophilia. - Normochromic, normocytic anemia, moderate. Bone marrow, aspirate smears, clot section, and core biopsy: - Moderately hypercellular marrow showing trilineage hematopoiesis, mild dyserythropoiesis, left shift of granulopoiesis with maturation to myelocyte stage, and mild eosinophilia. See comment. - Focal reticuloendothelial iron stores. COMMENT: The peripheral smear shows a moderate leukopenia with a marked absolute neutropenia, relative monocytosis, and mild absolute eosinophilia, and a moderate normocytic normochromic anemia. The bone marrow is moderately hypercellular and shows trilineage hematopoiesis, mild dyserythropoiesis, mild eosinophilia, and a left shift of granulopoiesis with maturation to the myelocyte stage. Most of the granulocytic precursors in the marrow are myelocytes. There is no increase of blasts. The findings are suggestive of a prior insult to granulopoiesis. This could be due to infection or a drug reaction. The presence of an eosinophilia also suggests a hypersensitivity reaction. With the marrow showing a wave of myelocytes, I would expect to see the appearance of mature neutrophils within the peripheral smear within days. There is mild dyserythropoiesis, but the morphologic findings do not meet morphologic criteria for myelodysplastic syndrome. Special studies performed: Iron stain performed on the aspirate smear and on B1 the clot section. (JPM:halina; 02/25/2017) REPORT ELECTRONICALLY SIGNED BY: Avi Tirado M.D. DATE/TIME: 02/26/2017 15:48 * * * * * * * * MICROSCOPIC DESCRIPTION: Laboratory Data: The WBC count is 2.5 K/CMM, and the automated WBC differential reveals 1% neutrophils, 37% lymphs, 31% monos, and 31% eos. The RBC count is 3.48 M/CMM, hemoglobin 9.4 G/DL, hematocrit 29.7%, MCV 85 FL, MCH 27 PG, MCHC 32 G/DL, and the RDW is 16.1%. The platelet count is 232 K/CMM. The total protein is 7.9 G/DL, and globulin is 5.5 G/DL. The pro BNP is 13,113 PG/ML. The CRP is 85.5 MG/L. Peripheral Smear: The peripheral smear is reviewed. The WBC count is moderately decreased. There is a marked absolute neutropenia, relative monocytosis, and a mild absolute eosinophilia. The WBC differential reveals nearly equal-sized populations of lymphocytes, monocytes, and eosinophils. Neutrophils are nearly absent. There is only a rare segmented neutrophil identified. The lymphocyte population consists predominantly of small lymphocytes with an occasional reactive lymphocyte noted. There are no circulating blasts. There is no leukoerythroblastic reaction. Red blood cells predominantly appear normochromic and normocytic. There are a few hypochromic red blood cells. There is mild polychromasia. Red blood cells show mild anisocytosis. Red blood cells show mild poikilocytosis with occasional ovalocytes, target cells, teardrop red blood cells, and red blood cell fragments noted. Platelets appear normal in number and morphology with an occasional large platelet noted. Aspirate Smears: Two Dobbs's-stained and one iron-stained aspirate smears are examined. The smears contain multiple marrow particles which appear cellular for age. The M/E ratio is on the order of 1-2:1. Erythroid maturation predominantly appears normoblastic. There is mild dyserythropoiesis, comprised of maturing erythroid precursors which have irregular nuclear shapes or show binucleation. There is a left shift of granulopoiesis. There is granulocytic maturation to the myelocyte stage. Most of the granulocytic precursors are myelocytes with little to no maturation beyond the myelocyte stage. There are less than 5% blasts. There is a mild marrow eosinophilia comprised of focally increased eosinophils. Megakaryocytes appear adequate in number. The megakaryocytes are of variable ploidy. There are scattered admixed plasma cells with no significant increase of plasma cells noted. There are also admixed small lymphocytes with no significant increase of lymphocytes noted. There are no cells foreign to the marrow. The iron stain shows focally adequate iron stores. No ringed sideroblasts are identified. Bone Marrow Biopsy and Clot Section: Sections of the bone marrow biopsy reveal a segment of bone marrow and blood clot showing focal aspiration artifact. Preserved areas of the biopsy are on the order of 60%-80% cellular. The clot section contains multiple marrow particles, which also range between 60% and 80% cellular. There is an admixture of erythroid and granulocytic precursors. There is an increased portion of immature mononuclear cells compatible with a prominent left shift of granulopoiesis. There is little or no maturation beyond the stage of these immature mononuclear cells. There is no apparent increase of blasts. Eosinophils overall appear mildly increased. Megakaryocytes appear adequate in number and are focally clustered. The megakaryocytes are of variable ploidy. There is a small lymphoid aggregate present in the biopsy and a small lymphoid aggregate present in the clot section. These are comprised of small lymphocytes having rounded to slightly irregular hyperchromatic nuclei. There are no abnormal lymphoid aggregates, granulomas, or cells foreign to the marrow. The iron stain of the clot section shows largely absent stainable iron. No ringed sideroblasts are identified. (JPM:kike; 02/25/2017) Special Studies: Bone marrow submitted for flow cytometry has a viability of 95.8%. Granulocytes comprise 58.3% of total cells and show left-shifted maturation and dyssynchronous CD10/CD13/CD16 expression. Monocytes comprise 11.9% of total cells and co-express CD14 and CD64. CD45 dim, CD34 positive cells comprise 2.2% of total cells. Plasma cells comprise 0.9% of total cells and show unremarkable surface marker expression. Lymphocytes comprise 22.3% of total cells. T-cells comprise 67% of lymphoid cells and show a CD4/CD8 ratio of 2.7. NK-cells comprise 15% of lymphoid cells. Mature B-cells comprise 14% of lymphoid cells and are polyclonal with a kappa:lambda ratio of 1.5. (JPM:mgr; 02/25/2017) GROSS PATHOLOGY: A. Received in formalin labeled "Brigida Delatorre," is a single needle core of mckeon bone, measuring 1.4 cm in length and 0.2 cm in diameter. The specimen is submitted entirely in cassette A1, following decalcification. B. Received in formalin labeled "Brigida Delatorre," is blood coagulum, measuring 2.5 x 2.3 x 0.4 cm in aggregate dimensions. The specimen is submitted entirely in cassette B1. (JPM; 02/20/17) INITIAL CPT CODE(S): A; 53410, 69888 B; 17092, 11519 C; 23366, 990[address] D; [place], [address] Professional services performed by [facility] at [address] [address] Technical services performed by [facility] at [address] [place] [address], [address], [place] [address]. SPECIMEN(S) RECEIVED: A.Bone marrow, biopsy B.Bone marrow, clot and/or particle prep C.Bone marrow, aspirate smears D.Peripheral smear CLINICAL HISTORY: Leukopenia PATIENT: BRIGIDA DELATORRE /AGE: 4 1950 (Age: 66) PATIENT #: [id number] ALT CASE #: SPECIMEN COLLECTION DATE: 02/20/2017 SPECIMEN RECEIVED DATE: 02/20/2017 [facility] - [address] [place] [address] - PHONE: [phone] * * * END OF REPORT * * *
[2017-02-26 19:32] VITALS: BP 104/46
[2017-02-26] MEDS: MICAFUNGIN 100 MG in IV DEXTROSE 5% 100 ML IV SCH (19:52)
[2017-02-26 23:25] VITALS: BP 93/54
[2017-02-27 03:51] VITALS: BP 115/39
[2017-02-27 06:04] LABS: BLOOD UREA NITROGEN 22 mg/dL (7-20); CALCIUM 8.3 mg/dL (8.5-10.1); CARBON DIOXIDE 44 mmol/L (21-32); CHLORIDE 99 mmol/L (98-107); CREATININE 1.4 mg/dL (0.6-1.0); GFR 37.9; GLUCOSE 92 mg/dL (70-99); POTASSIUM 3.4 mmol/L (3.5-5.1); SODIUM 142 mmol/L (136-145)
[2017-02-27 06:30] LABS: BASO % 0 % (0-3); EOS % 5 % (0-3); HEMATOCRIT 27.9 % (36.0-47.0); HEMOGLOBIN 8.6 g/dL (12.0-15.5); LYMPH # 1.5 x10^3/uL (1.0-4.8); LYMPH % 15 % (24-48); MEAN CORPUSCULAR HEMOGLOBIN 26 pg (25-35); MEAN CORPUSCULAR HGB CONC 31 g/dL (31-37); MEAN CORPUSCULAR VOLUME 86 fL (79-100); MONO % 5 % (0-9); NEUT % 75 % (31-73); PLATELET COUNT 256 x10^3/uL (140-400); RED BLOOD COUNT 3.26 x10^6/uL (3.50-5.40); WHITE BLOOD COUNT 10.4 x10^3/uL (4.0-11.0)
[2017-02-27 07:00] VITALS: BP 110/68
[2017-02-27] MEDS ORDERED: fentaNYL PF VIAL 100 MCG/2 ML VIAL IV PRN ×3 (07:00→15:45)
[2017-02-27] MEDS ORDERED: ONDANSETRON PF 4 MG/2 ML VIAL. IV PRN (07:00)
[2017-02-27] MEDS ORDERED: IV RINGERS,LACTATED 1000ML 1,000 ML IV SCH (07:00)
[2017-02-27] MEDS ORDERED: LIDOCAINE 1% PF 2 ML VIAL. ID PRN (07:00)
[2017-02-27] MEDS ORDERED: PROCHLORPERAZINE 10 MG/2 ML VIAL. IV PRN (07:00)
[2017-02-27] MEDS ORDERED: LIDOCAINE 1% 20 ML VIAL. ONE (07:08)
[2017-02-27] MEDS: FERROUS SULFATE 325 MG TABLET. PO SCH (08:00)
[2017-02-27] MEDS: POTASSIUM CHLORIDE 20 MEQ TABLET.ER. PO SCH (08:00)
[2017-02-27] MEDS: IPRATRPIUM/ALBUTEROL 0.5/2.5MG 3 ML NEBU. NEB SCH ×5 (08:14→19:49)
--- NOTE | 2017-02-27 08:23 | PDOC ---
GENERAL General: vss and afebrile. chomping at bit for discharge. O2 at 3L/NC. for surgical irrigation of right knee wound today. wound vac in place and ongoing kefzol without any untoward reaction to same at this time. will change lasix to po. am labs stable. patient does not believe she has had a bm since admission and laxatives ordered for same. chest with decreased breath sounds, heart regular, and abdomen benign. dc timing per ortho after surgery completed. Problems: VITAL SIGNS Vital Signs: Vital Signs Date Time Temp Pulse Resp B/P (MAP) Pulse Ox O2 Delivery O2 Flow Rate FiO2 02/27/17 08:17 97 Nasal Cannula 3.0 02/27/17 07:00 98.3 65 20 110/68 (82) 98.3 ALLERGIES Allergies: Allergies Coded Allergies Type Severity Reaction Last Updated Verified No Known Drug Allergies 01/28/17 No MEDS Medications: Current Medications Medications (Trade) Dose Ordered Sig/Jayson Start Time Stop Time Status Last Admin Dose Admin Albuterol Sulfate (Ventolin Neb Soln) 2.5 mg PRN Q4HRS PRN 02/22/17 03:30 02/22/17 03:35 2.5 MG Albuterol/ Ipratropium (Duoneb) 3 ml STK-MED ONCE 02/24/17 19:16 02/24/17 19:17 DC Alteplase, Recombinant (Cathflo) 2 mg 1X ONCE 02/24/17 13:30 02/24/17 13:31 DC 02/24/17 13:45 2 MG Alteplase, Recombinant 10 mg/ Sodium Chloride 100 ml @ 10 mls/hr 1X ONCE 02/19/17 06:00 02/19/17 15:59 UNV Ascorbic Acid (Vitamin C) 500 mg DAILY 02/18/17 11:00 02/26/17 08:53 500 MG Cefazolin Sodium 2 gm/Dextrose 50 ml @ 100 mls/hr Q8HRS 02/24/17 14:00 UNV Cefazolin Sodium/ Dextrose 50 ml @ 100 mls/hr Q8HRS 02/24/17 14:00 02/27/17 05:43 100 MLS/HR Cefepime HCl 2 gm/ Dextrose 100 ml @ 200 mls/hr 1X ONCE 02/17/17 14:15 02/17/17 14:44 Cancel Cefepime HCl 2 gm/ Sodium Chloride 100 ml @ 200 mls/hr 1X ONCE 02/17/17 15:15 02/17/17 15:44 DC 02/17/17 15:15 200 MLS/HR Diphenhydramine HCl (Benadryl) 50 mg PRN Q6HRS PRN 02/25/17 18:15 02/25/17 20:22 50 MG Fentanyl Citrate (Fentanyl 2ml Vial) 50 mcg PRN Q5MIN PRN 02/27/17 07:00 02/28/17 06:59 Ferrous Sulfate (Feosol) 325 mg DAILYWBKFT 02/24/17 09:00 02/26/17 08:53 325 MG Furosemide (Lasix) 40 mg BID92 02/18/17 09:00 02/26/17 15:38 40 MG Hydromorphone HCl (Dilaudid) 0.5 mg PRN Q10MIN PRN 02/27/17 07:00 02/28/17 06:59 Ipratropium [place] (Atrovent) 0.5 mg 1X ONCE 02/17/17 12:30 02/17/17 12:36 DC 02/17/17 12:37 0.5 MG Lactobacillus Rhamnosus (Culturelle) 1 cap BID 02/18/17 09:00 02/26/17 19:58 1 CAP Levofloxacin (Levaquin) 500 mg DAILY06 02/19/17 14:00 02/24/17 09:38 DC 02/24/17 05:15 500 MG Levofloxacin/ Dextrose 100 ml @ 100 mls/hr Q24H 02/18/17 14:00 02/19/17 10:01 DC 02/18/17 12:46 100 MLS/HR Lidocaine HCl 20 ml STK-MED ONCE 02/27/17 07:08 02/27/17 08:08 DC Lidocaine HCl (Xylocaine-Mpf 1% Vial) 2 ml PRN 1X PRN 02/27/17 07:00 02/28/17 06:59 Lidocaine/Sodium Bicarbonate (Buffered Lidocaine 1%) 20 ml 1X ONCE 02/20/17 15:15 02/20/17 15:16 DC 02/20/17 15:09 7 ML Methylprednisolone Sodium Succinate (SOLU-Medrol 125MG VIAL) 125 mg 1X ONCE 02/17/17 12:30 02/17/17 12:36 DC 02/17/17 12:52 125 MG Micafungin Sodium 100 mg/Dextrose 100 ml @ 100 mls/hr Q24H 02/17/17 19:00 02/26/17 19:52 100 MLS/HR Midazolam HCl (Versed) 2 mg 1X ONCE 02/20/17 15:15 02/20/17 15:16 DC 02/20/17 15:10 2 MG Morphine Sulfate 1 mg PRN Q10MIN PRN 02/27/17 07:00 02/28/17 06:59 Multivitamins (Thera M Plus) 1 tab DAILY 02/18/17 11:00 02/26/17 08:53 1 TAB Nystatin (Nystop) 1 tony BID 02/21/17 21:30 02/26/17 19:57 1 TONY Ondansetron HCl (Zofran) 4 mg PRN Q6HRS PRN 02/27/17 07:00 02/28/17 06:59 Potassium Chloride (Klor-Con) 20 meq DAILYWBKFT 02/23/17 09:00 02/26/17 08:54 20 MEQ Prochlorperazine Edisylate (Compazine) 5 mg PACU PRN PRN 02/27/17 07:00 02/28/17 06:59 Ringer's Solution 1,000 ml @ 30 mls/hr Q24H 02/27/17 07:00 02/27/17 18:59 Tramadol HCl (Ultram) 100 mg PRN Q6HRS PRN 02/19/17 18:45 02/26/17 21:44 100 MG Vancomycin HCl (Vanco Per Pharmacy) 1 each PRN DAILY PRN 02/18/17 07:15 02/24/17 09:38 DC 02/23/17 20:48 1 EACH Vancomycin HCl 1.25 gm/Dextrose 250 ml @ 167 mls/hr Q12H 02/19/17 17:00 02/21/17 06:37 DC 02/20/17 18:15 167 MLS/HR Vancomycin HCl 1.5 gm/Dextrose 500 ml @ 250 mls/hr Q36H 02/24/17 07:00 02/24/17 07:00 DC Vancomycin HCl 1.75 gm/Dextrose 500 ml @ 250 mls/hr Q36H 02/24/17 07:00 02/24/17 09:38 DC 02/24/17 06:25 250 MLS/HR Vancomycin HCl 2 gm/Dextrose 500 ml @ 250 mls/hr Q12H 02/18/17 08:00 02/19/17 10:19 DC 02/18/17 21:41 250 MLS/HR Vancomycin HCl 2 gm/Sodium Chloride 500 ml @ 250 mls/hr 1X ONCE 02/17/17 16:00 02/17/17 17:59 DC 02/17/17 16:58 250 MLS/HR LAB Lab: Laboratory Tests Test 02/27/17 05:45 White Blood Count 10.4 x10^3/uL (4.0-11.0) Red Blood Count 3.26 x10^6/uL (3.50-5.40) Hemoglobin 8.6 g/dL (12.0-15.5) Hematocrit 27.9 % (36.0-47.0) Mean Corpuscular Volume 86 fL (79-100) Mean Corpuscular Hemoglobin 26 pg (25-35) Mean Corpuscular Hemoglobin Concent 31 g/dL (31-37) Red Cell Distribution Width 17.0 % (11.5-14.5) Platelet Count 256 x10^3/uL (140-400) Neutrophils (%) (Auto) 75 % (31-73) Lymphocytes (%) (Auto) 15 % (24-48) Monocytes (%) (Auto) 5 % (0-9) Eosinophils (%) (Auto) 5 % (0-3) Basophils (%) (Auto) 0 % (0-3) Neutrophils # (Auto) 7.8 x10^3uL (1.8-7.7) Lymphocytes # (Auto) 1.5 x10^3/uL (1.0-4.8) Monocytes # (Auto) 0.5 x10^3/uL (0.0-1.1) Eosinophils # (Auto) 0.5 x10^3/uL (0.0-0.7) Basophils # (Auto) 0.0 x10^3/uL (0.0-0.2) Sodium Level 142 mmol/L (136-145) Potassium Level 3.4 mmol/L (3.5-5.1) Chloride Level 99 mmol/L (98-107) Carbon Dioxide Level 44 mmol/L (21-32) Anion Gap (6-14) Blood Urea Nitrogen 22 mg/dL (7-20) Creatinine 1.4 mg/dL (0.6-1.0) Estimated GFR (Cockcroft-Gault) 37.9 Glucose Level 92 mg/dL (70-99) Calcium Level 8.3 mg/dL (8.5-10.1) RAFAEL CASTRO MD Feb 27, 2017 08:23
[2017-02-27] MEDS: NYSTATIN TOPICAL POWDER 15GM BOTTLE. TP SCH ×2 (09:00→20:59)
[2017-02-27] MEDS: LACTOBACILLUS RHAMNOSUS GG 1 CAPSULE. PO SCH ×2 (09:00→20:58)
[2017-02-27] MEDS: FUROSEMIDE 40 MG TABLET. PO SCH (09:00)
[2017-02-27] MEDS: ASCORBIC ACID 500 MG TABLET PO SCH (09:00)
[2017-02-27] MEDS: MULTIVITAMIN with MINERAL TABLET. PO SCH (09:00)
--- NOTE | 2017-02-27 09:25 | PDOC ---
PROGRESS NOTES Subjective Subjective HPI - Severe neutropenia with elevated monocytes, is most likely a reactive process due to underlying infection. ROS - no CP Objective Objective Vital Signs Date Time Temp Pulse Resp B/P (MAP) Pulse Ox O2 Delivery O2 Flow Rate FiO2 02/27/17 08:17 97 Nasal Cannula 3.0 02/27/17 07:00 98.3 65 20 110/68 (82) 98.3 Physical Exam Heart: Normal S1, Normal S2 General: Alert, Oriented X3, No acute distress Neuro: Normal speech Psych/Mental Status: Mental status NL Assessment Assessment Problems Medical Problems: (1) Acute congestive heart failure Status: Acute (2) Acute respiratory failure with hypoxia Status: Acute (3) COPD exacerbation Status: Acute IMPRESSION AND PLAN: 1. Severe neutropenia with elevated monocytes, is most likely a reactive process due to underlying infection. She has a wound VAC in place above the right knee. Other differential diagnosis would include a primary bone marrow disorder such as leukemia. Although this is unlikely, I would proceed with a bone marrow aspiration and biopsy in view of persistent neutropenia and persistent monocytosis - done 02/20/17. I discussed in detail with the patient and she understands and agrees with the plan. WBC better at 10.4 on 02/27/17 BM bx is negative for leukemia (I d/w pathologist DR Tirado). Probable discharge today 2. Anemia, due to chronic disease. Continue to monitor. Hb 8.6. Low iron saturation (due to blood loss from surgery and wound) . Cont oral iron supplementation 3. History of right knee replacement. She has a wound VAC in the right thigh. Comment Review of Relevant I have reviewed the following items behzad (where applicable) has been applied. Labs Laboratory Tests Test 02/27/17 05:45 White Blood Count 10.4 x10^3/uL (4.0-11.0) Red Blood Count 3.26 x10^6/uL (3.50-5.40) Hemoglobin 8.6 g/dL (12.0-15.5) Hematocrit 27.9 % (36.0-47.0) Mean Corpuscular Volume 86 fL (79-100) Mean Corpuscular Hemoglobin 26 pg (25-35) Mean Corpuscular Hemoglobin Concent 31 g/dL (31-37) Red Cell Distribution Width 17.0 % (11.5-14.5) Platelet Count 256 x10^3/uL (140-400) Neutrophils (%) (Auto) 75 % (31-73) Lymphocytes (%) (Auto) 15 % (24-48) Monocytes (%) (Auto) 5 % (0-9) Eosinophils (%) (Auto) 5 % (0-3) Basophils (%) (Auto) 0 % (0-3) Neutrophils # (Auto) 7.8 x10^3uL (1.8-7.7) Lymphocytes # (Auto) 1.5 x10^3/uL (1.0-4.8) Monocytes # (Auto) 0.5 x10^3/uL (0.0-1.1) Eosinophils # (Auto) 0.5 x10^3/uL (0.0-0.7) Basophils # (Auto) 0.0 x10^3/uL (0.0-0.2) Sodium Level 142 mmol/L (136-145) Potassium Level 3.4 mmol/L (3.5-5.1) Chloride Level 99 mmol/L (98-107) Carbon Dioxide Level 44 mmol/L (21-32) Anion Gap (6-14) Blood Urea Nitrogen 22 mg/dL (7-20) Creatinine 1.4 mg/dL (0.6-1.0) Estimated GFR (Cockcroft-Gault) 37.9 Glucose Level 92 mg/dL (70-99) Calcium Level 8.3 mg/dL (8.5-10.1) Laboratory Tests Test 02/27/17 05:45 White Blood Count 10.4 x10^3/uL (4.0-11.0) Red Blood Count 3.26 x10^6/uL (3.50-5.40) Hemoglobin 8.6 g/dL (12.0-15.5) Hematocrit 27.9 % (36.0-47.0) Mean Corpuscular Volume 86 fL (79-100) Mean Corpuscular Hemoglobin 26 pg (25-35) Mean Corpuscular Hemoglobin Concent 31 g/dL (31-37) Red Cell Distribution Width 17.0 % (11.5-14.5) Platelet Count 256 x10^3/uL (140-400) Neutrophils (%) (Auto) 75 % (31-73) Lymphocytes (%) (Auto) 15 % (24-48) Monocytes (%) (Auto) 5 % (0-9) Eosinophils (%) (Auto) 5 % (0-3) Basophils (%) (Auto) 0 % (0-3) Neutrophils # (Auto) 7.8 x10^3uL (1.8-7.7) Lymphocytes # (Auto) 1.5 x10^3/uL (1.0-4.8) Monocytes # (Auto) 0.5 x10^3/uL (0.0-1.1) Eosinophils # (Auto) 0.5 x10^3/uL (0.0-0.7) Basophils # (Auto) 0.0 x10^3/uL (0.0-0.2) Sodium Level 142 mmol/L (136-145) Potassium Level 3.4 mmol/L (3.5-5.1) Chloride Level 99 mmol/L (98-107) Carbon Dioxide Level 44 mmol/L (21-32) Anion Gap (6-14) Blood Urea Nitrogen 22 mg/dL (7-20) Creatinine 1.4 mg/dL (0.6-1.0) Estimated GFR (Cockcroft-Gault) 37.9 Glucose Level 92 mg/dL (70-99) Calcium Level 8.3 mg/dL (8.5-10.1) Microbiology 02/17/17 Blood Culture - Final, Complete NO GROWTH AFTER 5 DAYS 02/19/17 Gram Stain - Final, Complete Medications Current Medications Albuterol Sulfate (Ventolin Neb Soln) 10 mg 1X ONCE CONT NEB Last administered on 02/17/17 12:37; Start 02/17/17 at 12:30; Stop 02/17/17 at 12 :36; Status DC Ipratropium [place] (Atrovent) 0.5 mg 1X ONCE NEB Last administered on 12:37; Start 02/17/17 at 12:30; Stop 02/17/17 at 12:36; Status DC Methylprednisolone Sodium Succinate (SOLU-Medrol 125MG VIAL) 125 mg 1X ONCE IV Last administered on 02/17/17 12:52; Start 02/17/17 at 12:30; Stop at 12:36; Status DC Albuterol Sulfate (Ventolin Neb Soln) 2.5 mg STK-MED ONCE .ROUTE ; Start at 12:33; Stop 02/17/17 at 12:34; Status DC Albuterol/ Ipratropium (Duoneb) 3 ml STK-MED ONCE .ROUTE ; Start 02/17/17 at 12 :33; Stop 02/17/17 at 12:34; Status DC Furosemide (Lasix) 40 mg 1X ONCE IVP Last administered on 02/17/17 15:21; Start 02/17/17 at 13:45; Stop 02/17/17 at 13:46; Status DC Cefepime HCl 2 gm/ Sodium Chloride 100 ml @ 200 mls/hr Q8HRS IV ; Start at 23:00; Stop 02/17/17 at 23:00; Status DC Levofloxacin/ Dextrose 150 ml @ 100 mls/hr 1X ONCE IV Last administered on 14:15; Start 02/17/17 at 14:15; Stop 02/17/17 at 15:44; Status DC Cefepime HCl 2 gm/ Dextrose 100 ml @ 200 mls/hr 1X ONCE IV ; Start 02/17/17 at 14:15; Stop 02/17/17 at 14:44; Status Cancel Ondansetron HCl (Zofran) 4 mg PRN Q8HRS PRN IV NAUSEA/VOMITING; Start at 15:00; Stop 02/18/17 at 14:59; Status DC Albuterol/ Ipratropium (Duoneb) 3 ml RTQID NEB Last administered on 02/18/17 19:11; Start 02/17/17 at 16:00; Stop 02/18/17 at 15:59; Status DC Furosemide (Lasix) 40 mg BID92 IVP Last administered on 02/26/17 15:38; Start 02/18/17 at 09:00; Stop 02/27/17 at 08:25; Status DC Cefepime HCl 2 gm/ Sodium Chloride 100 ml @ 200 mls/hr 1X ONCE IV Last administered on 02/17/17 15:15; Start 02/17/17 at 15:15; Stop 02/17/17 at 15 :44; Status DC Vancomycin HCl 2 gm/Sodium Chloride 500 ml @ 250 mls/hr 1X ONCE IV Last administered on 02/17/17 16:58; Start 02/17/17 at 16:00; Stop 02/17/17 at 17 :59; Status DC Micafungin Sodium 100 mg/Dextrose 100 ml @ 100 mls/hr Q24H IV Last administered on 02/26/17 19:52; Start 02/17/17 at 19:00 Vancomycin HCl (Vanco Per Pharmacy) 1 each PRN DAILY PRN MC SEE COMMENTS Last administered on 02/23/17 20:48; Start 02/18/17 at 07:15; Stop 02/24/17 at 09 :38; Status DC Levofloxacin/ Dextrose 100 ml @ 100 mls/hr Q24H IV Last administered on 12:46; Start 02/18/17 at 14:00; Stop 02/19/17 at 10:01; Status DC Vancomycin HCl 2 gm/Dextrose 500 ml @ 250 mls/hr Q12H IV Last administered on 02/18/17 21:41; Start 02/18/17 at 08:00; Stop 02/19/17 at 10:19; Status DC Lactobacillus Rhamnosus (Culturelle) 1 cap BID PO Last administered on 19:58; Start 02/18/17 at 09:00 Multivitamins (Thera M Plus) 1 tab DAILY PO Last administered on 02/26/17 08: 53; Start 02/18/17 at 11:00 Ascorbic Acid (Vitamin C) 500 mg DAILY PO Last administered on 02/26/17 08:53 ; Start 02/18/17 at 11:00 Vancomycin HCl 1 each 1X ONCE MC Last administered on 02/19/17 07:30; Start 02/19/17 at 07:30; Stop 02/19/17 at 07:31; Status DC Albuterol/ Ipratropium (Duoneb) 3 ml RTQID NEB Last administered on 02/27/17 08:14; Start 02/18/17 at 20:30 Alteplase, Recombinant 10 mg/ Sodium Chloride 100 ml @ 10 mls/hr 1X ONCE IV ; Start 02/19/17 at 06:00; Stop 02/19/17 at 15:59; Status UNV Alteplase, Recombinant (Cathflo) 2 mg 1X ONCE INT CAT Last administered on 06:05; Start 02/19/17 at 06:30; Stop 02/19/17 at 06:31; Status DC Levofloxacin (Levaquin) 500 mg DAILY06 PO Last administered on 02/24/17 05:15 ; Start 02/19/17 at 14:00; Stop 02/24/17 at 09:38; Status DC Vancomycin HCl 1.25 gm/Dextrose 250 ml @ 167 mls/hr Q12H IV Last administered on 02/20/17 18:15; Start 02/19/17 at 17:00; Stop 02/21/17 at 06:37; Status DC Vancomycin HCl 1 each 1X ONCE MC Last administered on 02/21/17 04:30; Start 02/21/17 at 04:30; Stop 02/21/17 at 04:31; Status DC Tramadol HCl (Ultram) 100 mg PRN Q6HRS PRN PO PAIN Last administered on 21:44; Start 02/19/17 at 18:45 Lidocaine/Sodium Bicarbonate (Buffered Lidocaine 1%) 20 ml STK-MED ONCE IJ ; Start 02/20/17 at 14:37; Stop 02/20/17 at 14:38; Status DC Fentanyl Citrate (Fentanyl 2ml Vial) 100 mcg STK-MED ONCE .ROUTE ; Start at 14:37; Stop 02/20/17 at 14:38; Status DC Midazolam HCl (Versed) 2 mg STK-MED ONCE .ROUTE ; Start 02/20/17 at 14:37; Stop 02/20/17 at 14:38; Status DC Lidocaine/Sodium Bicarbonate (Buffered Lidocaine 1%) 20 ml 1X ONCE IJ Last administered on 02/20/17 15:09; Start 02/20/17 at 15:15; Stop 02/20/17 at 15 :16; Status DC Midazolam HCl (Versed) 2 mg 1X ONCE IV Last administered on 02/20/17 15:10; Start 02/20/17 at 15:15; Stop 02/20/17 at 15:16; Status DC Fentanyl Citrate (Fentanyl 2ml Vial) 100 mcg 1X ONCE IV Last administered on 02/20/17 15:10; Start 02/20/17 at 15:15; Stop 02/20/17 at 15:16; Status DC Vancomycin HCl 1.5 gm/Dextrose 500 ml @ 250 mls/hr Q24H IV Last administered on 02/22/17 19:26; Start 02/21/17 at 19:00; Stop 02/23/17 at 20:37; Status DC Vancomycin HCl 1 each 1X ONCE MC ; Start 02/23/17 at 18:30; Stop 02/23/17 at 18:31; Status DC Nystatin (Nystop) 1 tony BID TP Last administered on 02/26/17 19:57; Start at 21:30 Albuterol Sulfate (Ventolin Neb Soln) 2.5 mg PRN Q4HRS PRN NEB SHORTNESS OF BREATH Last administered on 02/22/17 03:35; Start 02/22/17 at 03:30 Potassium Chloride (Klor-Con) 20 meq DAILYWBKFT PO Last administered on 08:54; Start 02/23/17 at 09:00 Vancomycin HCl 1.5 gm/Dextrose 500 ml @ 250 mls/hr Q36H IV ; Start 02/24/17 at 07:00; Stop 02/24/17 at 07:00; Status DC Vancomycin HCl 1.75 gm/Dextrose 500 ml @ 250 mls/hr Q36H IV Last administered on 02/24/17 06:25; Start 02/24/17 at 07:00; Stop 02/24/17 at 09:38; Status DC Ferrous Sulfate (Feosol) 325 mg DAILYWBKFT PO Last administered on 02/26/17 08 :53; Start 02/24/17 at 09:00 Cefazolin Sodium 2 gm/Dextrose 50 ml @ 100 mls/hr Q8HRS IV ; Start 02/24/17 at 14:00; Status UNV Cefazolin Sodium/ Dextrose 50 ml @ 100 mls/hr Q8HRS IV Last administered on 05:43; Start 02/24/17 at 14:00 Alteplase, Recombinant (Cathflo) 2 mg 1X ONCE INT CAT Last administered on 13:45; Start 02/24/17 at 13:30; Stop 02/24/17 at 13:31; Status DC Albuterol/ Ipratropium (Duoneb) 3 ml STK-MED ONCE .ROUTE ; Start 02/24/17 at 19 :16; Stop 02/24/17 at 19:17; Status DC Diphenhydramine HCl (Benadryl) 50 mg PRN Q6HRS PRN PO ITCHING Last administered on 02/25/17t 20:22; Start 02/25/17 at 18:15 Ondansetron HCl (Zofran) 4 mg PRN Q6HRS PRN IV NAUSEA/VOMITING; Start 02/26/17 at 10:15; Stop 02/27/17 at 10:14 Fentanyl Citrate (Fentanyl 2ml Vial) 25 mcg PRN Q5MIN PRN IV MILD PAIN; Start 02/26/17 at 10:15; Stop 02/27/17 at 10:14 Fentanyl Citrate (Fentanyl 2ml Vial) 50 mcg PRN Q5MIN PRN IV MODERATE PAIN; Start 02/26/17 at 10:15; Stop 02/27/17 at 10:14 Morphine Sulfate 1 mg PRN Q10MIN PRN IV SEVERE PAIN; Start 02/26/17 at 10:15; Stop 02/27/17 at 10:14 Ringer's Solution 1,000 ml @ 30 mls/hr Q24H IV ; Start 02/26/17 at 10:10; Stop 02/26/17 at 22:09; Status DC Lidocaine HCl (Xylocaine-Mpf 1% Vial) 2 ml 1X PRN PRN ID IV START; Start at 10:15; Stop 02/27/17 at 10:14 Hydromorphone HCl (Dilaudid) 0.5 mg PRN Q10MIN PRN IV SEV PAIN, Second choice; Start 02/26/17 at 10:15; Stop 02/27/17 at 10:14 Prochlorperazine Edisylate (Compazine) 5 mg PACU PRN PRN IV NAUSEA, MRX1; Start 02/26/17 at 10:15; Stop 02/27/17 at 10:14 Ondansetron HCl (Zofran) 4 mg PRN Q6HRS PRN IV NAUSEA/VOMITING; Start 02/27/17 at 07:00; Stop 02/28/17 at 06:59 Fentanyl Citrate (Fentanyl 2ml Vial) 25 mcg PRN Q5MIN PRN IV MILD PAIN; Start 02/27/17 at 07:00; Stop 02/28/17 at 06:59 Fentanyl Citrate (Fentanyl 2ml Vial) 50 mcg PRN Q5MIN PRN IV MODERATE PAIN; Start 02/27/17 at 07:00; Stop 02/28/17 at 06:59 Morphine Sulfate 1 mg PRN Q10MIN PRN IV SEVERE PAIN; Start 02/27/17 at 07:00; Stop 02/28/17 at 06:59 Ringer's Solution 1,000 ml @ 30 mls/hr Q24H IV ; Start 02/27/17 at 07:00; Stop 02/27/17 at 18:59 Lidocaine HCl (Xylocaine-Mpf 1% Vial) 2 ml PRN 1X PRN ID IV START; Start at 07:00; Stop 02/28/17 at 06:59 Hydromorphone HCl (Dilaudid) 0.5 mg PRN Q10MIN PRN IV SEV PAIN, Second choice; Start 02/27/17 at 07:00; Stop 02/28/17 at 06:59 Prochlorperazine Edisylate (Compazine) 5 mg PACU PRN PRN IV NAUSEA, MRX1; Start 02/27/17 at 07:00; Stop 02/28/17 at 06:59 Lidocaine HCl 20 ml STK-MED ONCE .ROUTE ; Start 02/27/17 at 07:08; Stop at 08:08; Status DC Bisacodyl (Dulcolax Tab) 10 mg PRN DAILY PRN PO CONSTIPATION; Start 02/27/17 at 08:30 Furosemide (Lasix) 40 mg DAILY PO ; Start 02/27/17 at 09:00 Active Scripts Active Reported Tramadol Hcl 50 Mg Tablet 2 Tab PO PRN Q6HRS Ferrous Sulfate 325 Mg Tablet 1 Tab PO BID 30 Days LAST DOSE GIVEN: DATE:01/02/17 TIME:9:00 a.m Diclofenac Sodium 75 Mg Tablet.dr 75 Mg PO BID Meds not given this hospital admission. May resume home medications as approved by Physician. Vitals/I & O Vital Sign - Last 24 Hours 02/26/17 02/26/17 02/26/17 02/26/17 11:00 11:40 15:00 15:39 Temp 98.3 98.5 98.3 98.5 Pulse 69 64 Resp 20 20 B/P (MAP) 91/56 (68) 96/58 (71) Pulse Ox 93 95 93 93 O2 Delivery Nasal Cannula Nasal Cannula Nasal Cannula Nasal Cannula O2 Flow Rate 3.0 3.0 3.0 3.0 02/26/17 02/26/17 02/26/17 02/26/17 16:14 19:32 19:49 20:00 Temp 98.4 98.4 Pulse 70 Resp 18 B/P (MAP) 104/46 (65) Pulse Ox 95 95 O2 Delivery Nasal Cannula Nasal Cannula Nasal Cannula Nasal Cannula O2 Flow Rate 3.0 3.0 3.0 3.0 02/26/17 02/27/17 02/27/17 02/27/17 23:25 03:51 07:00 08:17 Temp 98.3 98.2 98.3 98.3 98.2 98.3 Pulse 63 71 65 Resp 20 18 20 B/P (MAP) 93/54 (67) 115/39 (64) 110/68 (82) Pulse Ox 96 97 98 97 O2 Delivery Nasal Cannula Nasal Cannula Nasal Cannula Nasal Cannula O2 Flow Rate 3.0 3.0 3.0 3.0 CANDICE NAVA MD Feb 27, 2017 09:25
--- NOTE | 2017-02-27 10:25 | PDOC ---
Infectious Disease Note Subjective Subjective Feeling alright Denies pain new rash now all over ROS ROS GEN: Denies fevers, chills, sweats HEENT: Denies blurred vision, sore throat CV: Denies chest pain RESP: Denies shortness of air, cough GI: Denies n/v/d NEURO: Denies confusion, dizziness MSK: Denies weakness, joint pain/swelling Vital Sign Vital Signs Vital Signs Date Time Temp Pulse Resp B/P (MAP) Pulse Ox O2 Delivery O2 Flow Rate FiO2 02/27/17 08:17 97 Nasal Cannula 3.0 02/27/17 07:00 98.3 65 20 110/68 (82) 98.3 Physical Exam PHYSICAL EXAM GENERAL: NAD, Alert HEENT: PERRL, OC/OP NECK: Supple, no JVD, no LN LUNGS: Clear HEART: S1S2, no gallop, no murmur ABD: Soft, NT, no organomegaly, no rebound EXT: No edema, no cyanosis, rt knee with wound vac, and lower hematoma [employer]: Alert, oriented x 3, no focal neurologic deficit SKIN: rash, petechial IV: ok Labs Lab Laboratory Tests Test 02/27/17 05:45 White Blood Count 10.4 x10^3/uL (4.0-11.0) Red Blood Count 3.26 x10^6/uL (3.50-5.40) Hemoglobin 8.6 g/dL (12.0-15.5) Hematocrit 27.9 % (36.0-47.0) Mean Corpuscular Volume 86 fL (79-100) Mean Corpuscular Hemoglobin 26 pg (25-35) Mean Corpuscular Hemoglobin Concent 31 g/dL (31-37) Red Cell Distribution Width 17.0 % (11.5-14.5) Platelet Count 256 x10^3/uL (140-400) Neutrophils (%) (Auto) 75 % (31-73) Lymphocytes (%) (Auto) 15 % (24-48) Monocytes (%) (Auto) 5 % (0-9) Eosinophils (%) (Auto) 5 % (0-3) Basophils (%) (Auto) 0 % (0-3) Neutrophils # (Auto) 7.8 x10^3uL (1.8-7.7) Lymphocytes # (Auto) 1.5 x10^3/uL (1.0-4.8) Monocytes # (Auto) 0.5 x10^3/uL (0.0-1.1) Eosinophils # (Auto) 0.5 x10^3/uL (0.0-0.7) Basophils # (Auto) 0.0 x10^3/uL (0.0-0.2) Sodium Level 142 mmol/L (136-145) Potassium Level 3.4 mmol/L (3.5-5.1) Chloride Level 99 mmol/L (98-107) Carbon Dioxide Level 44 mmol/L (21-32) Anion Gap (6-14) Blood Urea Nitrogen 22 mg/dL (7-20) Creatinine 1.4 mg/dL (0.6-1.0) Estimated GFR (Cockcroft-Gault) 37.9 Glucose Level 92 mg/dL (70-99) Calcium Level 8.3 mg/dL (8.5-10.1) Objective Assessment Fever -better Leukopenia - s/p Solu-Medrol times one 02/17. ? med related. Was normal last week in 7's. better. EOS elevated Rash - ? med related - better Acute on chronic hypercapnic failure Right knee wound. - h/o right TKA wound dehiscence, s/p exploration with irrigation, debridement right knee and closure 01/28 w/ MSSA & GBS growth. - s/p TKA place 12/30 Groin yeast rash on [place] Rash again, Plan Plan of Care will stop cefazolin, start dapto, I and D today planned supportive care ALONDRA NOBLES MD Feb 27, 2017 10:25
[2017-02-27 11:00] VITALS: BP 111/61
[2017-02-27] MEDS ORDERED: fentaNYL PF VIAL 100 MCG/2 ML VIAL ONE ×2 (12:28→15:18)
[2017-02-27] MEDS ORDERED: FAMOTIDINE 20 MG/2 ML VIAL ONE (12:28)
[2017-02-27] MEDS ORDERED: DEXAMETHASONE SOD PHOS 20 MG/5 ML VIAL. ONE (12:28)
[2017-02-27] MEDS ORDERED: PROPOFOL 20 ML IV ONE (12:28)
[2017-02-27] MEDS ORDERED: LIDOCAINE 2% PF Vial for OR 5 ML VIAL. ONE (12:28)
[2017-02-27] MEDS ORDERED: ONDANSETRON PF 4 MG/2 ML VIAL. ONE (12:28)
[2017-02-27] MEDS ORDERED: MIDAZOLAM HCL/PF 2 MG/2 ML VIAL. ONE (12:29)
[2017-02-27] MEDS ORDERED: DESFLURANE > 120 MINUTES IH ONE (14:54)
[2017-02-27] MEDS: fentaNYL PF VIAL 100 MCG/2 ML VIAL IV PRN ×4 (15:23→15:56)
--- NOTE | 2017-02-27 15:24 | PDOC4 ---
Operative Note Operative Note Date of surgery: 02/27/2017 Preoperative diagnosis right knee wound drainage status post remote total knee with previous I&D from traumatic wound dehiscence due to fall Postoperative diagnosis: Communication with knee joint Operative procedure: Irrigation debridement right knee with polyethylene exchange and closure Surgeon: Alo Anesthesia: GenRafaela endotracheal Estimated blood loss: 200 mL Complications: None Specimens: Intraoperative cultures sent Operative indications: Patient had a traumatic wound dehiscence status post fall around a month after an otherwise uneventful total knee arthroplasty. She underwent irrigation debridement for a superficial wound involvement at that time and was covered on some antibiotics for group B strep contamination and went on to have some ongoing wound drainage and eventually a wound VAC which along with antibiotics appeared to be resolving her wound fairly well she was getting around well with physical therapy minimal pain but just prior to her planned discharge she seemed to have more redness and an area of drainage distally and a large hematoma present. I therefore had a long discussion with Dr. Bethea of infectious disease her surgery was delayed somewhat due to operating room availability and the knee looks somewhat better today but on exploration still hematoma present and I elected to proceed based on concern for communication with the knee joint for planned irrigation debridement likely polyethylene exchange. The patient agrees with this rationale for proceeding. Informed consent was obtained. Operative text: Patient was identified procedure verified patient placed in the supine position on the operating table. After adequate amounts of general endotracheal anesthesia were administered a tourniquet was placed on the right thigh and the right lower extremity was prepped and draped in standard sterile fashion with Betadine prep given her open wound. After timeout was performed patient procedure identified and verified midline incision was made between the 2 draining areas and communication was noted in the bursal area as well as likely into the knee joint based on the appearance. The knee joint was widely opened through the retinaculum medial parapatellar approach polyethylene was removed thorough debridement of the synovium carried out and thorough irrigation with normal saline solution and pulse lavage a total of 5 L altogether. Cultures were obtained and some of the synovial tissue intraoperatively prior to the debridement. Bleeding points were controlled by electrocautery and thorough closure of the retinaculum with #2 Ethibond suture in a simple and running fashion reinforced with some #1 Vicryl suture a layered meticulous subcutaneous closure accomplished with buried #1 and 2-0 Vicryl skin closure again meticulous with the #20 and 3-0 nylon suture in a near far far near skin relaxing fashion Hemovac drain was placed in the bursal area sterile dressings were applied tourniquet was not inflated throughout the procedure patient was returned to recovery room in stable condition having tolerated procedure well XENA CALHOUN MD Feb 27, 2017 15:24
[2017-02-27] MEDS: MORPHINE SULFATE 4 MG/ML DISP.SYRIN. IV PRN ×4 (15:28→16:02)
[2017-02-27] MEDS ORDERED: traMADol 50 MG TABLET PO PRN (15:45)
[2017-02-27] MEDS ORDERED: diphenhydrAMINE 50 MG/ML VIAL IV PRN (15:45)
[2017-02-27] MEDS ORDERED: DEXTROSE 50% 25 GM / 50ML DISP.SYRIN. IV PRN (15:45)
[2017-02-27] MEDS ORDERED: MORPHINE SULFATE 4 MG/ML DISP.SYRIN. IV PRN ×3 (15:45)
[2017-02-27] MEDS ORDERED: oxyCODONE/APAP 7.5/325 1 TAB TABLET PO PRN (15:45)
[2017-02-27] MEDS ORDERED: MORPHINE SULFATE 10 MG/ML VIAL. IV PRN (15:45)
[2017-02-27] MEDS ORDERED: oxyCODONE/APAP 5/325 1 TAB TABLET PO PRN (15:45)
[2017-02-27] MEDS: HYDROmorphone 2 MG/ML VIAL IV PRN ×4 (15:46→16:31)
[2017-02-27] MEDS: HYDROcodone/APAP 10/325 1 TAB TABLET PO PRN (17:57)
[2017-02-27] MEDS: MICAFUNGIN 100 MG in IV DEXTROSE 5% 100 ML IV SCH (17:58)
[2017-02-27 19:57] VITALS: BP 97/39
[2017-02-27 23:06] VITALS: BP 99/49
[2017-02-28 03:38] VITALS: BP 110/50
[2017-02-28] MEDS: LACTOBACILLUS RHAMNOSUS GG 1 CAPSULE. PO SCH ×3 (06:17→20:55)
[2017-02-28 07:00] VITALS: BP 124/76
[2017-02-28] MEDS: IPRATRPIUM/ALBUTEROL 0.5/2.5MG 3 ML NEBU. NEB SCH ×4 (07:36→20:34)
[2017-02-28] MEDS: MULTIVITAMIN with MINERAL TABLET. PO SCH (08:30)
[2017-02-28] MEDS: FERROUS SULFATE 325 MG TABLET. PO SCH (08:31)
[2017-02-28] MEDS: ASCORBIC ACID 500 MG TABLET PO SCH (08:31)
[2017-02-28] MEDS: POTASSIUM CHLORIDE 20 MEQ TABLET.ER. PO SCH ×2 (08:31→17:14)
[2017-02-28] MEDS: BISACODYL 5 MG TABLET.DR. PO PRN (08:31)
[2017-02-28] MEDS: FUROSEMIDE 40 MG TABLET. PO SCH (08:31)
[2017-02-28] MEDS: HYDROcodone/APAP 10/325 1 TAB TABLET PO PRN ×2 (08:34→17:14)
[2017-02-28] MEDS: NYSTATIN TOPICAL POWDER 15GM BOTTLE. TP SCH ×2 (08:40→20:57)
[2017-02-28 09:05] LABS: INR 1.4 (0.8-1.1); PROTHROMBIN TIME PATIENT 16.3 SEC (11.7-14.0)
--- NOTE | 2017-02-28 09:37 | PDOC ---
Infectious Disease Note Subjective Subjective Diminished apetite, No BM. Laxative earlier Pain controlled + pruritus and persistent rash Denies SOA, wheezing or swelling ROS ROS GEN: Denies fevers, chills, sweats HEENT: Denies sore throat CV: Denies chest pain RESP: Denies cough GI: Denies n/v Vital Sign Vital Signs Vital Signs Date Time Temp Pulse Resp B/P (MAP) Pulse Ox O2 Delivery O2 Flow Rate FiO2 02/28/17 08:34 16 Nasal Cannula 3.0 02/28/17 07:36 98 02/28/17 07:00 98.1 84 124/76 (92) 98.1 Physical Exam PHYSICAL EXAM GENERAL: Propped up in bed, relaxed appearance HEENT: PERRL, OC/OP clear LUNGS: Clear HEART: S1S2, + murmur ABD: Obese, soft, NT EXT: No edema, no cyanosis. Post-op dressing w/ drain intact right knee, + ice pack FILAMENT TESTER: Alert, oriented x 3, no focal neurologic deficit SKIN: Petechial-type rash primarily on extremities. RUE-PICC. clean Labs Lab Laboratory Tests Test 02/28/17 08:35 Prothrombin Time 16.3 SEC (11.7-14.0) Prothromb Time International Ratio 1.4 (0.8-1.1) Micro BLOOD CULTURE Preliminary NO GROWTH AFTER 4 DAYS Groin wound GRAM STAIN Final WBCS OCCASIONAL RBCS MODERATE GRAM POSITIVE COCCI MODERATE GRAM NEGATIVE RODS OCCASIONAL YEAST MODERATE SQUAMOUS EPITHELIAL CELLS MODERATE MANY TINY GRAM NEGATIVE RODS AND FEW TINY GRAM POSITIVE COCCI, SUGGESTIVE OF ANAEROBES ANAEROBIC-AEROBIC CULTURE PENDING ANAEROBIC RES 1 PENDING AEROBIC CULT Final Final report AEROBIC RES 1 Final Yeast Objective Assessment Rash - ? med related Right knee wound. s/p repeat I and D on 02/27. Intra-op cultures pending - h/o right TKA wound dehiscence, s/p exploration with irrigation, debridement right knee and closure 01/28 w/ MSSA & GBS growth. - s/p TKA place 12/30 Groin yeast rash on Brittnee Fever -better Leukopenia, resolved Acute on chronic hypercapnic failure - better Plan Plan of Care Dapto Await intra-op culture results Monitor rash Supportive care D/w family D/w RN Attending Co-Sign Attending Co-Sign The patient was seen and interviewed as well as examined at the bedside. The chart was reviewed. The case was discussed. Agree with the plan of care. TERE SCHMID APRN Feb 28, 2017 09:37 BAILEY JARRETT MD Feb 28, 2017 15:17
--- NOTE | 2017-02-28 09:54 | PDOC ---
PULMONARY PROGRESS NOTES Subjective no soa Vitals Vital Signs Date Time Temp Pulse Resp B/P (MAP) Pulse Ox O2 Delivery O2 Flow Rate FiO2 02/28/17 08:34 16 Nasal Cannula 3.0 02/28/17 07:36 98 02/28/17 07:00 98.1 84 124/76 (92) 98.1 ROS: No Nausea, No Chest Pain, No Abdominal Pain, No Increase Cough General: Alert, No acute distress Lungs: Clear Cardiovascular: S1, S2 Abdomen: Soft Neuro Exam: Alert Extremities: Other (EDEMA AND DRESSING OVE RIGHT KNEE, rash lower and upper extremity) Skin: Warm Labs Laboratory Tests Test 02/27/17 05:45 02/28/17 08:35 White Blood Count 10.4 x10^3/uL (4.0-11.0) Red Blood Count 3.26 x10^6/uL (3.50-5.40) Hemoglobin 8.6 g/dL (12.0-15.5) Hematocrit 27.9 % (36.0-47.0) Mean Corpuscular Volume 86 fL (79-100) Mean Corpuscular Hemoglobin 26 pg (25-35) Mean Corpuscular Hemoglobin Concent 31 g/dL (31-37) Red Cell Distribution Width 17.0 % (11.5-14.5) Platelet Count 256 x10^3/uL (140-400) Neutrophils (%) (Auto) 75 % (31-73) Lymphocytes (%) (Auto) 15 % (24-48) Monocytes (%) (Auto) 5 % (0-9) Eosinophils (%) (Auto) 5 % (0-3) Basophils (%) (Auto) 0 % (0-3) Neutrophils # (Auto) 7.8 x10^3uL (1.8-7.7) Lymphocytes # (Auto) 1.5 x10^3/uL (1.0-4.8) Monocytes # (Auto) 0.5 x10^3/uL (0.0-1.1) Eosinophils # (Auto) 0.5 x10^3/uL (0.0-0.7) Basophils # (Auto) 0.0 x10^3/uL (0.0-0.2) Sodium Level 142 mmol/L (136-145) Potassium Level 3.4 mmol/L (3.5-5.1) Chloride Level 99 mmol/L (98-107) Carbon Dioxide Level 44 mmol/L (21-32) Anion Gap (6-14) Blood Urea Nitrogen 22 mg/dL (7-20) Creatinine 1.4 mg/dL (0.6-1.0) Estimated GFR (Cockcroft-Gault) 37.9 Glucose Level 92 mg/dL (70-99) Calcium Level 8.3 mg/dL (8.5-10.1) Prothrombin Time 16.3 SEC (11.7-14.0) Prothromb Time International Ratio 1.4 (0.8-1.1) Laboratory Tests Test 02/28/17 08:35 Prothrombin Time 16.3 SEC (11.7-14.0) Prothromb Time International Ratio 1.4 (0.8-1.1) Medications Active Scripts Medications Dose Route/Sig Max Daily Dose Days Date Category Dose Instructions Tramadol Hcl 50 Mg Tablet 2 Tab PO PRN Q6HRS 02/17/17 Reported Ferrous Sulfate 325 Mg Tablet 1 Tab PO BID 30 01/02/17 Reported LAST DOSE GIVEN: DATE:01/02/17 TIME:9:00 a.m Diclofenac Sodium 75 Mg Tablet.dr 75 Mg PO BID 11/10/16 Reported Meds not given this hospital admission. May resume home medications as approved by Physician. Impression . 1. Olyat-vq-xwelkwo hypoxemic/ hypercapnic respiratory failure.( marilyn/ohs/ COPD / Diastolic HF) 2. Acute diastolic heart failure. compensated 3. Leukopenia. resolved 4. h/o right TKA, wound dehiscence, s/p exploration with irrigation, debridement right knee and closure 01/28 w/ MSSA & GBS growth. - s/p TKA place 12/30 5. Abnormal x-ray compatible with acute pulmonary edema.stable 6. Morbid obesity. 7. Chronic anemia. 8. Protein malnutrition, present upon admission. Plan . RESP STATUS IS COMPENSATED BIPAP QHS/ PT HAS HOME CPAP AND USES O2 QHS MAY NEED 6 MIN WALK TO ASSESS NEED FOR DAYTIME O2 F/U ORTHO/ID RECOMMENDATIONS WOUND CARE ANTIBX PER ID NEBS DVT PROPH WITH SCD FIDELINA STUART MD Feb 28, 2017 09:54
[2017-02-28] MEDS: DAPTOMYCIN IV SCH (10:57)
[2017-02-28] MEDS: NORMAL SALINE IV SCH (10:57)
[2017-02-28 11:00] VITALS: BP 136/74
[2017-02-28] MEDS: diphenhydrAMINE HCL 25 MG CAPSULE PO PRN ×2 (11:36→20:56)
--- NOTE | 2017-02-28 13:04 | PDOC ---
Provider Note Provider Note vss, no temp- bmp stable, still mod anemia- on dapto, iv opioids- diffuse palpable purpura persists, itchy- will cont same meds, cant use steroids re infection if possible TEMI DAMIAN MD Feb 28, 2017 13:04
--- NOTE | 2017-02-28 13:07 | PDOC ---
Provider Note Provider Note will add cetirizine re drug rash, eosinophilia better now TEMI DAMIAN MD Feb 28, 2017 13:07
[2017-02-28] MEDS: CETIRIZINE HCL 10 MG TABLET. PO SCH (14:00)
[2017-02-28 15:00] VITALS: BP 99/60
[2017-02-28 19:10] VITALS: BP 117/56
[2017-02-28 23:27] VITALS: BP 116/60
[2017-03-01 03:51] VITALS: BP 131/47
[2017-03-01 05:43] LABS: HEMATOCRIT 26.3 % (36.0-47.0)
[2017-03-01 05:48] LABS: INR 1.4 (0.8-1.1); PROTHROMBIN TIME PATIENT 16.1 SEC (11.7-14.0)
[2017-03-01 07:00] VITALS: BP 136/51
--- NOTE | 2017-03-01 07:42 | PDOC ---
Provider Note Provider Note vss, no temp, creat same, K+ 3.4- says zyrtec helps itch some, rash of palpable purpura is a little less red- hb 8, may need prbc, do daily- dapto continues TEMI DAMIAN MD Mar 01, 2017 07:42
--- NOTE | 2017-03-01 07:44 | PDOC ---
Provider Note Provider Note high risk for dvt, add lovenox daily until inr >1.9 TEMI DAMIAN MD Mar 01, 2017 07:44
[2017-03-01] MEDS: ASCORBIC ACID 500 MG TABLET PO SCH (07:52)
[2017-03-01] MEDS: CETIRIZINE HCL 10 MG TABLET. PO SCH (07:52)
[2017-03-01] MEDS: LACTOBACILLUS RHAMNOSUS GG 1 CAPSULE. PO SCH ×2 (07:52→22:47)
[2017-03-01] MEDS: BISACODYL 5 MG TABLET.DR. PO PRN (07:52)
[2017-03-01] MEDS: POTASSIUM CHLORIDE 20 MEQ TABLET.ER. PO SCH ×2 (07:53→17:34)
[2017-03-01] MEDS: FERROUS SULFATE 325 MG TABLET. PO SCH (07:53)
[2017-03-01] MEDS: FUROSEMIDE 40 MG TABLET. PO SCH (07:53)
[2017-03-01] MEDS: MULTIVITAMIN with MINERAL TABLET. PO SCH (07:53)
[2017-03-01] MEDS: ENOXAPARIN 40 MG/0.4 ML SYRINGE. SQ SCH (07:54)
[2017-03-01] MEDS: IPRATRPIUM/ALBUTEROL 0.5/2.5MG 3 ML NEBU. NEB SCH ×4 (07:57→19:35)
[2017-03-01] MEDS: traMADol 50 MG TABLET PO PRN ×2 (10:12→17:34)
[2017-03-01] MEDS: NYSTATIN TOPICAL POWDER 15GM BOTTLE. TP SCH ×2 (10:13→22:48)
[2017-03-01] MEDS: NORMAL SALINE IV SCH (10:13)
[2017-03-01] MEDS: DAPTOMYCIN IV SCH (10:13)
--- NOTE | 2017-03-01 10:49 | PDOC ---
Infectious Disease Note Subjective Subjective + pruritus and persistent rash, no worse Denies SOA, wheezing or swelling 3L NC O2 ROS ROS GEN: Denies fevers, chills, sweats CV: Denies chest pain RESP: Denies shortness of air, cough GI: Denies n/v/d Vital Sign Vital Signs Vital Signs Date Time Temp Pulse Resp B/P (MAP) Pulse Ox O2 Delivery O2 Flow Rate FiO2 03/01/17 10:13 16 99 Nasal Cannula 3.0 03/01/17 07:00 97.7 71 136/51 (79) 97.7 Physical Exam PHYSICAL EXAM GENERAL: In chair. HEENT: PERRL, OC/OP clear - no breakdown LUNGS: Clear HEART: S1S2, + murmur ABD: Obese, soft, NT EXT: BLE trace edema. Post-op dressing w/ drain intact right knee [employer] DEMONSTRATION AGENT: Alert, oriented x 3, no focal neurologic deficit SKIN: Follicular-type rash primarily on extremities, lower abdomen, buttocks and back. RUE-PICC. clean Labs Lab Laboratory Tests Test 03/01/17 05:25 Hemoglobin 8.0 g/dL (12.0-15.5) Hematocrit 26.3 % (36.0-47.0) Mean Corpuscular Hemoglobin Concent 30 g/dL (31-37) Prothrombin Time 16.1 SEC (11.7-14.0) Prothromb Time International Ratio 1.4 (0.8-1.1) Micro BLOOD CULTURE Preliminary NO GROWTH AFTER 5 DAYS 02/27. Intra-op right knee ANAEROBIC-AEROBIC CULTURE PENDING ANAEROBIC RES 1 PENDING AEROBIC CULT Preliminary Preliminary report AEROBIC RES 1 Preliminary Comment No growth after 18-24 hours. Objective Assessment Rash - ? med related Right knee wound. s/p repeat I and D on 02/27. Intra-op cultures no growth to date - h/o right TKA wound dehiscence, s/p exploration with irrigation, debridement right knee and closure 01/28 w/ MSSA & GBS growth. - s/p TKA place 12/30 Groin yeast rash on Brittnee Fever -better Leukopenia, resolved Acute on chronic hypercapnic failure - better Plan Plan of Care Dapto f/u cultures Monitor rash - improving but still itch. May need low steroid times one if no better Supportive care D/w family Attending Co-Sign Attending Co-Sign The patient was seen and interviewed as well as examined at the bedside. The chart was reviewed. The case was discussed. Agree with the plan of care. TERE SCHMID APRN Mar 01, 2017 10:49 BAILEY JARRETT MD Mar 01, 2017 13:18
[2017-03-01 11:00] VITALS: BP 97/48
[2017-03-01] MEDS: diphenhydrAMINE HCL 25 MG CAPSULE PO PRN (14:23)
[2017-03-01] MEDS: HYDROcodone/APAP 10/325 1 TAB TABLET PO PRN (14:25)
[2017-03-01 15:00] VITALS: BP 95/45
--- NOTE | 2017-03-01 15:50 | PDOC ---
PULMONARY PROGRESS NOTES Subjective no soa Vitals Vital Signs Date Time Temp Pulse Resp B/P (MAP) Pulse Ox O2 Delivery O2 Flow Rate FiO2 03/01/17 15:23 95 Nasal Cannula 3.0 03/01/17 14:25 16 03/01/17 11:00 98.4 70 97/48 (64) 98.4 ROS: No Nausea, No Chest Pain, No Abdominal Pain, No Increase Cough General: Alert, No acute distress Lungs: Clear Cardiovascular: S1, S2 Abdomen: Soft Neuro Exam: Alert Extremities: Other (EDEMA AND DRESSING OVE RIGHT KNEE, rash lower and upper extremity) Skin: Warm Labs Laboratory Tests Test 02/28/17 08:35 03/01/17 05:25 Prothrombin Time 16.3 SEC (11.7-14.0) 16.1 SEC (11.7-14.0) Prothromb Time International Ratio 1.4 (0.8-1.1) 1.4 (0.8-1.1) Hemoglobin 8.0 g/dL (12.0-15.5) Hematocrit 26.3 % (36.0-47.0) Mean Corpuscular Hemoglobin Concent 30 g/dL (31-37) Laboratory Tests Test 03/01/17 05:25 Hemoglobin 8.0 g/dL (12.0-15.5) Hematocrit 26.3 % (36.0-47.0) Mean Corpuscular Hemoglobin Concent 30 g/dL (31-37) Prothrombin Time 16.1 SEC (11.7-14.0) Prothromb Time International Ratio 1.4 (0.8-1.1) Medications Active Scripts Medications Dose Route/Sig Max Daily Dose Days Date Category Dose Instructions Tramadol Hcl 50 Mg Tablet 2 Tab PO PRN Q6HRS 02/17/17 Reported Ferrous Sulfate 325 Mg Tablet 1 Tab PO BID 30 01/02/17 Reported LAST DOSE GIVEN: DATE:01/02/17 TIME:9:00 a.m Diclofenac Sodium 75 Mg Tablet.dr 75 Mg PO BID 11/10/16 Reported Meds not given this hospital admission. May resume home medications as approved by Physician. Impression . 1. Hgyyj-hb-rasvivi hypoxemic/ hypercapnic respiratory failure.( marilyn/ohs/ COPD / Diastolic HF) 2. Acute diastolic heart failure. compensated 3. Leukopenia. resolved 4. h/o right TKA, wound dehiscence, s/p exploration with irrigation, debridement right knee and closure 01/28 w/ MSSA & GBS growth. - s/p TKA place 12/30 5. Abnormal x-ray compatible with acute pulmonary edema.stable 6. Morbid obesity. 7. Chronic anemia. 8. Protein malnutrition, present upon admission. Plan . RESP STATUS IS COMPENSATED BIPAP QHS/ PT HAS HOME CPAP AND USES O2 QHS MAY NEED 6 MIN WALK TO ASSESS NEED FOR DAYTIME O2 F/U ORTHO/ID RECOMMENDATIONS WOUND CARE ANTIBX PER ID NEBS DVT PROPH. AGREE WITH ADDING LOVENOX FIDELINA STUART MD Mar 01, 2017 15:50
--- NOTE | 2017-03-01 17:33 | PDOC ---
PROGRESS NOTES Subjective Subjective Problems overnight: Did well getting up and around today drain came out pain well controlled no other complaints Objective Vital Signs Vital Signs Date Time Temp Pulse Resp B/P (MAP) Pulse Ox O2 Delivery O2 Flow Rate FiO2 03/01/17 15:23 95 Nasal Cannula 3.0 03/01/17 15:00 98.1 66 20 95/45 (62) 98.1 Physical Exam Incision is clean dry intact is no drainage noted redness is resolved she still has a rash on her other extremities status slowly resolving Labs Laboratory Tests Test 02/28/17 08:35 03/01/17 05:25 Prothrombin Time 16.3 SEC (11.7-14.0) 16.1 SEC (11.7-14.0) Prothromb Time International Ratio 1.4 (0.8-1.1) 1.4 (0.8-1.1) Hemoglobin 8.0 g/dL (12.0-15.5) Hematocrit 26.3 % (36.0-47.0) Mean Corpuscular Hemoglobin Concent 30 g/dL (31-37) Laboratory Tests Test 03/01/17 05:25 Hemoglobin 8.0 g/dL (12.0-15.5) Hematocrit 26.3 % (36.0-47.0) Mean Corpuscular Hemoglobin Concent 30 g/dL (31-37) Prothrombin Time 16.1 SEC (11.7-14.0) Prothromb Time International Ratio 1.4 (0.8-1.1) Assessment Assessment POD# [1], S/P [irrigation debridement of right knee with polyethylene exchange] Problems: Plan Plan of Care Intraoperative cultures pending currently on daptomycin per infectious disease Daily dressing changes to right knee Weightbearing as tolerated with right knee and extension limiting knee flexion until healing as much further along probably 10-14 days XENA CALHOUN MD Mar 01, 2017 17:32
[2017-03-01 19:50] VITALS: BP 103/52
[2017-03-01] MEDS: HYDROcodone/APAP 7.5/325MG 1 TAB TABLET PO PRN (22:48)
[2017-03-01 23:35] VITALS: BP 102/53
[2017-03-02] MEDS: diphenhydrAMINE HCL 25 MG CAPSULE PO PRN ×2 (03:19→08:52)
[2017-03-02] MEDS: traMADol 50 MG TABLET PO PRN (03:21)
[2017-03-02 03:39] VITALS: BP 111/59
[2017-03-02 06:07] LABS: INR 1.3 (0.8-1.1); PROTHROMBIN TIME PATIENT 15.8 SEC (11.7-14.0)
[2017-03-02 07:01] VITALS: BP 127/62
--- NOTE | 2017-03-02 08:26 | PDOC ---
GENERAL General: vss and afebrile. rash much worse than last week and had leukopenia with cephalosporin reaction before and have not checked a wbc since rash worse and will do so this am. on daptomycin currently. concern of ID was that if not able to tolerated cephalosporin no good roasterman suppressive options. intraoperative culture from 02/27 negative to date. chest with decreased breath sounds and O2 at 3L/NC. heart regular and abdomen benign. leg dressed with drain out. Problems: VITAL SIGNS Vital Signs: Vital Signs Date Time Temp Pulse Resp B/P (MAP) Pulse Ox O2 Delivery O2 Flow Rate FiO2 03/02/17 07:01 98.2 66 18 127/62 (83) 100 Room Air 98.2 03/01/17 20:15 3.0 ALLERGIES Allergies: Allergies Coded Allergies Type Severity Reaction Last Updated Verified No Known Drug Allergies 02/27/17 No MEDS Medications: Current Medications Medications (Trade) Dose Ordered Sig/Jayson Start Time Stop Time Status Last Admin Dose Admin Acetaminophen/ Hydrocodone Bitart (Lortab 10/325) 1 tab PRN Q3HRS PRN 02/27/17 15:45 03/01/17 14:25 1 TAB Acetaminophen/ Hydrocodone Bitart (Lortab 7.5/325) 1 tab PRN Q3HRS PRN 02/27/17 15:45 03/01/17 22:48 1 TAB Albuterol Sulfate (Ventolin Neb Soln) 2.5 mg PRN Q4HRS PRN 02/22/17 03:30 02/22/17 03:35 2.5 MG Albuterol/ Ipratropium (Duoneb) 3 ml STK-MED ONCE 02/24/17 19:16 02/24/17 19:17 DC Alteplase, Recombinant (Cathflo) 2 mg 1X ONCE 02/24/17 13:30 02/24/17 13:31 DC 02/24/17 13:45 2 MG Alteplase, Recombinant 10 mg/ Sodium Chloride 100 ml @ 10 mls/hr 1X ONCE 02/19/17 06:00 02/19/17 15:59 UNV Ascorbic Acid (Vitamin C) 500 mg DAILY 02/18/17 11:00 03/01/17 07:52 500 MG Bisacodyl (Dulcolax Tab) 10 mg PRN DAILY PRN 02/27/17 08:30 03/01/17 07:52 10 MG Cefazolin Sodium 2 gm/Dextrose 50 ml @ 100 mls/hr Q8HRS 02/24/17 14:00 UNV Cefazolin Sodium/ Dextrose 50 ml @ 100 mls/hr Q8HRS 02/24/17 14:00 02/28/17 09:31 DC 02/28/17 06:17 100 MLS/HR Cefepime HCl 2 gm/ Dextrose 100 ml @ 200 mls/hr 1X ONCE 02/17/17 14:15 02/17/17 14:44 Cancel Cefepime HCl 2 gm/ Sodium Chloride 100 ml @ 200 mls/hr 1X ONCE 02/17/17 15:15 02/17/17 15:44 DC 02/17/17 15:15 200 MLS/HR Cetirizine HCl (ZyrTEC) 20 mg DAILY 02/28/17 14:00 03/01/17 07:52 20 MG Daptomycin 840 mg/ Sodium Chloride 50 ml @ 100 mls/hr Q24H 02/28/17 10:00 03/01/17 10:13 100 MLS/HR Desflurane (Suprane) 90 ml STK-MED ONCE 02/27/17 14:54 02/27/17 14:55 DC Dexamethasone Sodium Phosphate (Decadron) 20 mg STK-MED ONCE 02/27/17 12:28 02/27/17 12:29 DC Dextrose (Dextrose 50%-Water Syringe) 12.5 gm PRN Q15MIN PRN 02/27/17 15:45 Diphenhydramine HCl (Benadryl) 25 mg PRN Q6HRS PRN 02/27/17 15:45 Enoxaparin Sodium (Lovenox 40mg Syringe) 40 mg Q24H 03/01/17 08:00 03/01/17 07:54 40 MG Famotidine (Pepcid) 20 mg STK-MED ONCE 02/27/17 12:28 02/27/17 12:29 DC Fentanyl Citrate (Fentanyl 2ml Vial) 50 mcg PRN Q1HR PRN 02/27/17 15:45 03/01/17 07:43 DC Ferrous Sulfate (Feosol) 325 mg DAILYWBKFT 02/24/17 09:00 03/01/17 07:53 325 MG Furosemide (Lasix) 40 mg DAILY 02/27/17 09:00 03/01/17 07:53 40 MG Hydromorphone HCl (Dilaudid) 0.5 mg PRN Q10MIN PRN 02/27/17 07:00 02/28/17 06:59 DC 02/27/17 16:31 0.5 MG Ipratropium [place] (Atrovent) 0.5 mg 1X ONCE 02/17/17 12:30 02/17/17 12:36 DC 02/17/17 12:37 0.5 MG Lactobacillus Rhamnosus (Culturelle) 1 cap BID 02/18/17 09:00 03/01/17 22:47 1 CAP Levofloxacin (Levaquin) 500 mg DAILY06 02/19/17 14:00 02/24/17 09:38 DC 02/24/17 05:15 500 MG Levofloxacin/ Dextrose 100 ml @ 100 mls/hr Q24H 02/18/17 14:00 02/19/17 10:01 DC 02/18/17 12:46 100 MLS/HR Lidocaine HCl (Lidocaine Pf 2% Vial) 5 ml STK-MED ONCE 02/27/17 12:28 02/27/17 12:29 DC Lidocaine HCl (Xylocaine-Mpf 1% Vial) 2 ml PRN 1X PRN 02/27/17 07:00 02/28/17 06:59 DC Lidocaine/Sodium Bicarbonate (Buffered Lidocaine 1%) 20 ml 1X ONCE 02/20/17 15:15 02/20/17 15:16 DC 02/20/17 15:09 7 ML Methylprednisolone Sodium Succinate (SOLU-Medrol 125MG VIAL) 125 mg 1X ONCE 02/17/17 12:30 02/17/17 12:36 DC 02/17/17 12:52 125 MG Micafungin Sodium 100 mg/Dextrose 100 ml @ 100 mls/hr Q24H 02/17/17 19:00 02/28/17 09:31 DC 02/27/17 17:58 100 MLS/HR Midazolam HCl (Versed) 2 mg STK-MED ONCE 02/27/17 12:29 02/27/17 12:30 DC Morphine Sulfate 8 mg PRN Q1HR PRN 02/27/17 15:45 03/01/17 07:43 DC Multivitamins (Thera M Plus) 1 tab DAILY 02/18/17 11:00 03/01/17 07:53 1 TAB Nystatin (Nystop) 1 tony BID 02/21/17 21:30 03/01/17 22:48 1 TONY Ondansetron HCl (Zofran) 4 mg STK-MED ONCE 02/27/17 12:28 02/27/17 12:29 DC Oxycodone/ Acetaminophen (Percocet 5/325) 1 tab PRN Q3HRS PRN 02/27/17 15:45 03/01/17 07:43 DC Oxycodone/ Acetaminophen (Percocet 7.5/ 325) 1 tab PRN Q3HRS PRN 02/27/17 15:45 Potassium Chloride (Klor-Con) 20 meq BIDAFTMEAL 02/28/17 18:00 03/01/17 17:34 20 MEQ Prochlorperazine Edisylate (Compazine) 5 mg PACU PRN PRN 02/27/17 07:00 02/28/17 06:59 DC Propofol 20 ml @ As Directed STK-MED ONCE 02/27/17 12:28 02/27/17 12:29 DC Ringer's Solution 1,000 ml @ 30 mls/hr Q24H 02/27/17 07:00 02/27/17 18:59 DC 02/27/17 11:25 30 MLS/HR Tramadol HCl (Ultram) 100 mg PRN Q3HRS PRN 02/27/17 15:45 03/02/17 03:21 100 MG Vancomycin HCl (Vanco Per Pharmacy) 1 each PRN DAILY PRN 02/18/17 07:15 02/24/17 09:38 DC 02/23/17 20:48 1 EACH Vancomycin HCl 1.25 gm/Dextrose 250 ml @ 167 mls/hr Q12H 02/19/17 17:00 02/21/17 06:37 DC 02/20/17 18:15 167 MLS/HR Vancomycin HCl 1.5 gm/Dextrose 500 ml @ 250 mls/hr Q36H 02/24/17 07:00 02/24/17 07:00 DC Vancomycin HCl 1.75 gm/Dextrose 500 ml @ 250 mls/hr Q36H 02/24/17 07:00 02/24/17 09:38 DC 02/24/17 06:25 250 MLS/HR Vancomycin HCl 2 gm/Dextrose 500 ml @ 250 mls/hr Q12H 02/18/17 08:00 02/19/17 10:19 DC 02/18/17 21:41 250 MLS/HR Vancomycin HCl 2 gm/Sodium Chloride 500 ml @ 250 mls/hr 1X ONCE 02/17/17 16:00 02/17/17 17:59 DC 02/17/17 16:58 250 MLS/HR LAB Lab: Laboratory Tests Test 03/02/17 05:40 Hemoglobin 7.5 g/dL (12.0-15.5) Hematocrit 24.2 % (36.0-47.0) Mean Corpuscular Hemoglobin Concent 31 g/dL (31-37) Prothrombin Time 15.8 SEC (11.7-14.0) Prothromb Time International Ratio 1.3 (0.8-1.1) RAFAEL CASTRO MD Mar 02, 2017 08:26
[2017-03-02 08:41] LABS: BASO # 0.1 x10^3/uL (0.0-0.2); BASO % 1 % (0-3); EOS % 3 % (0-3); HEMATOCRIT 23.9 % (36.0-47.0); HEMOGLOBIN 7.5 g/dL (12.0-15.5); LYMPH # 1.3 x10^3/uL (1.0-4.8); LYMPH % 13 % (24-48); MEAN CORPUSCULAR HEMOGLOBIN 27 pg (25-35); MEAN CORPUSCULAR HGB CONC 31 g/dL (31-37); MEAN CORPUSCULAR VOLUME 85 fL (79-100); MONO % 4 % (0-9); NEUT % 79 % (31-73); PLATELET COUNT 239 x10^3/uL (140-400); RED BLOOD COUNT 2.81 x10^6/uL (3.50-5.40); RED CELL DISTRIBUTION WIDTH 17.4 % (11.5-14.5); WHITE BLOOD COUNT 10.4 x10^3/uL (4.0-11.0)
[2017-03-02] MEDS: CETIRIZINE HCL 10 MG TABLET. PO SCH (08:44)
[2017-03-02] MEDS: ENOXAPARIN 40 MG/0.4 ML SYRINGE. SQ SCH (08:44)
[2017-03-02] MEDS: LACTOBACILLUS RHAMNOSUS GG 1 CAPSULE. PO SCH ×2 (08:44→21:21)
[2017-03-02] MEDS: POTASSIUM CHLORIDE 20 MEQ TABLET.ER. PO SCH ×2 (08:45→18:08)
[2017-03-02] MEDS: ASCORBIC ACID 500 MG TABLET PO SCH (08:45)
[2017-03-02] MEDS: FUROSEMIDE 40 MG TABLET. PO SCH (08:45)
[2017-03-02] MEDS: FERROUS SULFATE 325 MG TABLET. PO SCH (08:45)
[2017-03-02] MEDS: MULTIVITAMIN with MINERAL TABLET. PO SCH (08:45)
[2017-03-02] MEDS: HYDROcodone/APAP 7.5/325MG 1 TAB TABLET PO PRN (08:52)
[2017-03-02] MEDS: NYSTATIN TOPICAL POWDER 15GM BOTTLE. TP SCH ×2 (08:52→21:21)
[2017-03-02] MEDS: IPRATRPIUM/ALBUTEROL 0.5/2.5MG 3 ML NEBU. NEB SCH ×4 (09:01→19:23)
[2017-03-02] MEDS: DAPTOMYCIN IV SCH (09:33)
[2017-03-02] MEDS: NORMAL SALINE IV SCH (09:33)
[2017-03-02 11:00] VITALS: BP 109/50
--- NOTE | 2017-03-02 12:42 | PDOC ---
PROGRESS NOTES Subjective Subjective c/c - f/u of anemia ROS - no fever Objective Objective Vital Signs Date Time Temp Pulse Resp B/P (MAP) Pulse Ox O2 Delivery O2 Flow Rate FiO2 03/02/17 12:11 97 Nasal Cannula 3.0 03/02/17 11:00 98.2 67 18 109/50 (69) 98.2 Intake and Output 03/03/17 07:00 Intake Total 250 ml Balance 250 ml Intake Oral 250 ml Physical Exam Heart: Normal S1, Normal S2 General: Alert, Oriented X3 Lungs: Clear to auscultation Neuro: Normal speech Psych/Mental Status: Mental status NL Assessment Assessment Problems Medical Problems: (1) Acute congestive heart failure Status: Acute (2) Acute respiratory failure with hypoxia Status: Acute (3) COPD exacerbation Status: Acute IMPRESSION AND PLAN: 1. Severe neutropenia with elevated monocytes, is most likely a reactive process due to underlying infection. Improved. WBC better at 10.4 on 03/02/17 BM bx is negative for leukemia (I d/w pathologist DR Tirado). 2. Anemia, due to chronic disease. Continue to monitor. Hb 7.5. Low iron saturation (due to blood loss from surgery and wound) . Cont oral iron supplementation 3. History of right knee replacement. She has a wound VAC in the right thigh. Comment Review of Relevant I have reviewed the following items behzad (where applicable) has been applied. Labs Laboratory Tests Test 03/01/17 05:25 03/02/17 05:40 Hemoglobin 8.0 g/dL (12.0-15.5) 7.5 g/dL (12.0-15.5) Hematocrit 26.3 % (36.0-47.0) 23.9 % (36.0-47.0) Mean Corpuscular Hemoglobin Concent 30 g/dL (31-37) 31 g/dL (31-37) Prothrombin Time 16.1 SEC (11.7-14.0) 15.8 SEC (11.7-14.0) Prothromb Time International Ratio 1.4 (0.8-1.1) 1.3 (0.8-1.1) White Blood Count 10.4 x10^3/uL (4.0-11.0) Red Blood Count 2.81 x10^6/uL (3.50-5.40) Mean Corpuscular Volume 85 fL (79-100) Mean Corpuscular Hemoglobin 27 pg (25-35) Red Cell Distribution Width 17.4 % (11.5-14.5) Platelet Count 239 x10^3/uL (140-400) Neutrophils (%) (Auto) 79 % (31-73) Lymphocytes (%) (Auto) 13 % (24-48) Monocytes (%) (Auto) 4 % (0-9) Eosinophils (%) (Auto) 3 % (0-3) Basophils (%) (Auto) 1 % (0-3) Neutrophils # (Auto) 8.2 x10^3uL (1.8-7.7) Lymphocytes # (Auto) 1.3 x10^3/uL (1.0-4.8) Monocytes # (Auto) 0.4 x10^3/uL (0.0-1.1) Eosinophils # (Auto) 0.4 x10^3/uL (0.0-0.7) Basophils # (Auto) 0.1 x10^3/uL (0.0-0.2) Laboratory Tests Test 03/02/17 05:40 White Blood Count 10.4 x10^3/uL (4.0-11.0) Red Blood Count 2.81 x10^6/uL (3.50-5.40) Hemoglobin 7.5 g/dL (12.0-15.5) Hematocrit 23.9 % (36.0-47.0) Mean Corpuscular Volume 85 fL (79-100) Mean Corpuscular Hemoglobin 27 pg (25-35) Mean Corpuscular Hemoglobin Concent 31 g/dL (31-37) Red Cell Distribution Width 17.4 % (11.5-14.5) Platelet Count 239 x10^3/uL (140-400) Neutrophils (%) (Auto) 79 % (31-73) Lymphocytes (%) (Auto) 13 % (24-48) Monocytes (%) (Auto) 4 % (0-9) Eosinophils (%) (Auto) 3 % (0-3) Basophils (%) (Auto) 1 % (0-3) Neutrophils # (Auto) 8.2 x10^3uL (1.8-7.7) Lymphocytes # (Auto) 1.3 x10^3/uL (1.0-4.8) Monocytes # (Auto) 0.4 x10^3/uL (0.0-1.1) Eosinophils # (Auto) 0.4 x10^3/uL (0.0-0.7) Basophils # (Auto) 0.1 x10^3/uL (0.0-0.2) Prothrombin Time 15.8 SEC (11.7-14.0) Prothromb Time International Ratio 1.3 (0.8-1.1) Microbiology 02/17/17 Blood Culture - Final, Complete NO GROWTH AFTER 5 DAYS 02/27/17 Anaerobic/Aerobic Culture, Resulted Pending 02/27/17 Anaerobic Culture Result 1 (MARVIN), Resulted Pending 02/27/17 Aerobic Culture - Final, Resulted 02/27/17 Aerobic Culture Result 1 (MARVIN) - Final, Resulted Medications Current Medications Albuterol Sulfate (Ventolin Neb Soln) 10 mg 1X ONCE CONT NEB Last administered on 02/17/17 12:37; Start 02/17/17 at 12:30; Stop 02/17/17 at 12 :36; Status DC Ipratropium [place] (Atrovent) 0.5 mg 1X ONCE NEB Last administered on 12:37; Start 02/17/17 at 12:30; Stop 02/17/17 at 12:36; Status DC Methylprednisolone Sodium Succinate (SOLU-Medrol 125MG VIAL) 125 mg 1X ONCE IV Last administered on 02/17/17 12:52; Start 02/17/17 at 12:30; Stop at 12:36; Status DC Albuterol Sulfate (Ventolin Neb Soln) 2.5 mg STK-MED ONCE .ROUTE ; Start at 12:33; Stop 02/17/17 at 12:34; Status DC Albuterol/ Ipratropium (Duoneb) 3 ml STK-MED ONCE .ROUTE ; Start 02/17/17 at 12 :33; Stop 02/17/17 at 12:34; Status DC Furosemide (Lasix) 40 mg 1X ONCE IVP Last administered on 02/17/17t 15:21; Start 02/17/17 at 13:45; Stop 02/17/17 at 13:46; Status DC Cefepime HCl 2 gm/ Sodium Chloride 100 ml @ 200 mls/hr Q8HRS IV ; Start at 23:00; Stop 02/17/17 at 23:00; Status DC Levofloxacin/ Dextrose 150 ml @ 100 mls/hr 1X ONCE IV Last administered on 14:15; Start 02/17/17 at 14:15; Stop 02/17/17 at 15:44; Status DC Cefepime HCl 2 gm/ Dextrose 100 ml @ 200 mls/hr 1X ONCE IV ; Start 02/17/17 at 14:15; Stop 02/17/17 at 14:44; Status Cancel Ondansetron HCl (Zofran) 4 mg PRN Q8HRS PRN IV NAUSEA/VOMITING; Start at 15:00; Stop 02/18/17 at 14:59; Status DC Albuterol/ Ipratropium (Duoneb) 3 ml RTQID NEB Last administered on 02/18/17 19:11; Start 02/17/17 at 16:00; Stop 02/18/17 at 15:59; Status DC Furosemide (Lasix) 40 mg BID92 IVP Last administered on 02/26/17 15:38; Start 02/18/17 at 09:00; Stop 02/27/17 at 08:25; Status DC Cefepime HCl 2 gm/ Sodium Chloride 100 ml @ 200 mls/hr 1X ONCE IV Last administered on 02/17/17 15:15; Start 02/17/17 at 15:15; Stop 02/17/17 at 15 :44; Status DC Vancomycin HCl 2 gm/Sodium Chloride 500 ml @ 250 mls/hr 1X ONCE IV Last administered on 02/17/17 16:58; Start 02/17/17 at 16:00; Stop 02/17/17 at 17 :59; Status DC Micafungin Sodium 100 mg/Dextrose 100 ml @ 100 mls/hr Q24H IV Last administered on 02/27/17 17:58; Start 02/17/17 at 19:00; Stop 02/28/17 at 09: 31; Status DC Vancomycin HCl (Vanco Per Pharmacy) 1 each PRN DAILY PRN MC SEE COMMENTS Last administered on 02/23/17 20:48; Start 02/18/17 at 07:15; Stop 02/24/17 at 09 :38; Status DC Levofloxacin/ Dextrose 100 ml @ 100 mls/hr Q24H IV Last administered on 12:46; Start 02/18/17 at 14:00; Stop 02/19/17 at 10:01; Status DC Vancomycin HCl 2 gm/Dextrose 500 ml @ 250 mls/hr Q12H IV Last administered on 02/18/17 21:41; Start 02/18/17 at 08:00; Stop 02/19/17 at 10:19; Status DC Lactobacillus Rhamnosus (Culturelle) 1 cap BID PO Last administered on 08:44; Start 02/18/17 at 09:00 Multivitamins (Thera M Plus) 1 tab DAILY PO Last administered on 03/02/17 08: 45; Start 02/18/17 at 11:00 Ascorbic Acid (Vitamin C) 500 mg DAILY PO Last administered on 03/02/17 08:45 ; Start 02/18/17 at 11:00 Vancomycin HCl 1 each 1X ONCE MC Last administered on 02/19/17 07:30; Start 02/19/17 at 07:30; Stop 02/19/17 at 07:31; Status DC Albuterol/ Ipratropium (Duoneb) 3 ml RTQID NEB Last administered on 03/02/17 12:10; Start 02/18/17 at 20:30 Alteplase, Recombinant 10 mg/ Sodium Chloride 100 ml @ 10 mls/hr 1X ONCE IV ; Start 02/19/17 at 06:00; Stop 02/19/17 at 15:59; Status UNV Alteplase, Recombinant (Cathflo) 2 mg 1X ONCE INT CAT Last administered on 06:05; Start 02/19/17 at 06:30; Stop 02/19/17 at 06:31; Status DC Levofloxacin (Levaquin) 500 mg DAILY06 PO Last administered on 02/24/17 05:15 ; Start 02/19/17 at 14:00; Stop 02/24/17 at 09:38; Status DC Vancomycin HCl 1.25 gm/Dextrose 250 ml @ 167 mls/hr Q12H IV Last administered on 02/20/17 18:15; Start 02/19/17 at 17:00; Stop 02/21/17 at 06:37; Status DC Vancomycin HCl 1 each 1X ONCE MC Last administered on 02/21/17 04:30; Start 02/21/17 at 04:30; Stop 02/21/17 at 04:31; Status DC Tramadol HCl (Ultram) 100 mg PRN Q6HRS PRN PO PAIN Last administered on 10:12; Start 02/19/17 at 18:45; Stop 03/01/17 at 16:14; Status DC Lidocaine/Sodium Bicarbonate (Buffered Lidocaine 1%) 20 ml STK-MED ONCE IJ ; Start 02/20/17 at 14:37; Stop 02/20/17 at 14:38; Status DC Fentanyl Citrate (Fentanyl 2ml Vial) 100 mcg STK-MED ONCE .ROUTE ; Start at 14:37; Stop 02/20/17 at 14:38; Status DC Midazolam HCl (Versed) 2 mg STK-MED ONCE .ROUTE ; Start 02/20/17 at 14:37; Stop 02/20/17 at 14:38; Status DC Lidocaine/Sodium Bicarbonate (Buffered Lidocaine 1%) 20 ml 1X ONCE IJ Last administered on 02/20/17 15:09; Start 02/20/17 at 15:15; Stop 02/20/17 at 15 :16; Status DC Midazolam HCl (Versed) 2 mg 1X ONCE IV Last administered on 02/20/17 15:10; Start 02/20/17 at 15:15; Stop 02/20/17 at 15:16; Status DC Fentanyl Citrate (Fentanyl 2ml Vial) 100 mcg 1X ONCE IV Last administered on 02/20/17 15:10; Start 02/20/17 at 15:15; Stop 02/20/17 at 15:16; Status DC Vancomycin HCl 1.5 gm/Dextrose 500 ml @ 250 mls/hr Q24H IV Last administered on 02/22/17 19:26; Start 02/21/17 at 19:00; Stop 02/23/17 at 20:37; Status DC Vancomycin HCl 1 each 1X ONCE MC ; Start 02/23/17 at 18:30; Stop 02/23/17 at 18:31; Status DC Nystatin (Nystop) 1 tony BID TP Last administered on 03/02/17 08:52; Start at 21:30 Albuterol Sulfate (Ventolin Neb Soln) 2.5 mg PRN Q4HRS PRN NEB SHORTNESS OF BREATH Last administered on 02/22/17 03:35; Start 02/22/17 at 03:30 Potassium Chloride (Klor-Con) 20 meq DAILYWBKFT PO Last administered on 08:31; Start 02/23/17 at 09:00; Stop 02/28/17 at 12:58; Status DC Vancomycin HCl 1.5 gm/Dextrose 500 ml @ 250 mls/hr Q36H IV ; Start 02/24/17 at 07:00; Stop 02/24/17 at 07:00; Status DC Vancomycin HCl 1.75 gm/Dextrose 500 ml @ 250 mls/hr Q36H IV Last administered on 02/24/17 06:25; Start 02/24/17 at 07:00; Stop 02/24/17 at 09:38; Status DC Ferrous Sulfate (Feosol) 325 mg DAILYWBKFT PO Last administered on 03/02/17 08 :45; Start 02/24/17 at 09:00 Cefazolin Sodium 2 gm/Dextrose 50 ml @ 100 mls/hr Q8HRS IV ; Start 02/24/17 at 14:00; Status UNV Cefazolin Sodium/ Dextrose 50 ml @ 100 mls/hr Q8HRS IV Last administered on 06:17; Start 02/24/17 at 14:00; Stop 02/28/17 at 09:31; Status DC Alteplase, Recombinant (Cathflo) 2 mg 1X ONCE INT CAT Last administered on 13:45; Start 02/24/17 at 13:30; Stop 02/24/17 at 13:31; Status DC Albuterol/ Ipratropium (Duoneb) 3 ml STK-MED ONCE .ROUTE ; Start 02/24/17 at 19 :16; Stop 02/24/17 at 19:17; Status DC Diphenhydramine HCl (Benadryl) 50 mg PRN Q6HRS PRN PO ITCHING Last administered on 03/02/17 08:52; Start 02/25/17 at 18:15 Ondansetron HCl (Zofran) 4 mg PRN Q6HRS PRN IV NAUSEA/VOMITING; Start 02/26/17 at 10:15; Stop 02/27/17 at 10:14; Status DC Fentanyl Citrate (Fentanyl 2ml Vial) 25 mcg PRN Q5MIN PRN IV MILD PAIN; Start 02/26/17 at 10:15; Stop 02/27/17 at 10:14; Status DC Fentanyl Citrate (Fentanyl 2ml Vial) 50 mcg PRN Q5MIN PRN IV MODERATE PAIN; Start 02/26/17 at 10:15; Stop 02/27/17 at 10:14; Status DC Morphine Sulfate 1 mg PRN Q10MIN PRN IV SEVERE PAIN; Start 02/26/17 at 10:15; Stop 02/27/17 at 10:14; Status DC Ringer's Solution 1,000 ml @ 30 mls/hr Q24H IV ; Start 02/26/17 at 10:10; Stop 02/26/17 at 22:09; Status DC Lidocaine HCl (Xylocaine-Mpf 1% Vial) 2 ml 1X PRN PRN ID IV START; Start at 10:15; Stop 02/27/17 at 10:14; Status DC Hydromorphone HCl (Dilaudid) 0.5 mg PRN Q10MIN PRN IV SEV PAIN, Second choice; Start 02/26/17 at 10:15; Stop 02/27/17 at 10:14; Status DC Prochlorperazine Edisylate (Compazine) 5 mg PACU PRN PRN IV NAUSEA, MRX1; Start 02/26/17 at 10:15; Stop 02/27/17 at 10:14; Status DC Ondansetron HCl (Zofran) 4 mg PRN Q6HRS PRN IV NAUSEA/VOMITING; Start 02/27/17 at 07:00; Stop 02/28/17 at 06:59; Status DC Fentanyl Citrate (Fentanyl 2ml Vial) 25 mcg PRN Q5MIN PRN IV MILD PAIN; Start 02/27/17 at 07:00; Stop 02/28/17 at 06:59; Status DC Fentanyl Citrate (Fentanyl 2ml Vial) 50 mcg PRN Q5MIN PRN IV MODERATE PAIN Last administered on 02/27/17t 15:56; Start 02/27/17 at 07:00; Stop 02/28/17 at 06:59; Status DC Morphine Sulfate 1 mg PRN Q10MIN PRN IV SEVERE PAIN Last administered on 16:02; Start 02/27/17 at 07:00; Stop 02/28/17 at 06:59; Status DC Ringer's Solution 1,000 ml @ 30 mls/hr Q24H IV Last administered on 02/27/17 11:25; Start 02/27/17 at 07:00; Stop 02/27/17 at 18:59; Status DC Lidocaine HCl (Xylocaine-Mpf 1% Vial) 2 ml PRN 1X PRN ID IV START; Start at 07:00; Stop 02/28/17 at 06:59; Status DC Hydromorphone HCl (Dilaudid) 0.5 mg PRN Q10MIN PRN IV SEV PAIN, Second choice Last administered on 02/27/17 16:31; Start 02/27/17 at 07:00; Stop 02/28/17 at 06:59; Status DC Prochlorperazine Edisylate (Compazine) 5 mg PACU PRN PRN IV NAUSEA, MRX1; Start 02/27/17 at 07:00; Stop 02/28/17 at 06:59; Status DC Lidocaine HCl 20 ml STK-MED ONCE .ROUTE ; Start 02/27/17 at 07:08; Stop at 08:08; Status DC Bisacodyl (Dulcolax Tab) 10 mg PRN DAILY PRN PO CONSTIPATION Last administered on 03/01/17 07:52; Start 02/27/17 at 08:30 Furosemide (Lasix) 40 mg DAILY PO Last administered on 03/02/17 08:45; Start 02/27/17 at 09:00 Propofol 20 ml @ As Directed STK-MED ONCE IV ; Start 02/27/17 at 12:28; Stop at 12:29; Status DC Dexamethasone Sodium Phosphate (Decadron) 20 mg STK-MED ONCE .ROUTE ; Start 02/27/17 at 12:28; Stop 02/27/17 at 12:29; Status DC Famotidine (Pepcid) 20 mg STK-MED ONCE .ROUTE ; Start 02/27/17 at 12:28; Stop 02/27/17 at 12:29; Status DC Lidocaine HCl (Lidocaine Pf 2% Vial) 5 ml STK-MED ONCE .ROUTE ; Start 02/27/17 at 12:28; Stop 02/27/17 at 12:29; Status DC Ondansetron HCl (Zofran) 4 mg STK-MED ONCE .ROUTE ; Start 02/27/17 at 12:28; Stop 02/27/17 at 12:29; Status DC Fentanyl Citrate (Fentanyl 2ml Vial) 100 mcg STK-MED ONCE .ROUTE ; Start at 12:28; Stop 02/27/17 at 12:29; Status DC Midazolam HCl (Versed) 2 mg STK-MED ONCE .ROUTE ; Start 02/27/17 at 12:29; Stop 02/27/17 at 12:30; Status DC Desflurane (Suprane) 90 ml STK-MED ONCE IH ; Start 02/27/17 at 14:54; Stop 02/27 at 14:55; Status DC Fentanyl Citrate (Fentanyl 2ml Vial) 100 mcg STK-MED ONCE .ROUTE ; Start at 15:18; Stop 02/27/17 at 15:19; Status DC Acetaminophen/ Hydrocodone Bitart (Lortab 7.5/325) 1 tab PRN Q3HRS PRN PO PAIN Last administered on 03/02/17 08:52; Start 02/27/17 at 15:45 Acetaminophen/ Hydrocodone Bitart (Lortab 10/325) 1 tab PRN Q3HRS PRN PO PAIN Last administered on 03/01/17t 14:25; Start 02/27/17 at 15:45 Tramadol HCl (Ultram) 50 mg PRN QID PRN PO PAIN; Start 02/27/17 at 15:45 Oxycodone/ Acetaminophen (Percocet 5/325) 1 tab PRN Q3HRS PRN PO PAIN; Start 02/27/17 at 15:45; Stop 03/01/17 at 07:43; Status DC Oxycodone/ Acetaminophen (Percocet 7.5/ 325) 1 tab PRN Q3HRS PRN PO PAIN; Start 02/27/17 at 15:45 Tramadol HCl (Ultram) 100 mg PRN Q3HRS PRN PO PAIN Last administered on 03:21; Start 02/27/17 at 15:45 Morphine Sulfate 2 mg PRN Q1HR PRN IV PAIN Last administered on 03/01/17 10:13 ; Start 02/27/17 at 15:45 Fentanyl Citrate (Fentanyl 2ml Vial) 25 mcg PRN Q1HR PRN IV PAIN; Start at 15:45; Stop 03/01/17 at 07:43; Status DC Diphenhydramine HCl (Benadryl) 25 mg PRN Q6HRS PRN IV ITCHING; Start 02/27/17 at 15:45 Morphine Sulfate 4 mg PRN Q1HR PRN IV PAIN Last administered on 02/28/17 10:56 ; Start 02/27/17 at 15:45; Stop 03/01/17 at 07:43; Status DC Morphine Sulfate 6 mg PRN Q1HR PRN IV PAIN; Start 02/27/17 at 15:45; Stop 03/01 at 07:43; Status DC Morphine Sulfate 8 mg PRN Q1HR PRN IV PAIN; Start 02/27/17 at 15:45; Stop 03/01 at 07:43; Status DC Fentanyl Citrate (Fentanyl 2ml Vial) 50 mcg PRN Q1HR PRN IV PAIN; Start at 15:45; Stop 03/01/17 at 07:43; Status DC Dextrose (Dextrose 50%-Water Syringe) 12.5 gm PRN Q15MIN PRN IV SEE COMMENTS; Start 02/27/17 at 15:45 Daptomycin 840 mg/ Sodium Chloride 50 ml @ 100 mls/hr Q24H IV Last administered on 03/02/17 09:33; Start 02/28/17 at 10:00 Potassium Chloride (Klor-Con) 20 meq BIDAFTMEAL PO Last administered on 08:45; Start 02/28/17 at 18:00 Cetirizine HCl (ZyrTEC) 20 mg DAILY PO Last administered on 03/02/17 08:44; Start 02/28/17 at 14:00 Enoxaparin Sodium (Lovenox 40mg Syringe) 40 mg Q24H SQ Last administered on 08:44; Start 03/01/17 at 08:00 Active Scripts Active Reported Tramadol Hcl 50 Mg Tablet 2 Tab PO PRN Q6HRS Ferrous Sulfate 325 Mg Tablet 1 Tab PO BID 30 Days LAST DOSE GIVEN: DATE:01/02/17 TIME:9:00 a.m Diclofenac Sodium 75 Mg Tablet.dr 75 Mg PO BID Meds not given this hospital admission. May resume home medications as approved by Physician. Vitals/I & O Vital Sign - Last 24 Hours 03/01/17 03/01/17 03/01/17 03/01/17 14:25 15:00 15:23 15:25 Temp 98.1 98.1 Pulse 66 Resp 16 20 16 B/P (MAP) 95/45 (62) Pulse Ox 96 98 95 O2 Delivery Nasal Cannula Room Air Nasal Cannula Nasal Cannula O2 Flow Rate 3.0 3.0 3.0 03/01/17 03/01/17 03/01/17 03/01/17 17:34 18:34 19:36 19:50 Temp 98.3 98.3 Pulse 73 Resp 16 16 18 B/P (MAP) 103/52 (69) Pulse Ox 95 97 95 O2 Delivery Nasal Cannula Nasal Cannula Nasal Cannula Room Air O2 Flow Rate 3.0 3.0 3.0 03/01/17 03/01/17 03/02/17 03/02/17 20:15 23:35 03:39 07:01 Temp 98.2 98.0 98.2 98.2 98.0 98.2 Pulse 70 68 66 Resp 18 18 18 B/P (MAP) 102/53 (69) 111/59 (76) 127/62 (83) Pulse Ox 95 97 100 O2 Delivery Nasal Cannula Room Air Room Air Room Air O2 Flow Rate 3.0 03/02/17 03/02/17 03/02/17 03/02/17 08:00 09:01 11:00 12:11 Temp 98.2 98.2 Pulse 67 Resp 18 B/P (MAP) 109/50 (69) Pulse Ox 100 97 97 O2 Delivery Nasal Cannula Nasal Cannula Room Air Nasal Cannula O2 Flow Rate 3.0 3.0 3.0 Intake and Output 03/02/17 03/02/17 03/03/17 15:00 23:00 07:00 Intake Total 250 ml Balance 250 ml CANDICE NAVA MD Mar 02, 2017 12:42
--- NOTE | 2017-03-02 13:21 | PDOC ---
Infectious Disease Note Subjective Subjective + pruritus and persistent rash, no worse Denies SOA, wheezing or swelling 3L NC O2 ROS ROS GEN: Denies fevers, chills, sweats HEENT: Denies blurred vision, sore throat CV: Denies chest pain RESP: Denies shortness of air, cough GI: Denies n/v/d NEURO: Denies confusion, dizziness MSK: Denies weakness, joint pain/swelling Vital Sign Vital Signs Vital Signs Date Time Temp Pulse Resp B/P (MAP) Pulse Ox O2 Delivery O2 Flow Rate FiO2 03/02/17 12:11 97 Nasal Cannula 3.0 03/02/17 11:00 98.2 67 18 109/50 (69) 98.2 Physical Exam PHYSICAL EXAM GENERAL: NAD, Alert HEENT: PERRL, OC/OP NECK: Supple, no JVD, no LN LUNGS: Clear HEART: S1S2, no gallop, no murmur ABD: Soft, NT, no organomegaly, no rebound EXT: No edema, no cyanosis [employer]: Alert, oriented x 3, no focal neurologic deficit SKIN: No rash IV: ok Labs Lab Laboratory Tests Test 03/02/17 05:40 White Blood Count 10.4 x10^3/uL (4.0-11.0) Red Blood Count 2.81 x10^6/uL (3.50-5.40) Hemoglobin 7.5 g/dL (12.0-15.5) Hematocrit 23.9 % (36.0-47.0) Mean Corpuscular Volume 85 fL (79-100) Mean Corpuscular Hemoglobin 27 pg (25-35) Mean Corpuscular Hemoglobin Concent 31 g/dL (31-37) Red Cell Distribution Width 17.4 % (11.5-14.5) Platelet Count 239 x10^3/uL (140-400) Neutrophils (%) (Auto) 79 % (31-73) Lymphocytes (%) (Auto) 13 % (24-48) Monocytes (%) (Auto) 4 % (0-9) Eosinophils (%) (Auto) 3 % (0-3) Basophils (%) (Auto) 1 % (0-3) Neutrophils # (Auto) 8.2 x10^3uL (1.8-7.7) Lymphocytes # (Auto) 1.3 x10^3/uL (1.0-4.8) Monocytes # (Auto) 0.4 x10^3/uL (0.0-1.1) Eosinophils # (Auto) 0.4 x10^3/uL (0.0-0.7) Basophils # (Auto) 0.1 x10^3/uL (0.0-0.2) Prothrombin Time 15.8 SEC (11.7-14.0) Prothromb Time International Ratio 1.3 (0.8-1.1) Objective Assessment Fever -better Leukopenia - s/p Solu-Medrol times one 02/17. ? med related. Was normal last week in 7's. better. EOS elevated Rash - ? med related - better Acute on chronic hypercapnic failure Right knee wound. - h/o right TKA wound dehiscence, s/p exploration with irrigation, debridement right knee and closure 01/28 w/ MSSA & GBS growth. - s/p TKA place 12/30 Groin yeast rash on [place] Rash again, Plan Plan of Care Dapto f/u cultures Monitor rash - improving but still itch. Supportive care ok to d/c f/u with us in 2 wks, wkly cbc, bun/cr, sed rate and cpk D/w family ALONDRA NOBLES MD Mar 02, 2017 13:21
[2017-03-02 15:00] VITALS: BP 98/52
--- NOTE | 2017-03-02 18:06 | PDOC ---
PULMONARY PROGRESS NOTES Subjective no soa Vitals Vital Signs Date Time Temp Pulse Resp B/P (MAP) Pulse Ox O2 Delivery O2 Flow Rate FiO2 03/02/17 16:03 Nasal Cannula 3.0 03/02/17 15:00 98.4 76 18 98/52 (67) 97 98.4 ROS: No Nausea, No Chest Pain, No Abdominal Pain, No Increase Cough General: Alert, No acute distress Lungs: Clear Cardiovascular: S1, S2 Abdomen: Soft Neuro Exam: Alert Extremities: Other (EDEMA AND DRESSING OVE RIGHT KNEE, rash lower and upper extremity) Skin: Warm Labs Laboratory Tests Test 03/01/17 05:25 03/02/17 05:40 Hemoglobin 8.0 g/dL (12.0-15.5) 7.5 g/dL (12.0-15.5) Hematocrit 26.3 % (36.0-47.0) 23.9 % (36.0-47.0) Mean Corpuscular Hemoglobin Concent 30 g/dL (31-37) 31 g/dL (31-37) Prothrombin Time 16.1 SEC (11.7-14.0) 15.8 SEC (11.7-14.0) Prothromb Time International Ratio 1.4 (0.8-1.1) 1.3 (0.8-1.1) White Blood Count 10.4 x10^3/uL (4.0-11.0) Red Blood Count 2.81 x10^6/uL (3.50-5.40) Mean Corpuscular Volume 85 fL (79-100) Mean Corpuscular Hemoglobin 27 pg (25-35) Red Cell Distribution Width 17.4 % (11.5-14.5) Platelet Count 239 x10^3/uL (140-400) Neutrophils (%) (Auto) 79 % (31-73) Lymphocytes (%) (Auto) 13 % (24-48) Monocytes (%) (Auto) 4 % (0-9) Eosinophils (%) (Auto) 3 % (0-3) Basophils (%) (Auto) 1 % (0-3) Neutrophils # (Auto) 8.2 x10^3uL (1.8-7.7) Lymphocytes # (Auto) 1.3 x10^3/uL (1.0-4.8) Monocytes # (Auto) 0.4 x10^3/uL (0.0-1.1) Eosinophils # (Auto) 0.4 x10^3/uL (0.0-0.7) Basophils # (Auto) 0.1 x10^3/uL (0.0-0.2) Laboratory Tests Test 03/02/17 05:40 White Blood Count 10.4 x10^3/uL (4.0-11.0) Red Blood Count 2.81 x10^6/uL (3.50-5.40) Hemoglobin 7.5 g/dL (12.0-15.5) Hematocrit 23.9 % (36.0-47.0) Mean Corpuscular Volume 85 fL (79-100) Mean Corpuscular Hemoglobin 27 pg (25-35) Mean Corpuscular Hemoglobin Concent 31 g/dL (31-37) Red Cell Distribution Width 17.4 % (11.5-14.5) Platelet Count 239 x10^3/uL (140-400) Neutrophils (%) (Auto) 79 % (31-73) Lymphocytes (%) (Auto) 13 % (24-48) Monocytes (%) (Auto) 4 % (0-9) Eosinophils (%) (Auto) 3 % (0-3) Basophils (%) (Auto) 1 % (0-3) Neutrophils # (Auto) 8.2 x10^3uL (1.8-7.7) Lymphocytes # (Auto) 1.3 x10^3/uL (1.0-4.8) Monocytes # (Auto) 0.4 x10^3/uL (0.0-1.1) Eosinophils # (Auto) 0.4 x10^3/uL (0.0-0.7) Basophils # (Auto) 0.1 x10^3/uL (0.0-0.2) Prothrombin Time 15.8 SEC (11.7-14.0) Prothromb Time International Ratio 1.3 (0.8-1.1) Medications Active Scripts Medications Dose Route/Sig Max Daily Dose Days Date Category Dose Instructions Tramadol Hcl 50 Mg Tablet 2 Tab PO PRN Q6HRS 02/17/17 Reported Ferrous Sulfate 325 Mg Tablet 1 Tab PO BID 30 01/02/17 Reported LAST DOSE GIVEN: DATE:01/02/17 TIME:9:00 a.m Diclofenac Sodium 75 Mg Tablet.dr 75 Mg PO BID 11/10/16 Reported Meds not given this hospital admission. May resume home medications as approved by Physician. Impression . 1. Tgami-ss-zvoawhk hypoxemic/ hypercapnic respiratory failure.( marilyn/ohs/ COPD / Diastolic HF) 2. Acute diastolic heart failure. compensated 3. Leukopenia. resolved 4. h/o right TKA, wound dehiscence, s/p exploration with irrigation, debridement right knee and closure 01/28 w/ MSSA & GBS growth. - s/p TKA place 12/30 5. Abnormal x-ray compatible with acute pulmonary edema.stable 6. Morbid obesity. 7. Chronic anemia. 8. Protein malnutrition, present upon admission. Plan . RESP STATUS IS COMPENSATED, WILL SEE IN OFFICE BIPAP QHS/ PT HAS HOME CPAP AND USES O2 QHS F/U ORTHO/ID RECOMMENDATIONS WOUND CARE ANTIBX PER ID per ID OK TO D/C NEBS DVT PROPH. AGREE WITH ADDING LOVENOX JAMES SEQUEIRA MD Mar 02, 2017 18:06
[2017-03-02 19:00] VITALS: BP 105/46
[2017-03-02 23:00] VITALS: BP 126/71
[2017-03-03 03:00] VITALS: BP 110/53
[2017-03-03 06:11] LABS: HEMATOCRIT 24.5 % (36.0-47.0); HEMOGLOBIN 7.7 g/dL (12.0-15.5)
[2017-03-03 06:20] LABS: INR 1.3 (0.8-1.1); PROTHROMBIN TIME PATIENT 15.5 SEC (11.7-14.0)
[2017-03-03 07:03] VITALS: BP 114/53
[2017-03-03] MEDS: FERROUS SULFATE 325 MG TABLET. PO SCH (08:00)
[2017-03-03] MEDS: CETIRIZINE HCL 10 MG TABLET. PO SCH (08:11)
[2017-03-03] MEDS: LACTOBACILLUS RHAMNOSUS GG 1 CAPSULE. PO SCH (08:12)
[2017-03-03] MEDS: POTASSIUM CHLORIDE 20 MEQ TABLET.ER. PO SCH (08:12)
[2017-03-03] MEDS: FUROSEMIDE 40 MG TABLET. PO SCH (08:13)
[2017-03-03] MEDS: MULTIVITAMIN with MINERAL TABLET. PO SCH (08:13)
[2017-03-03] MEDS: ASCORBIC ACID 500 MG TABLET PO SCH (08:13)
[2017-03-03] MEDS: ENOXAPARIN 40 MG/0.4 ML SYRINGE. SQ SCH (08:13)
[2017-03-03] MEDS: NYSTATIN TOPICAL POWDER 15GM BOTTLE. TP SCH (08:18)
--- NOTE | 2017-03-03 08:37 | PDOC ---
PROGRESS NOTES Subjective Subjective c/c - f/u of anemia ROS- no bleed Objective Objective Vital Signs Date Time Temp Pulse Resp B/P (MAP) Pulse Ox O2 Delivery O2 Flow Rate FiO2 03/03/17 07:03 97.9 68 20 114/53 (73) 97 Nasal Cannula 3.0 97.9 Physical Exam Heart: Normal S2 General: Alert, Oriented X3 Lungs: Clear to auscultation Neuro: Normal speech Psych/Mental Status: Mental status NL Assessment Assessment Problems Medical Problems: (1) Acute congestive heart failure Status: Acute (2) Acute respiratory failure with hypoxia Status: Acute (3) COPD exacerbation Status: Acute IMPRESSION AND PLAN: 1. Severe neutropenia with elevated monocytes, is most likely a reactive process due to underlying infection. Improved. WBC better at 10.4 on 03/02/17 BM bx is negative for leukemia (I d/w pathologist DR Tirado). 2. Anemia, due to chronic disease. Continue to monitor. Hb 7.7. Low iron saturation (due to blood loss from surgery and wound) . Cont oral iron supplementation 3. History of right knee replacement. Comment Review of Relevant I have reviewed the following items behzad (where applicable) has been applied. Labs Laboratory Tests Test 03/02/17 05:40 03/03/17 05:45 White Blood Count 10.4 x10^3/uL (4.0-11.0) Red Blood Count 2.81 x10^6/uL (3.50-5.40) Hemoglobin 7.5 g/dL (12.0-15.5) 7.7 g/dL (12.0-15.5) Hematocrit 23.9 % (36.0-47.0) 24.5 % (36.0-47.0) Mean Corpuscular Volume 85 fL (79-100) Mean Corpuscular Hemoglobin 27 pg (25-35) Mean Corpuscular Hemoglobin Concent 31 g/dL (31-37) 31 g/dL (31-37) Red Cell Distribution Width 17.4 % (11.5-14.5) Platelet Count 239 x10^3/uL (140-400) Neutrophils (%) (Auto) 79 % (31-73) Lymphocytes (%) (Auto) 13 % (24-48) Monocytes (%) (Auto) 4 % (0-9) Eosinophils (%) (Auto) 3 % (0-3) Basophils (%) (Auto) 1 % (0-3) Neutrophils # (Auto) 8.2 x10^3uL (1.8-7.7) Lymphocytes # (Auto) 1.3 x10^3/uL (1.0-4.8) Monocytes # (Auto) 0.4 x10^3/uL (0.0-1.1) Eosinophils # (Auto) 0.4 x10^3/uL (0.0-0.7) Basophils # (Auto) 0.1 x10^3/uL (0.0-0.2) Prothrombin Time 15.8 SEC (11.7-14.0) 15.5 SEC (11.7-14.0) Prothromb Time International Ratio 1.3 (0.8-1.1) 1.3 (0.8-1.1) Laboratory Tests Test 03/03/17 05:45 Hemoglobin 7.7 g/dL (12.0-15.5) Hematocrit 24.5 % (36.0-47.0) Mean Corpuscular Hemoglobin Concent 31 g/dL (31-37) Prothrombin Time 15.5 SEC (11.7-14.0) Prothromb Time International Ratio 1.3 (0.8-1.1) Microbiology 02/17/17 Blood Culture - Final, Complete NO GROWTH AFTER 5 DAYS 02/27/17 Anaerobic/Aerobic Culture - Final, Complete 02/27/17 Anaerobic Culture Result 1 (MARVIN) - Final, Complete 02/27/17 Aerobic Culture - Final, Complete 02/27/17 Aerobic Culture Result 1 (MARVIN) - Final, Complete Medications Current Medications Albuterol Sulfate (Ventolin Neb Soln) 10 mg 1X ONCE CONT NEB Last administered on 02/17/17 12:37; Start 02/17/17 at 12:30; Stop 02/17/17 at 12 :36; Status DC Ipratropium [place] (Atrovent) 0.5 mg 1X ONCE NEB Last administered on 12:37; Start 02/17/17 at 12:30; Stop 02/17/17 at 12:36; Status DC Methylprednisolone Sodium Succinate (SOLU-Medrol 125MG VIAL) 125 mg 1X ONCE IV Last administered on 02/17/17 12:52; Start 02/17/17 at 12:30; Stop at 12:36; Status DC Albuterol Sulfate (Ventolin Neb Soln) 2.5 mg STK-MED ONCE .ROUTE ; Start at 12:33; Stop 02/17/17 at 12:34; Status DC Albuterol/ Ipratropium (Duoneb) 3 ml STK-MED ONCE .ROUTE ; Start 02/17/17 at 12 :33; Stop 02/17/17 at 12:34; Status DC Furosemide (Lasix) 40 mg 1X ONCE IVP Last administered on 02/17/17 15:21; Start 02/17/17 at 13:45; Stop 02/17/17 at 13:46; Status DC Cefepime HCl 2 gm/ Sodium Chloride 100 ml @ 200 mls/hr Q8HRS IV ; Start at 23:00; Stop 02/17/17 at 23:00; Status DC Levofloxacin/ Dextrose 150 ml @ 100 mls/hr 1X ONCE IV Last administered on 14:15; Start 02/17/17 at 14:15; Stop 02/17/17 at 15:44; Status DC Cefepime HCl 2 gm/ Dextrose 100 ml @ 200 mls/hr 1X ONCE IV ; Start 02/17/17 at 14:15; Stop 02/17/17 at 14:44; Status Cancel Ondansetron HCl (Zofran) 4 mg PRN Q8HRS PRN IV NAUSEA/VOMITING; Start at 15:00; Stop 02/18/17 at 14:59; Status DC Albuterol/ Ipratropium (Duoneb) 3 ml RTQID NEB Last administered on 02/18/17 19:11; Start 02/17/17 at 16:00; Stop 02/18/17 at 15:59; Status DC Furosemide (Lasix) 40 mg BID92 IVP Last administered on 02/26/17 15:38; Start 02/18/17 at 09:00; Stop 02/27/17 at 08:25; Status DC Cefepime HCl 2 gm/ Sodium Chloride 100 ml @ 200 mls/hr 1X ONCE IV Last administered on 02/17/17 15:15; Start 02/17/17 at 15:15; Stop 02/17/17 at 15 :44; Status DC Vancomycin HCl 2 gm/Sodium Chloride 500 ml @ 250 mls/hr 1X ONCE IV Last administered on 02/17/17 16:58; Start 02/17/17 at 16:00; Stop 02/17/17 at 17 :59; Status DC Micafungin Sodium 100 mg/Dextrose 100 ml @ 100 mls/hr Q24H IV Last administered on 02/27/17 17:58; Start 02/17/17 at 19:00; Stop 02/28/17 at 09: 31; Status DC Vancomycin HCl (Vanco Per Pharmacy) 1 each PRN DAILY PRN MC SEE COMMENTS Last administered on 02/23/17 20:48; Start 02/18/17 at 07:15; Stop 02/24/17 at 09 :38; Status DC Levofloxacin/ Dextrose 100 ml @ 100 mls/hr Q24H IV Last administered on 12:46; Start 02/18/17 at 14:00; Stop 02/19/17 at 10:01; Status DC Vancomycin HCl 2 gm/Dextrose 500 ml @ 250 mls/hr Q12H IV Last administered on 02/18/17 21:41; Start 02/18/17 at 08:00; Stop 02/19/17 at 10:19; Status DC Lactobacillus Rhamnosus (Culturelle) 1 cap BID PO Last administered on 08:12; Start 02/18/17 at 09:00 Multivitamins (Thera M Plus) 1 tab DAILY PO Last administered on 03/03/17 08: 13; Start 02/18/17 at 11:00 Ascorbic Acid (Vitamin C) 500 mg DAILY PO Last administered on 03/03/17 08:13 ; Start 02/18/17 at 11:00 Vancomycin HCl 1 each 1X ONCE MC Last administered on 02/19/17 07:30; Start 02/19/17 at 07:30; Stop 02/19/17 at 07:31; Status DC Albuterol/ Ipratropium (Duoneb) 3 ml RTQID NEB Last administered on 03/02/17 19:23; Start 02/18/17 at 20:30 Alteplase, Recombinant 10 mg/ Sodium Chloride 100 ml @ 10 mls/hr 1X ONCE IV ; Start 02/19/17 at 06:00; Stop 02/19/17 at 15:59; Status UNV Alteplase, Recombinant (Cathflo) 2 mg 1X ONCE INT CAT Last administered on 06:05; Start 02/19/17 at 06:30; Stop 02/19/17 at 06:31; Status DC Levofloxacin (Levaquin) 500 mg DAILY06 PO Last administered on 02/24/17 05:15 ; Start 02/19/17 at 14:00; Stop 02/24/17 at 09:38; Status DC Vancomycin HCl 1.25 gm/Dextrose 250 ml @ 167 mls/hr Q12H IV Last administered on 02/20/17 18:15; Start 02/19/17 at 17:00; Stop 02/21/17 at 06:37; Status DC Vancomycin HCl 1 each 1X ONCE MC Last administered on 02/21/17 04:30; Start 02/21/17 at 04:30; Stop 02/21/17 at 04:31; Status DC Tramadol HCl (Ultram) 100 mg PRN Q6HRS PRN PO PAIN Last administered on 10:12; Start 02/19/17 at 18:45; Stop 03/01/17 at 16:14; Status DC Lidocaine/Sodium Bicarbonate (Buffered Lidocaine 1%) 20 ml STK-MED ONCE IJ ; Start 02/20/17 at 14:37; Stop 02/20/17 at 14:38; Status DC Fentanyl Citrate (Fentanyl 2ml Vial) 100 mcg STK-MED ONCE .ROUTE ; Start at 14:37; Stop 02/20/17 at 14:38; Status DC Midazolam HCl (Versed) 2 mg STK-MED ONCE .ROUTE ; Start 02/20/17 at 14:37; Stop 02/20/17 at 14:38; Status DC Lidocaine/Sodium Bicarbonate (Buffered Lidocaine 1%) 20 ml 1X ONCE IJ Last administered on 02/20/17 15:09; Start 02/20/17 at 15:15; Stop 02/20/17 at 15 :16; Status DC Midazolam HCl (Versed) 2 mg 1X ONCE IV Last administered on 02/20/17 15:10; Start 02/20/17 at 15:15; Stop 02/20/17 at 15:16; Status DC Fentanyl Citrate (Fentanyl 2ml Vial) 100 mcg 1X ONCE IV Last administered on 02/20/17 15:10; Start 02/20/17 at 15:15; Stop 02/20/17 at 15:16; Status DC Vancomycin HCl 1.5 gm/Dextrose 500 ml @ 250 mls/hr Q24H IV Last administered on 02/22/17 19:26; Start 02/21/17 at 19:00; Stop 02/23/17 at 20:37; Status DC Vancomycin HCl 1 each 1X ONCE MC ; Start 02/23/17 at 18:30; Stop 02/23/17 at 18:31; Status DC Nystatin (Nystop) 1 tony BID TP Last administered on 03/02/17 21:21; Start at 21:30 Albuterol Sulfate (Ventolin Neb Soln) 2.5 mg PRN Q4HRS PRN NEB SHORTNESS OF BREATH Last administered on 02/22/17 03:35; Start 02/22/17 at 03:30 Potassium Chloride (Klor-Con) 20 meq DAILYWBKFT PO Last administered on 08:31; Start 02/23/17 at 09:00; Stop 02/28/17 at 12:58; Status DC Vancomycin HCl 1.5 gm/Dextrose 500 ml @ 250 mls/hr Q36H IV ; Start 02/24/17 at 07:00; Stop 02/24/17 at 07:00; Status DC Vancomycin HCl 1.75 gm/Dextrose 500 ml @ 250 mls/hr Q36H IV Last administered on 02/24/17 06:25; Start 02/24/17 at 07:00; Stop 02/24/17 at 09:38; Status DC Ferrous Sulfate (Feosol) 325 mg DAILYWBKFT PO Last administered on 03/02/17 08 :45; Start 02/24/17 at 09:00 Cefazolin Sodium 2 gm/Dextrose 50 ml @ 100 mls/hr Q8HRS IV ; Start 02/24/17 at 14:00; Status UNV Cefazolin Sodium/ Dextrose 50 ml @ 100 mls/hr Q8HRS IV Last administered on 06:17; Start 02/24/17 at 14:00; Stop 02/28/17 at 09:31; Status DC Alteplase, Recombinant (Cathflo) 2 mg 1X ONCE INT CAT Last administered on 13:45; Start 02/24/17 at 13:30; Stop 02/24/17 at 13:31; Status DC Albuterol/ Ipratropium (Duoneb) 3 ml STK-MED ONCE .ROUTE ; Start 02/24/17 at 19 :16; Stop 02/24/17 at 19:17; Status DC Diphenhydramine HCl (Benadryl) 50 mg PRN Q6HRS PRN PO ITCHING Last administered on 03/02/17 08:52; Start 02/25/17 at 18:15 Ondansetron HCl (Zofran) 4 mg PRN Q6HRS PRN IV NAUSEA/VOMITING; Start 02/26/17 at 10:15; Stop 02/27/17 at 10:14; Status DC Fentanyl Citrate (Fentanyl 2ml Vial) 25 mcg PRN Q5MIN PRN IV MILD PAIN; Start 02/26/17 at 10:15; Stop 02/27/17 at 10:14; Status DC Fentanyl Citrate (Fentanyl 2ml Vial) 50 mcg PRN Q5MIN PRN IV MODERATE PAIN; Start 02/26/17 at 10:15; Stop 02/27/17 at 10:14; Status DC Morphine Sulfate 1 mg PRN Q10MIN PRN IV SEVERE PAIN; Start 02/26/17 at 10:15; Stop 02/27/17 at 10:14; Status DC Ringer's Solution 1,000 ml @ 30 mls/hr Q24H IV ; Start 02/26/17 at 10:10; Stop 02/26/17 at 22:09; Status DC Lidocaine HCl (Xylocaine-Mpf 1% Vial) 2 ml 1X PRN PRN ID IV START; Start at 10:15; Stop 02/27/17 at 10:14; Status DC Hydromorphone HCl (Dilaudid) 0.5 mg PRN Q10MIN PRN IV SEV PAIN, Second choice; Start 02/26/17 at 10:15; Stop 02/27/17 at 10:14; Status DC Prochlorperazine Edisylate (Compazine) 5 mg PACU PRN PRN IV NAUSEA, MRX1; Start 02/26/17 at 10:15; Stop 02/27/17 at 10:14; Status DC Ondansetron HCl (Zofran) 4 mg PRN Q6HRS PRN IV NAUSEA/VOMITING; Start 02/27/17 at 07:00; Stop 02/28/17 at 06:59; Status DC Fentanyl Citrate (Fentanyl 2ml Vial) 25 mcg PRN Q5MIN PRN IV MILD PAIN; Start 02/27/17 at 07:00; Stop 02/28/17 at 06:59; Status DC Fentanyl Citrate (Fentanyl 2ml Vial) 50 mcg PRN Q5MIN PRN IV MODERATE PAIN Last administered on 02/27/17 15:56; Start 02/27/17 at 07:00; Stop 02/28/17 at 06:59; Status DC Morphine Sulfate 1 mg PRN Q10MIN PRN IV SEVERE PAIN Last administered on 16:02; Start 02/27/17 at 07:00; Stop 02/28/17 at 06:59; Status DC Ringer's Solution 1,000 ml @ 30 mls/hr Q24H IV Last administered on 02/27/17 11:25; Start 02/27/17 at 07:00; Stop 02/27/17 at 18:59; Status DC Lidocaine HCl (Xylocaine-Mpf 1% Vial) 2 ml PRN 1X PRN ID IV START; Start at 07:00; Stop 02/28/17 at 06:59; Status DC Hydromorphone HCl (Dilaudid) 0.5 mg PRN Q10MIN PRN IV SEV PAIN, Second choice Last administered on 02/27/17 16:31; Start 02/27/17 at 07:00; Stop 02/28/17 at 06:59; Status DC Prochlorperazine Edisylate (Compazine) 5 mg PACU PRN PRN IV NAUSEA, MRX1; Start 02/27/17 at 07:00; Stop 02/28/17 at 06:59; Status DC Lidocaine HCl 20 ml STK-MED ONCE .ROUTE ; Start 02/27/17 at 07:08; Stop at 08:08; Status DC Bisacodyl (Dulcolax Tab) 10 mg PRN DAILY PRN PO CONSTIPATION Last administered on 03/01/17 07:52; Start 02/27/17 at 08:30 Furosemide (Lasix) 40 mg DAILY PO Last administered on 03/03/17 08:13; Start 02/27/17 at 09:00 Propofol 20 ml @ As Directed STK-MED ONCE IV ; Start 02/27/17 at 12:28; Stop at 12:29; Status DC Dexamethasone Sodium Phosphate (Decadron) 20 mg STK-MED ONCE .ROUTE ; Start 02/27/17 at 12:28; Stop 02/27/17 at 12:29; Status DC Famotidine (Pepcid) 20 mg STK-MED ONCE .ROUTE ; Start 02/27/17 at 12:28; Stop 02/27/17 at 12:29; Status DC Lidocaine HCl (Lidocaine Pf 2% Vial) 5 ml STK-MED ONCE .ROUTE ; Start 02/27/17 at 12:28; Stop 02/27/17 at 12:29; Status DC Ondansetron HCl (Zofran) 4 mg STK-MED ONCE .ROUTE ; Start 02/27/17 at 12:28; Stop 02/27/17 at 12:29; Status DC Fentanyl Citrate (Fentanyl 2ml Vial) 100 mcg STK-MED ONCE .ROUTE ; Start at 12:28; Stop 02/27/17 at 12:29; Status DC Midazolam HCl (Versed) 2 mg STK-MED ONCE .ROUTE ; Start 02/27/17 at 12:29; Stop 02/27/17 at 12:30; Status DC Desflurane (Suprane) 90 ml STK-MED ONCE IH ; Start 02/27/17 at 14:54; Stop 02/27 at 14:55; Status DC Fentanyl Citrate (Fentanyl 2ml Vial) 100 mcg STK-MED ONCE .ROUTE ; Start at 15:18; Stop 02/27/17 at 15:19; Status DC Acetaminophen/ Hydrocodone [place] (Lortab 7.5/325) 1 tab PRN Q3HRS PRN PO PAIN Last administered on 03/02/17 08:52; Start 02/27/17 at 15:45 Acetaminophen/ Hydrocodone Bitart (Lortab 10/325) 1 tab PRN Q3HRS PRN PO PAIN Last administered on 03/01/17 14:25; Start 02/27/17 at 15:45 Tramadol HCl (Ultram) 50 mg PRN QID PRN PO PAIN; Start 02/27/17 at 15:45 Oxycodone/ Acetaminophen (Percocet 5/325) 1 tab PRN Q3HRS PRN PO PAIN; Start 02/27/17 at 15:45; Stop 03/01/17 at 07:43; Status DC Oxycodone/ Acetaminophen (Percocet 7.5/ 325) 1 tab PRN Q3HRS PRN PO PAIN; Start 02/27/17 at 15:45 Tramadol HCl (Ultram) 100 mg PRN Q3HRS PRN PO PAIN Last administered on 03:21; Start 02/27/17 at 15:45 Morphine Sulfate 2 mg PRN Q1HR PRN IV PAIN Last administered on 03/01/17 10:13 ; Start 02/27/17 at 15:45 Fentanyl Citrate (Fentanyl 2ml Vial) 25 mcg PRN Q1HR PRN IV PAIN; Start at 15:45; Stop 03/01/17 at 07:43; Status DC Diphenhydramine HCl (Benadryl) 25 mg PRN Q6HRS PRN IV ITCHING; Start 02/27/17 at 15:45 Morphine Sulfate 4 mg PRN Q1HR PRN IV PAIN Last administered on 02/28/17 10:56 ; Start 02/27/17 at 15:45; Stop 03/01/17 at 07:43; Status DC Morphine Sulfate 6 mg PRN Q1HR PRN IV PAIN; Start 02/27/17 at 15:45; Stop 03/01 at 07:43; Status DC Morphine Sulfate 8 mg PRN Q1HR PRN IV PAIN; Start 02/27/17 at 15:45; Stop 03/01 at 07:43; Status DC Fentanyl Citrate (Fentanyl 2ml Vial) 50 mcg PRN Q1HR PRN IV PAIN; Start at 15:45; Stop 03/01/17 at 07:43; Status DC Dextrose (Dextrose 50%-Water Syringe) 12.5 gm PRN Q15MIN PRN IV SEE COMMENTS; Start 02/27/17 at 15:45 Daptomycin 840 mg/ Sodium Chloride 50 ml @ 100 mls/hr Q24H IV Last administered on 03/02/17 09:33; Start 02/28/17 at 10:00 Potassium Chloride (Klor-Con) 20 meq BIDAFTMEAL PO Last administered on 08:12; Start 02/28/17 at 18:00 Cetirizine HCl (ZyrTEC) 20 mg DAILY PO Last administered on 03/03/17 08:11; Start 02/28/17 at 14:00 Enoxaparin Sodium (Lovenox 40mg Syringe) 40 mg Q24H SQ Last administered on 08:13; Start 03/01/17 at 08:00 Active Scripts Active Reported Tramadol Hcl 50 Mg Tablet 2 Tab PO PRN Q6HRS Ferrous Sulfate 325 Mg Tablet 1 Tab PO BID 30 Days LAST DOSE GIVEN: DATE:01/02/17 TIME:9:00 a.m Diclofenac Sodium 75 Mg Tablet.dr 75 Mg PO BID Meds not given this hospital admission. May resume home medications as approved by Physician. Vitals/I & O Vital Sign - Last 24 Hours 03/02/17 03/02/17 03/02/17 03/02/17 09:01 11:00 12:11 15:00 Temp 98.2 98.4 98.2 98.4 Pulse 67 76 Resp 18 18 B/P (MAP) 109/50 (69) 98/52 (67) Pulse Ox 100 97 97 97 O2 Delivery Nasal Cannula Room Air Nasal Cannula Room Air O2 Flow Rate 3.0 3.0 03/02/17 03/02/17 03/02/17 03/02/17 16:03 19:00 19:24 20:00 Temp 98.8 98.8 Pulse 73 Resp 20 B/P (MAP) 105/46 (65) Pulse Ox 96 98 O2 Delivery Nasal Cannula Nasal Cannula Nasal Cannula Nasal Cannula O2 Flow Rate 3.0 3.0 3.0 3.0 03/02/17 03/03/17 03/03/17 23:00 03:00 07:03 Temp 98.7 98.4 97.9 98.7 98.4 97.9 Pulse 69 70 68 Resp 19 20 20 B/P (MAP) 126/71 (89) 110/53 (72) 114/53 (73) Pulse Ox 95 96 97 O2 Delivery Nasal Cannula Nasal Cannula Nasal Cannula O2 Flow Rate 3.0 3.0 3.0 CANDICE NAVA MD Mar 03, 2017 08:37
--- NOTE | 2017-03-03 08:37 | PDOC ---
GENERAL General: see discharge summary. Problems: VITAL SIGNS Vital Signs: Vital Signs Date Time Temp Pulse Resp B/P (MAP) Pulse Ox O2 Delivery O2 Flow Rate FiO2 03/03/17 07:03 97.9 68 20 114/53 (73) 97 Nasal Cannula 3.0 97.9 ALLERGIES Allergies: Allergies Coded Allergies Type Severity Reaction Last Updated Verified No Known Drug Allergies 02/27/17 No MEDS Medications: Current Medications Medications (Trade) Dose Ordered Sig/Jayson Start Time Stop Time Status Last Admin Dose Admin Acetaminophen/ Hydrocodone Bitart (Lortab 10/325) 1 tab PRN Q3HRS PRN 02/27/17 15:45 03/01/17 14:25 1 TAB Acetaminophen/ Hydrocodone Bitart (Lortab 7.5/325) 1 tab PRN Q3HRS PRN 02/27/17 15:45 03/02/17 08:52 1 TAB Albuterol Sulfate (Ventolin Neb Soln) 2.5 mg PRN Q4HRS PRN 02/22/17 03:30 02/22/17 03:35 2.5 MG Albuterol/ Ipratropium (Duoneb) 3 ml STK-MED ONCE 02/24/17 19:16 02/24/17 19:17 DC Alteplase, Recombinant (Cathflo) 2 mg 1X ONCE 02/24/17 13:30 02/24/17 13:31 DC 02/24/17 13:45 2 MG Alteplase, Recombinant 10 mg/ Sodium Chloride 100 ml @ 10 mls/hr 1X ONCE 02/19/17 06:00 02/19/17 15:59 UNV Ascorbic Acid (Vitamin C) 500 mg DAILY 02/18/17 11:00 03/03/17 08:13 500 MG Bisacodyl (Dulcolax Tab) 10 mg PRN DAILY PRN 02/27/17 08:30 03/01/17 07:52 10 MG Cefazolin Sodium 2 gm/Dextrose 50 ml @ 100 mls/hr Q8HRS 02/24/17 14:00 UNV Cefazolin Sodium/ Dextrose 50 ml @ 100 mls/hr Q8HRS 02/24/17 14:00 02/28/17 09:31 DC 02/28/17 06:17 100 MLS/HR Cefepime HCl 2 gm/ Dextrose 100 ml @ 200 mls/hr 1X ONCE 02/17/17 14:15 02/17/17 14:44 Cancel Cefepime HCl 2 gm/ Sodium Chloride 100 ml @ 200 mls/hr 1X ONCE 02/17/17 15:15 02/17/17 15:44 DC 02/17/17 15:15 200 MLS/HR Cetirizine HCl (ZyrTEC) 20 mg DAILY 02/28/17 14:00 03/03/17 08:11 20 MG Daptomycin 840 mg/ Sodium Chloride 50 ml @ 100 mls/hr Q24H 02/28/17 10:00 03/02/17 09:33 100 MLS/HR Desflurane (Suprane) 90 ml STK-MED ONCE 02/27/17 14:54 02/27/17 14:55 DC Dexamethasone Sodium Phosphate (Decadron) 20 mg STK-MED ONCE 02/27/17 12:28 02/27/17 12:29 DC Dextrose (Dextrose 50%-Water Syringe) 12.5 gm PRN Q15MIN PRN 02/27/17 15:45 Diphenhydramine HCl (Benadryl) 25 mg PRN Q6HRS PRN 02/27/17 15:45 Enoxaparin Sodium (Lovenox 40mg Syringe) 40 mg Q24H 03/01/17 08:00 03/03/17 08:13 40 MG Famotidine (Pepcid) 20 mg STK-MED ONCE 02/27/17 12:28 02/27/17 12:29 DC Fentanyl Citrate (Fentanyl 2ml Vial) 50 mcg PRN Q1HR PRN 02/27/17 15:45 03/01/17 07:43 DC Ferrous Sulfate (Feosol) 325 mg DAILYWBKFT 02/24/17 09:00 03/02/17 08:45 325 MG Furosemide (Lasix) 40 mg DAILY 02/27/17 09:00 03/03/17 08:13 40 MG Hydromorphone HCl (Dilaudid) 0.5 mg PRN Q10MIN PRN 02/27/17 07:00 02/28/17 06:59 DC 02/27/17 16:31 0.5 MG Ipratropium [place] (Atrovent) 0.5 mg 1X ONCE 02/17/17 12:30 02/17/17 12:36 DC 02/17/17 12:37 0.5 MG Lactobacillus Rhamnosus (Culturelle) 1 cap BID 02/18/17 09:00 03/03/17 08:12 1 CAP Levofloxacin (Levaquin) 500 mg DAILY06 02/19/17 14:00 02/24/17 09:38 DC 02/24/17 05:15 500 MG Levofloxacin/ Dextrose 100 ml @ 100 mls/hr Q24H 02/18/17 14:00 02/19/17 10:01 DC 02/18/17 12:46 100 MLS/HR Lidocaine HCl (Lidocaine Pf 2% Vial) 5 ml STK-MED ONCE 02/27/17 12:28 02/27/17 12:29 DC Lidocaine HCl (Xylocaine-Mpf 1% Vial) 2 ml PRN 1X PRN 02/27/17 07:00 02/28/17 06:59 DC Lidocaine/Sodium Bicarbonate (Buffered Lidocaine 1%) 20 ml 1X ONCE 02/20/17 15:15 02/20/17 15:16 DC 02/20/17 15:09 7 ML Methylprednisolone Sodium Succinate (SOLU-Medrol 125MG VIAL) 125 mg 1X ONCE 02/17/17 12:30 02/17/17 12:36 DC 02/17/17 12:52 125 MG Micafungin Sodium 100 mg/Dextrose 100 ml @ 100 mls/hr Q24H 02/17/17 19:00 02/28/17 09:31 DC 02/27/17 17:58 100 MLS/HR Midazolam HCl (Versed) 2 mg STK-MED ONCE 02/27/17 12:29 02/27/17 12:30 DC Morphine Sulfate 8 mg PRN Q1HR PRN 02/27/17 15:45 03/01/17 07:43 DC Multivitamins (Thera M Plus) 1 tab DAILY 02/18/17 11:00 03/03/17 08:13 1 TAB Nystatin (Nystop) 1 tony BID 02/21/17 21:30 03/02/17 21:21 1 TONY Ondansetron HCl (Zofran) 4 mg STK-MED ONCE 02/27/17 12:28 02/27/17 12:29 DC Oxycodone/ Acetaminophen (Percocet 5/325) 1 tab PRN Q3HRS PRN 02/27/17 15:45 03/01/17 07:43 DC Oxycodone/ Acetaminophen (Percocet 7.5/ 325) 1 tab PRN Q3HRS PRN 02/27/17 15:45 Potassium Chloride (Klor-Con) 20 meq BIDAFTMEAL 02/28/17 18:00 03/03/17 08:12 20 MEQ Prochlorperazine Edisylate (Compazine) 5 mg PACU PRN PRN 02/27/17 07:00 02/28/17 06:59 DC Propofol 20 ml @ As Directed STK-MED ONCE 02/27/17 12:28 02/27/17 12:29 DC Ringer's Solution 1,000 ml @ 30 mls/hr Q24H 02/27/17 07:00 02/27/17 18:59 DC 02/27/17 11:25 30 MLS/HR Tramadol HCl (Ultram) 100 mg PRN Q3HRS PRN 02/27/17 15:45 03/02/17 03:21 100 MG Vancomycin HCl (Vanco Per Pharmacy) 1 each PRN DAILY PRN 02/18/17 07:15 02/24/17 09:38 DC 02/23/17 20:48 1 EACH Vancomycin HCl 1.25 gm/Dextrose 250 ml @ 167 mls/hr Q12H 02/19/17 17:00 02/21/17 06:37 DC 02/20/17 18:15 167 MLS/HR Vancomycin HCl 1.5 gm/Dextrose 500 ml @ 250 mls/hr Q36H 02/24/17 07:00 02/24/17 07:00 DC Vancomycin HCl 1.75 gm/Dextrose 500 ml @ 250 mls/hr Q36H 02/24/17 07:00 02/24/17 09:38 DC 02/24/17 06:25 250 MLS/HR Vancomycin HCl 2 gm/Dextrose 500 ml @ 250 mls/hr Q12H 02/18/17 08:00 02/19/17 10:19 DC 02/18/17 21:41 250 MLS/HR Vancomycin HCl 2 gm/Sodium Chloride 500 ml @ 250 mls/hr 1X ONCE 02/17/17 16:00 02/17/17 17:59 DC 02/17/17 16:58 250 MLS/HR LAB Lab: Laboratory Tests Test 03/03/17 05:45 Hemoglobin 7.7 g/dL (12.0-15.5) Hematocrit 24.5 % (36.0-47.0) Mean Corpuscular Hemoglobin Concent 31 g/dL (31-37) Prothrombin Time 15.5 SEC (11.7-14.0) Prothromb Time International Ratio 1.3 (0.8-1.1) RAFAEL CASTRO MD Mar 03, 2017 08:37
[2017-03-03] MEDS: IPRATRPIUM/ALBUTEROL 0.5/2.5MG 3 ML NEBU. NEB SCH ×2 (09:01→12:00)
--- NOTE | 2017-03-03 09:55 | DS ---
DATE OF DISCHARGE: 03/03/2017 ADDENDUM The patient's discharge was held on 02/25/2017 because of increased drainage and bleeding from the right knee. She was taken to surgery by Ortho where it was irrigated out again with negative cultures. At the time of discharge, she had a reaction to the cefazolin with rash and increased itching as she had had with Rocephin and was changed to antibiotics by ID over to daptomycin ____ mg daily. This is per ID a problem because ____ chronic suppressive therapy once we are done treating her infected right leg, which likely involves a knee replacement. Her COPD remained stable during the last week of her stay and the patient was felt ready for discharge with all findings listed on the med rec at the time of discharge. RAFAEL CASTRO MD DR: PADDY/ilan JOB#: [id number] / [id number]
[2017-03-03] MEDS: DAPTOMYCIN IV SCH (09:58)
[2017-03-03] MEDS: NORMAL SALINE IV SCH (09:58)
--- NOTE | 2017-03-03 10:18 | PDOC ---
Infectious Disease Note Subjective Subjective pt feeling better, eager to go home rash is improving though slowly had dresssing change at night of the Rt knee ,per pt looks ok,dry,intact Denies SOA, chestpain,diarrhea, jt pain ROS ROS as above otherwise neg Vital Sign Vital Signs Vital Signs Date Time Temp Pulse Resp B/P (MAP) Pulse Ox O2 Delivery O2 Flow Rate FiO2 03/03/17 09:02 98 Nasal Cannula 3.0 03/03/17 07:03 97.9 68 20 114/53 (73) 97.9 Physical Exam PHYSICAL EXAM GENERAL: NAD, Alert sitting up in chair in nad HEENT: anicteric NECK: Supple LUNGS: Clear bilat HEART: S1S2 ABD: Soft, NT,ND EXT: RT knee dressing intact, dry, [employer]: Alert, oriented x 3, no focal neurologic deficit SKIN: maculopap rash improving, no sec infection noted picc line looks ok Labs Lab Laboratory Tests Test 03/03/17 05:45 Hemoglobin 7.7 g/dL (12.0-15.5) Hematocrit 24.5 % (36.0-47.0) Mean Corpuscular Hemoglobin Concent 31 g/dL (31-37) Prothrombin Time 15.5 SEC (11.7-14.0) Prothromb Time International Ratio 1.3 (0.8-1.1) Micro Knee I and D last one no wbc, rbc +, C/S NGTD Objective Assessment Fever resolved Leukopenia - s/p Solu-Medrol times one 02/17. ? med related.improving Rash - ? med related from cephalosporins- improving Acute on chronic hypercapnic failure resolved Right knee wound. status post remote total knee with previous I&D from traumatic wound dehiscence due to fall Recent Irrigation debridement right knee with polyethylene exchange and closure on 02/27, C/S NGTD - h/o right TKA wound dehiscence, s/p exploration with irrigation, debridement right knee and closure 01/28 w/ MSSA & GBS growth. Plan Plan of Care continue Dapto f/u cultures ,ngtd Monitor rash - improving ,avoid scratching Supportive care picc line management ok to d/c f/u with us in 2 wks, wkly cbc, bun/cr, sed rate and cpk D/w family and pt MARLENY NOBLES MD Mar 03, 2017 10:18
== END 2017-03-03 11:00 | disposition home health service (06) | DRG 463 ==
LOC: ER 12:07 → 1 WEST ICU 14:00 → 6 SOUTH 02-18 15:33
PROVIDERS: ADMIT Family Medicine; ATTEND Family Medicine
PROC: 5A09557 Assistance with Respiratory Ventilation, Greater than 96 Consecutive Hours, Continuous Positive Airway Pressure (ICD-10-PCS; 2017-02-17)
PROC: 0HBJXZX Excision of Left Upper Leg Skin, External Approach, Diagnostic (ICD-10-PCS; 2017-02-19)
PROC: 07DR3ZX Extraction of Iliac Bone Marrow, Percutaneous Approach, Diagnostic (ICD-10-PCS; principal; 2017-02-20)
PROC: 0SPV0JZ Removal of Synthetic Substitute from Right Knee Joint, Tibial Surface, Open Approach (ICD-10-PCS; 2017-02-27)
PROC: 0SBC0ZZ Excision of Right Knee Joint, Open Approach (ICD-10-PCS; 2017-02-27)
DX: T84.53XA Infection and inflammatory reaction due to internal right knee prosthesis, initial encounter (principal); J96.21 Acute and chronic respiratory failure with hypoxia; I50.31 Acute diastolic (congestive) heart failure; G93.40 Encephalopathy, unspecified; D70.9 Neutropenia, unspecified; E46 Unspecified protein-calorie malnutrition; D63.8 Anemia in other chronic diseases classified elsewhere; S80.01XA Contusion of right knee, initial encounter; J96.22 Acute and chronic respiratory failure with hypercapnia; Z68.44 Body mass index [BMI] 60.0-69.9, adult; E66.2 Morbid (severe) obesity with alveolar hypoventilation; J44.1 Chronic obstructive pulmonary disease with (acute) exacerbation; G47.33 Obstructive sleep apnea (adult) (pediatric); Z82.3 Family history of stroke; Z82.49 Family history of ischemic heart disease and other diseases of the circulatory system; Z83.3 Family history of diabetes mellitus; Z87.891 Personal history of nicotine dependence; Z96.651 Presence of right artificial knee joint; M19.90 Unspecified osteoarthritis, unspecified site
CPT/HCPCS: 36415; 36600; 38221; 71010; 77012; 80048; 80053; 80202; 82565; 82607; 82728; 82746; 82805; 83540; 83550; 83605; 83880; 84443; 84484; 85007; 85014; 85018; 85025; 85045; 85610; 85651; 86140; 87040; 87071; 87075; 87102; 87205; 87641; 87804; 88184; 88185; 88237; 88305; 88311; 88312; 88313; 93005; 94250; 94640; 94660; 94760; 96365; 96366; 96368; 96375; A4314; G0364; J0690; J0692; J0878; J1100; J1170; J1650; J1940; J1956; J2248; J2250; J2270; J2405; J2704; J2930; J2997; J3010; J3370; J7030; J7040; J7120; J7613; J7620; J7644; Q0163; S0028; 97110; 97116; 97530; 97535; 99285-25; A4461; C1769; J2001